=== PATIENT | male | born 1980 | race Caucasian/White ===

== ENCOUNTER 2020-07-02 10:37 | Outpatient (CLI) | payer SELFPAY ==
--- NOTE | 2020-07-02 10:48 | XRR_ITS ---
PROCEDURE INFORMATION: Exam: XR Lumbosacral Spine, 2 or 3 Views Exam date and time: 07/02/2020 11:06 AM Age: 40 years old Clinical indication: Low back pain; Prior surgery; Additional info: M54.5 - low back pain TECHNIQUE: Imaging protocol: XR of the lumbosacral spine, 2 or 3 views. COMPARISON: No relevant prior studies available. FINDINGS: Bones/joints: Mild degenerative disc disease reflected as a decrease in disc space height and anterior endplate osteophytosis. Severe disc space narrowing L5-S1. No spondylolisthesis L5 pars defect. No fracture. Soft tissues: Unremarkable. XR/XR lumbar spine 2-3V* [id number] IMPRESSION: Mild degenerative disc disease reflected as a decrease in disc space height and anterior endplate osteophytosis. Severe disc space narrowing L5-S1. pars defect L5. Consider correlation with CT versus MRI.
== END 2020-07-02 10:38 | disposition home or self-care (01) ==
PROVIDERS: PCP Nurse Practitioner; Visit Provider Nurse Practitioner
DX: M54.5 Low back pain (principal); M51.36 Other intervertebral disc degeneration, lumbar region
CPT/HCPCS: 72100

== ENCOUNTER → 2020-09-02 10:18 | Outpatient (BNVA) | payer SELFPAY | PROVIDERS: PCP Nurse Practitioner; Visit Provider Nurse Practitioner | DX: I10 Essential (primary) hypertension (principal); M51.36 Other intervertebral disc degeneration, lumbar region | CPT/HCPCS: 80053; 80061; 81003; 87086 ==

== ENCOUNTER 2021-01-06 09:31 | Outpatient (CLI) | payer OTHER, SELFPAY ==
--- NOTE | 2021-01-06 09:39 | XR_ITS ---
WS: [id number] LUMBAR SPINE: 3 VIEWS TECHNIQUE: AP, lateral and L5-S1 spot. HISTORY: BACK PAIN COMPARISON: 07/02/2020 Severe degenerative disc space narrowing at L5-S1. L5 anterolisthesis by 16 mm. Bilateral pars defect s at L5. Otherwise the alignment is normal. Remaining discs are normal height. SI joints are symmetric bilaterally. No soft tissue abnormalities. XR/XR lumbar spine 2-3V* [id number] IMPRESSION: Grade 2 spondylolisthesis of L5 with spondylolysis.
== END 2021-01-06 09:32 | disposition home or self-care (01) ==
LOC: RAD 09:34
PROVIDERS: PCP Nurse Practitioner; Visit Provider Dermatology
DX: M54.5 Low back pain (principal); M43.16 Spondylolisthesis, lumbar region; M47.816 Spondylosis without myelopathy or radiculopathy, lumbar region
CPT/HCPCS: 72100

== ENCOUNTER → 2021-07-01 08:49 | Outpatient (BNVA) | payer SELFPAY | PROVIDERS: PCP Nurse Practitioner; Referring Provider Nurse Practitioner; Visit Provider Anesthesiology Pain Medicine | DX: G89.29 Other chronic pain (principal); M43.16 Spondylolisthesis, lumbar region; M48.062 Spinal stenosis, lumbar region with neurogenic claudication; M51.36 Other intervertebral disc degeneration, lumbar region; E66.01 Morbid (severe) obesity due to excess calories; M79.604 Pain in right leg; M79.605 Pain in left leg; Z68.42 Body mass index [BMI] 45.0-49.9, adult; Z79.899 Other long term (current) drug therapy | CPT/HCPCS: 99205 ==

== ENCOUNTER 2023-03-11 23:58 | Inpatient (IN) | payer OTHER, BC, MEDICAID, SELFPAY ==
[2023-03-12] VITALS (26 sets, daily range): BP systolic 110–170; BP diastolic 61–90; PULSE 84–122; RESP 16–22; TEMP 36.7–38.8; O2SAT 90–98; BMI 42.0
--- NOTE | 2023-03-12 00:59 | ED_ITS ---
HPI - Wound/Laceration General: Chief Complaint: Wound/Laceration Stated Complaint: CYST RUPTURE ON BUTT Time Seen by Provider: 03/12/23 00:58 History of Present Illness: 42-year-old male patient comes in today with a reported rupture of the pilonidal cyst and then area of redness and induration to the right buttock. Patient reports for about 1 to 2 months he has had this cyst on his tailbone that has been red and sore. Patient was seen by Dr. Graham mid January and was started on antibiotics, Bactrim DS, after 10 days patient then saw primary care in [place] and was prescribed cephalexin with some pain medication. Patient has been without the antibiotics and pain medicine for about 6days reports he has been unable to get sleep for last three days during that time and has had increasing pain and discomfort to his tailbone and right buttock. Patient appears unwell. Patient appears in moderate pain. Review of Systems General: Reports: 10 or more systems reviewed and unremarkable except in HPI and below Skin/Breast: Reports: erythema and sores PFSH ED PFSH: Medical History Essential (primary) hypertension Metabolic syndrome Morbid obesity with BMI of 45.0-49.9, adult Surgical History History of nasal surgery History of surgical removal of pilonidal cyst Family History Mother Diabetes Hypertension Father Cancer Hypertension Other Hyperlipidemia Social History Second hand smoke exposure: No Smoking risk assessment/counseling performed?: Yes Alcohol intake: never Desire information about alcohol rehabilitation?: No Counseling given: No Substance/Drug Use: never Desire information about substance/drug rehabilitation?: No Counseling given: No Adopted: No Caregiver/support person: No Lives independently: Yes Household members: significant other Housing: House Marital status: Number of children: 2 Highest education level completed: High School Graduate service: No Current occupational status: unemployed Current occupational exposures/hazards: No Pets and animals: Yes Do you think of yourself as: Straight/Heterosexual Current gender identity: Male Physical Exam Const: COMMON NORMALS: alert HENMT: COMMON NORMALS: normocephalic HEAD & SCALP: normocephalic Neck/C-Spine: COMMON NORMALS: full ROM Chest: COMMONS NORMALS: normal inspection of the chest Cardio: COMMON NORMALS: regular rate and regular rhythm RATE: regular rate RHYTHM: regular rhythm GI: COMMON NORMALS: Soft to palpation PALPATION: Yes Soft to palpation OTHER: Redness and induration to an area approximately 12 to 15 cm to the right buttock with a centralized eschar lesion, draining pilonidal cyst to the sacral area. Back/Pelvis: COMMON NORMALS: thoracic and lumbar spine normal to inspection Extremity: COMMON NORMALS: full ROM Neuro: SENSORIUM/ORIENTATION: Yes alert Skin: NARRATIVE SKIN EXAM: Draining pilonidal cyst with minimal redness and induration. 4 cm area of eschar with surrounding induration and redness approximately 14 cm to the right buttock. Course Vital Signs: Vital signs: Vital Signs Temperature 98.4 F 03/12/23 00:03 Pulse Rate 118 H 03/12/23 00:03 Respiratory Rate 18 03/12/23 00:03 Pulse Oximetry 92 03/12/23 00:03 Oxygen Delivery Me thod Room Air 03/12/23 00:03 MDM - Wound/Laceration Medical Decision Making 42-year-old male patient comes in today for complaints of increasing pain and discomfort to the right buttock and a draining pilonidal cyst. Patient reports he has had drainage from the cyst for about 1 to 2 months now. Patient notes that he had a small wound to his right buttock last month but it has enlarged and now his right buttock has become more swollen and tender to touch. Patient denies diabetes but takes metformin routinely. Patient is diaphoretic and appears unwell. Vital signs note an elevated pulse of 118, patient is afebrile. Differential diagnosis includes necrotizing fasciitis, cellulitis, abscess. Laboratory values noted white blood cell count of 18.5, sodium was 129, glucose was 558. Patient was given 2 L of IV fluids, 10 units of insulin, 1 g of bank, and 4.[address] of the pelvis noted an abscess deep in the buttock of the right tissue. Discussed with Dr. Graham, general surgeon on-call, he agreed to consult with the patient for incision and drainage. Dr. Meade was consulted for admission to hospitalist services. Dr. Cruz, ER attending physician, agreed to treatment plan. Patient was notified and agreed to plan. Lab Data 03/12/23 01:15 03/12/23 01:[address] 03/12/23 01:09 IMPRESSION: Increased density in the right buttock soft tissues extending along the right perirectal space, right pelvic sidewall and between the right gluteus medius and vladimir muscles. Differential includes hematoma and infection. Underlying neoplasm cannot be excluded. There is surrounding soft tissue cellulitis. Laboratory Results WBC 18.5 10^3/uL (4.0-10.0) H 03/12/23 01:15 RBC 4.29 10^6/uL (4.1-5.3) 03/12/23 01:15 Hgb 11.9 g/dL (11.7-16.6) 03/12/23 01:15 Hct 36.4 % (42.0-52.0) L 03/12/23 01:15 MCV 84.8 fl (80-94) 03/12/23 01:15 MCH 27.7 pg (28.0-34.0) L 03/12/23 01:15 MCHC 32.7 g/dL (30.0-36.0) 03/12/23 01:15 RDW 13.1 % (12.1-15.1) 03/12/23 01:15 Plt Count 385 10^3/cmm (130-400) 03/12/23 01:15 MPV 9.8 fL (7.4-10.4) 03/12/23 01:15 Neut % (Auto) 78.7 % 03/12/23 01:15 Lymph % (Auto) 9.0 % 03/12/23 01:15 [place] % (Auto) 8.2 % 03/12/23 01:15 Eos % (Auto) 1.8 % 03/12/23 01:15 Baso % (Auto) 0.5 % 03/12/23 01:15 Neut # (Auto) 14.50 10^3/uL (1.8-7.7) H 03/12/23 01:15 Lymph # (Auto) 1.7 10^3/uL (0.8-4.8) 03/12/23 01:15 [place] # (Auto) 1.5 10^3/uL (0.2-0.9) H 03/12/23 01:15 Eos # (Auto) 0.3 10^3/uL (0.0-0.8) 03/12/23 01:15 Baso # (Auto) 0.1 10^3/uL (0.0-0.1) 03/12/23 01:15 Nucleated RBC % (auto) 0 % 03/12/23 01:15 Nucleated RBCs # 0.0 /100WBC 03/12/23 01:15 ESR 72 mm/hr (0-10) H 03/12/23 01:15 Sodium 129 mmol/L (136-145) L 03/12/23 01:15 Potassium 4.3 mmol/L (3.5-5.1) 03/12/23 01:15 Chloride 91 mmol/L (98-107) L 03/12/23 01:15 Carbon Dioxide 26 mmol/L (22-29) 03/12/23 01:15 Anion Gap 16.3 (5-19) 03/12/23 01:15 BUN 16 mg/dL (6-20) 03/12/23 01:15 Creatinine 0.8 mg/dL (0.7-1.2) 03/12/23 01:15 GFR Calculation 106.0 mL/min (90-130) 03/12/23 01:15 Glucose 558 mg/dL (65-115) H* 03/12/23 01:15 Estimat Average Glucose 295 03/12/23 01:15 Hemoglobin A1c 11.9 % (4.0-6.0) H 03/12/23 01:15 Calculated Osmolality 295 mOsm/kg (285-295) 03/12/23 01:15 Lactic Acid 2.2 mmol/L (0.5-2.2) 03/12/23 01:15 Calcium 8.6 mg/dL (8.5-10.5) 03/12/23 01:15 Total Bilirubin 0.2 mg/dL (0.15-1.2) 03/12/23 01:15 AST 11 U/L (0-40) 03/12/23 01:15 ALT 16 U/L (0-41) 03/12/23 01:15 Alkaline Phosphatase 135 U/L (40-130) H 03/12/23 01:15 C-Reactive Protein 298.3 mg/L (0.0-4.9) H 03/12/23 01:15 Total Protein 6.8 g/dL (6.6-8.7) 03/12/23 01:15 Albumin 2.4 g/dL (3.5-5.2) L 03/12/23 01:15 Globulin 4.4 g/dL (1.3-4.6) 03/12/23 01:15 Discharge Plan Discharge Patient Disposition: Admitted As Inpatient Clinical Impression: Abscess of buttock, right, Acute hyperglycemia Condition: Stable Coding Level of Care Code ED Wet Process Operator for Joe Sethi
--- NOTE | 2023-03-12 01:09 | CTR_ITS ---
PROCEDURE INFORMATION: Exam: CT Pelvis Without Contrast Exam date and time: 03/12/2023 1:32 AM Age: 42 years old Clinical indication: Prior surgery; Surgery date: 6+ months; Surgery type: Multiple i&d procedures due to abscess. Patient HX: Cellulitis to RT buttocks. ; Additional info: Cellulitis abscess buttock, and draining pilonidal cyst TECHNIQUE: Imaging protocol: Computed tomography of the pelvis without contrast. Radiation optimization: All CT scans at this facility use at least one of these dose optimization techniques: automated exposure control; mA and/or kV adjustment per patient size (includes targeted exams where dose is matched to clinical indication); or iterative reconstruction. REPORTING DATA: Count of CT and Cardiac NM exams in prior 12 months: This patient has received 0 known CTs and 0 known cardiac nuclear medicine studies in the 12 months prior to the current study. COMPARISON: CR XR lumbar spine 2-3V* [id number] 07/02/2020 10:59 AM RADIATION DOSE METRICS: Total DLP (mGy-cm): 1368.81 FINDINGS: Stomach and bowel: Visualized small bowel and colon are unremarkable. Appendix: No evidence of appendicitis. Intraperitoneal space: Unremarkable. No free air. No significant fluid collection. Lymph nodes: Unremarkable. No enlarged lymph nodes. Urinary bladder: Normal. No mass. Reproductive: Normal as visualized. Bones/joints: Unremarkable. No acute fracture. No dislocation. Soft tissues: There is increased density in the soft tissues inferior, medial, and posterior to the right gluteus vladimir muscle measuring 21.0 x 20.0 cm in the craniocaudad/AP dimensions extending to the skin surface of the inferior right buttock and along the right perirectal space extending along the right pelvic sidewall, right presacral space, along the right piriformis muscle, and between the gluteus medius and vladimir muscles. There is surrounding soft tissue cellulitis. CT/CT pelvis wo con [id number] IMPRESSION: Increased density in the right buttock soft tissues extending along the right perirectal space, right pelvic sidewall and between the right gluteus medius and vladimir muscles. Differential includes hematoma and infection. Underlying neoplasm cannot be excluded. There is surrounding soft tissue cellulitis.
[2023-03-12 01:30] LABS: Basophils # 0.1 10^3/uL (0.0-0.1); Basophils % 0.5 %; Eosinophils # 0.3 10^3/uL (0.0-0.8); Eosinophils % 1.8 %; Hematocrit 36.4 % (42.0-52.0); Hemoglobin 11.9 g/dL (11.7-16.6); Lymphocytes # 1.7 10^3/uL (0.8-4.8); Mean Corpuscular HGB Conc 32.7 g/dL (30.0-36.0); Mean Corpuscular Hemoglobin 27.7 pg (28.0-34.0); Mean Corpuscular Volume 84.8 fl (80-94); Mean Platelet Volume 9.8 fL (7.4-10.4); Monocytes # 1.5 10^3/uL (0.2-0.9); Monocytes % 8.2 %; Neutrophils % 78.7 %; Nucleated Red Blood Cells % 0 %; Platelet Count 385 10^3/cmm (130-400); Red Blood Count 4.29 10^6/uL (4.1-5.3); Red Cell Distribution Width 13.1 % (12.1-15.1); White Blood Count 18.5 10^3/uL (4.0-10.0)
[2023-03-12 01:45] LABS: Lactic Sepsis W/Reflex 2.2 mmol/L (0.5-2.2)
[2023-03-12] MEDS: morphine 4 mg/mL SDV 1 mL IVP (01:46)
[2023-03-12 01:47] LABS: Erythrocyte Sedimentation Rate 72 mm/hr (0-10)
[2023-03-12] MEDS: sodium chloride 0.9% 1,000 ML 999 ML IV ×2 (01:49→02:29)
[2023-03-12] MEDS: piperacillin-tazobactam 4.5 GM in sodium chloride 0.9% (plus) 50 ML IV (01:49)
[2023-03-12 01:51] LABS: Alanine Aminotransferase 16 U/L (0-41); Albumin Level 2.4 g/dL (3.5-5.2); Alkaline Phosphatase 135 U/L (40-130); Anion Gap 16.3 (5-19); Aspartate Amino Transferase 11 U/L (0-40); Blood Urea Nitrogen 16 mg/dL (6-20); C Reactive Protein 298.3 mg/L (0.0-4.9); Calcium 8.6 mg/dL (8.5-10.5); Carbon Dioxide 26 mmol/L (22-29); Chloride 91 mmol/L (98-107); Globulin 4.4 g/dL (1.3-4.6); Osmolality Calculated 295 mOsm/kg (285-295); Potassium 4.3 mmol/L (3.5-5.1); Sodium 129 mmol/L (136-145); Total Bilirubin 0.2 mg/dL (0.15-1.2); Total Protein 6.8 g/dL (6.6-8.7)
[2023-03-12 02:03] LABS: Slide Review Slide Review Perform
[2023-03-12 02:04] LABS: Glucose 558 mg/dL (65-115)
[2023-03-12] MEDS: insulin regular-human 100 units/1 mL 10 UNIT IVP (02:20)
[2023-03-12] MEDS: vancomycin 1,000 MG in sodium chloride 0.9% 250 ML 250 MG IV (02:29)
[2023-03-12 02:32] LABS: Estmated Average Glucose 295; Hemoglobin A1C 11.9 % (4.0-6.0)
[2023-03-12 03:13] LABS: Reflex Lactate Order REFLEX LACTIC ORDERD
--- NOTE | 2023-03-12 04:09 | P.HP_ITS ---
Providers/Chief Complaint Admitting Physician: Lorenzo Meade MD Primary Care Provider: MAZIN Zhu-Melly Chief Complaint: CYST RUPTURE ON BUTT History of Present Illness Brian Villatoro is a 42 year old male with history of pilonidal cyst, multiple surgeries around gluteal region in the past, presented to the hospital for worsening of back pain. Patient is stating that he has been experiencing symptoms for last 1 month he was scheduled for surgery on 22 March however because of his worsening symptoms he decided to come to the hospital. Patient stating that he noticed some redness around his right gluteal region and asked his son to take a look, his son asked him to go to the hospital right away because skin was sloughed off and there was pus coming out of his wound. Patient is denying nausea, vomiting, fever. When I questioned patient about diabetes patient had no clue he never took any medication regarding his hyperglycemia. Stating that we diagnosed him with high blood sugar in the ER. However there is metformin in his home med rec. SIRS criteria met with tachypnea tachycardia leukocytosis lactic acid is normal no endorgan damage Patient was given 2 L of IV fluids along insulin and antibiotics in the ER his hemoglobin A1c is 11.9 Review of Systems Const: Reports: chills Eyes: Denies: change in vision ENMT: Denies: throat pain Card: Denies: chest pain Resp: Denies: dyspnea GI: Denies: abdominal pain : Denies: flank pain Musc: Reports: back pain Skin/Breast: Reports: rash Medications/Allergies Home Medications Medication Instructions Recorded Confirmed Last Taken Type metformin 500 mg tablet,extended 500 mg PO BID #60 tabs 06/12/21 03/02/23 U nknown Rx release 24 hr meloxicam 15 mg tablet 15 mg PO DAILY pain #30 tabs 07/01/21 03/02/23 Unknown Rx tizanidine 4 mg tablet 4 mg PO BID PRN muscle spasticity 07/01/21 03/02/23 Unknown Rx #60 tabs gabapentin 300 mg capsule 300 mg PO TID pain #90 caps 08/04/21 03/02/23 Unknown Rx amlodipine 10 mg tablet (Norvasc) 10 mg PO DAILY #30 tabs 01/25/23 03/02/23 Unknown Rx atorvastatin 10 mg tablet (Lipitor) 10 mg PO DAILY #30 tabs 01/25/23 03/02/23 Unknown Rx duloxetine 60 mg capsule,delayed 60 mg PO BID #60 caps 01/25/23 03/02/23 Unknown Rx release (Cymbalta) furosemide 20 mg tablet (Lasix) 20 mg PO QAM #30 tabs 01/25/23 03/02/23 Unknown Rx hydralazine 50 mg tablet 50 mg PO TID #90 tabs 01/25/23 03/02/23 Unknown Rx valsartan 320 mg tablet (Diovan) 320 mg PO DAILY #30 tabs 01/25/23 03/02/23 Unknown Rx sulfamethoxazole 800 1 tab PO BID 10 days #20 tabs 02/09/23 03/02/23 Unknown Rx mg-trimethoprim 160 mg tablet (Bactrim DS) cephalexin 500 mg capsule 500 mg PO QID infection #40 caps 02/25/23 03/02/23 Unknown Rx Lactobacillus rhamnosus GG 20 See Rx Instructions PO .2 times 03/02/23 03/02/23 Unknown Rx billion cell capsule (Probiotic day #60 caps [facility]) mupirocin 2 % topical ointment 1 applic topical BID #22 grams 03/02/23 03/02/23 Unknown Rx oxycodone-acetaminophen 7.5 mg-325 1 tab PO Q4H PRN pain 15 days #60 03/09/23 Unknown Rx mg tablet tabs Allergies Allergy/AdvReac Type Severity Reaction Status Date / Time No Known Allergies Allergy Verified 03/02/23 15:04 PFSH Acute PFSH: Medical History Essential (primary) hypertension Metabolic syndrome Morbid obesity with BMI of 45.0-49.9, adult Surgical History History of nasal surgery History of surgical removal of pilonidal cyst Family History Mother Diabetes Hypertension Father Cancer Hypertension Other Hyperlipidemia Social History Second hand smoke exposure: No Smoking risk assessment/counseling performed?: Yes Alcohol intake: never Desire information about alcohol rehabilitation?: No Counseling given: No Substance/Drug Use: never Desire information about substance/drug rehabilitation?: No Counseling given: No Adopted: No Caregiver/support person: No Lives independently: Yes Household members: significant other Housing: House Marital status: Number of children: 2 Highest education level completed: High School Graduate service: No Current occupational status: unemployed Current occupational exposures/hazards: No Pets and animals: Yes Do you think of yourself as: Straight/Heterosexual Current gender identity: Male Vitals/I&O/Wt Last Vital Signs Temp 98.4 F 03/12/23 00:03 Pulse 84 03/12/23 03:35 Resp 20 H 03/12/23 03:35 BP 144/80 03/12/23 03:35 Pulse Ox 95 03/12/23 03:35 O2 Del Method Room Air 03/12/23 03:35 03/11/23 03/11/23 03/12/23 14:59 22:59 06:59 Intake Total 2300 / 2300 Balance 2300 / 2300 Weight last 48 hrs Weight 140.614 kg Physical Exam Narrative: Morbidly obese male laying left lateral position S1, S2 Nonfocal neuroexam Currently on room air Unkept appearance GCS 15 Pleasant and cooperative during my evaluation Abdomen distended nontender Right gluteal region showing abscess with skin sloughing Skin induration with hyperemia extending from right gluteal region all the way up towards gluteal cleft and sacral area Feculent material around his ulcer Data 03/12/23 01:15 03/12/23 01:15 Micro: Microbiology 03/12/23 01:20 Blood Culture - Preliminary Blood SPECIMEN COLLECTED 03/12/23 01:15 Blood Culture - Preliminary Blood SPECIMEN COLLECTED A&P Assessment and plan (1) New onset type 2 diabetes mellitus: (2) Abscess of buttock, right: (3) Acute hyperglycemia: (4) Pilonidal cyst with abscess: (5) Chronic recurrent pilonidal cyst: (6) Lumbar stenosis with neurogenic claudication: (7) Metabolic syndrome: (8) Morbid obesity with BMI of 45.0-49.9, adult: (9) Essential (primary) hypertension: Plan Gluteal abscess Pilonidal cyst multiple surgeries in the past Patient is diabetic with hemoglobin A1c extremely high Start patient on vancomycin and Zosyn Place [place] catheter to avoid contamination of his gluteal ulcer Dr. Graham consulted No signs of necrotizing fasciitis or Ángela's gangrene Monitor closely SIRS criteria met with tachypnea tachycardia leukocytosis however no fever I will go ahead start septic bolus Patient has received antibiotics Lactic acid high normal range Blood cultures taken Monitor closely for development of sepsis Type 2 diabetes with worsening of hemoglobin A1c, start Lantus with sliding scale Patient will need insulin at the time of discharge He will also need diabetic teaching At risk of recurrent infections for uncontrolled blood sugars He will need retinal exam and annual podiatry exam as well Seems to be noncompliant Metabolic syndrome Avoid lisinopril for hypertension for perioperative period Full code N.p.o. DVT prophylaxis: SCDs Attestations Medical Necessity Statement*: More than 2 midnights anticipated Diagnoses New onset type 2 diabetes mellitus E11.9 Abscess of buttock, right L02.31 Acute hyperglycemia R73.9 Pilonidal cyst with abscess L05.01 Chronic recurrent pilonidal cyst L05.91 Lumbar stenosis with neurogenic claudication M48.062 Metabolic syndrome E88.81 Morbid obesity with BMI of 45.0-49.9, adult E66.01; Z68.42 Essential (primary) hypertension I10
[2023-03-12 04:50] LABS: D Dimer 1.74 ug/mIFEU (0-0.59)
--- NOTE | 2023-03-12 04:56 | PC.PHAR ---
Pharmacokinetic dosing service Date: 03/12/23 Time: 0500 Objective: Patient: Brian Villatoro Floor: [address] Age: 42 yo Serum creatinine: 0.8 mg/dL Height: 72.0 Inches Weight (kg): 140.614 Diagnosis: Relevant medical/social history: Cultures and sensitivities: Other labs: Assessment: IBW (kg): 77.60 Dosing wt(kg): 140.614 Estimated Creatinine clearance (ml/min): 130 Clearance limited to 130 ml/min to reduce risk of overdosing. CRCL method: Cockcroft and Gault using ibw(default). Drug selected: Vancomycin Loading dose (mg): 0 Vd (liters): 126.6 (factor used: 0.9 L/kg) Edward (hr-1): 0.112 Half life (hrs): 6.19 Recommended dose: 2000 mg Interval: 8 hrs Infusion time (hrs): 1.5 Predicted peak (mcg/mL): 24.6 Predicted trough (mcg/mL): 11.88 Total body weight is being used for vancomycin dosing. Renal function is stable [ ] /unstable [ ] Recommendations: Give Vancomycin 2000 mg q 8 hrs with an expected Cpeak of 24.6 mcg/ml and an expected Ctrough of 11.88 mcg/ml Renal dosing of other antibiotics (review renal dosing of other medications and list guidelines here): Thank you for the consult, will continue to follow. Signature: Cat Yanes [facility]
[2023-03-12 05:06] LABS: Thyroid Stimulating Hormone 3.41 uIU/mL (0.27-4.20)
[2023-03-12] MEDS: morphine IR 15 mg Tablet PO ×2 (05:27→11:39)
[2023-03-12] MEDS: lactated ringers 1,000 ML 999 ML IV ×2 (05:28→06:55)
[2023-03-12] MEDS: insulin glargine 100 units/1 mL 10 UNIT SUBCUT ×2 (05:35→21:25)
[2023-03-12 06:27] LABS: Vitamin B12 1127 pg/mL (232-1245)
[2023-03-12 06:34] LABS: Glucose Point of Care 332 mg/dL (70-110)
[2023-03-12 08:29] LABS: Ketone (Acetest) Serum Negative (Negative)
[2023-03-12] MEDS: pantoprazole 40 mg SDV IVP ×2 (08:29→18:00)
[2023-03-12] MEDS: insulin lispro 100 unit/1 mL SUBCUT ×3 (08:29→18:00)
[2023-03-12 09:20] LABS: Glucose Point of Care 403 mg/dL (70-110)
[2023-03-12 09:39] LABS: Procalcitonin 0.52 ng/mL (0-0.5)
[2023-03-12] MEDS: HYDROmorphone 1 mg/mL INJ 1 mL 0.4 MG IVP (09:54)
[2023-03-12] MEDS: vancomycin 2,000 MG/400 ML PIGGYBACK 200 MG IV ×2 (09:58→18:00)
[2023-03-12] MEDS: sodium chloride 0.9% 1,000 ML 75 ML IV (09:58)
[2023-03-12 11:25] LABS: Glucose Point of Care 312 mg/dL (70-110)
[2023-03-12] MEDS: piperacillin-tazobactam 3.375 GM in sodium chloride 0.9% (plus) 50 ML IV ×2 (11:39→20:23)
[2023-03-12] MEDS: acetaminophen 500 mg Tablet PO ×2 (11:42→22:54)
--- NOTE | 2023-03-12 14:17 | ANES.PREANE2 ---
Pre-Anesthetic Assessment Height/Weight: Height 1.83 m Weight 140.614 kg Temp Pulse Resp BP Pulse Ox O2 Del Method 100.9 F H 122 H 20 H 168/82 90 Room Air 03/12/23 11:46 03/12/23 11:46 03/12/23 11:46 03/12/23 11:46 03/12/23 11:46 03/12/23 11:46 Operation Date: 03/12/23 14:40 Proposed Procedures p Incision And Drainage(Not Applicable) - Zach Graham DO Familial anesthetic complications: none Was Beta Astrid taken within 24 hours: N/A Was Clonidine taken within 24 hours: N/A Last intake: > 8hrs Social No alcohol and No tobacco Exam alert, oriented x 3, clear to auscultation bilaterally and regular rate & rhythm Airway Mallampati: Class IV Dentition: full CV/HEM Hypertension Metabolic Diabetes Mellitus (?) and Morbid Obesity Anesthetic Plan ASA status: 3 Anesthesia: General Risk of > 500 ml blood loss (7ml/kg in children): No Medications/Allergies Home Medications Medication Instructions Recorded Confirmed Last Taken Type mupirocin 2 % topical ointment 1 applic topical BID #22 grams 03/02/23 03/12/23 Unknown Rx oxycodone-acetaminophen 7.5 mg-325 1 tab PO Q4H PRN pain 15 days #60 03/09/23 03/12/23 Unknown Rx mg tablet tabs Allergies Allergy/AdvReac Type Severity Reaction Status Date / Time No Known Allergies Allergy Verified 03/02/23 15:04 Current Medications Generic Name Dose Route Start Last Admin Trade Name Freq PRN Reason Stop Dose Admin Acetaminophen 500 mg 03/12/23 04:32 03/12/23 11:42 Acetaminophen 500 Mg Tablet PO 500 mg Q4H PRN Administration fever Hydromorphone HCl 0.4 mg 03/12/23 04:32 03/12/23 09:54 Hydromorphone 1 Mg/Ml Inj 1 Ml IVP 0.4 mg Q4H PRN Administration pain Sodium Chloride 1,000 mls @ 75 mls/hr 03/12/23 04:45 03/12/23 09:58 Sodium Chloride 0.9% IV 75 mls/hr .[id number] AMILCAR Administration Piperacillin Sod/Tazobactam 50 mls @ 12.5 mls/hr 03/12/23 12:00 03/12/23 11:39 Sod 3.375 gm/ Sodium Chloride IV 12.5 mls/hr Q8H AMILCAR Administration Protocol Vancomycin/PEG/NADA/Lysine/Water 2,000 mg in 400 mls @ 200 mls/hr 03/12/23 10:00 03/12/23 12:39 Vancocin IV Infused Q8H AMILCAR Infusion Insulin Glargine 10 unit 03/12/23 04:40 03/12/23 05:35 Insulin Glargine 100 Units/1 Ml SUBCUT 10 unit BEDTIME AMILCAR Administration Insulin Human Lispro 0 unit 03/12/23 08:00 03/12/23 11:40 Insulin Lispro 100 Unit/1 Ml SUBCUT 12 unit TIDWM AMILCAR Administration Protocol Morphine Sulfate 15 mg 03/12/23 04:32 03/12/23 11:39 Morphine Ir 15 Mg Tablet PO 15 mg Q6H PRN Administration pAIN Pantoprazole Sodium 40 mg 03/12/23 09:00 03/12/23 08:29 Pantoprazole 40 Mg Sdv IVP 40 mg BID AMILCAR Administration PFSH Anesthesia Medical History Essential (primary) hypertension Metabolic syndrome Morbid obesity with BMI of 45.0-49.9, adult Surgical History History of nasal surgery History of surgical removal of pilonidal cyst Family History Mother Diabetes Hypertension Father Cancer Hypertension Other Hyperlipidemia Social History Second hand smoke exposure: No Smoking risk assessment/counseling performed?: Yes Alcohol intake: never Desire information about alcohol rehabilitation?: No Counseling given: No Substance/Drug Use: never Desire information about substance/drug rehabilitation?: No Counseling given: No Adopted: No Caregiver/support person: No Lives independently: Yes Household members: significant other Housing: House Marital status: Number of children: 2 Highest education level completed: High School Graduate service: No Current occupational status: unemployed Current occupational exposures/hazards: No Pets and animals: Yes Do you think of yourself as: Straight/Heterosexual Current gender identity: Male Data Anesthesia 03/12/23 01:15 03/12/23 01:15 Short CBC 03/12/23 Range/Units 01:15 WBC 18.5 H (4.0-10.0) 10^3/uL Hgb 11.9 (11.7-16.6) g/dL Hct 36.4 L (42.0-52.0) % MCV 84.8 (80-94) fl Plt Count 385 (130-400) 10^3/cmm Neut % (Auto) 78.7 % Neut # (Auto) 14.50 H (1.8-7.7) 10^3/uL BMP 03/12/23 01:15 Sodium 129 L Potassium 4.3 Chloride 91 L Carbon Dioxide 26 BUN 16 Creatinine 0.8 Glucose 558 H* Calcium 8.6 Liver Function 03/12/23 Range/Units 01:15 Total Bilirubin 0.2 (0.15-1.2) mg/dL AST 11 (0-40) U/L ALT 16 (0-41) U/L Alkaline Phosphatase 135 H (40-130) U/L Albumin 2.4 L (3.5-5.2) g/dL Coags 03/12/23 03/12/23 03/12/23 01:15 01:15 01:15 ESR 72 H D-Dimer 1.74 H C-Reactive Protein 298.3 H Microbiology 03/12/23 01:20 Blood Culture - Preliminary Blood SPECIMEN COLLECTED 03/12/23 01:15 Blood Culture - Preliminary Blood SPECIMEN COLLECTED Cardiac Studies: No Data to Display
[2023-03-12] MEDS: sodium chloride 0.9% 1,000 ML 30 ML IV (14:35)
--- NOTE | 2023-03-12 15:04 | P.HP_ITS ---
Providers/Chief Complaint Admitting Physician: Lorenzo Meade MD Primary Care Provider: ALFONSO Zhu Chief Complaint: CYST RUPTURE ON BUTT History of Present Illness Brian Villatoro is a 42 year old male with a history of pilonidal cystectomy x2, who presented to the emergency room with a perirectal abscess. He was already scheduled for a third excision of a pilonidal cyst by me. I did not perform the previous 2. He endorses fever and chills at home. He reports that the abscess busted open and drained all over his couch at home. He has pain at the site. P ain is constant and throbbing. Palpation makes pain worse. Nothing makes pain better. Review of Systems General: Reports: 10 or more systems reviewed and unremarkable except in HPI and below Medications/Allergies Home Medications Medication Instructions Recorded Confirmed Last Taken Type mupirocin 2 % topical ointment 1 applic topical BID #22 grams 03/02/23 03/12/23 Unknown Rx oxycodone-acetaminophen 7.5 mg-325 1 tab PO Q4H PRN pain 15 days #60 03/09/23 03/12/23 Unknown Rx mg tablet tabs Allergies Allergy/AdvReac Type Severity Reaction Status Date / Time No Known Allergies Allergy Verified 03/02/23 15:04 PFSH Acute PFSH: Medical History Essential (primary) hypertension Metabolic syndrome Morbid obesity with BMI of 45.0-49.9, adult Surgical History History of nasal surgery History of surgical removal of pilonidal cyst Family History Mother Diabetes Hypertension Father Cancer Hypertension Other Hyperlipidemia Social History Second hand smoke exposure: No Smoking risk assessment/counseling performed?: Yes Alcohol intake: never Desire information about alcohol rehabilitation?: No Counseling given: No Substance/Drug Use: never Desire information about substance/drug rehabilitation?: No Counseling given: No Adopted: No Caregiver/support person: No Lives independently: Yes Household members: significant other Housing: House Marital status: Number of children: 2 Highest education level completed: High School Graduate service: No Current occupational status: unemployed Current occupational exposures/hazards: No Pets and animals: Yes Do you think of yourself as: Straight/Heterosexual Current gender identity: Male Vitals/I&O/Wt Last Vital Signs Temp 99.5 F 03/12/23 14:18 Pulse 106 H 03/12/23 14:18 Resp 20 H 03/12/23 14:18 BP 136/74 03/12/23 14:18 Pulse Ox 92 03/12/23 14:18 O2 Del Method Room Air 03/12/23 14:18 03/12/23 03/12/23 03/12/23 06:59 14:59 22:59 Intake Total 3300 / 3300 1677.5 / 1677.5 Balance 3300 / 3300 1677.5 / 1677.5 Weight last 48 hrs Weight 310 lb Physical Exam Narrative: General : Patient is well developed , no acute distress, oriented x3 Head : Normal cephalic, a-traumatic. Ears : Pinnae and external canal are normal. Hearing is normal. Eyes : PERRLA, Sclera and injection are normal. No conjunctival discharge. Nose : Mucous membranes are without erythema. Throat : buccal mucosa is normal, gums are without significant recession or hypertrophy. Lungs : Equal chest rise bilaterally, no use of accessory muscles, trachea is midline. Cor : Rate and rhythm are normal. Abdomen : Soft, ND, NT, no g/r/m Skin: There is a perirectal abscess with drainage on the right buttock with exudate erythema and fluctuance along with induration Extremities : No edema, no cyanosis or clubbing, dorsalis pedis pulses are present bilaterally, non-tender to palpation of calves. Upper extremities are normal bilaterally. Back : non-tender to palpation, no CVA tenderness. Neuro : CN II - XII intact, Upper and lower extremities have equal and full strength Data 03/12/23 01:15 03/12/23 01:15 Micro: Microbiology 03/12/23 01:20 Blood Culture - Preliminary Blood SPECIMEN COLLECTED 03/12/23 01:15 Blood Culture - Preliminary Blood SPECIMEN COLLECTED A&P Assessment and plan (1) Perirectal abscess: (2) Sepsis: Plan Incision and drainage of perirectal abscess The risks and benefits of this procedure including but not limited to, bleeding, infection, scar, numbness, pain, recurrence, fistula formation, damage to surrounding structures, need for further surgery, were explained to the patient. He is understanding the risks and wishes to proceed. Attestations Medical Necessity Statement*: Patient requires at least 1 further night in the hospital for IV antibiotics to treat his sepsis along with wound care Coding Level of Care Code 95071 Diagnoses Perirectal abscess K61.1 Sepsis A41.9
[2023-03-12] MEDS: fentaNYL 50 mcg/mL INJ 2mL IVP (15:36)
--- NOTE | 2023-03-12 16:30 | PM.OP ---
Operative Report Date of procedure: March 12, 2023 Pre-op diagnosis: Perirectal abscess Post-op diagnosis: same Procedure done: Incision and drainage of perirectal abscess Implants: Iodine soaked Kerlix Specimens removed/disposition: Cultures Surgeon: Dr. Zach Graham DO Anesthesia: General Estimated blood loss (mL): 5 Complications: None apparent Brief History: Is a very pleasant 42-year-old gentleman who presented to the hospital with a very large perirectal abscess. He was found to be septic. Incision and drainage was indicated. The risk and benefits were explained and documented. Procedure: Patient was wheeled operative room placed on the OR table in supine position. General endotracheal intubation was achieved by department anesthesia. Time was performed. All present were in agreement. We then placed the patient in the left lateral decubitus position. The right buttock was inspected prepped and draped in usual sterile fashion. There was a large area of necrotic tissue which was superficial. A 10 blade scalpel was then used to make a 3 cm incision down through the dermis. Copious amounts of purulence spewed from the wound. Cultures were taken. A total of 1.5 L of purulence was manually expelled from the abscess cavity. Abscess cavity was then probed with hemostats and [place] suction. Copious amounts of normal saline and peroxide was used to irrigate the abscess cavity. An entire roll of iodine soaked Kerlix was placed into the abscess cavity. Sterile bandage was applied. Patient tolerated procedure well.
--- NOTE | 2023-03-12 17:35 | ANE.PACU2 ---
Inpatient post-anesthesia follow up: Airway intact: Yes Vital signs: Temperature 98.3 F Pulse Rate 99 Respiratory Rate 17 Blood Pressure 151/92 Pulse Oximetry 95 Oxygen Delivery Me thod Room Air Oxygen Flow Rate 2 Fraction of Inspir ed Oxygen Hydration adequate: Yes Pain level: 1 Mental status: Baseline
--- NOTE | 2023-03-12 17:50 | PM.PN ---
Subjective Subjective: Patient was seen this morning, he complains of increased pain, drainage, which is soaking of the sheets, on his right buttocks, reports fevers, chills, nausea, no vomiting Vitals/I&O/Wt Last Vital Signs Temp 98.6 F 03/12/23 17:00 Pulse 107 H 03/12/23 17:30 Resp 18 03/12/23 17:30 BP 134/80 03/12/23 17:30 Pulse Ox 94 03/12/23 17:30 O2 Del Method Room Air 03/12/23 17:30 O2 Flow Rate 8 03/12/23 17:19 03/12/23 03/12/23 03/12/23 06:59 14:59 22:59 Intake Total 3300 / 3300 1677.5 / 1677.5 0 / 1677.5 Output Total 5 / 5 Balance 3300 / 3300 1677.5 / 1677.5 -5 / 1672.5 Weight last 48 hrs Weight 140.614 kg Physical Exam Const: COMMON NORMALS: no acute distress and patient oriented x3 Resp: COMMON NORMALS: normal respiratory effort, No retractions, No use of accessory muscles and clear to auscultation bilaterally AUSCULTATION: clear to auscultation bilaterally Cardio: COMMON NORMALS: regular rate, regular rhythm, S1 normal heart sound present and S2 normal heart sound present RATE: regular rate RHYTHM: regular rhythm HEART SOUNDS: S1 normal heart sound present and S2 normal heart sound present GI: COMMON NORMALS: Normal to inspection, nondistended, normoactive bowel sounds present and non-tender Extremity: COMMON NORMALS: no pedal edema Neuro: COMMON NORMALS: patient oriented x3 Psych: COMMON NORMALS: mental status grossly normal Skin: NARRATIVE SKIN EXAM: Right buttocks, abscess, open area measuring 5 x 5 cm with open drainage, area of erythema extends from the right buttocks, to the right thigh, Data 03/12/23 01:15 03/12/23 01:15 Micro: Microbiology 03/12/23 01:20 Blood Culture - Preliminary Blood SPECIMEN COLLECTED 03/12/23 01:15 Blood Culture - Preliminary Blood SPECIMEN COLLECTED A&P Assessment and plan (1) New onset type 2 diabetes mellitus: (2) Abscess of buttock, right: (3) Acute hyperglycemia: (4) Pilonidal cyst with abscess: (5) Chronic recurrent pilonidal cyst: (6) Lumbar stenosis with neurogenic claudication: (7) Metabolic syndrome: (8) Morbid obesity with BMI of 45.0-49.9, adult: (9) Essential (primary) hypertension: Plan Perirectal /gluteal abscess Pilonidal cyst multiple surgeries in the past Patient is diabetic with hemoglobin A1c extremely high Continue vancomycin and Zosyn Place [place] catheter to avoid contamination of his gluteal ulcer Dr. Graham consulted Monitor closely SIRS criteria met with tachypnea tachycardia leukocytosis however no fever Patient has received antibiotics Lactic acid high normal range Blood cultures taken Monitor closely for development of sepsis Type 2 diabetes with worsening of hemoglobin A1c, continue Lantus with sliding scale Patient will need insulin at the time of discharge He will also need diabetic teaching At risk of recurrent infections for uncontrolled blood sugars He will need retinal exam and annual podiatry exam as well Seems to be noncompliant Metabolic syndrome Avoid lisinopril for hypertension for perioperative period Full code N.p.o. DVT prophylaxis: SCDs, start Lovenox tonight Attestations Medical Necessity Statement*: Patient requires hospitalization for gluteal, perirectal abscess, requiring incision and drainage, IV antibiotics Diagnoses New onset type 2 diabetes mellitus E11.9 Abscess of buttock, right L02.31 Acute hyperglycemia R73.9 Pilonidal cyst with abscess L05.01 Chronic recurrent pilonidal cyst L05.91 Lumbar stenosis with neurogenic claudication M48.062 Metabolic syndrome E88.81 Morbid obesity with BMI of 45.0-49.9, adult E66.01; Z68.42 Essential (primary) hypertension I10
[2023-03-12 17:59] LABS: Glucose Point of Care 177 mg/dL (70-110)
[2023-03-12] MEDS: HYDROmorphone 1 mg/mL INJ 1 mL IVP (20:25)
[2023-03-12 21:25] LABS: Glucose Point of Care 165 mg/dL (70-110)
[2023-03-13] VITALS (10 sets, daily range): BP systolic 100–188; BP diastolic 41–101; PULSE 89–102; RESP 16–18; TEMP 36.8–37.4; O2SAT 89–96
[2023-03-13] MEDS: vancomycin 2,000 MG/400 ML PIGGYBACK 200 MG IV ×3 (01:32→17:33)
[2023-03-13 04:15] LABS: Basophils # 0.1 10^3/uL (0.0-0.1); Basophils % 0.6 %; Eosinophils # 0.8 10^3/uL (0.0-0.8); Eosinophils % 3.5 %; Hematocrit 32.9 % (42.0-52.0); Lymphocytes % 13.6 %; Mean Corpuscular HGB Conc 33.4 g/dL (30.0-36.0); Mean Corpuscular Hemoglobin 28.4 pg (28.0-34.0); Mean Platelet Volume 10.7 fL (7.4-10.4); Monocytes # 2.6 10^3/uL (0.2-0.9); Monocytes % 11.8 %; Neutrophils # 14.31 10^3/uL (1.8-7.7); Neutrophils % 65.8 %; Nucleated Red Blood Cells % 0.1 %; Platelet Count 505 10^3/cmm (130-400); Red Blood Count 3.87 10^6/uL (4.1-5.3); White Blood Count 21.8 10^3/uL (4.0-10.0)
[2023-03-13] MEDS: piperacillin-tazobactam 3.375 GM in sodium chloride 0.9% (plus) 50 ML IV ×3 (05:03→19:50)
[2023-03-13 06:45] LABS: Glucose Point of Care 204 mg/dL (70-110)
[2023-03-13] MEDS: HYDROmorphone 1 mg/mL INJ 1 mL IVP ×2 (08:29→21:36)
[2023-03-13] MEDS: pantoprazole 40 mg SDV IVP ×2 (08:41→17:33)
[2023-03-13] MEDS: insulin lispro 100 unit/1 mL SUBCUT ×3 (08:41→17:33)
--- NOTE | 2023-03-13 08:58 | PM.PN ---
Subjective Subjective: Patient seen and examined. Pain controlled. Vitals/I&O/Wt Last Vital Signs Temp 98.3 F 03/13/23 07:18 Pulse 99 03/13/23 07:18 Resp 17 03/13/23 08:29 BP 151/92 03/13/23 07:18 Pulse Ox 95 03/13/23 07:18 O2 Del Method Room Air 03/13/23 04:45 O2 Flow Rate 2 03/12/23 20:27 03/12/23 03/13/23 03/13/23 22:59 06:59 14:59 Intake Total 450 / 2127.5 450 / 2577.5 Output Total 500 / 505 Balance 445 / 2122.5 -50 / 2072.5 Weight last 48 hrs Weight 310 lb Physical Exam Narrative: General: No acute distress, awake alert and oriented x3 Skin: Dressing change to right buttock. Still some purulent drainage. Cellulitis improved Data 03/13/23 04:03 03/12/23 01:15 Micro: Microbiology 03/12/23 01:20 Blood Culture - Preliminary Blood NEGATIVE TO DATE 03/12/23 01:15 Blood Culture - Preliminary Blood NEGATIVE TO DATE A&P Assessment and plan (1) Perirectal abscess: (2) Sepsis: Plan Status post incision and drainage of perirectal abscess Twice daily dressing changes with 1 inch plain packing and 4 x 4 gauze Continue antibiotics and pain control Medical management per hospitalist Attestations Medical Necessity Statement*: Patient requires at least 1 more night in the hospital for wound care and IV antibiotics to treat his sepsis Coding Level of Care Code 19395 Diagnoses Perirectal abscess K61.1 Sepsis A41.9
[2023-03-13 09:34] LABS: Vancomycin Trough 12.1 ug/mL (10-15)
[2023-03-13 09:35] LABS: Alanine Aminotransferase 13 U/L (0-41); Albumin Level 1.9 g/dL (3.5-5.2); Alkaline Phosphatase 110 U/L (40-130); Anion Gap 12.1 (5-19); Aspartate Amino Transferase 14 U/L (0-40); Blood Urea Nitrogen 16 mg/dL (6-20); C Reactive Protein 300.7 mg/L (0.0-4.9); Carbon Dioxide 26 mmol/L (22-29); Chloride 98 mmol/L (98-107); Globulin 4.2 g/dL (1.3-4.6); Glomerular Filtration Rate 147.8 mL/min (90-130); Glucose 215 mg/dL (65-115); Magnesium 1.6 mg/dL (1.7-2.3); Osmolality Calculated 282 mOsm/kg (285-295); Potassium 4.1 mmol/L (3.5-5.1); Sodium 132 mmol/L (136-145); Total Bilirubin 0.5 mg/dL (0.15-1.2); Total Protein 6.1 g/dL (6.6-8.7)
[2023-03-13 10:20] LABS: Procalcitonin 0.43 ng/mL (0-0.5)
[2023-03-13 11:55] LABS: Glucose Point of Care 213 mg/dL (70-110)
[2023-03-13] MEDS: sodium chloride 0.9% 1,000 ML 50 ML IV (16:19)
--- NOTE | 2023-03-13 16:20 | P.PN_ITS ---
Subjective Subjective: Patient is status postdebridement yesterday, he is alert oriented x3, he had a fever 102 overnight, continues to have drainage from surgical site, serosanguineous, denies any headache, no blurry vision, no abdominal pain, no nausea, vomiting Vitals/I&O/Wt Last Vital Signs Temp 98.3 F 03/13/23 07:18 Pulse 99 03/13/23 07:18 Resp 17 03/13/23 08:29 BP 151/92 03/13/23 07:18 Pulse Ox 95 03/13/23 07:18 O2 Del Method Room Air 03/13/23 08:00 O2 Flow Rate 2 03/12/23 20:27 03/13/23 03/13/23 03/13/23 06:59 14:59 22:59 Intake Total 450 / 2577.5 930 / 930 Output Total 500 / 505 Balance -50 / 2072.5 930 / 930 Weight last 48 hrs Weight 140.614 kg Physical Exam Const: COMMON NORMALS: no acute distress and patient oriented x3 Resp: COMMON NORMALS: normal respiratory effort, No retractions, No use of accessory muscles and clear to auscultation bilaterally AUSCULTATION: clear to auscultation bilaterally Cardio: COMMON NORMALS: regular rate, regular rhythm, S1 normal heart sound present and S2 normal heart sound present RATE: regular rate RHYTHM: regular rhythm HEART SOUNDS: S1 normal heart sound present and S2 normal heart sound present GI: COMMON NORMALS: Normal to inspection, nondistended, normoactive bowel sounds present and non-tender Extremity: COMMON NORMALS: no pedal edema Neuro: COMMON NORMALS: patient oriented x3 Psych: COMMON NORMALS: mental status grossly normal Data 03/13/23 04:03 03/13/23 08:50 Micro: Microbiology 03/12/23 16:44 Wound Culture - Preliminary Other Source Gram Negative Rods 03/12/23 01:20 Blood Culture - Preliminary Blood NEGATIVE TO DATE 03/12/23 01:15 Blood Culture - Preliminary Blood NEGATIVE TO DATE A&P Assessment and plan (1) New onset type 2 diabetes mellitus: (2) Abscess of buttock, right: (3) Acute hyperglycemia: (4) Pilonidal cyst with abscess: (5) Chronic recurrent pilonidal cyst: (6) Lumbar stenosis with neurogenic claudication: (7) Metabolic syndrome: (8) Morbid obesity with BMI of 45.0-49.9, adult: (9) Essential (primary) hypertension: (10) Cellulitis: (11) Sepsis: (12) Perirectal abscess: Plan Perirectal /gluteal abscess Cellulitis Pilonidal cyst multiple surgeries in the past Patient is diabetic with hemoglobin A1c extremely high Status post surgical debridement postop day 1, Dr. Graham Continue vancomycin and Zosyn Place [place] catheter to avoid contamination of his gluteal ulcer Dr. Graham consulted Monitor closely Sepsis criteria met with tachypnea tachycardia leukocytosis fever, with source of infection Patient has received antibiotics Lactic acid high normal range Blood cultures taken Monitor closely for development of sepsis Type 2 diabetes with worsening of hemoglobin A1c, continue Lantus with sliding scale Patient will need insulin at the time of discharge He will also need diabetic teaching At risk of recurrent infections for uncontrolled blood sugars He will need retinal exam and annual podiatry exam as well Seems to be noncompliant Metabolic syndrome Avoid lisinopril for hypertension for perioperative period Full code Diabetic diet DVT prophylaxis: SCDs,Lovenox tonight Attestations Medical Necessity Statement*: Patient requires hospitalization for perirectal gluteal abscess, with SIRS, with high-grade fevers requiring broad-spectrum antibiotic therapy, surgical debridement, Diagnoses New onset type 2 diabetes mellitus E11.9 Abscess of buttock, right L02.31 Acute hyperglycemia R73.9 Pilonidal cyst with abscess L05.01 Chronic recurrent pilonidal cyst L05.91 Lumbar stenosis with neurogenic claudication M48.062 Metabolic syndrome E88.81 Morbid obesity with BMI of 45.0-49.9, adult E66.01; Z68.42 Essential (primary) hypertension I10 Cellulitis L03.90 Sepsis A41.9 Perirectal abscess K61.1
[2023-03-13 16:42] LABS: Glucose Point of Care 195 mg/dL (70-110)
[2023-03-13 20:39] LABS: Glucose Point of Care 230 mg/dL (70-110)
[2023-03-13] MEDS: insulin glargine 100 units/1 mL 10 UNIT SUBCUT (21:41)
[2023-03-13] MEDS: enoxaparin 40 mg/0.4 mL Syringe SUBCUT (21:42)
--- NOTE | 2023-03-13 23:42 | PC.NURSE ---
Orders for dressing change: to be packed twice daily with dry packing. Pt's dressing was fully saturated with serosangiuneous, purulent drainage. Administered dilaudid to patient prior to dressing change. Foam tape and packing removed, copious amounts of drainage began pouring from the wound. Allowed wound to drain for approximately five minutes before packing thoroughly with dry packing, covering with 4x4s and foam tape. Pt tolerated dressing change very poorly.
[2023-03-14] VITALS (11 sets, daily range): BP systolic 169–190; BP diastolic 93–119; PULSE 81–94; RESP 16–19; TEMP 36.7–36.9; O2SAT 88–96
[2023-03-14] MEDS: vancomycin 2,000 MG/400 ML PIGGYBACK 200 MG IV ×3 (02:29→21:14)
--- NOTE | 2023-03-14 05:42 | PC.NURSE ---
was in patients room with transmitter supervisor and patient angerly stated If i get stuck one more fucking time im leaving this hospital.
[2023-03-14] MEDS: piperacillin-tazobactam 3.375 GM in sodium chloride 0.9% (plus) 50 ML IV ×3 (06:18→20:18)
[2023-03-14 06:34] LABS: Glucose Point of Care 195 mg/dL (70-110)
[2023-03-14] MEDS: insulin lispro 100 unit/1 mL SUBCUT ×3 (09:54→18:10)
[2023-03-14] MEDS: spironolactone 25 mg Tablet PO (09:55)
[2023-03-14] MEDS: pantoprazole 40 mg SDV IVP ×2 (09:55→18:35)
[2023-03-14 09:57] LABS: Hematocrit 34.3 % (42.0-52.0); Hemoglobin 11.3 g/dL (11.7-16.6); Mean Corpuscular HGB Conc 32.9 g/dL (30.0-36.0); Mean Corpuscular Hemoglobin 27.8 pg (28.0-34.0); Mean Corpuscular Volume 84.5 fl (80-94); Mean Platelet Volume 9.5 fL (7.4-10.4); Platelet Count 464 10^3/cmm (130-400); Red Blood Count 4.06 10^6/uL (4.1-5.3); Red Cell Distribution Width 13.4 % (12.1-15.1); White Blood Count 15.1 10^3/uL (4.0-10.0)
[2023-03-14 10:12] LABS: Lactate (Lactic Acid level) 0.8 mmol/L (0.5-2.2)
[2023-03-14 10:26] LABS: C Reactive Protein 145.1 mg/L (0.0-4.9)
[2023-03-14 10:27] LABS: Anion Gap 15.1 (5-19); Blood Urea Nitrogen 15 mg/dL (6-20); Calcium 7.4 mg/dL (8.5-10.5); Carbon Dioxide 24 mmol/L (22-29); Chloride 98 mmol/L (98-107); Glomerular Filtration Rate 147.8 mL/min (90-130); Glucose 230 mg/dL (65-115); Osmolality Calculated 284 mOsm/kg (285-295); Potassium 4.1 mmol/L (3.5-5.1); Sodium 133 mmol/L (136-145)
[2023-03-14 10:34] LABS: Procalcitonin 0.23 ng/mL (0-0.5)
[2023-03-14 10:39] LABS: Slide Review Slide Review Perform
[2023-03-14 10:42] LABS: Absolute Eosinophils 0.4 10^3/cmm (0.0-0.7); Absolute Segmented Neutrophil 8.3 10/cmm (1.6-7.1); Eosinophils 3 %; Lymphocytes 18 %; Lymphocytes Absolute 2.7 10^3/cmm (1.2-3.4); Monocytes Absolute 1.2 10^3/cmm (0.1-0.6); Segmented Neutrophils 55 %; Total Cells Counted 100 (0-100)
[2023-03-14 10:43] LABS: Absolute Neutrophil 10.3 10^3/cmm (1.4-6.5); Platelet Estimate Increased (Normal)
[2023-03-14] MEDS: HYDROmorphone 1 mg/mL INJ 1 mL IVP ×2 (11:41→20:37)
[2023-03-14 12:08] LABS: Glucose Point of Care 178 mg/dL (70-110)
[2023-03-14] MEDS: amlodipine 10 mg Tablet PO (12:47)
--- NOTE | 2023-03-14 15:18 | PM.PN ---
Subjective Subjective: Patient was seen this morning, denies any fevers overnight, his blood pressures are elevated, no headache, blurry vision, continues to complain of wound site Vitals/I&O/Wt Last Vital Signs Temp 98.4 F 03/14/23 12:31 Pulse 85 03/14/23 12:31 Resp 19 H 03/14/23 12:31 BP 187/106 03/14/23 12:31 Pulse Ox 90 03/14/23 12:31 O2 Del Method Room Air 03/14/23 12:31 O2 Flow Rate 2 03/12/23 20:27 03/14/23 03/14/23 03/14/23 06:59 14:59 22:59 Intake Total 825 / 3777.5 1290 / 1290 Output Total 525 / 925 Balance 300 / 2852.5 1290 / 1290 Physical Exam Const: COMMON NORMALS: no acute distress and patient oriented x3 Resp: COMMON NORMALS: normal respiratory effort, No retractions, No use of accessory muscles and clear to auscultation bilaterally AUSCULTATION: clear to auscultation bilaterally Cardio: COMMON NORMALS: regular rate, regular rhythm, S1 normal heart sound present and S2 normal heart sound present RATE: regular rate RHYTHM: regular rhythm HEART SOUNDS: S1 normal heart sound present and S2 normal heart sound present GI: COMMON NORMALS: Normal to inspection, nondistended, normoactive bowel sounds present and non-tender Extremity: COMMON NORMALS: no pedal edema Neuro: COMMON NORMALS: patient oriented x3 Psych: COMMON NORMALS: mental status grossly normal Data 03/14/23 09:39 03/14/23 09:39 Micro: Microbiology 03/12/23 16:44 Gram Stain - Final Other Source Anaerobic Culture - Preliminary Wound Culture - Preliminary Gram Negative Rods A&P Assessment and plan (1) New onset type 2 diabetes mellitus: (2) Abscess of buttock, right: (3) Acute hyperglycemia: (4) Pilonidal cyst with abscess: (5) Chronic recurrent pilonidal cyst: (6) Lumbar stenosis with neurogenic claudication: (7) Metabolic syndrome: (8) Morbid obesity with BMI of 45.0-49.9, adult: (9) Essential (primary) hypertension: (10) Cellulitis: (11) Sepsis: (12) Perirectal abscess: Plan Perirectal /gluteal abscess Cellulitis Pilonidal cyst multiple surgeries in the past Patient is diabetic with hemoglobin A1c extremely high Status post surgical debridement postop day 2, Dr. Graham Continue vancomycin and Zosyn Place [place] catheter to avoid contamination of his gluteal ulcer Dr. Graham consulted Monitor closely Sepsis criteria met with tachypnea tachycardia leukocytosis fever, with source of infection Patient has received antibiotics Lactic acid high normal range Blood cultures taken Monitor closely for development of sepsis Type 2 diabetes with worsening of hemoglobin A1c, continue Lantus with sliding scale Patient will need insulin at the time of discharge He will also need diabetic teaching At risk of recurrent infections for uncontrolled blood sugars He will need retinal exam and annual podiatry exam as well Seems to be noncompliant Metabolic syndrome Avoid lisinopril for hypertension for perioperative period Full code Diabetic diet DVT prophylaxis: SCDs,Lovenox tonight Plan for today, continue IV antibiotics, blood pressure control, add Norvasc to blood pressure medications, add spironolactone, monitor hemoglobin, monitor electrolytes, monitor for fevers, monitor cultures Attestations Medical Necessity Statement*: Patient requires hospitalization for perirectal, gluteal abscess, requiring IV antibiotic treatments, elevated CRP, elevated white count, blood pressure control, type 2 diabetes mellitus Diagnoses New onset type 2 diabetes mellitus E11.9 Abscess of buttock, right L02.31 Acute hyperglycemia R73.9 Pilonidal cyst with abscess L05.01 Chronic recurrent pilonidal cyst L05.91 Lumbar stenosis with neurogenic claudication M48.062 Metabolic syndrome E88.81 Morbid obesity with BMI of 45.0-49.9, adult E66.01; Z68.42 Essential (primary) hypertension I10 Cellulitis L03.90 Sepsis A41.9 Perirectal abscess K61.1
--- NOTE | 2023-03-14 15:42 | PM.PN ---
Subjective Subjective: Patient seen and examined. Pain controlled. Vitals/I&O/Wt Last Vital Signs Temp 98.4 F 03/14/23 12:31 Pulse 85 03/14/23 12:31 Resp 19 H 03/14/23 12:31 BP 187/106 03/14/23 12:31 Pulse Ox 90 03/14/23 12:31 O2 Del Method Room Air 03/14/23 12:31 O2 Flow Rate 2 03/12/23 20:27 03/14/23 03/14/23 03/14/23 06:59 14:59 22:59 Intake Total 825 / 3777.5 1290 / 1290 Output Total 525 / 925 Balance 300 / 2852.5 1290 / 1290 Physical Exam Narrative: General: No acute distress, awake alert and oriented x3 Skin: Dressing change to right buttock. Still some purulent drainage. Cellulitis improving Data 03/14/23 09:39 03/14/23 09:39 Micro: Microbiology 03/12/23 16:44 Gram Stain - Final Other Source Anaerobic Culture - Preliminary Wound Culture - Preliminary Gram Negative Rods A&P Assessment and plan (1) Perirectal abscess: (2) Sepsis: Plan Status post incision and drainage of perirectal abscess Twice daily dressing changes with 1 inch plain packing and 4 x 4 gauze Continue antibiotics and pain control Medical management per hospitalist New onset bandemia today. Medicine is ordering an MRI of the pelvis Attestations Medical Necessity Statement*: Per primary Coding Level of Care Code 76699 Diagnoses Perirectal abscess K61.1 Sepsis A41.9
[2023-03-14 16:35] LABS: Glucose Point of Care 225 mg/dL (70-110)
[2023-03-14] MEDS: cloNIDine 0.1 mg Tablet PO (18:09)
--- NOTE | 2023-03-14 19:18 | PC.NURSE ---
Phlebotomy came to this nurse reporting that they were unsuccessful with drawing the vancomycin trough level, this nurse attempted to draw and was unsuccessful twice. This nurse called , instructed this nurse to call the house admin to have the lab drawn with the ultrasound. This nurse called house admin and was told by her that it would be drawn after shift change. The vancomycin will have to be rescheduled due to this delay. This nurse informed oncoming patient care nurse about situation. No further concerns at this time.
[2023-03-14] MEDS: sodium chloride 0.9% 1,000 ML 50 ML IV (19:26)
--- NOTE | 2023-03-14 20:03 | PC.NURSE ---
Dr. Meade contacted for PO pain medication for patient as patient only has PRN IV Dilaudid and PRN PO Tylenol.
[2023-03-14] MEDS: ondansetron 2 mg/ML SDV 2 mL 4 MG IVP (20:16)
[2023-03-14] MEDS: oxyCODONE 5 mg IR Tab/Cap PO (20:16)
[2023-03-14] MEDS: enoxaparin 40 mg/0.4 mL Syringe SUBCUT (20:26)
[2023-03-14] MEDS: insulin glargine 100 units/1 mL 10 UNIT SUBCUT (20:26)
[2023-03-14 20:27] LABS: Glucose Point of Care 144 mg/dL (70-110)
[2023-03-14 21:07] LABS: Vancomycin Trough 7.8 ug/mL (10-15)
--- NOTE | 2023-03-14 21:12 | PC.NURSE ---
Pharmacy notified that vanc trough was late due to multiple attempts by lab and nursing staff before being able to obtain it. Pharmacy also notified of vanc trough results.
[2023-03-15] VITALS (15 sets, daily range): BP systolic 148–173; BP diastolic 88–99; PULSE 76–89; RESP 16–20; TEMP 36.3–37.1; O2SAT 91–96
[2023-03-15] MEDS: piperacillin-tazobactam 3.375 GM in sodium chloride 0.9% (plus) 50 ML IV ×3 (03:29→22:34)
[2023-03-15] MEDS: oxyCODONE 5 mg IR Tab/Cap PO ×4 (03:29→17:22)
[2023-03-15] MEDS: vancomycin 2,000 MG/400 ML PIGGYBACK 200 MG IV ×3 (03:30→20:40)
[2023-03-15 05:31] LABS: Basophils # 0.1 10^3/uL (0.0-0.1); Basophils % 0.5 %; Eosinophils # 0.8 10^3/uL (0.0-0.8); Eosinophils % 5.4 %; Hematocrit 35.2 % (42.0-52.0); Hemoglobin 11.3 g/dL (11.7-16.6); Lymphocytes # 2.4 10^3/uL (0.8-4.8); Lymphocytes % 17.1 %; Mean Corpuscular HGB Conc 32.1 g/dL (30.0-36.0); Mean Corpuscular Hemoglobin 27.5 pg (28.0-34.0); Mean Corpuscular Volume 85.6 fl (80-94); Mean Platelet Volume 9.2 fL (7.4-10.4); Monocytes # 1.4 10^3/uL (0.2-0.9); Monocytes % 9.7 %; Neutrophils # 8.48 10^3/uL (1.8-7.7); Neutrophils % 60.5 %; Nucleated Red Blood Cells % 0 %; Platelet Count 403 10^3/cmm (130-400); Red Blood Count 4.11 10^6/uL (4.1-5.3); Red Cell Distribution Width 13.5 % (12.1-15.1)
[2023-03-15 05:35] LABS: Erythrocyte Sedimentation Rate 51 mm/hr (0-10)
[2023-03-15 05:37] LABS: Glucose Point of Care 204 mg/dL (70-110)
[2023-03-15 05:47] LABS: Lactate (Lactic Acid level) 0.6 mmol/L (0.5-2.2)
[2023-03-15 06:00] LABS: C Reactive Protein 85.9 mg/L (0.0-4.9)
[2023-03-15 06:01] LABS: Anion Gap 12.1 (5-19); Blood Urea Nitrogen 11 mg/dL (6-20); Calcium 8.1 mg/dL (8.5-10.5); Carbon Dioxide 27 mmol/L (22-29); Chloride 99 mmol/L (98-107); Glomerular Filtration Rate 182.3 mL/min (90-130); Glucose 181 mg/dL (65-115); Osmolality Calculated 282 mOsm/kg (285-295); Potassium 4.1 mmol/L (3.5-5.1); Sodium 134 mmol/L (136-145)
[2023-03-15 06:07] LABS: Procalcitonin 0.19 ng/mL (0-0.5)
[2023-03-15 06:22] LABS: Slide Review Slide Review Perform
[2023-03-15 06:38] LABS: Glucose Point of Care 165 mg/dL (70-110)
--- NOTE | 2023-03-15 06:52 | PC.NURSE ---
IV Fluids and Zosyn paused for MRI.
[2023-03-15] MEDS: cloNIDine 0.1 mg Tablet PO ×2 (08:12→17:43)
[2023-03-15] MEDS: pantoprazole 40 mg SDV IVP ×2 (08:13→17:44)
[2023-03-15] MEDS: insulin lispro 100 unit/1 mL SUBCUT ×3 (08:13→17:44)
[2023-03-15] MEDS: amlodipine 10 mg Tablet PO (08:13)
[2023-03-15] MEDS: spironolactone 25 mg Tablet PO (08:13)
--- NOTE | 2023-03-15 10:00 | MR_ITS ---
WS: [id number] MRI OF THE PELVIS WITHOUT GADOLINIUM ENHANCEMENT. INDICATION: Osteomyelitis COMPARISON: CT 03/12/23 TECHNIQUE: Coronal T1, STIR, axial T2, axial T1, sagittal T2 fat-sat FINDINGS: Grade 1 anterolisthesis L5 on S1 with chronic spondylolysis. Again seen are the lobulated f luid collections involving the right perirectal space extending into the right buttock soft tissues. This extends along the right pelvic sidewall similar to the prior CT. Associated surrounding cellulit is with soft tissue edema. Findings likely due to abscess considering history of pilonidal cyst. Normal bone marrow signal in the pubic rami and right hip. Normal bone marrow signal in the pelvis an d sacrum. No evidence of osteomyelitis. Reactive inguinal lymph nodes. IMPRESSION: 1. No evidence of osteomyelitis. 2. Lobulated fluid collections unchanged since the recent CT likely due to multifocal loculated absc ess given clinical history.
[2023-03-15] MEDS: HYDROmorphone 1 mg/mL INJ 1 mL IVP ×2 (10:10→21:01)
[2023-03-15 11:36] LABS: Glucose Point of Care 188 mg/dL (70-110)
--- NOTE | 2023-03-15 13:58 | P.PN_ITS ---
Subjective Subjective: Patient was seen this morning denies any fevers, no chills, no nausea, no vomiting, we discussed his elevated ESR, his bandemia, I have ordered an MRI to evaluate for possible osteomyelitis of the sacrum, as the abscess extended down to the bone, if there is evidence of osteomyelitis she is going need IV antibiotics for at least 6 weeks, however if the MRI is within normal limits, we can see if oral antibiotics will work recommended another night for IV antibiotics in the hospital as he continues to have leukocytosis, elevated CRP Vitals/I&O/Wt Last Vital Signs Temp 98.4 F 03/15/23 12:00 Pulse 82 03/15/23 12:00 Resp 17 03/15/23 12:22 BP 148/90 03/15/23 12:00 Pulse Ox 93 03/15/23 12:00 O2 Del Method Room Air 03/15/23 03:43 O2 Flow Rate 2 03/12/23 20:27 03/14/23 03/15/23 03/15/23 22:59 06:59 14:59 Intake Total 1010 / 3300 850 / 4150 1265.625 / 1265.625 Output Total 1000 / 1000 Balance 10 / 2300 850 / 3150 1265.625 / 1265.625 Physical Exam Const: COMMON NORMALS: no acute distress and patient oriented x3 Resp: COMMON NORMALS: normal respiratory effort, No retractions, No use of accessory muscles and clear to auscultation bilaterally AUSCULTATION: clear to auscultation bilaterally Cardio: COMMON NORMALS: regular rate, regular rhythm, S1 normal heart sound present and S2 normal heart sound present RATE: regular rate RHYTHM: re gular rhythm HEART SOUNDS: S1 normal heart sound present and S2 normal heart sound present GI: COMMON NORMALS: Normal to inspection, nondistended, normoactive bowel sounds present and non-tender Extremity: COMMON NORMALS: no pedal edema Neuro: COMMON NORMALS: patient oriented x3 Psych: COMMON NORMALS: mental status grossly normal Data 03/15/23 05:20 03/15/23 05:20 Micro: Microbiology 03/12/23 16:44 Gram Stain - Final Other Source Anaerobic Culture - Preliminary Wound Culture - Preliminary Klebsiella oxytoca Strep agalactiae - (group b) A&P Assessment and plan (1) New onset type 2 diabetes mellitus: (2) Abscess of buttock, right: (3) Acute hyperglycemia: (4) Pilonidal cyst with abscess: (5) Chronic recurrent pilonidal cyst: (6) Lumbar stenosis with neurogenic claudication: (7) Metabolic syndrome: (8) Morbid obesity with BMI of 45.0-49.9, adult: (9) Essential (primary) hypertension: (10) Cellulitis: (11) Sepsis: (12) Perirectal abscess: Plan Perirectal /gluteal abscess Cellulitis Pilonidal cyst multiple surgeries in the past Patient is diabetic with hemoglobin A1c extremely high Status post surgical debridement, Dr. Graham Continue vancomycin and Zosyn MRI of the pelvis ordered to evaluate for possible osteomyelitis given elevated ESR of 70, bandemia Place [place] catheter to avoid contamination of his gluteal ulcer Dr. Graham consulted Monitor closely Sepsis criteria met with tachypnea tachycardia leukocytosis fever, with source of infection Patient has received antibiotics Lactic acid high normal range Blood cultures taken Monitor closely for development of sepsis Type 2 diabetes with worsening of hemoglobin A1c, continue Lantus with sliding scale Patient will need insulin at the time of discharge He will also need diabetic teaching At risk of recurrent infections for uncontrolled blood sugars He will need retinal exam and annual podiatry exam as well Seems to be noncompliant Metabolic syndrome Avoid lisinopril for hypertension for perioperative period Full code Diabetic diet DVT prophylaxis: SCDs,Lovenox tonight Plan for today, continue IV antibiotics, blood pressure control, pain control, monitor cultures, MRI of the pelvis to evaluate for sacral osteomyelitis, start chlorthalidone for blood pressure control Attestations Medical Necessity Statement*: Patient requires hospitalization for perirectal gluteal abscess requiring IV antibiotics, evaluation for possible osteomyelitis Diagnoses New onset type 2 diabetes mellitus E11.9 Abscess of buttock, right L02.31 Acute hyperglycemia R73.9 Pilonidal cyst with abscess L05.01 Chronic recurrent pilonidal cyst L05.91 Lumbar stenosis with neurogenic claudication M48.062 Metabolic syndrome E88.81 Morbid obesity with BMI of 45.0-49.9, adult E66.01; Z68.42 Essential (primary) hypertension I10 Cellulitis L03.90 Sepsis A41.9 Perirectal abscess K61.1
[2023-03-15] MEDS: chlorthalidone 25 mg Tablet PO (14:20)
[2023-03-15 16:35] LABS: Glucose Point of Care 191 mg/dL (70-110)
[2023-03-15] MEDS: polyethylene glycol 3350 Pkt 17 gm PO (17:43)
[2023-03-15] MEDS: enoxaparin 40 mg/0.4 mL Syringe SUBCUT (20:06)
[2023-03-15 21:07] LABS: Glucose Point of Care 183 mg/dL (70-110)
[2023-03-15] MEDS: insulin glargine 100 units/1 mL 10 UNIT SUBCUT (22:35)
[2023-03-16] VITALS (11 sets, daily range): BP systolic 147–173; BP diastolic 82–91; PULSE 75–81; RESP 16–24; TEMP 36.3–36.9; O2SAT 94–97
[2023-03-16] MEDS: oxyCODONE 5 mg IR Tab/Cap PO ×4 (03:53→21:37)
[2023-03-16] MEDS: vancomycin 2,000 MG/400 ML PIGGYBACK 200 MG IV ×3 (05:24→21:36)
[2023-03-16 05:44] LABS: Basophils # 0.1 10^3/uL (0.0-0.1); Basophils % 0.5 %; Eosinophils # 0.8 10^3/uL (0.0-0.8); Eosinophils % 5.1 %; Hematocrit 34.8 % (42.0-52.0); Hemoglobin 11.6 g/dL (11.7-16.6); Lymphocytes # 2.5 10^3/uL (0.8-4.8); Lymphocytes % 15.2 %; Mean Corpuscular HGB Conc 33.3 g/dL (30.0-36.0); Mean Corpuscular Hemoglobin 28.2 pg (28.0-34.0); Mean Corpuscular Volume 84.5 fl (80-94); Mean Platelet Volume 9.6 fL (7.4-10.4); Monocytes # 1.2 10^3/uL (0.2-0.9); Monocytes % 7.2 %; Neutrophils # 10.87 10^3/uL (1.8-7.7); Neutrophils % 67.6 %; Nucleated Red Blood Cells % 0.2 %; Platelet Count 427 10^3/cmm (130-400); Red Blood Count 4.12 10^6/uL (4.1-5.3); Red Cell Distribution Width 13.5 % (12.1-15.1); White Blood Count 16.1 10^3/uL (4.0-10.0)
[2023-03-16 06:06] LABS: Anion Gap 14.2 (5-19); Blood Urea Nitrogen 12 mg/dL (6-20); Calcium 7.7 mg/dL (8.5-10.5); Carbon Dioxide 25 mmol/L (22-29); Chloride 96 mmol/L (98-107); Glomerular Filtration Rate 182.3 mL/min (90-130); Glucose 167 mg/dL (65-115); Osmolality Calculated 276 mOsm/kg (285-295); Potassium 4.2 mmol/L (3.5-5.1); Sodium 131 mmol/L (136-145)
[2023-03-16 06:14] LABS: Procalcitonin 0.16 ng/mL (0-0.5)
[2023-03-16 06:21] LABS: C Reactive Protein 64.6 mg/L (0.0-4.9)
[2023-03-16 06:49] LABS: Glucose Point of Care 159 mg/dL (70-110)
[2023-03-16] MEDS: sodium chloride 0.9% 1,000 ML 50 ML IV ×2 (07:03→07:04)
[2023-03-16] MEDS: piperacillin-tazobactam 3.375 GM in sodium chloride 0.9% (plus) 50 ML IV ×2 (07:04→14:19)
[2023-03-16] MEDS: insulin lispro 100 unit/1 mL SUBCUT ×2 (08:26→17:16)
[2023-03-16] MEDS: amlodipine 10 mg Tablet PO (08:27)
[2023-03-16] MEDS: chlorthalidone 25 mg Tablet PO (08:27)
[2023-03-16] MEDS: cloNIDine 0.1 mg Tablet PO ×2 (08:27→17:17)
[2023-03-16] MEDS: spironolactone 25 mg Tablet PO (08:28)
[2023-03-16] MEDS: pantoprazole 40 mg SDV IVP ×2 (08:28→17:16)
[2023-03-16 17:10] LABS: Glucose Point of Care 221 mg/dL (70-110)
--- NOTE | 2023-03-16 17:20 | PM.PN ---
Subjective Subjective: Patient was seen this morning, no fevers, no chills, no cough, his blood pressure remains elevated, no chest pain, no headache Vitals/I&O/Wt Last Vital Signs Temp 97.3 F L 03/16/23 16:00 Pulse 79 03/16/23 16:00 Resp 20 H 03/16/23 16:00 BP 147/83 03/16/23 16:00 Pulse Ox 94 03/16/23 16:00 O2 Del Method Room Air 03/16/23 16:00 O2 Flow Rate 0 03/16/23 08:15 03/16/23 03/16/23 03/16/23 06:59 14:59 22:59 Intake Total 950 / 3145.625 1290.833 / 1290.833 880 / 2170.833 Output Total 1400 / 2250 850 / 850 Balance -450 / 895.625 440.833 / 440.833 880 / 1320.833 Physical Exam Const: COMMON NORMALS: no acute distress and patient oriented x3 Neck/C-Spine: COMMON NORMALS: no JVD Resp: COMMON NORMALS: normal respiratory effort, No retractions, No use of accessory muscles and clear to auscultation bilaterally AUSCULTATION: clear to auscultation bilaterally Cardio: COMMON NORMALS: no JVD, regular rate, regular rhythm, S1 normal heart sound present and S2 normal heart sound present RATE: regular rate RHYTHM: regular rhythm HEART SOUNDS: S1 normal heart sound present and S2 normal heart sound present GI: COMMON NORMALS: Normal to inspection, nondistended, normoactive bowel sounds present, non-tender and no bruits Extremity: COMMON NORMALS: no pedal edema Neuro: COMMON NORMALS: patient oriented x3 Psych: COMMON NORMALS: mental status grossly normal Data 03/16/23 05:18 03/16/23 05:18 Micro: Microbiology 03/12/23 16:44 Gram Stain - Final Other Source Anaerobic Culture - Preliminary Wound Culture - Final Klebsiella oxytoca Strep agalactiae - (group b) A&P Assessment and plan (1) New onset type 2 diabetes mellitus: (2) Abscess of buttock, right: (3) Acute hyperglycemia: (4) Pilonidal cyst with abscess: (5) Chronic recurrent pilonidal cyst: (6) Lumbar stenosis with neurogenic claudication: (7) Metabolic syndrome: (8) Morbid obesity with BMI of 45.0-49.9, adult: (9) Essential (primary) hypertension: (10) Cellulitis: (11) Sepsis: (12) Perirectal abscess: Plan Perirectal /gluteal abscess Cellulitis Pilonidal cyst multiple surgeries in the past Patient is diabetic with hemoglobin A1c extremely high Status post surgical debridement, Dr. Graham Continue vancomycin and Zosyn MRI of the pelvis IMPRESSION: 1.? No evidence of osteomyelitis. 2.? Lobulated fluid collections unchanged since the recent CT likely due to multifocal loculated abscess given clinical history. Place Val[place] catheter to avoid contamination of his gluteal ulcer Dr. Graham consulted, n.p.o. midnight for possible surgical intervention tomorrow morning Monitor closely Sepsis criteria met with tachypnea tachycardia leukocytosis fever, with source of infection Patient has received antibiotics Lactic acid high normal range Blood cultures taken Monitor closely for development of sepsis Type 2 diabetes with worsening of hemoglobin A1c, continue Lantus with sliding scale Patient will need insulin at the time of discharge He will also need diabetic teaching At risk of recurrent infections for uncontrolled blood sugars He will need retinal exam and annual podiatry exam as well Seems to be noncompliant Metabolic syndrome Hypertension, chlorthalidone, Norvasc, clonidine Full code Diabetic diet DVT prophylaxis: SCDs,Lovenox tonight Plan for today, continue IV antibiotics, blood pressure control, pain control, monitor cultures, n.p.o. midnight for possible surgical invention tomorrow Attestations Medical Necessity Statement*: Patient requires hospitalization for perirectal gluteal abscess, requiring IV antibiotics, possible further surgical intervention Coding Level of Care Code Acute Code for [facility] Diagnoses New onset type 2 diabetes mellitus E11.9 Abscess of buttock, right L02.31 Acute hyperglycemia R73.9 Pilonidal cyst with abscess L05.01 Chronic recurrent pilonidal cyst L05.91 Lumbar stenosis with neurogenic claudication M48.062 Metabolic syndrome E88.81 Morbid obesity with BMI of 45.0-49.9, adult E66.01; Z68.42 Essential (primary) hypertension I10 Cellulitis L03.90 Sepsis A41.9 Perirectal abscess K61.1
[2023-03-16 21:00] LABS: Glucose Point of Care 156 mg/dL (70-110)
[2023-03-16] MEDS: insulin glargine 100 units/1 mL 10 UNIT SUBCUT (21:35)
[2023-03-16] MEDS: enoxaparin 40 mg/0.4 mL Syringe SUBCUT (21:36)
--- NOTE | 2023-03-16 22:49 | PC.NURSE ---
Spoke with patient about dressing change order and two times daily change and patient opted out of this evenings change due to having another I&D tomorrow. Importance of dressing changes per doctors order was explained to patient and he still declined. Dressing c/d/i at this time, pain managed pt in no distress.
[2023-03-17] VITALS (25 sets, daily range): BP systolic 116–169; BP diastolic 63–97; PULSE 68–82; RESP 15–20; TEMP 36.2–37; O2SAT 89–97
[2023-03-17] MEDS: sodium chloride 0.9% 1,000 ML 50 ML IV ×2 (00:02→15:28)
[2023-03-17] MEDS: piperacillin-tazobactam 3.375 GM in sodium chloride 0.9% (plus) 50 ML IV ×3 (01:14→16:20)
[2023-03-17] MEDS: HYDROmorphone 1 mg/mL INJ 1 mL IVP ×3 (02:59→17:36)
--- NOTE | 2023-03-17 05:03 | PC.NURSE ---
Dressing became soiled and was changed. Patient tolerated okay.
[2023-03-17 05:25] LABS: Basophils # 0.1 10^3/uL (0.0-0.1); Basophils % 0.5 %; Eosinophils # 0.8 10^3/uL (0.0-0.8); Eosinophils % 4.6 %; Hematocrit 35.5 % (42.0-52.0); Hemoglobin 11.7 g/dL (11.7-16.6); Lymphocytes # 2.6 10^3/uL (0.8-4.8); Lymphocytes % 15.5 %; Mean Corpuscular Hemoglobin 27.9 pg (28.0-34.0); Mean Corpuscular Volume 84.7 fl (80-94); Mean Platelet Volume 9.5 fL (7.4-10.4); Monocytes # 1.1 10^3/uL (0.2-0.9); Monocytes % 6.2 %; Neutrophils # 11.83 10^3/uL (1.8-7.7); Neutrophils % 69.5 %; Nucleated Red Blood Cells % 0 %; Platelet Count 464 10^3/cmm (130-400); Red Blood Count 4.19 10^6/uL (4.1-5.3); Red Cell Distribution Width 13.4 % (12.1-15.1)
[2023-03-17] MEDS: vancomycin 2,000 MG/400 ML PIGGYBACK 200 MG IV ×2 (05:25→20:08)
[2023-03-17 05:46] LABS: Anion Gap 13.2 (5-19); Blood Urea Nitrogen 12 mg/dL (6-20); Calcium 8.3 mg/dL (8.5-10.5); Carbon Dioxide 26 mmol/L (22-29); Chloride 95 mmol/L (98-107); Glomerular Filtration Rate 147.8 mL/min (90-130); Glucose 151 mg/dL (65-115); Osmolality Calculated 273 mOsm/kg (285-295); Potassium 4.2 mmol/L (3.5-5.1); Sodium 130 mmol/L (136-145)
[2023-03-17 05:50] LABS: C Reactive Protein 75.2 mg/L (0.0-4.9)
[2023-03-17 05:51] LABS: Procalcitonin 0.13 ng/mL (0-0.5)
[2023-03-17 06:24] LABS: Glucose Point of Care 158 mg/dL (70-110)
[2023-03-17] MEDS: amlodipine 10 mg Tablet PO (08:07)
[2023-03-17] MEDS: chlorthalidone 25 mg Tablet PO (08:07)
[2023-03-17] MEDS: cloNIDine 0.1 mg Tablet PO ×2 (08:07→17:02)
[2023-03-17] MEDS: spironolactone 25 mg Tablet PO (08:07)
[2023-03-17] MEDS: pantoprazole 40 mg SDV IVP ×2 (08:07→17:01)
--- NOTE | 2023-03-17 08:44 | P.OP_ITS ---
Operative Report Date of procedure: 03/17/2023 Pre-op diagnosis: Perirectal abscess and buttock wound Post-op diagnosis: same Procedure done: Incision and drainage of perirectal abscess and sharp excisional debridement of buttock wound measuring 10 x 9 cm Implants: 1 inch iodoform gauze Specimens removed/disposition: Wound bed Surgeon: Zach Graham DO Anesthesia: General Estimated blood loss (mL): 5 Complications: None apparent Brief History: This very pleasant 42-year-old gentleman with a perirectal abscess that is not healing. He has an overlying and wound with necrotic tissue that needs debrided as well. There is benefits were explained and documented. Procedure: Patient was wheeled operative room placed on the OR table and the left lateral decubitus position. General tracheal intubation was achieved by department anesthesia. A timeout was performed. All present were in agreement. Electrocautery was then used to excise all necrotic tissue from the right buttock. Wound measured 10 x 9 cm. I then probed the abscess cavity with the [place] suction and purulence was drained. The buttock wound was then irrigated with normal saline. 1 inch iodoform gauze was then packed in to the wound. Sterile bandages applied. Patient tolerated procedure well.
[2023-03-17 11:07] LABS: Glucose Point of Care 149 mg/dL (70-110)
--- NOTE | 2023-03-17 11:48 | P.PN_ITS ---
Vitals/I&O/Wt Last Vital Signs Temp 98.0 F 03/17/23 07:32 Pulse 76 03/17/23 07:32 Resp 18 03/17/23 08:08 BP 165/76 03/17/23 08:07 Pulse Ox 95 03/17/23 07:32 O2 Del Method Room Air 03/17/23 07:32 O2 Flow Rate 0 03/16/23 20:00 03/16/23 03/17/23 03/17/23 22:59 06:59 14:59 Intake Total 1180 / 2470.833 1298.333 / 3769.166 400 / 400 Output Total 1000 / 1850 1175 / 3025 Balance 180 / 620.833 123.333 / 744.166 400 / 400 Data 03/17/23 05:02 03/17/23 05:02 Micro: Microbiology 03/12/23 01:20 Blood Culture - Final Blood NO GROWTH AFTER 5 DAYS 03/12/23 01:15 Blood Culture - Final Blood NO GROWTH AFTER 5 DAYS 03/12/23 16:44 Gram Stain - Final Other Source Anaerobic Culture - Preliminary Wound Culture - Final Klebsiella oxytoca Strep agalactiae - (group b) A&P Assessment and plan (1) Perirectal abscess: (2) Buttock wound: Plan Incision and drainage of perirectal abscess and debridement of buttock wound Risk and benefits of the procedure, including but not limited to, bleeding, infection, scar, numbness, pain, recurrence, damage to surrounding structures, was explained to the patient. He is understanding the risks and wishes to proceed. Attestations Medical Necessity Statement*: Per primary Coding Level of Care Code Acute Code for [facility] Diagnoses Perirectal abscess K61.1 Buttock wound S31.809A
[2023-03-17] MEDS: HYDROmorphone 1 mg/mL INJ 1 mL 0.5 MG IVP (13:26)
--- NOTE | 2023-03-17 14:22 | P.ANESASSM_ITS ---
Pre-Anesthetic Assessment Height/Weight: Height 1.83 m Weight 140.614 kg Temp Pulse Resp BP Pulse Ox O2 Del Method O2 Flow Rate 97.9 F 70 18 169/97 93 Room Air 0 03/17/23 12:24 03/17/23 12:24 03/17/23 13:26 03/17/23 12:24 03/17/23 13:26 03/17/23 12:24 03/16/23 20:00 Operation Date: 03/12/23 14:40 Proposed Procedures p Incision And Drainage(Not Applicable) - Zach Graham DO Operation Date: 03/17/23 12:05 Proposed Procedures p Incision And Drainage I&D(Not Applicable) - Zach Graham DO Familial anesthetic complications: none Was Beta Astrid taken within 24 hours: N/A Was Clonidine taken within 24 hours: N/A Last intake: Intake Last Liquid Date 03/16/23 Last Liquid Time 22:30 Last Solid Date 03/15/23 Last Solid Time 18:00 Social Tobacco and No alcohol Exam alert, oriented x 3, clear to auscultation bilaterally and regular rate & rhythm Airway Submandibular: within normal limits Cervical ROM: within normal limits Mallampati: Class II Dentition: chipped Comments: Comments: Missing several CV/HEM Hypertension Metabolic Diabetes Mellitus and Morbid Obesity Musc/skel Lower Back Pain and Osteoarthritis/DJD Neuropsych Anxiety Anesthetic Plan ASA status: 3 Anesthesia: General Medications/Allergies Home Medications Medication Instructions Recorded Confirmed Last Taken Type mupirocin 2 % topical ointment 1 applic topical BID #22 grams 03/02/23 03/12/23 Unknown Rx oxycodone-acetaminophen 7.5 mg-325 1 tab PO Q4H PRN pain 15 days #60 03/09/23 03/12/23 Unknown Rx mg tablet tabs Allergies Allergy/AdvReac Type Severity Reaction Status Date / Time No Known Allergies Allergy Verified 03/02/23 15:04 Current Medications Generic Name Dose Route Start Last Admin Trade Name Freq PRN Reason Stop Dose Admin Acetaminophen 500 mg 03/12/23 04:32 03/12/23 22:54 Acetaminophen 500 Mg Tablet PO 500 mg Q4H PRN Administration fever Amlodipine Besylate 10 mg 03/14/23 12:30 03/17/23 08:07 Amlodipine 10 Mg Tablet PO 10 mg DAILY AMILCAR Administration Chlorthalidone 25 mg 03/15/23 14:05 08/16/23 08:07 Chlorthalidone 25 Mg Tablet PO 25 mg DAILY AMILCAR Administration Clonidine HCl 0.1 mg 03/14/23 18:00 03/17/23 08:07 Clonidine 0.1 Mg Tablet PO 0.1 mg BID AMILCAR Administration Enoxaparin Sodium 40 mg 03/12/23 21:00 03/16/23 21:36 Enoxaparin 40 Mg/0.4 Ml Syringe SUBCUT 40 mg Q24H AMILCAR Administration Hydromorphone HCl 1 mg 03/12/23 17:50 03/17/23 08:08 Hydromorphone 1 Mg/Ml Inj 1 Ml IVP 1 mg Q3H PRN Administration PAIN Sodium Chloride 1,000 mls @ 50 mls/hr 03/12/23 04:45 03/17/23 00:02 Sodium Chloride 0.9% IV 50 mls/hr .Q20H [facility] Administration Piperacillin Sod/Tazobactam 50 mls @ 12.5 mls/hr 03/12/23 12:00 03/17/23 08:09 Sod 3.375 gm/ Sodium Chloride IV 12.5 mls/hr Q8H [facility] Administration Protocol Vancomycin/PEG/NADA/Lysine/Water 2,000 mg in 400 mls @ 200 mls/hr 03/12/23 10:00 03/17/23 07:33 Vancocin IV Infused Q8H [facility] Infusion Insulin Glargine 10 unit 03/12/23 04:40 03/16/23 21:35 Insulin Glargine 100 Units/1 Ml SUBCUT 10 unit BEDTIME [facility] Administration Insulin Human Lispro 0 unit 03/12/23 08:00 03/17/23 11:19 Insulin Lispro 100 Unit/1 Ml SUBCUT Not Given TIDWM [facility] Protocol Ondansetron HCl 4 mg 03/12/23 04:32 03/14/23 20:16 Ondansetron 2 Mg/Ml Sdv 2 Ml IVP 4 mg Q6H PRN Administration NAUSEA AND VOMITING Oxycodone HCl 5 mg 03/14/23 20:03 03/16/23 21:37 Oxycodone 5 Mg Ir Tab/Cap PO 5 mg Q4H PRN Administration MODERATE PAIN Pantoprazole Sodium 40 mg 03/12/23 09:00 03/17/23 08:07 Pantoprazole 40 Mg Sdv IVP 40 mg BID AMILCAR Administration Spironolactone 25 mg 03/14/23 09:00 03/17/23 08:07 Spironolactone 25 Mg Tablet PO 25 mg DAILY AMILCAR Administration PFS Anesthesia Medical History Essential (primary) hypertension Metabolic syndrome Morbid obesity with BMI of 45.0-49.9, adult Surgical History History of nasal surgery History of surgical removal of pilonidal cyst Family History Mother Diabetes Hypertension Father Cancer Hypertension Other Hyperlipidemia Social History Second hand smoke exposure: No Smoking risk assessment/counseling performed?: Yes Alcohol intake: never Desire information about alcohol rehabilitation?: No Counseling given: No Substance/Drug Use: never Desire information about substance/drug rehabilitation?: No Counseling given: No Adopted: No Caregiver/support person: No Lives independently: Yes Household members: significant other Housing: House Marital status: Number of children: 2 Highest education level completed: High School Graduate service: No Current occupational status: unemployed Current occupational exposures/hazards: No Pets and animals: Yes Do you think of yourself as: Straight/Heterosexual Current gender identity: Male Data Anesthesia 03/17/23 05:02 03/17/23 05:02 Short CBC 03/16/23 03/17/23 Range/Units 05:18 05:02 WBC 16.1 H 17.0 H (4.0-10.0) 10^3/uL Hgb 11.6 L 11.7 (11.7-16.6) g/dL Hct 34.8 L 35.5 L (42.0-52.0) % MCV 84.5 84.7 (80-94) fl Plt Count 427 H 464 H (130-400) 10^3/cmm Neut % (Auto) 67.6 69.5 % Neut # (Auto) 10.87 H 11.83 H (1.8-7.7) 10^3/uL BMP 03/16/23 03/17/23 05:18 05:02 Sodium 131 L 130 L Potassium 4.2 4.2 Chloride 96 L 95 L Carbon Dioxide 25 26 BUN 12 12 Creatinine 0.5 L 0.6 L Glucose 167 H 151 H Calcium 7.7 L 8.3 L Coags 03/16/23 03/17/23 05:18 05:02 C-Reactive Protein 64.6 H 75.2 H Microbiology 03/12/23 01:20 Blood Culture - Final Blood NO GROWTH AFTER 5 DAYS 03/12/23 01:15 Blood Culture - Final Blood NO GROWTH AFTER 5 DAYS 03/12/23 16:44 Gram Stain - Final Other Source Anaerobic Culture - Preliminary Wound Culture - Final Klebsiella oxytoca Strep agalactiae - (group b) Cardiac Studies: No Data to Display
--- NOTE | 2023-03-17 14:42 | PM.PN ---
Subjective Subjective: Patient was seen this morning, denies any fevers, no chills, Vitals/I&O/Wt Last Vital Signs Temp 97.9 F 03/17/23 12:24 Pulse 77 03/17/23 14:36 Resp 16 03/17/23 14:36 BP 119/66 03/17/23 14:36 Pulse Ox 96 03/17/23 14:36 O2 Del Method Simple Mask 03/17/23 14:36 O2 Flow Rate 6 03/17/23 14:36 03/16/23 03/17/23 03/17/23 22:59 06:59 14:59 Intake Total 1180 / 2470.833 1298.333 / 3769.166 400 / 400 Output Total 1000 / 1850 1175 / 3025 302 / 302 Balance 180 / 620.833 123.333 / 744.166 98 / 98 Physical Exam Const: COMMON NORMALS: no acute distress and patient oriented x3 Resp: COMMON NORMALS: normal respiratory effort, No retractions, No use of accessory muscles and clear to auscultation bilaterally AUSCULTATION: clear to auscultation bilaterally Cardio: COMMON NORMALS: regular rate, regular rhythm, S1 normal heart sound present and S2 normal heart sound present RATE: regular rate RHYTHM: regular rhythm HEART SOUNDS: S1 normal heart sound present and S2 normal heart sound present GI: COMMON NORMALS: Normal to inspection, nondistended, normoactive bowel sounds present and non-tender Extremity: COMMON NORMALS: no pedal edema Neuro: COMMON NORMALS: patient oriented x3 Psych: COMMON NORMALS: mental status grossly normal Data 03/17/23 05:02 03/17/23 05:02 Micro: Microbiology 03/12/23 01:20 Blood Culture - Final Blood NO GROWTH AFTER 5 DAYS 03/12/23 01:15 Blood Culture - Final Blood NO GROWTH AFTER 5 DAYS 03/12/23 16:44 Gram Stain - Final Other Source Anaerobic Culture - Preliminary Wound Culture - Final Klebsiella oxytoca Strep agalactiae - (group b) A&P Assessment and plan (1) New onset type 2 diabetes mellitus: (2) Abscess of buttock, right: (3) Acute hyperglycemia: (4) Pilonidal cyst with abscess: (5) Chronic recurrent pilonidal cyst: (6) Lumbar stenosis with neurogenic claudication: (7) Metabolic syndrome: (8) Morbid obesity with BMI of 45.0-49.9, adult: (9) Essential (primary) hypertension: (10) Cellulitis: (11) Sepsis: (12) Perirectal abscess: Plan Perirectal /gluteal abscess Cellulitis Pilonidal cyst multiple surgeries in the past Patient is diabetic with hemoglobin A1c extremely high Status post surgical debridement, Dr. Graham Continue vancomycin and Zosyn MRI of the pelvis IMPRESSION: 1.? No evidence of osteomyelitis. 2.? Lobulated fluid collections unchanged since the recent CT likely due to multifocal loculated abscess given clinical history. Place [place] catheter to avoid contamination of his gluteal ulcer Dr. Graham consulted, n.p.o. for surgical intervention today Monitor closely Sepsis criteria met with tachypnea tachycardia leukocytosis fever, with source of infection Patient has received antibiotics Lactic acid high normal range Blood cultures taken Monitor closely for development of sepsis Type 2 diabetes with worsening of hemoglobin A1c, continue Lantus with sliding scale Patient will need insulin at the time of discharge He will also need diabetic teaching At risk of recurrent infections for uncontrolled blood sugars He will need retinal exam and annual podiatry exam as well Seems to be noncompliant Metabolic syndrome Hypertension, chlorthalidone, Norvasc, clonidine Full code Diabetic diet DVT prophylaxis: SCDs,Lovenox tonight Plan for today, continue IV antibiotics, blood pressure control, pain control, monitor cultures, will undergo surgical invention today Attestations Medical Necessity Statement*: Patient requires hospitalization for perirectal gluteal abscess requiring further surgical intervention, currently on IV antibiotics Diagnoses New onset type 2 diabetes mellitus E11.9 Abscess of buttock, right L02.31 Acute hyperglycemia R73.9 Pilonidal cyst with abscess L05.01 Chronic recurrent pilonidal cyst L05.91 Lumbar stenosis with neurogenic claudication M48.062 Metabolic syndrome E88.81 Morbid obesity with BMI of 45.0-49.9, adult E66.01; Z68.42 Essential (primary) hypertension I10 Cellulitis L03.90 Sepsis A41.9 Perirectal abscess K61.1
--- NOTE | 2023-03-17 15:18 | ANE.PACU2 ---
Inpatient post-anesthesia follow up: Airway intact: Yes Vital signs: Temperature 97.2 F Pulse Rate 72 Respiratory Rate 17 Blood Pressure 122/72 Pulse Oximetry 93 Oxygen Delivery Me thod Room Air Oxygen Flow Rate 6 Fraction of Inspir ed Oxygen Hydration adequate: Yes Nausea and vomiting: No Pain level: 2 Mental status: Baseline
[2023-03-17] MEDS: oxyCODONE 5 mg IR Tab/Cap PO ×2 (15:42→20:07)
[2023-03-17 17:32] LABS: Glucose Point of Care 154 mg/dL (70-110)
[2023-03-17] MEDS: sennosides-docusate Tablet 1 TAB PO (20:07)
[2023-03-17] MEDS: insulin glargine 100 units/1 mL 10 UNIT SUBCUT (20:07)
[2023-03-17] MEDS: enoxaparin 40 mg/0.4 mL Syringe SUBCUT (20:07)
[2023-03-17 20:39] LABS: Glucose Point of Care 209 mg/dL (70-110)
[2023-03-18] VITALS (17 sets, daily range): BP systolic 126–167; BP diastolic 70–80; PULSE 76–86; RESP 16–20; TEMP 36.4–37; O2SAT 92–96
[2023-03-18] MEDS: HYDROmorphone 1 mg/mL INJ 1 mL IVP ×3 (00:15→23:12)
[2023-03-18] MEDS: piperacillin-tazobactam 3.375 GM in sodium chloride 0.9% (plus) 50 ML IV ×3 (00:30→16:17)
[2023-03-18] MEDS: oxyCODONE 5 mg IR Tab/Cap PO ×5 (03:47→21:53)
[2023-03-18] MEDS: vancomycin 2,000 MG/400 ML PIGGYBACK 200 MG IV ×3 (04:53→20:45)
[2023-03-18 05:49] LABS: Glucose Point of Care 142 mg/dL (70-110)
[2023-03-18 05:53] LABS: Basophils # 0.1 10^3/uL (0.0-0.1); Basophils % 0.5 %; Eosinophils # 0.8 10^3/uL (0.0-0.8); Eosinophils % 4.7 %; Hematocrit 34.4 % (42.0-52.0); Lymphocytes # 2.3 10^3/uL (0.8-4.8); Lymphocytes % 13.7 %; Mean Corpuscular Hemoglobin 27.5 pg (28.0-34.0); Mean Platelet Volume 9.8 fL (7.4-10.4); Monocytes % 6.1 %; Neutrophils % 72.1 %; Nucleated Red Blood Cells % 0 %; Platelet Count 486 10^3/cmm (130-400); Red Cell Distribution Width 13.6 % (12.1-15.1)
[2023-03-18 06:13] LABS: Blood Urea Nitrogen 14 mg/dL (6-20); Calcium 8.1 mg/dL (8.5-10.5); Carbon Dioxide 23 mmol/L (22-29); Chloride 95 mmol/L (98-107); Glomerular Filtration Rate 147.8 mL/min (90-130); Glucose 132 mg/dL (65-115); Osmolality Calculated 270 mOsm/kg (285-295); Sodium 129 mmol/L (136-145)
[2023-03-18 06:18] LABS: Procalcitonin 0.11 ng/mL (0-0.5)
[2023-03-18 06:20] LABS: Anion Gap 15.4 (5-19); Potassium 4.4 mmol/L (3.5-5.1)
[2023-03-18 06:26] LABS: C Reactive Protein 93.6 mg/L (0.0-4.9)
[2023-03-18 06:40] LABS: Glucose Point of Care 152 mg/dL (70-110)
[2023-03-18] MEDS: insulin lispro 100 unit/1 mL SUBCUT ×3 (08:14→17:16)
[2023-03-18] MEDS: pantoprazole 40 mg SDV IVP ×2 (08:19→17:22)
[2023-03-18] MEDS: sennosides-docusate Tablet 1 TAB PO ×2 (08:19→17:23)
[2023-03-18] MEDS: spironolactone 25 mg Tablet PO (08:19)
[2023-03-18] MEDS: chlorthalidone 25 mg Tablet PO (08:21)
[2023-03-18] MEDS: cloNIDine 0.1 mg Tablet PO ×2 (08:21→17:23)
[2023-03-18] MEDS: amlodipine 10 mg Tablet PO (09:43)
[2023-03-18 11:26] LABS: Glucose Point of Care 178 mg/dL (70-110)
[2023-03-18 12:41] LABS: Vancomycin Trough 17.7 ug/mL (10-15)
[2023-03-18] MEDS: polyethylene glycol 3350 Pkt 17 gm PO (12:56)
--- NOTE | 2023-03-18 16:05 | PM.PN ---
Subjective Subjective: Patient was seen this morning, no fevers, no chills, no nausea, no vomiting, Vitals/I&O/Wt Last Vital Signs Temp 98.4 F 03/18/23 16:00 Pulse 78 03/18/23 16:00 Resp 16 03/18/23 16:00 BP 126/76 03/18/23 16:00 Pulse Ox 94 03/18/23 16:00 O2 Del Method Room Air 03/18/23 07:39 O2 Flow Rate 6 03/17/23 14:36 03/18/23 03/18/23 03/18/23 06:59 14:59 22:59 Intake Total 530 / 2301.667 1730 / 1730 400 / 2130 Output Total 300 / 300 Balance 530 / 9959.715 7917 / 1430 400 / 1830 Physical Exam Const: COMMON NORMALS: no acute distress and patient oriented x3 Resp: COMMON NORMALS: normal respiratory effort, No retractions, No use of accessory muscles and clear to auscultation bilaterally AUSCULTATION: clear to auscultation bilaterally Cardio: COMMON NORMALS: regular rate, regular rhythm, S1 normal heart sound present and S2 normal heart sound present RATE: regular rate RHYTHM: regular rhythm HEART SOUNDS: S1 normal heart sound present and S2 normal heart sound present GI: COMMON NORMALS: Normal to inspection, nondistended, normoactive bowel sounds present and non-tender Extremity: COMMON NORMALS: no pedal edema Neuro: COMMON NORMALS: patient oriented x3 Psych: COMMON NORMALS: mental status grossly normal Data 03/18/23 05:12 03/18/23 05:12 Micro: Microbiology 03/12/23 16:44 Gram Stain - Final Other Source Anaerobic Culture - Preliminary Wound Culture - Final Klebsiella oxytoca Strep agalactiae - (group b) 03/17/23 14:49 Gram Stain - Final Buttock Tissue Culture - Preliminary Gram Negative Rods A&P Assessment and plan (1) New onset type 2 diabetes mellitus: (2) Abscess of buttock, right: (3) Acute hyperglycemia: (4) Pilonidal cyst with abscess: (5) Chronic recurrent pilonidal cyst: (6) Lumbar stenosis with neurogenic claudication: (7) Metabolic syndrome: (8) Morbid obesity with BMI of 45.0-49.9, adult: (9) Essential (primary) hypertension: (10) Cellulitis: (11) Sepsis: (12) Perirectal abscess: Plan Perirectal /gluteal abscess Cellulitis Pilonidal cyst multiple surgeries in the past Patient is diabetic with hemoglobin A1c extremely high Status post surgical debridement, 03/12 Status post surgical intervention 03/17/2023 Leukocytosis, 17, elevated CRP Continue vancomycin and Zosyn, likely discharge on p.o. antibiotics tomorrow MRI of the pelvis IMPRESSION: 1.? No evidence of osteomyelitis. 2.? Lobulated fluid collections unchanged since the recent CT likely due to multifocal loculated abscess given clinical history. Continue wound packing, dressing changes Monitor closely Sepsis criteria met with tachypnea tachycardia leukocytosis fever, with source of infection Patient has received antibiotics Lactic acid high normal range Blood cultures taken Monitor closely for development of sepsis Type 2 diabetes with worsening of hemoglobin A1c, continue Lantus with sliding scale Patient will need insulin at the time of discharge He will also need diabetic teaching At risk of recurrent infections for uncontrolled blood sugars He will need retinal exam and annual podiatry exam as well Seems to be noncompliant Metabolic syndrome Hypertension, chlorthalidone, Norvasc, clonidine Full code Diabetic diet DVT prophylaxis: SCDs,Lovenox tonight Plan for today, continue IV antibiotics, blood pressure control, pain control, monitor cultures, will undergo surgical invention today, does have hyponatremia, likely second hyperglycemia, possibly blood pressure medications monitor Attestations Medical Necessity Statement*: Patient requires hospitalization for perirectal gluteal abscess, requiring IV antibiotics, wound packing, Diagnoses New onset type 2 diabetes mellitus E11.9 Abscess of buttock, right L02.31 Acute hyperglycemia R73.9 Pilonidal cyst with abscess L05.01 Chronic recurrent pilonidal cyst L05.91 Lumbar stenosis with neurogenic claudication M48.062 Metabolic syndrome E88.81 Morbid obesity with BMI of 45.0-49.9, adult E66.01; Z68.42 Essential (primary) hypertension I10 Cellulitis L03.90 Sepsis A41.9 Perirectal abscess K61.1
[2023-03-18 17:02] LABS: Glucose Point of Care 141 mg/dL (70-110)
--- NOTE | 2023-03-18 17:35 | PC.NURSE ---
Teach: educated pt on accu check and insulin administration. Pt states that he understands, will continue to educate on this subject of administration.
[2023-03-18] MEDS: insulin glargine 100 units/1 mL 10 UNIT SUBCUT (20:44)
[2023-03-18] MEDS: enoxaparin 40 mg/0.4 mL Syringe SUBCUT (20:44)
[2023-03-18 21:00] LABS: Glucose Point of Care 155 mg/dL (70-110)
[2023-03-19] VITALS (7 sets, daily range): BP systolic 132–156; BP diastolic 83–85; PULSE 72–92; RESP 17–18; TEMP 36.6–36.8; O2SAT 94–96
[2023-03-19] MEDS: piperacillin-tazobactam 3.375 GM in sodium chloride 0.9% (plus) 50 ML IV ×2 (01:13→08:36)
--- NOTE | 2023-03-19 02:21 | PC.NURSE ---
Wound dressing changed and assessed with charge nurse. Small amount of sanguineous drainage noted as previous gauze removed. No odor. Entire roll of 6in gauze inserted into tunneling wound at depth noted by phys to best of ability and pt tolerance. Pt premedicated with oxy 45min prior and given dilaudid at time of procedure as he was not tolerating well initially. He was given a short break with the pain meds and we proceeded to pack gauze as stated. 4x4 and ABD also applied and secured with foam tape.
[2023-03-19] MEDS: oxyCODONE 5 mg IR Tab/Cap PO ×2 (04:41→08:43)
[2023-03-19 05:51] LABS: Basophils # 0.1 10^3/uL (0.0-0.1); Basophils % 0.5 %; Eosinophils # 0.9 10^3/uL (0.0-0.8); Eosinophils % 5.9 %; Hematocrit 34.1 % (42.0-52.0); Lymphocytes # 2.1 10^3/uL (0.8-4.8); Lymphocytes % 13.9 %; Mean Corpuscular HGB Conc 32.3 g/dL (30.0-36.0); Mean Corpuscular Hemoglobin 27.7 pg (28.0-34.0); Mean Corpuscular Volume 85.9 fl (80-94); Monocytes % 6.6 %; Neutrophils # 10.63 10^3/uL (1.8-7.7); Nucleated Red Blood Cells % 0 %; Platelet Count 510 10^3/cmm (130-400); Red Blood Count 3.97 10^6/uL (4.1-5.3); Red Cell Distribution Width 13.5 % (12.1-15.1)
[2023-03-19] MEDS: vancomycin 2,000 MG/400 ML PIGGYBACK 200 MG IV ×2 (05:51→14:20)
[2023-03-19 06:08] LABS: C Reactive Protein 87.9 mg/L (0.0-4.9)
[2023-03-19 06:09] LABS: Slide Review Slide Review Perform
[2023-03-19 06:29] LABS: Blood Urea Nitrogen 14 mg/dL (6-20); Calcium 8.5 mg/dL (8.5-10.5); Carbon Dioxide 23 mmol/L (22-29); Chloride 92 mmol/L (98-107); Glomerular Filtration Rate 147.8 mL/min (90-130); Glucose 140 mg/dL (65-115); Osmolality Calculated 269 mOsm/kg (285-295); Sodium 128 mmol/L (136-145)
[2023-03-19 06:30] LABS: Anion Gap 17.3 (5-19); Potassium 4.3 mmol/L (3.5-5.1)
[2023-03-19 06:42] LABS: Procalcitonin 0.12 ng/mL (0-0.5)
[2023-03-19 06:45] LABS: Glucose Point of Care 203 mg/dL (70-110)
[2023-03-19] MEDS: insulin lispro 100 unit/1 mL SUBCUT (08:36)
[2023-03-19] MEDS: cloNIDine 0.1 mg Tablet PO (08:37)
[2023-03-19] MEDS: spironolactone 25 mg Tablet PO (08:38)
[2023-03-19] MEDS: amlodipine 10 mg Tablet PO (08:38)
[2023-03-19] MEDS: sennosides-docusate Tablet 1 TAB PO (08:39)
[2023-03-19] MEDS: pantoprazole 40 mg SDV IVP (10:01)
[2023-03-19] MEDS: lactulose oral liq 20 gm/30 mL UDC 30 GM PO (11:22)
[2023-03-19] MEDS: hyDRALAzine 10 mg Tablet PO (11:22)
[2023-03-19 11:25] LABS: Glucose Point of Care 118 mg/dL (70-110)
--- NOTE | 2023-03-19 12:41 | PM.DCS ---
Discharge Providers Date of Admission: 03/12/23 03:39 Date of Discharge: March 19, 2023 Attending Provider at Admission: Lorenzo Meade MD Attending Provider at Discharge: Cal Anderson MD Primary Care Provider: ALFONSO Zhu Diagnoses at Discharge Discharge Diagnosis (1) New onset type 2 diabetes mellitus: Status: Acute (2) Abscess of buttock, right: Status: Acute (3) Acute hyperglycemia: Status: Acute (4) Pilonidal cyst with abscess: Status: Acute (5) Chronic recurrent pilonidal cyst: Status: Chronic (6) Lumbar stenosis with neurogenic claudication: Status: Acute (7) Metabolic syndrome: Status: Chronic (8) Morbid obesity with BMI of 45.0-49.9, adult: Status: Chronic (9) Essential (primary) hypertension: Status: Chronic (10) Cellulitis: Status: Acute (11) Sepsis: Status: Acute (12) Perirectal abscess: Status: Acute Reason for Visit Reason for Visit: CYST RUPTURE ON BUTT Hospital Course Hospital Course Brian Villatoro is a 42 year old male with history of pilonidal cyst, multiple surgeries around gluteal region in the past, presented to the hospital for worsening of back pain.? Patient is stating that he has been experiencing symptoms for last 1 month he was scheduled for surgery on 22 March however because of his worsening symptoms he decided to come to the hospital.? Patient stating that he noticed some redness around his right gluteal region and asked his son to take a look, his son asked him to go to the hospital right away because skin was sloughed off and there was pus coming out of his wound.? Patient is denying nausea, vomiting, fever. When I questioned patient about diabetes patient had no clue he never took any medication regarding his hyperglycemia.? Stating that we diagnosed him with high blood sugar in the ER.? However there is metformin in his home med rec. SIRS criteria met with tachypnea tachycardia leukocytosis lactic acid is normal no endorgan damage Patient was given 2 L of IV fluids along insulin and antibiotics in the ER his hemoglobin A1c is 11.9 Patient was admitted to [facility] for perirectal/gluteal abscess, with cellulitis, with sepsis, general surgery was consulted, patient required broad-spectrum antibiotic therapy, debridement as inpatient, MRI of the pelvis no evidence of osteomyelitis, overall clinically improved, discharged on wound care, wound packing twice daily, follow-up with Dr. Graham, antibiotic therapy for 7 days. For type 2 diabetes mellitus, new onset, discharged on Lantus 10 units subcu a.m., with a NovoLog sliding scale, follow with primary care provider next week for blood sugar checks. For hypertension, discharged on multiple blood pressure medications including clonidine 0.1 twice daily, hydralazine 10 twice daily, spironolactone 25 mg p.o. daily. Patient did develop hyponatremia during his hospitalization, likely combination related to chlorthalidone, and poor oral intake. Patient advised to see primary care provider in 1 week for recheck serum sodium. Physical Exam Const: COMMON NORMALS: no acute distress and patient oriented x3 Resp: COMMON NORMALS: normal respiratory effort, No retractions, No use of accessory muscles and clear to auscultation bilaterally AUSCULTATION: clear to auscultation bilaterally Cardio: COMMON NORMALS: regular rate, regular rhythm, S1 normal heart sound present and S2 normal heart sound present RATE: regular rate RHYTHM: regular rhythm HEART SOUNDS: S1 normal heart sound present and S2 normal heart sound present GI: COMMON NORMALS: Normal to inspection, nondistended, normoactive bowel sounds present and non-tender Extremity: COMMON NORMALS: no pedal edema Neuro: COMMON NORMALS: patient oriented x3 Psych: COMMON NORMALS: mental status grossly normal Discharge Data Studies Completed and Pending Completed Studies During Hospitalization Category Date Time Status CT pelvis wo con [id number] Stat Cat Scan 03/12/23 01:09 Completed MR pelvis wo con* [id number] Routine MRI 03/15/23 10:00 Completed Pending at discharge Category Date Time Status Anaerobic Culture Routine Lab 03/12/23 16:44 Results Tissue Culture and Gram Stain Routine Lab 03/17/23 14:49 Results Wound Culture and Gram Stain Routine Lab 03/12/23 16:44 Results Radiology Impressions Pelvis CT 03/12/23 01:09 IMPRESSION: Increased density in the right buttock soft tissues extending along the right perirectal space, right pelvic sidewall and between the right gluteus medius and vladimir muscles. Differential includes hematoma and infection. Underlying neoplasm cannot be excluded. There is surrounding soft tissue cellulitis. Laboratory Results WBC 15.0 10^3/uL (4.0-10.0) H 03/19/23 05:30 RBC 3.97 10^6/uL (4.1-5.3) L 03/19/23 05:30 Hgb 11.0 g/dL (11.7-16.6) L 03/19/23 05:30 Hct 34.1 % (42.0-52.0) L 03/19/23 05:30 MCV 85.9 fl (80-94) 03/19/23 05:30 MCH 27.7 pg (28.0-34.0) L 03/19/23 05:30 MCHC 32.3 g/dL (30.0-36.0) 03/19/23 05:30 RDW 13.5 % (12.1-15.1) 03/19/23 05:30 Plt Count 510 10^3/cmm (130-400) H 03/19/23 05:30 MPV 10.0 fL (7.4-10.4) 03/19/23 05:30 Neut % (Auto) 71.0 % 03/19/23 05:30 Lymph % (Auto) 13.9 % 03/19/23 05:30 [place] % (Auto) 6.6 % 03/19/23 05:30 Eos % (Auto) 5.9 % 03/19/23 05:30 Baso % (Auto) 0.5 % 03/19/23 05:30 Neut # (Auto) 10.63 10^3/uL (1.8-7.7) H 03/19/23 05:30 Lymph # (Auto) 2.1 10^3/uL (0.8-4.8) 03/19/23 05:30 [place] # (Auto) 1.0 10^3/uL (0.2-0.9) H 03/19/23 05:30 Eos # (Auto) 0.9 10^3/uL (0.0-0.8) H 03/19/23 05:30 Baso # (Auto) 0.1 10^3/uL (0.0-0.1) 03/19/23 05:30 Nucleated RBC % (auto) 0 % 03/19/23 05:30 Total Counted 100 (0-100) 03/14/23 09:39 Atypical Lymphs % 0.0 % (0-5) 03/14/23 09:39 Absolute Neutrophils 10.3 10^3/cmm (1.4-6.5) H 03/14/23 09:39 Segmented Neutrophils 55 % 03/14/23 09:39 Abs Segm Neuts (Man) 8.3 10/cmm (1.6-7.1) H 03/14/23 09:39 Band Neutrophils 13.0 % 03/14/23 09:39 Abs Band Neuts (Man) 2.0 10^3/cmm (0.0-1.2) H 03/14/23 09:39 Absolute Lymphocytes 2.7 10^3/cmm (1.2-3.4) 03/14/23 09:39 Lymphocytes (Manual) 18 % 03/14/23 09:39 Monocytes (Manual) 8.0 % 03/14/23 09:39 Absolute Monocytes 1.2 10^3/cmm (0.1-0.6) H 03/14/23 09:39 Eosinophils (Manual) 3 % 03/14/23 09:39 Absolute Eosinophils 0.4 10^3/cmm (0.0-0.7) 03/14/23 09:39 Basophils (Manual) 0.0 % 03/14/23 09:39 Absolute Basophils 0.0 10^3/cmm (0.0-0.2) 03/14/23 09:39 Metamyelocytes 3.0 % 03/14/23 09:39 Nucleated RBCs # 0.0 /100WBC 03/19/23 05:30 Platelet Estimate Increased (Normal) 03/14/23 09:39 ESR 51 mm/hr (0-10) H 03/15/23 05:20 D-Dimer 1.74 ug/mIFEU (0-0.59) H 03/12/23 01:15 Sodium 128 mmol/L (136-145) L 03/19/23 05:30 Potassium 4.3 mmol/L (3.5-5.1) 03/19/23 05:30 Chloride 92 mmol/L (98-107) L 03/19/23 05:30 Carbon Dioxide 23 mmol/L (22-29) 03/19/23 05:30 Anion Gap 17.3 (5-19) 03/19/23 05:30 BUN 14 mg/dL (6-20) 03/19/23 05:30 Creatinine 0.6 mg/dL (0.7-1.2) L 03/19/23 05:30 GFR Calculation 147.8 mL/min (90-130) H 03/19/23 05:30 Glucose 140 mg/dL (65-115) H 03/19/23 05:30 POC Glucose 118 mg/dL (70-110) H 03/19/23 11:02 Estimat Average Glucose 295 03/12/23 01:15 Hemoglobin A1c 11.9 % (4.0-6.0) H 03/12/23 01:15 Calculated Osmolality 269 mOsm/kg (285-295) L 03/19/23 05:30 Lactic Acid 2.2 mmol/L (0.5-2.2) 03/12/23 01:15 Lactate 0.6 mmol/L (0.5-2.2) 03/15/23 05:20 Calcium 8.5 mg/dL (8.5-10.5) 03/19/23 05:30 Magnesium 1.6 mg/dL (1.7-2.3) L 03/13/23 08:50 Total Bilirubin 0.5 mg/dL (0.15-1.2) 03/13/23 08:50 AST 14 U/L (0-40) 03/13/23 08:50 ALT 13 U/L (0-41) 03/13/23 08:50 Alkaline Phosphatase 110 U/L (40-130) 03/13/23 08:50 C-Reactive Protein 87.9 mg/L (0.0-4.9) H 03/19/23 05:30 Total Protein 6.1 g/dL (6.6-8.7) L 03/13/23 08:50 Albumin 1.9 g/dL (3.5-5.2) L 03/13/23 08:50 Globulin 4.2 g/dL (1.3-4.6) 03/13/23 08:50 Vitamin B12 1127 pg/mL (232-1245) 03/12/23 01:15 Procalcitonin 0.12 ng/mL (0-0.5) 03/19/23 05:30 TSH 3.41 uIU/mL (0.27-4.20) 03/12/23 01:15 Vancomycin Trough 17.7 ug/mL (10-15) H 03/18/23 11:58 Serum Ketones Negative (Negative) 03/12/23 01:15 Vitals Last Vital Signs Temp 98 F 03/19/23 08:11 Pulse 72 03/19/23 08:11 Resp 18 03/19/23 08:43 BP 134/83 03/19/23 08:37 Pulse Ox 94 03/19/23 08:11 O2 Del Method Room Air 03/19/23 08:11 O2 Flow Rate 6 03/17/23 14:36 Discharge Plan Discharge Patient Disposition: Home Health Service Condition: Stable Prescriptions: New hydralazine 10 mg Tablet 10 mg PO Q12H 30 Days Qty: 60 0RF clonidine HCl 0.1 mg Tablet 0.1 mg PO BID 30 Days Qty: 60 0RF Stool Softener-Laxative 8.6-50 mg Tablet 1 tab PO BID 30 Days Qty: 60 0RF spironolactone 25 mg Tablet 25 mg PO DAILY 30 Days Qty: 30 0RF amlodipine 10 mg Tablet 10 mg PO DAILY 30 Days Qty: 30 0RF oxycodone 5 mg Tablet 5 mg PO Q4H PRN (Reason: Moderate Pain) 7 Days Qty: 42 0RF doxycycline hyclate 100 mg tablet 100 mg PO BID 7 Days Qty: 14 0RF amoxicillin-pot clavulanate 875-125 mg tablet 1 tab PO Q12H 7 Days Qty: 14 0RF Basaglar KwikPen U-100 Insulin 100 unit/mL (3 mL) insulin pen 10 unit SUBCUT QPM 30 Days Qty: 15 0RF Novolog FlexPen U-100 Insulin 100 unit/mL (3 mL) insulin pen See Rx Instructions .ROUTE .COMPLEX MDD 20 Qty: 15 0RF Rx Instructions: inject, subcut, three times daily after meals, based on sliding scale (DME) glucometer testing kit See Rx Instructions .Route .MEDSUPPLY Qty: 1 0RF Rx Instructions: lancets#100 strips#100 Miralax 17 gram powder in packet 17 g PO DAILY PRN (Reason: constipation) 30 Days Qty: 30 0RF Continued mupirocin 2 % ointment 1 applic topical BID Qty: 22 0RF Discontinued oxycodone-acetaminophen 7.5-325 mg tablet 1 tab PO Q4H MDD 3 tabs per day PRN (Reason: pain) 15 Days Qty: 60 0RF Rx Instructions: Covering for Dr. Terrell. Discharge Orders: Discharge Order (Routine); Ordered 03/19/23 Ordered By: Cal Anderson Referrals: [facility] ([facility]) [Outside] Demario Velarde, LEGAL OFFICE ADMINISTRATOR-C [Primary Care Provider] - 03/30/23 9:40 am Discharge Diet: Cardiac Discharge Activity: Resume usual activity Patient Instructions: Spironolactone (By mouth), Clonidine (By mouth) (Catapres, Kapvay, Kapvay Dose Pack), Doxycycline (By mouth), Amoxicillin/Clavulanate Potassium (By mouth), Hydralazine (By mouth), Oxycodone, Rapid Release (By mouth), Amlodipine (By mouth), Insulin Glargine (By injection), Insulin Aspart/Insulin Degludec (By injection), Senna (By mouth) (Sen, Senna-lax), Cellulitis (ED), Type 2 Diabetes in Adults: New Diagnosis (DC), Abscess Incision and Drainage (DC), Opioid Safety Activity Restrictions/Additional Instructions: -Please inject Lantus 10 units subcut at 8 PM -Please monitor your blood sugars closely -Monitor your blood sugars 3 times daily as after meals -Please record your blood sugars, and a blood sugar log -For your NovoLog -Please inject blood sugar after meals based on sliding scale provided -Do not inject insulin if you do not eat as hypoglycemia kills -This is a NovoLog sliding scale -Insulin sliding ?fingerstick? Insulin ?141-180?0 units/sq 181-220?2 units/sq ?221-260?4 units/sq ?261-300 6 units/sq ?301-350?8 units/sq ?351-400 10 units/sq ?401-450?12 units/sq >450? 14units/sq -If your blood sugar is greater than 500 go to the emergency room -If your blood sugar is less than 60 or at anytime you feel lightheaded or dizzy or diaphoretic or have chest palpitations check your blood sugar, and eat a hard candy or drink orange juice and go immediately to the emergency room -Remember hypoglycemia kills, so if his blood sugar is less than 60 we have to increase it by taking in a sugary meal such as a hard candy or orange juice and go to the emergency room -If you have any questions please call us where here to help -Please take antibiotics as prescribed -Wound care as prescribed -If any fevers or chills go to the emergency room -Please stop smoking -Please hydrate well -Take senna and MiraLAX as prescribed -Please monitor your blood sugars closely, see your primary care provider for blood sugar check -Please use oxycodone sparingly for pain, do not drive, or operate machinery or drink or take medication -See your provider next week for repeat blood work, recheck serum sodium Discharge Attestations Time Spent in Discharge Care*: greater than 30 min Time Spent in Smoking Cessation: 3 to 10 minutes Quality Metrics Clinical Quality Measures [ No reported AMI, CVA or VTE this stay] Coding Level of Care Code 99823 Total time (in minutes) for Discharge: 50 Diagnoses New onset type 2 diabetes mellitus E11.9 Abscess of buttock, right L02.31 Acute hyperglycemia R73.9 Pilonidal cyst with abscess L05.01 Chronic recurrent pilonidal cyst L05.91 Lumbar stenosis with neurogenic claudication M48.062 Metabolic syndrome E88.81 Morbid obesity with BMI of 45.0-49.9, adult E66.01; Z68.42 Essential (primary) hypertension I10 Cellulitis L03.90 Sepsis A41.9 Perirectal abscess K61.1
[2023-03-19] MEDS: HYDROmorphone 1 mg/mL INJ 1 mL IVP (15:45)
== END 2023-03-19 16:47 | disposition home health service (06) | DRG 571 ==
LOC: ER 03-12 03:05 → MEDSURG 03-12 03:34
PROVIDERS: Emergency Medicine; Surgery; Admitting Provider Internal Medicine; Emergency Provider Nurse Practitioner Family; PCP Nurse Practitioner; Visit Provider Family Medicine
PROC: 0J990ZZ Drainage of Buttock Subcutaneous Tissue and Fascia, Open Approach (ICD-10-PCS; principal; 2023-03-12 14:30)
PROC: 0JB90ZZ Excision of Buttock Subcutaneous Tissue and Fascia, Open Approach (ICD-10-PCS; principal; 2023-03-17 12:05)
DX: L05.01 Pilonidal cyst with abscess (principal); E87.1 Hypo-osmolality and hyponatremia; L03.317 Cellulitis of buttock; Z68.41 Body mass index [BMI] 40.0-44.9, adult; E11.65 Type 2 diabetes mellitus with hyperglycemia; I10 Essential (primary) hypertension; E66.01 Morbid (severe) obesity due to excess calories; M48.062 Spinal stenosis, lumbar region with neurogenic claudication; E88.81 Metabolic syndrome and other insulin resistance
CPT/HCPCS: 36415; 36416; 72192; 72195; 80048; 80053; 80202; 82009; 82607; 82962; 83036; 83605; 83735; 84145; 84443; 85007; 85025; 85378; 85651; 86140; 87040; 87070; 87075; 87077; 87176; 87186; 87205; 96365; 96367; 96372; 96375; 99285; C9113; J1170; J1650; J1815; J2250; J2270; J2405; J2543; J2704; J3010; J3370; J3372; J7030; J7050; J7120

== ENCOUNTER → 2023-03-23 09:50 | Outpatient (BNVA) | payer OTHER, BC, MEDICAID, SELFPAY | PROVIDERS: PCP Nurse Practitioner; Visit Provider Nurse Practitioner | DX: E11.65 Type 2 diabetes mellitus with hyperglycemia (principal); Z79.4 Long term (current) use of insulin | CPT/HCPCS: 80048; 85025 ==

== ENCOUNTER → 2023-04-07 09:52 | Outpatient (BNVA) | payer OTHER, MEDICAID, SELFPAY | PROVIDERS: PCP Nurse Practitioner; Visit Provider Nurse Practitioner | DX: M21.921 Unspecified acquired deformity of right upper arm (principal); M25.521 Pain in right elbow | CPT/HCPCS: 73060; 73080; 73090 ==

== ENCOUNTER 2023-08-13 11:29 | Outpatient (CLI) | payer OTHER, SELFPAY ==
[2023-08-13] MEDS: iohexol 350 mg/mL 500 mL Btl (per mL) IV (12:10)
--- NOTE | 2023-08-13 12:15 | CT_ITS ---
WS: [id number] CT RIGHT HUMERUS WITH CONTRAST. HISTORY: mass of right upper extremity Technique: All [facility] scans at [facility] use at least one of these dose optimization techniques: automated exposure control; mA and/or kV adjustment per patient size (includes targeted exams where dose is matched to clinical indication); or iterative reconstruction. DLP: 1458.51 mGy.cm COMPARISON: RIGHT elbow radiograph 04/07/2023. Omnipaque 350; 95 mL IV. There is a large enhancing soft tissue mass with variable enhancement and dystrophic calcifications c entered in the antecubital fossa. Peripheral dystrophic irregular calcifications are scattered throug hout this mass which does extend to abut the joint space and also the distal humeral shaft. Mass is i nvolving several of the anterior muscles surrounding the elbow. There is displacement of the arteries and veins. Mass is very heterogeneous and extends over a length of 9.9 cm. Transverse diameter of 10 .5 cm and posterior diameter 9.6 cm. There is peripheral globular enhancement. This is discontinuous and incomplete enhancement. The calcified mass extends to about the humerus. There is no humeral fracture or destruction of the b one identified. No lymph nodes are identified. IMPRESSION: 1. Large soft tissue mass with discontinuous enhancement and dystrophic calcifications centered in t he RIGHT antecubital fossa. Mass measures 10.5 x 9.6 x 9.9 cm. Mass is very concerning for neoplastic process. Differentials to include are synovial sarcoma, malignant peripheral nerve sheath tumor and extraskeletal osteosarcoma. Biopsy and surgical excision are recommended to confirm diagnosis. 2. No adjacent osseous destruction.
== END 2023-08-13 11:30 | disposition home or self-care (01) ==
LOC: RAD 11:30
PROVIDERS: PCP Nurse Practitioner; Visit Provider Surgery
DX: R22.31 Localized swelling, mass and lump, right upper limb (principal)
CPT/HCPCS: 73201; Q9967

== ENCOUNTER → 2023-09-15 15:50 | Outpatient (BNVA) | payer OTHER, SELFPAY | PROVIDERS: PCP Nurse Practitioner; Visit Provider Nurse Practitioner | DX: E11.9 Type 2 diabetes mellitus without complications (principal) | CPT/HCPCS: 80053; 80061; 82607; 83036 ==

== ENCOUNTER 2023-11-03 13:01 | Outpatient (CLI) | payer OTHER, SELFPAY ==
--- NOTE | 2023-11-03 13:45 | MRR_ITS ---
PROCEDURE INFORMATION: Exam: MR Right Upper Extremity Joint Without and With Contrast; Elbow Exam date and time: 11/03/2023 1:32 PM Age: 43 years old Clinical indication: Mass or lump; Elbow; Right; Additional info: Mass of right upper ext TECHNIQUE: Imaging protocol: Magnetic resonance imaging of the right upper extremity without and with contrast. Exam focused on the elbow. Contrast material: MULTIHANCE; Contrast volume: 20 ml; Contrast route: INTRAVENOUS (IV); COMPARISON: CR XR elbow RT min 3V* [id number] 04/07/2023 10:04 AM FINDINGS: Bones/joints: There is subtle cortical irregularity in the medial aspect of the distal humerus visible on axial images series 702 image 24 through 28. Elbow alignment is normal. Subtle distal humeral bone marrow edema. Articular cartilage is unremarkable. No joint effusion. Ulnar (medial) collateral ligament: The a ulnar collateral ligament is intact. Radial collateral ligament of the elbow: The radial collateral ligament is partially obscured. Annular ligament of the radius: The annular ligament is unremarkable. Tendon of the biceps brachii: Obscured Tendon of the brachialis: Intact Triceps tendon: The triceps tendon is intact where visualized but partially obscured. Common flexor tendon: Unremarkable. No tear. Common extensor tendon: Unremarkable. No tear. Soft tissues: There is a mixed signal intensity mass in the anterior upper arm extending into the antecubital fossa, displacing musculature and vasculature anteriorly and containing mixed solid and cystic areas with dense dystrophic calcifications. The distal margin of the mass is incompletely imaged. The mass demonstrates heterogeneous enhancement. The mass measures 13.3 x 9.8 cm axial and 12.8 cm craniocaudal dimension. There are areas of high T1 signal intensity within the mass suggesting internal blood products. The mass surrounds greater than 50% of the circumference of the distal humerus. MR/MR elbow RT wo/w con [id number] IMPRESSION: 1. Mass in the deep upper arm and antecubital fossa partially surrounding the humerus displacing musculature and vasculature anteriorly. 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 2. Subtle cortical irregularity in the medial aspect of the distal humerus suggests neoplastic involvement of the cortex.
[2023-11-03] MEDS: gadobenate dimeglumine 20 mL vial IV (14:19)
== END 2023-11-03 13:02 | disposition home or self-care (01) ==
LOC: RAD 13:01
PROVIDERS: PCP Nurse Practitioner; Visit Provider Surgery
DX: R22.31 Localized swelling, mass and lump, right upper limb (principal)
CPT/HCPCS: 73223; A9577

== ENCOUNTER 2023-11-25 10:57 | Oncology outpatient (recurring) (ONCR) | payer OTHER, SELFPAY ==
--- NOTE | 2023-11-25 12:38 | N.ONRAD NP_ITS ---
Radiation Oncology New Patient Visit Patient: Brian Villatoro MR#: [id number] : 1980 Age: 43 Sex: Male Dictated by: Dr. 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 Chief Complaint / History of Present Illness: Patient is a 43-year-old gentleman who says 7 to 8 months ago he got up 1 morning and when he pushed himself up off the bed he had significant burning in the right bicep area. He said since that time he began developed a small knot in that area which then slowly progressed over the intervening months. He said when it first came up his father told him to seek evaluation. His father has been treated for head neck malignancy. He declined and continue to keep working and did not seek attention till recently when he saw Dr. Graham initially in June. At that time Dr. Graham ordered scans but unfortunately the patient due to insurance issues did not follow-up. He subsequently saw Dr. Graham recently and has been to [facility] for additional evaluation and found to have a 15 cm mass in the right humeral area in the soft tissue. He reportedly also had bone metastasis and lung metastasis. Those x-rays are currently pending. He was seen yesterday by medical oncology at the cancer center there and apparently told to just come to our department sometime today at his convenience. I agreed to see him today in order to facilitate his care and continue the workup so that we can determine the best treatment plan for this gentleman who apparently has widespread metastatic disease along with a presumed sarcoma in the upper extremity. Current Medications: Allergies: Medical History: Chronic back pain, hypertension, diabetes insulin-dependent no history of collagen vascular disease. No previous radiation therapy. Surgical History: He had surgery on his face after an accident with a power tool Family History: 's father had cancer of the head neck Social History: Current every day smoker, lives alone, currently unemployed seeking disability Current Complaints / Review of Systems: . Current symptoms have to do with pain and swelling in the right humeral area Vital Signs: Performed on 11/25/2023 11:37 AM BMI - 40.335 kg/m2 (high), Height - 72 in, Weight - 297.4 lbs, Temperature - 98.5 f, Pulse - 87 /min, Respiration - 18 /min, O2 Sat - 96 %, Pain - 9, Fatigue - 0 and BP - 190/ 125 mm(hg)(high). Physical Exam: General: Patient is in no apparent distress. He is alone today HEENT: Normocephalic atraumatic. Pupils are equal, sclera clear, extraocular muscles intact Lungs: Respiratory rate is regular nonlabored Cardiovascular: Regular rate and rhythm Abdomen: Protuberant and android pattern Upper extremity: In the right upper extremity has a significant 15 to 20 cm mass in the triceps compartment. His hand is also somewhat swollen as is the rest of his arm. He is able to move it freely. There are minimal skin changes associated with it. Skin: Warm and dry without lesions Neurological: Alert and orient x 3. Gait and speech within normal limits Psych: Affect appropriate for current situation Performance Status: 80 Pathology: Lab: Imaging: See HPI Impression: Mass in the right humeral area workup ongoing Plan: This time we talked about how the mass is very characteristic for sarcoma. He also knew that he had lesions in the lung. The plan at this point is to obtain tissue so appropriate treatments can be delivered subsequently. Will get him scheduled for a lung biopsy and a port placement as well as a PET scan to complete his workup. In the meantime I have asked him to continue to use his pain medicine. I reviewed with him that we can use the radiation to get his pain under control but it would take several weeks for this to actually have any effect with the sarcoma. I have cautioned him that we need to have his pain under control with his pain medicine prior to what the radiation can do. In the meantime we will get him scheduled for his PET scan and have him return after that is been completed at which time he can undergo simulation. He did have appointments to go back up to [place] which would have been in the middle of his radiation treatments. I have asked him to call them and reschedule those for a later date. We can go ahead and proceed with his workup here and then send them the records in [place] if he chooses to continue follow-up there. His PET scan will be on Wednesday. He understood the above plan and he is in agreement. Signed by: 11/25/2023 12:35:43 PM <<Signature on File>> Time spent with patient:60 CPT Code: CPT Code:
== END 2023-11-30 23:59 | disposition home or self-care (01) ==
PROVIDERS: PCP Nurse Practitioner; Visit Provider Radiology Radiation Oncology
DX: R22.31 Localized swelling, mass and lump, right upper limb (principal); R91.8 Other nonspecific abnormal finding of lung field
CPT/HCPCS: 99205

== ENCOUNTER 2023-12-07 14:04 | Observation (INO) | payer OTHER, SELFPAY ==
[2023-12-07] VITALS (17 sets, daily range): BP systolic 97–152; BP diastolic 64–110; PULSE 80–102; RESP 14–21; TEMP 36.4–37.1; O2SAT 92–96; BMI 40.1
--- NOTE | 2023-12-07 12:01 | XRR_ITS ---
PROCEDURE INFORMATION: Exam: XR Chest Exam date and time: 12/07/2023 2:02 PM Age: 43 years old Clinical indication: Device placement; Prior surgery; Surgery date: Post-operative (0-2 days); Surgery type: Postop mediport placement TECHNIQUE: Imaging protocol: Radiologic exam of the chest. Views: 1 view. COMPARISON: CT chest con [id number] 11/24/2023 9:43 AM FINDINGS: Tubes, catheters and devices: Left-sided port catheter tip is in the right atrium. Lungs: Multiple pulmonary nodules are again seen in both lungs similar to the prior CT chest. Some of these nodules on the left are obscured by infiltrate. Pleural spaces: Unremarkable. No pleural effusion. No pneumothorax. Heart/Mediastinum: Unremarkable. No cardiomegaly. Bones/joints: Unremarkable. XR/XR chest 1V portable [id number] IMPRESSION: 1. Multiple pulmonary nodules and left perihilar infiltrate. 2. Left-sided port catheter tip is in the right atrium.
--- NOTE | 2023-12-07 12:01 | SC_ITS ---
WS: [id number] C ARM fluoroscopy for Mediport placement, 12/07/2023 Clinical Data: Mediport placement Comparison: None. Findings: Dr. Graham placed an infusion catheter into the left subclavian vein and it ends in the superior ve na cava. SC/C-arm FL for CVA [id number] Impression: Left Mediport placement.
[2023-12-07 12:30] LABS: Glucose Point of Care 117 mg/dL (70-110)
--- NOTE | 2023-12-07 12:39 | W.PM.OPSUD ---
Surgery/Procedure H&P Update DATE OF PROCEDURE: December 07, 2023 DATE H&P PERFORMED: 12/06/23 H&P UPDATE INFORMATION: I have reviewed H&P completed within last 30 days, I have examined patient prior to procedure and No changes to prior documentation PLANNED PROCEDURE: Operation Date: 12/07/23 15:55 Proposed Procedures p Portacath Placement 48971, C49.9(Not Applicable) - Zach Graham DO
--- NOTE | 2023-12-07 12:40 | ANES.PREANE2 ---
Pre-Anesthetic Assessment Height/Weight: Height 1.83 m Weight 134.263 kg Temp Pulse Resp BP Pulse Ox O2 Del Method 97.6 F 96 18 147/110 96 Room Air 12/07/23 12:21 12/07/23 12:21 12/07/23 12:21 12/07/23 12:21 12/07/23 12:21 12/07/23 12:21 Operation Date: 12/07/23 15:55 Proposed Procedures p Portacath Placement 16263, C49.9(Not Applicable) - Zach Graham DO Familial anesthetic complications: None Was Beta Astrid taken within 24 hours: N/A Was Clonidine taken within 24 hours: N/A Last intake: Intake Last Liquid Date 12/06/23 Last Liquid Time 20:00 Last Solid Date 12/06/23 Last Solid Time 20:00 Social No alcohol and No tobacco Exam alert, oriented x 3, clear to auscultation bilaterally and regular rate & rhythm Airway Mallampati: Class IV Dentition: chipped Comments: Comments: fullbeard Metabolic Diabetes Mellitus and Morbid Obesity Anesthetic Plan ASA status: 4 Anesthesia: MAC Risk of > 500 ml blood loss (7ml/kg in children): No Medications/Allergies Home Medications Medication Instructions Recorded Confirmed Last Taken Type glucometer testing kit #1 ea 03/19/23 12/06/23 Unknown Rx amlodipine 10 mg tablet 10 mg PO DAILY 30 days #30 tabs 06/23/23 12/07/23 12/07/23 Rx clonidine HCl 0.1 mg tablet 0.1 mg PO BID 30 days #60 tabs 06/23/23 12/07/23 12/07/23 Rx hydralazine 10 mg tablet 10 mg PO Q12H 30 days #60 tabs 06/23/23 12/07/23 12/07/23 Rx insulin aspart U-100 100 unit/mL See Rx Instructions SUBCUT TID #15 06/23/23 12/06/23 12/06/23 Rx (3 mL) subcutaneous pen (Novolog mL FlexPen U-100 Insulin aspart) insulin degludec 200 unit/mL (3 20 unit (0.1 mL) SUBCUT DAILY #9 mL 06/23/23 12/06/23 12/06/23 Rx mL) subcutaneous pen (Tresiba FlexTouch U-200 insulin) metformin 500 mg tablet,extended 1,000 mg (2 x 500 mg) PO DAILY #60 06/23/23 12/06/23 12/06/23 Rx release 24 hr tabs spironolactone 25 mg tablet 25 mg PO DAILY 30 days #30 tabs 06/23/23 12/07/23 12/07/23 Rx Allergies Allergy/AdvReac Type Severity Reaction Status Date / Time No Known Allergies Allergy Verified 12/06/23 14:21 [facility] Anesthesia Medical History Obesity, Class III, BMI 40-49.9 (morbid obesity) Diabetes mellitus with hyperglycemia, with long-term current use of insulin Metabolic syndrome Essential (primary) hypertension Surgical History History of surgical removal of pilonidal cyst History of nasal surgery Family History Mother Diabetes Hypertension Father Cancer Hypertension Other Hyperlipidemia Social History Smoking and tobacco/nicotine status: current every day tobacco/nicotine user cigarettes Second hand smoke exposure: No Alcohol intake: never Substance/Drug Use: never Adopted: No Caregiver/support person: No Lives independently: Yes Household members: significant other Housing: House Marital status: Number of children: 2 Highest education level completed: High School Graduate service: No Current occupational status: unemployed Current occupational exposures/hazards: No Pets and animals: Yes Do you think of yourself as: Straight/Heterosexual Current gender identity: Male Data Anesthesia Cardiac Studies: No Data to Display
[2023-12-07] MEDS: ceFAZolin 3,000 MG in sodium chloride 0.9% (plus) 100 ML 200 MG IV (12:58)
[2023-12-07] MEDS: heparin, porcine 1,000 unit/mL INJ 10 mL 10000 UNIT INJECTION (13:26)
--- NOTE | 2023-12-07 13:42 | PM.OP ---
Operative Report Date of procedure: December 07, 2023 Pre-op diagnosis: Right upper extremity mass, presumed sarcoma Post-op diagnosis: same Procedure done: Mediport placement Intraoperative interpretation of fluoroscopy Implants: Mediport Specimens removed/disposition: None Surgeon: Zach Graham DO Anesthesia: MAC and Local Estimated blood loss (mL): 5 Complications: None apparent Brief History: This is a very pleasant 43-year-old gentleman with a large upper extremity mass on the right which is a presumed sarcoma. Oncology requested Mediport placement for chemotherapy access. The risks and benefits were explained and documented. Procedure: They put another order I will do right now things the patient was taken to the operating room and placed supine on the operating room table. All bony prominences were padded. She was given IV sedation and monitored throughout the case by the anesthesia personnel. SCDs were placed and turned on. The arms were tucked to the side. Patient received Ancef 2 g preoperatively IV. The bilateral chest wall was prepped and draped in usual sterile fashion using chlorhexidine base prep. Sterile drapes were applied. We did procedure pause prior to beginning. An 18 gauge needle was placed in the left subclavian vein. Dark, nonpulsatile blood was aspirated. A guidewire was placed through the needle centrally toward the atrial/vena caval junction. Fluoroscopy visualized good placement. The needle was removed and the guidewire was clipped to the drape with a hemostat. Further local anesthetic was infiltrated in the soft tissues of the left chest wall and a #15 blade was used to make a horizontal skin incision. A subcutaneous Mediport pocket was created using Bovie cautery, dissecting down through the skin and subcutaneous tissues. Meticulous hemostasis was achieved. The Mediport was sutured in position using 3-0 vicryl suture x2 stitches. A #15 blade was used to make a small skin rex around the guidewire insertion area. The Mediport tubing was tunneled through the subcutaneous tissues up to the needle insertion location. A dilator with a peel-away sheath was placed over the guidewire and placed centrally. After measuring the Mediport tubing was cut to length so that the tip would end at the atrial/vena caval junction. The inner cannula and the guidewire were removed, leaving the dilator sheath in place. The Mediport was flushed. The tip of the catheter was inserted through the peel-away sheath and the peel-away sheath removed in the standard fashion. The Mediport was accessed with a straight Gallegos needle and dark, nonpulsatile blood was aspirated and flushed using heparinized saline to hep-lock the Mediport. F inal fluoroscopy visualization showed no kink in the catheter and the tip of the Mediport tubing near the atrial/vena caval junction. There was no obvious pneumothorax. Both skin incisions were thoroughly irrigated and suctioned dry. Meticulous hemostasis noted. The dermis was approximated with 3-0 Vicryl in an interrupted fashion. Skin was closed with Dermabond. Patient was awakened from anesthesia and transferred via her cart to the recovery room in stable condition. All needle, sponge, and instrument counts were correct per the operating personnel x2 counts.
--- NOTE | 2023-12-07 14:06 | PC.NURSE ---
Chest xray completed @ bedside. Reviewed by Dr. Graham @ bedside. NSR on monitor with no ectopy.
[2023-12-07 14:49] LABS: Glucose Point of Care 104 mg/dL (70-110)
--- NOTE | 2023-12-07 17:50 | ANE.PACU2 ---
Inpatient post-anesthesia follow up: Airway intact: Yes Vital signs: Temperature 97.9 F Pulse Rate 78 Respiratory Rate 20 Blood Pressure 166/96 Pulse Oximetry 94 Oxygen Delivery Me thod [ Room Air Current Rate & Del do] Oxygen Delivery Me thod Room Air Oxygen Flow Rate 2 Fraction of Inspir ed Oxygen Hydration adequate: Yes Nausea and vomiting: No Pain level: 1 Mental status: Baseline
[2023-12-07] MEDS: acetaminophen 500 mg Tablet PO (18:26)
--- NOTE | 2023-12-07 20:02 | P.DS_ITS ---
Discharge Providers Date of Admission: 12/07/23 14:04 Date of Discharge: December 07, 2023 Attending Provider at Admission: Zach Graham DO Attending Provider at Discharge: Zach Graham DO Primary Care Provider: ALFONSO Zhu Reason for Visit Reason for Visit: C49.9 Brief History: Mediport placement for sarcoma Hospital Course Hospital Course This very pleasant 43-year-old gentleman who came to the hospital as an outpatient for Mediport placement. He has presumed sarcoma in his right upper extremity. He cannot get a ride until late in the day and therefore stayed as an outpatient in a bed. He was discharged home in good condition Physical Exam Narrative: General : Patient is well developed , no acute distress, oriented x3 Head : Normal cephalic, a-traumatic. Ears : Pinnae and external canal are normal. Hearing is normal. Eyes : PERRLA, Sclera and injection are normal. No conjunctival discharge. Nose : Mucous membranes are without erythema. Throat : buccal mucosa is normal, gums are without significant recession or hypertrophy. Lungs : Equal chest rise bilaterally, no use of accessory muscles, trachea is midline. Cor : Rate and rhythm are normal. Abdomen : Soft, ND, NT, no g/r/m Extremities : No edema, no cyanosis or clubbing, dorsalis pedis pulses are present bilaterally, non-tender to palpation of calves. There is a soft tissue mass in his right upper extremity Back : non-tender to palpation, no CVA tenderness. Neuro : CN II - XII intact, Upper and lower extremities have equal and full strength Discharge Data Studies Completed and Pending Completed Studies During Hospitalization Category Date Time Status XR chest 1V portable [id number] Routine Exams 12/07/23 12:01 Completed Pending at discharge Category Date Time Status C-arm FL for CVA [id number] Routine Exams 12/07/23 12:01 Taken Radiology Impressions Chest X-Ray 12/07/23 12:01 IMPRESSION: 1. Multiple pulmonary nodules and left perihilar infiltrate. 2. Left-sided port catheter tip is in the right atrium. Laboratory Results POC Glucose 104 mg/dL (70-110) 12/07/23 14:26 Procedures Performed Mediport placement Vitals Last Vital Signs Temp 98.7 F 12/07/23 19:45 Pulse 84 12/07/23 19:45 Resp 18 12/07/23 19:45 BP 152/81 12/07/23 19:45 Pulse Ox 93 12/07/23 19:45 O2 Del Method Room Air 12/07/23 19:45 O2 Flow Rate 2 12/07/23 14:45 Discharge Plan Discharge Patient Disposition: Home Condition: Stable Prescriptions: New hydrocodone-acetaminophen 7.5-325 mg tablet 1 tab PO Q6H PRN (Reason: pain) Qty: 10 0RF docusate sodium [Colace] 100 mg capsule 100 mg PO BID Qty: 10 0RF Continued metformin 500 mg tablet extended release 24 hr 1,000 mg PO DAILY Qty: 60 5RF amlodipine 10 mg tablet 10 mg PO DAILY 30 Days Qty: 30 5RF clonidine HCl 0.1 mg tablet 0.1 mg PO BID 30 Days Qty: 60 5RF hydralazine 10 mg tablet 10 mg PO Q12H 30 Days Qty: 60 5RF spironolactone 25 mg tablet 25 mg PO DAILY 30 Days Qty: 30 5RF insulin degludec [Tresiba FlexTouch U-200] 200 unit/mL (3 mL) insulin pen 20 unit SUBCUT DAILY Qty: 9 5RF insulin aspart U-100 [Novolog FlexPen U-100 Insulin] 100 unit/mL (3 mL) insulin pen See Rx Instructions SUBCUT TID Qty: 15 2RF Rx Instructions: 110-129=3U 130-150=6U 151-200=9U 201-250=12U 251-300=15U 301-350=18U 351- 400=21U >400=24U SQ (DME) glucometer testing kit See Rx Instructions .Route .MEDSUPPLY Qty: 1 0RF Rx Instructions: lancets#100 strips#100 Discharge Orders: Discharge Order (Routine); Ordered 12/07/23 Ordered By: Zach Graham Referrals: Zach Graham DO [Physician] - 2 weeks Discharge Diet: Advance as tolerated Discharge Activity: Resume usual activity Patient Instructions: Opioid Safety Activity Restrictions/Additional Instructions: Do not soak incision underwater for 2 weeks. Shower daily. Discharge Attestations Time Spent in Discharge Care*: less than 30 min Quality Metrics Clinical Quality Measures [ No reported AMI, CVA or VTE this stay] Coding Level of Care Code Acute Code for Chg Fwd
[2023-12-08 04:00] VITALS: BP 135/91; PULSE 85; RESP 16; TEMP 36.4; O2SAT 93
[2023-12-08 07:49] VITALS: BP 166/96; PULSE 78; RESP 20; TEMP 36.6; O2SAT 93
[2023-12-08 07:56] VITALS: O2SAT 94
--- NOTE | 2023-12-08 09:02 | PC.CHAP ---
Pastoral Care Encounter/Spiritual Assessment Type of Contact [] Declined dairy cattle farm manager visit [] Patient/Family/Request visit [] Outpatient visit [] Follow-up visit [] Physician referral [] Code/Alert [x] Routine visit [] Staff referral [] Actively dying [] Patient sleeping [] Family support [] [] Out of room [] Palliative care [] [] Receiving care in room [] Pre-surgical visit [] Trauma [] Long length of stay [] ICU visit [] Other: Relational/Emotional Strength [x] Patient feels connected with others/family/visitors/staff [] Distress [] Loneliness/isolation [] Abandonment Spirituality of Patient [x] Person of Fiona [] Attends Congregation of their Fiona [x] Believes in Prayer [] Reads Bible or Mormonism materials [] There are Spiritual issues to be addressed Joint Supervisor Interventions [x] Prayer [] Active listening [x] Non-anxious presence [x] Spiritual/emotional support [] Crisis/trauma care [] Spiritual counseling [] Bereavement support [] Provided bereavement packet [] Provided Bible/devotional materials [] Provided toy/stuffed animal, coloring book to patient or family member [] Provided Communion [] Anointing/Bixby [] Salvation [x] Completed spiritual assessment [] Other: Impact on Illness or Injury [] Angry [] Fearful [] Anxious [] Often cries [] Exhaustion [] Unable to work [] Unable to attend methodist [] Unable to walk/stand [] Unable to read [] Unable to drive [] Unable to eat/drink [] Unable to sleep [] Unable to be with family [] Patient intubated [] Other: Summary Time spent with patient 5 min
[2023-12-08 10:37] VITALS: O2SAT 94
== END 2023-12-08 10:38 | disposition home or self-care (01) ==
LOC: MEDSURG 14:04
PROVIDERS: Admitting Provider Surgery; PCP Nurse Practitioner; Visit Provider Surgery
PROC: (CPT 36561; principal; 2023-12-07 15:45)
DX: R22.31 Localized swelling, mass and lump, right upper limb (principal)
CPT/HCPCS: 36561; 36416; 71045; 76000; 77001; 82962; C1788; G0378; J0690; J1644; J2704; J3010

== ENCOUNTER 2023-12-14 20:03 | Emergency (ER) | payer OTHER, SELFPAY ==
--- NOTE | 2023-12-14 20:05 | XRR_ITS ---
PROCEDURE INFORMATION: Exam: XR Chest Exam date and time: 12/14/2023 8:19 PM Age: 43 years old Clinical indication: Chest wall pain; Prior surgery; Surgery date: 6+ months; Surgery type: Port; Additional info: Cp TECHNIQUE: Imaging protocol: Radiologic exam of the chest. Views: 1 view. COMPARISON: CR XR chest 1V portable [id number] 12/07/2023 2:02 PM FINDINGS: Tubes, catheters and devices: A left-sided VAD is in good position with the catheter tip in the lower SVC. Lungs: There is extensive dense consolidation and/or volume loss involving the left lung base. Multiple pulmonary nodules are noted bilaterally. Pleural spaces: Unremarkable. No pleural effusion. No pneumothorax. Heart/Mediastinum: Unremarkable. No cardiomegaly. Bones/joints: Unremarkable. XR/XR chest 1V portable [id number] IMPRESSION: 1. Worsening left basilar consolidation and/or volume loss 2. Stable lung nodules
[2023-12-14 20:09] VITALS: BP 148/95; PULSE 104; RESP 18; TEMP 36.8; O2SAT 93
--- NOTE | 2023-12-14 20:09 | ECG_ITS ---
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 Measurements Intervals [place] Rate: 100 P: 31 [place]: 154 QRS: 50 QRSD: 97 T: 119 QT: 304 QTc: 393 Interpretive Statements SINUS TACHYCARDIA POSSIBLE LEFT ATRIAL ENLARGEMENT [-0.1mV P-WAVE IN V1/V2] ST DEVIATION AND MODERATE T-WAVE ABNORMALITY, CONSIDER LATERAL ISCHEMIA [-0.1+ mV T-WAVE IN I/aVL/V5/V6] No previous ECG available for comparison Electronically Signed On 12-15-2023 16:25:39 CDT by Nahid Montes M.D. [email or web address] | [id number]
--- NOTE | 2023-12-14 20:40 | ED_ITS ---
HPI - SOB/Dyspnea 2 General: Chief Complaint: Shortness of Breath/Dyspnea Stated Complaint: Sob pt has port in chest,Chest pain Time Seen by Provider: 12/14/23 20:22 Source: patient Mode of arrival: ambulatory History of Present Illness: HPI Narrative: 43-year-old male presents to the emergen cy room with complaint of shortness of breath. 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 He is still in the process of getting worked up has not started any treatment he is recently had a port placed in the left subclavian space. He had sudden onset of increasing shortness of breath and some moderate chest pain. Activities that he normally was tolerating without any difficulty are now causing severe shortness of breath. He denies any fever sweats or chills he has had slight cough he has not had any hemoptysis. MD elicited complaint: shortness of breath and cough Onset (ago): day(s) Context: recent illness (Recently diagnosed with sarcoma with lung mets) and other (Recent PowerPort placement left subclavian space) Timing: constant Severity: moderate Exacerbating factors: lying flat, exertion and coughing Relieving factors: rest Associated symptoms: Reports chest congestion and cough; Deny abdominal pain, chest pain, diaphoresis, dizziness, extremity pain, fever(s), hemoptysis, lightheadedness, myalgias, nausea, orthopnea, palpitations, paresthesias, polydipsia, polyuria, rash, sense of impending doom, syncope or vomiting Treatment prior to arrival: none Review of Systems 2 Const: Denies: fever(s) or diaphoresis Card: Denies: chest pain, palpitations, lightheadedness, syncope or orthopnea Resp: Reports: chest congestion; Denies: hemoptysis GI: Denies: abdominal pain, nausea or vomiting : Denies: dysuria, urinary frequency or urinary urgency Musc: Denies: extremity pain Skin/Breast: Denies: rash Neuro: Denies: dizziness Endo: Denies: polyuria or polydipsia PFSH ED 2 PFSH: Medical History Obesity, Class III, BMI 40-49.9 (morbid obesity) Diabetes mellitus with hyperglycemia, with long-term current use of insulin Metabolic syndrome Essential (primary) hypertension Surgical History History of surgical removal of pilonidal cyst History of nasal surgery Family History Mother Diabetes Hypertension Father Cancer Hypertension Other Hyperlipidemia Social History Smoking and tobacco/nicotine status: current every day tobacco/nicotine user cigarettes Second hand smoke exposure: No Alcohol intake: never Substance/Drug Use: never Adopted: No Caregiver/support person: No Lives independently: Yes Household members: significant other Housing: House Marital status: Number of children: 2 Highest education level completed: High School Graduate service: No Current occupational status: unemployed Current occupational exposures/hazards: No Pets and animals: Yes Do you think of yourself as: Straight/Heterosexual Current gender identity: Male Physical Exam 2 Const: GENERAL APPEARANCE: cooperative and comfortable O RIENTATION/CONSCIOUSNESS: Yes awake, Yes oriented to person, Yes oriented to place and Yes oriented to time HENMT: COMMON NORMALS: normocephalic, atraumatic and hearing grossly normal bilaterally HEAD & SCALP: normocephalic and atraumatic Resp: COMMON NORMALS: normal respiratory effort, No retractions and No use of accessory muscles AUSCULTATION: breath sounds absent on th left Cardio: COMMON NORMALS: regular rate, regular rhythm and No murmurs present (Cardio) RATE: regular rate RHYTHM: regular rhythm GI: COMMON NORMALS: Soft to palpation and No hepatosplenomegaly present A USCULTATION: Yes normoactive bowel sounds PALPATION: Yes Soft to palpation, No Tenderness to palpation present (GI), No Guarding due to palpation present (GI) and Yes No hepatosplenomegaly present Extremity: COMMON NORMALS: normal to inspection, capillary refill normal and no calf tenderness OTHER: Significant deformity of the soft tissue the right proximal humerus consistent with a known sarcoma Trace edema lower extremities negative Homans test Neuro: SENSORIUM/ORIENTATION: Yes oriented to person, Yes oriented to place and Yes oriented to time Skin: COMMON NORMALS: no rashes or lesions noted GENERAL SKIN EXAM: no rashes or lesions noted Course 2 Vital Signs: Vital signs: Vital Signs Temperature 98.2 F 12/14/23 20:09 Pulse Rate 100 05/14/24 23:49 Respiratory Rate 19 H 12/14/23 23:49 Blood Pressure 152/74 12/14/23 23:49 Pulse Oximetry 91 12/14/23 23:49 Oxygen Delivery Me thod Room Air 12/14/23 23:00 MDM - SOB/Dyspnea Medical Decision Making Soft tissue mass in the right arm was thought to likely be a sarcoma were still waiting biopsies he is evidently been going to [facility] in [place] which has been a little frustrating for you he feels this is delaying onset of his treatment. He has known multiple metastasis in the lungs he has now developed a very large left pleural effusion which is trapping the left lung. His oxygen saturations at this time are adequate even with activity he remains oxygen saturations in the 90% range. Reviewed findings with the patient we will discharge patient home and will contact pulmonology Ortho cardiothoracic surgery tomorrow to try to make arrangements for therapeutic and diagnostic relief of the pleural effusion suspect he may benefit from a [place] drain. Medical Records I reviewed the patient's medical records. Lab Data I reviewed the patient's lab results. 12/14/23 20:50 12/14/23 20:50 Labs/Radiology: Radiology Impressions Chest X-Ray 12/14/23 20:05 IMPRESSION: 1. Worsening left basilar consolidation and/or volume loss 2. Stable lung nodules Chest CTA 12/14/23 21:04 IMPRESSION: 1. Interval development of a very large left-sided pleural effusion 2. Worsening pulmonary and pleural-based nodules Laboratory Results WBC 13.67 10^3/uL (3.29-11.43) H 12/14/23 20:50 RBC 4.89 10^6/uL (3.85-5.65) 12/14/23 20:50 Hgb 13.40 g/dL (11.27-16.99) 12/14/23 20:50 Hct 40.0 % (37-53) 12/14/23 20:50 MCV 81.8 fl (82-101) L 12/14/23 20:50 MCH 27.4 pg (27-33) 12/14/23 20:50 MCHC 33.5 g/dL (30-55) 12/14/23 20:50 RDW 13.3 % (12.1-15.1) 12/14/23 20:50 Plt Count 333 10^3/cmm (157-399) 12/14/23 20:50 MPV 9.9 fL (7.4-10.4) 12/14/23 20:50 Neut % (Auto) 72.6 % 12/14/23 20:50 Lymph % (Auto) 15.6 % 12/14/23 20:50 [place] % (Auto) 6.8 % 12/14/23 20:50 Eos % (Auto) 4.1 % 12/14/23 20:50 Baso % (Auto) 0.5 % 12/14/23 20:50 Neut # (Auto) 9.92 10^3/uL (1.8-7.7) H 12/14/23 20:50 Lymph # (Auto) 2.1 10^3/uL (0.8-4.8) 12/14/23 20:50 [place] # (Auto) 0.9 10^3/uL (0.2-0.9) 12/14/23 20:50 Eos # (Auto) 0.6 10^3/uL (0.0-0.8) 12/14/23 20:50 Baso # (Auto) 0.1 10^3/uL (0.0-0.1) 12/14/23 20:50 Nucleated RBC % (auto) 0 % 12/14/23 20:50 Nucleated RBCs # 0.0 /100WBC 12/14/23 20:50 PT 13.90 SECONDS (12.1-14.9) 12/14/23 20:50 INR 1.04 (0.8-1.2) 12/14/23 20:50 Sodium 135 mmol/L (136-145) L 12/14/23 20:50 Potassium 4.4 mmol/L (3.5-5.1) 12/14/23 20:50 Chloride 100 mmol/L (98-107) 12/14/23 20:50 Carbon Dioxide 23 mmol/L (22-29) 12/14/23 20:50 Anion Gap 16.4 (5-19) 12/14/23 20:50 BUN 15 mg/dL (6-20) 12/14/23 20:50 Creatinine 0.8 mg/dL (0.7-1.2) 12/14/23 20:50 GFR Calculation 105.5 mL/min (90-130) 12/14/23 20:50 Glucose 208 mg/dL (65-115) H 12/14/23 20:50 Calculated Osmolality 287 mOsm/kg (285-295) 12/14/23 20:50 Calcium 8.7 mg/dL (8.5-10.5) 12/14/23 20:50 Total Bilirubin 0.3 mg/dL (0.15-1.2) 12/14/23 20:50 AST 11 U/L (0-40) 12/14/23 20:50 ALT 7 U/L (0-41) 12/14/23 20:50 Alkaline Phosphatase 80 U/L (40-130) 12/14/23 20:50 Troponin T Baseline 17 ng/L (0-15) H 12/14/23 20:50 Troponin T 120 Minute 16.00 ng/L (0-15) H 12/14/23 22:49 Delta Troponin T -1.00 ABS# (0-10) L 12/14/23 22:49 Total Protein 7.6 g/dL (6.6-8.7) 12/14/23 20:50 Albumin 3.6 g/dL (3.5-5.2) 12/14/23 20:50 Globulin 4.0 g/dL (1.3-4.6) 12/14/23 20:50 Lipase 21 U/L (13-60) 12/14/23 20:50 All radiology interpretation(s) finalized by discharge Discharge Plan Discharge Patient Disposition: Home Clinical Impression: Pleural effusion, left, Mass of right upper extremity, Metastasis to lung Condition: Stable Prescriptions: No Action metformin 500 mg tablet extended release 24 hr 1,000 mg PO DAILY Qty: 60 5RF amlodipine 10 mg tablet 10 mg PO DAILY 30 Days Qty: 30 5RF clonidine HCl 0.1 mg tablet 0.1 mg PO BID 30 Days Qty: 60 5RF hydralazine 10 mg tablet 10 mg PO Q12H 30 Days Qty: 60 5RF spironolactone 25 mg tablet 25 mg PO DAILY 30 Days Qty: 30 5RF insulin degludec [Tresiba FlexTouch U-200] 200 unit/mL (3 mL) insulin pen 20 unit SUBCUT DAILY Qty: 9 5RF insulin aspart U-100 [Novolog FlexPen U-100 Insulin] 100 unit/mL (3 mL) insulin pen See Rx Instructions SUBCUT TID Qty: 15 2RF Rx Instructions: 110-129=3U 130-150=6U 151-200=9U 201-250=12U 251-300=15U 301-350=18U 351- 400=21U >400=24U SQ (DME) glucometer testing kit See Rx Instructions .Route .MEDSUPPLY Qty: 1 0RF Rx Instructions: lancets#100 strips#100 hydrocodone-acetaminophen 7.5-325 mg tablet 1 tab PO Q6H PRN (Reason: pain) Qty: 10 0RF Colace 100 mg capsule 100 mg PO BID Qty: 10 0RF Discharge Orders: Discharge ED (Routine); Ordered 12/14/23 Ordered By: Varinder Stevens Referrals: Demario Velarde, RDC [Primary Care Provider] - Discharge Diet: Usual diet Discharge Activity: Limit activity as instructed Patient Instructions: Opioid Safety, Pain Management Activity Restrictions/Additional Instructions: Thank you for choosing [facility] for your healthcare needs today. Please realize this is an emergency room and that we are providing you with a medical screening exam and this may not be complete and all inclusive of all the testing and or work up that you may need to determine your ailment or severity of your illness. It is very important that you follow up as instructed or that you return to the Emergency Department should you have concerns or if your condition changes or worsens in any way. You are seen today for shortness of breath. You have a large fluid collection in the left lung. This should be drained and would likely give you significant relief of symptoms. We will make a referral for a local physician who can drain this for you. Will contact you in the morning with further details. Recommend that you sleep in a reclined position rather than laying flat as that will help alleviate some of the symptoms. If symptoms worsen or you have change in condition return to the emergency room Coding Level of Care Code ED Banana Loader for Joe Sethi
[2023-12-14 20:57] LABS: Basophils # 0.1 10^3/uL (0.0-0.1); Basophils % 0.5 %; Eosinophils # 0.6 10^3/uL (0.0-0.8); Eosinophils % 4.1 %; Lymphocytes # 2.1 10^3/uL (0.8-4.8); Lymphocytes % 15.6 %; Mean Corpuscular HGB Conc 33.5 g/dL (30-55); Mean Corpuscular Hemoglobin 27.4 pg (27-33); Mean Corpuscular Volume 81.8 fl (82-101); Mean Platelet Volume 9.9 fL (7.4-10.4); Monocytes # 0.9 10^3/uL (0.2-0.9); Monocytes % 6.8 %; Neutrophils # 9.92 10^3/uL (1.8-7.7); Neutrophils % 72.6 %; Nucleated Red Blood Cells % 0 %; Platelet Count 333 10^3/cmm (157-399); Red Blood Count 4.89 10^6/uL (3.85-5.65); Red Cell Distribution Width 13.3 % (12.1-15.1); White Blood Count 13.67 10^3/uL (3.29-11.43)
--- NOTE | 2023-12-14 21:04 | CTR_ITS ---
PROCEDURE INFORMATION: Exam: CTA Chest With Contrast Exam date and time: 12/14/2023 9:17 PM Age: 43 years old Clinical indication: Angina; Additional info: Chest pain/dyspnea on exertion, srcoma w lung mets TECHNIQUE: Imaging protocol: Computed tomographic angiography of the chest with contrast. Exam focused on the arteries. 3D rendering (Not supervised by radiologist): MIP and/or 3D reconstructed images were created by the technologist. Radiation optimization: All CT scans at this facility use at least one of these dose optimization techniques: automated exposure control; mA and/or kV adjustment per patient size (includes targeted exams where dose is matched to clinical indication); or iterative reconstruction. Contrast material: OMNI 350; Contrast volume: 100 ml; Contrast route: INTRAVENOUS (IV); COMPARISON: CT chest [facility] [id number] 11/24/2023 9:43 AM RADIATION DOSE METRICS: Total DLP (mGy-cm): 515.9 FINDINGS: Pulmonary arteries: Normal. No pulmonary emboli. Aorta: Unremarkable. No aortic aneurysm. No aortic dissection. Lungs: Numerous pulmonary nodules are noted throughout both lungs. In addition, there are multiple pleural-based nodules in the left base. A very large left-sided pleural effusion is noted along with left basilar atelectasis. No lung infiltrate noted. Pleural spaces: See Lungs finding. Heart: Unremarkable. No cardiomegaly. No pericardial effusion. Lymph nodes: Unremarkable. No enlarged lymph nodes. Bones/joints: Unremarkable. No acute fracture. Soft tissues: Unremarkable. CT/CT angio chest PE protcl [id number] IMPRESSION: 1. Interval development of a very large left-sided pleural effusion 2. Worsening pulmonary and pleural-based nodules
[2023-12-14 21:15] LABS: INR 1.04 (0.8-1.2)
[2023-12-14 21:16] VITALS: BP 155/92; PULSE 102; O2SAT 93
[2023-12-14 21:21] LABS: Alanine Aminotransferase 7 U/L (0-41); Albumin Level 3.6 g/dL (3.5-5.2); Alkaline Phosphatase 80 U/L (40-130); Anion Gap 16.4 (5-19); Aspartate Amino Transferase 11 U/L (0-40); Blood Urea Nitrogen 15 mg/dL (6-20); Calcium 8.7 mg/dL (8.5-10.5); Carbon Dioxide 23 mmol/L (22-29); Chloride 100 mmol/L (98-107); Creatinine Clr Calc Pharmacy 168.8494; Glomerular Filtration Rate 105.5 mL/min (90-130); Glucose 208 mg/dL (65-115); Lipase 21 U/L (13-60); Osmolality Calculated 287 mOsm/kg (285-295); Potassium 4.4 mmol/L (3.5-5.1); Sodium 135 mmol/L (136-145); Total Bilirubin 0.3 mg/dL (0.15-1.2); Total Protein 7.6 g/dL (6.6-8.7); Troponin(5th) Baseline 17 ng/L (0-15)
[2023-12-14] MEDS: iohexol 350 mg/mL 500 mL Btl (per mL) IV (21:25)
--- NOTE | 2023-12-14 21:57 | ECG_ITS ---
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 Measurements Intervals [place] Rate: 95 P: 27 OK: 164 QRS: 49 QRSD: 105 T: 107 QT: 327 QTc: 412 Interpretive Statements SINUS RHYTHM POSSIBLE LEFT ATRIAL ENLARGEMENT [-0.1mV P-WAVE IN V1/V2] ST DEVIATION AND MODERATE T-WAVE ABNORMALITY, CONSIDER LATERAL ISCHEMIA [-0.1+ mV T-WAVE IN I/aVL/V5/V6] Compared to ECG 12/14/2023 20:09:08 Sinus tachycardia no longer present T-wave abnormality still present Possible ischemia still present Electronically Signed On 12-15-2023 16:28:41 CDT by Nahid Montes M.D. [id number]
[2023-12-14 22:00] VITALS: BP 140/77; PULSE 93; RESP 17; O2SAT 90
[2023-12-14 23:00] VITALS: BP 151/96; PULSE 99; RESP 18; O2SAT 92
[2023-12-14 23:22] VITALS: O2SAT 90; O2SAT 92
[2023-12-14 23:49] VITALS: BP 152/74; PULSE 100; RESP 19; O2SAT 91
== END 2023-12-14 23:51 | disposition home or self-care (01) ==
PROVIDERS: Emergency Medicine; Emergency Provider Family Medicine; PCP Nurse Practitioner
DX: J90 Pleural effusion, not elsewhere classified (principal); R22.31 Localized swelling, mass and lump, right upper limb; C78.00 Secondary malignant neoplasm of unspecified lung; F17.210 Nicotine dependence, cigarettes, uncomplicated; E66.01 Morbid (severe) obesity due to excess calories; Z68.41 Body mass index [BMI] 40.0-44.9, adult
CPT/HCPCS: 71045; 71275; 80053; 83690; 84484; 85025; 85610; 93005; 99285; Q9967

== ENCOUNTER 2023-12-19 21:08 | Inpatient (IN) | payer OTHER, SELFPAY ==
[2023-12-19 21:16] VITALS: BP 155/88; PULSE 102; RESP 17; TEMP 36.8; O2SAT 93; BMI 40.0
--- NOTE | 2023-12-19 21:59 | XRR_ITS ---
PROCEDURE INFORMATION: Exam: XR Chest Exam date and time: 12/19/2023 10:12 PM Age: 43 years old Clinical indication: Shortness of breath; Patient HX: SOB; Lung CA TECHNIQUE: Imaging protocol: Radiologic exam of the chest. Views: 1 view. COMPARISON: CT angio chest PE protcl [id number] 12/14/2023 9:17 PM FINDINGS: Tubes, catheters and devices: A left-sided VAD is in good position with the catheter tip in the lower SVC. Lungs: Multiple rounded nodules are noted throughout the right lung. Pleural spaces: There is a very large left-sided pleural effusion that occupies almost the entire left hemithorax. Heart/Mediastinum: Unremarkable. No cardiomegaly. Bones/joints: Unremarkable. XR/XR chest 1V portable [id number] IMPRESSION: 1. Very large left-sided pleural effusion causing almost total opacification of the left hemithorax 2. Multiple bilateral pulmonary nodules
[2023-12-19 22:09] LABS: Basophils # 0.1 10^3/uL (0.0-0.1); Basophils % 0.4 %; Eosinophils # 0.2 10^3/uL (0.0-0.8); Eosinophils % 1.4 %; Hematocrit 36.3 % (37-53); Lymphocytes # 1.4 10^3/uL (0.8-4.8); Lymphocytes % 9.9 %; Mean Corpuscular HGB Conc 33.6 g/dL (30-55); Mean Corpuscular Hemoglobin 27.3 pg (27-33); Mean Corpuscular Volume 81.2 fl (82-101); Mean Platelet Volume 10.1 fL (7.4-10.4); Monocytes # 1.1 10^3/uL (0.2-0.9); Monocytes % 7.6 %; Neutrophils # 11.12 10^3/uL (1.8-7.7); Neutrophils % 80.1 %; Nucleated Red Blood Cells % 0 %; Platelet Count 363 10^3/cmm (157-399); Red Blood Count 4.47 10^6/uL (3.85-5.65); Red Cell Distribution Width 13.2 % (12.1-15.1); White Blood Count 13.89 10^3/uL (3.29-11.43)
[2023-12-19] MEDS: FUROsemide 10 mg/mL SDV 10mL 60 MG IVP (22:09)
[2023-12-19] MEDS: LORazepam 2 mg/mL INJ 10 mL MDV 1 MG IVP (22:10)
--- NOTE | 2023-12-19 22:10 | ECG_ITS ---
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 Measurements Intervals [place] Rate: 103 P: 34 DC: 157 QRS: 50 QRSD: 106 T: 72 QT: 322 QTc: 422 Interpretive Statements SINUS TACHYCARDIA POSSIBLE LEFT ATRIAL ENLARGEMENT [-0.1mV P-WAVE IN V1/V2] MODERATE T-WAVE ABNORMALITY, CONSIDER INFERIOR ISCHEMIA [-0.1+ mV T-WAVE IN II/aVF] Compared to ECG 12/14/2023 21:57:17 Sinus rhythm no longer present T-wave abnormality still present Possible ischemia still present Electronically Signed On 12-20-2023 12:52:51 CDT by Nahid Montes M.D. [id number]
[2023-12-19 22:18] VITALS: PULSE 105; RESP 24; O2SAT 94
[2023-12-19] MEDS: ipratropium-albuterol 3 mL Neb INHALATION (22:18)
[2023-12-19 22:25] VITALS: PULSE 102
[2023-12-19 22:37] LABS: Alanine Aminotransferase 8 U/L (0-41); Albumin Level 3.1 g/dL (3.5-5.2); Alkaline Phosphatase 77 U/L (40-130); Anion Gap 16.2 (5-19); Aspartate Amino Transferase 13 U/L (0-40); Blood Urea Nitrogen 15 mg/dL (6-20); Calcium 8.4 mg/dL (8.5-10.5); Carbon Dioxide 23 mmol/L (22-29); Chloride 94 mmol/L (98-107); Creatinine Clr Calc Pharmacy 224.7256; Globulin 4.1 g/dL (1.3-4.6); Glucose 158 mg/dL (65-115); NT Pro B Type Natriuretic Pept 70 pg/mL (0-125); Osmolality Calculated 272 mOsm/kg (285-295); Potassium 4.2 mmol/L (3.5-5.1); Sodium 129 mmol/L (136-145); Total Bilirubin 0.5 mg/dL (0.15-1.2); Total Protein 7.2 g/dL (6.6-8.7)
--- NOTE | 2023-12-19 22:56 | PC.NURSE ---
RN into room to further discuss pt concerns. pt states he was supposed to see dr nguyen wednesday to get fluid off of his lungs but they decided not to, pt not sure why. pt is supposed to see scott to get his port checked in the morning. pt thinks he is supposed to get chemo either tomorrow or next wednesday for the first time. per RT pt failed to qualify for home oxygen when seen here last week
[2023-12-19 23:17] VITALS: BP 159/90; PULSE 110; RESP 16; O2SAT 94
--- NOTE | 2023-12-19 23:19 | P.HP_ITS ---
Providers/Chief Complaint 2 Admitting Physician: Minerva Watson MD Primary Care Provider: Demario Velarde, BATTERY FILLER-C Chief Complaint: sob Cancer pt History of Present Illness Brian Villatoro is a 43 year old male History of diabetes mellitus, obesity, metabolic syndrome, hypertension, recently diagnosed malignant sarcoma with metastasis possibly to lungs. Pulmonology in [place] presented to the hospital today for complaint of shortness of breath. He says he could not breathe laying down or even walk to the bathroom secondary to shortness of breath. He was not on any oxygen at home. He recently saw Dr. Dasilva in clinic 2 days prior for pulmonary nodules. He was also seen in the ER for large left- sided pleural effusion and was referred to outpatient thoracentesis from ER discharge. He has not been scheduled for that yet. 7 to 8 months ago he had complained of right bicep area burning. He developed a small knot in that area but slowly progressed over the next few months. Father had a history of head and neck malignancy poorly differentiated squamous cell carcinoma. Saw Dr. Graham in June and Dr. Graham had ordered further workup unfortunately due to patient's insurance issues he could not follow-up. Finally he went to [place] for evaluation and was found to have a 15 cm mass in right humeral area in the soft tissue. Port-A-Cath was placed for chemotherapy and he was following up with [facility]. We do not have tissue diagnosis pathology results. Records have been requested from [place]. Patient states that he has not had any biopsies so far. Has not been established with an oncologist either. He would like to follow-up for further treatment here in [place]. Patient will need IR guided biopsy, establish care with oncology. He prefers to see Dr. Peralta. At this time denies nausea vomiting diarrhea constipation abdominal pain. Denies having a fever recently. Patient requiring 5 L nasal cannula at this time. In ER today patient has been given Lasix 60 IV x 1, blood cultures have been drawn. Chest x-ray obtained which shows a large left pleural effusion. Case discussed with pulmonology by ER. Dr. Dasilva to consult on case and perform a thoracentesis in AM. Patient afebrile. Patient quit smoking 3 weeks ago Medications/Allergies Home Medications Medication Instructions Recorded Confirmed Last Taken Type glucometer testing kit #1 ea 03/19/23 12/17/23 Unknown Rx amlodipine 10 mg tablet 10 mg PO DAILY 30 days #30 tabs 06/23/23 12/17/23 12/07/23 Rx clonidine HCl 0.1 mg tablet 0.1 mg PO BID 30 days #60 tabs 06/23/23 12/17/23 12/07/23 Rx hydralazine 10 mg tablet 10 mg PO Q12H 30 days #60 tabs 06/23/23 12/17/23 12/07/23 Rx insulin aspart U-100 100 unit/mL See Rx Instructions SUBCUT TID #15 06/23/23 12/17/23 12/06/23 Rx (3 mL) subcutaneous pen (Novolog mL FlexPen U-100 Insulin aspart) insulin degludec 200 unit/mL (3 20 unit (0.1 mL) SUBCUT DAILY #9 mL 06/23/23 12/17/23 12/06/23 Rx mL) subcutaneous pen (Tresiba FlexTouch U-200 insulin) metformin 500 mg tablet,extended 1,000 mg (2 x 500 mg) PO DAILY #60 06/23/23 12/17/23 12/06/23 Rx release 24 hr tabs spironolactone 25 mg tablet 25 mg PO DAILY 30 days #30 tabs 06/23/23 12/17/23 12/07/23 Rx docusate sodium 100 mg capsule 100 mg PO BID #10 caps 12/07/23 12/17/23 Unknown Rx (Colace) hydrocodone 7.5 mg-acetaminophen 1 tab PO Q6H PRN pain #10 tabs 12/07/23 12/17/23 Unknown Rx 325 mg tablet Allergies Allergy/AdvReac Type Severity Reaction Status Date / Time No Known Allergies Allergy Verified 12/19/23 21:20 PFSH Acute 2 PFSH: Medical History Obesity, Class III, BMI 40-49.9 (morbid obesity) Diabetes mellitus with hyperglycemia, with long-term current use of insulin Metabolic syndrome Essential (primary) hypertension Surgical History History of surgical removal of pilonidal cyst History of nasal surgery Family History Mother Diabetes Hypertension Father Cancer Hypertension Other Hyperlipidemia Social History Smoking and tobacco/nicotine status: current every day tobacco/nicotine user cigarettes Packs smoked per day: 2 Years cigarettes smoked: 29 [ Other cigarette details: Started at age 14] Second hand smoke exposure: No Alcohol intake: never Substance/Drug Use: never Adopted: No Caregiver/support person: No Lives independently: Yes Household members: significant other Housing: House Marital status: Number of children: 2 Highest education level completed: High School Graduate service: No Current occupational status: unemployed Current occupational exposures/hazards: No Pets and animals: Yes Do you think of yourself as: Straight/Heterosexual Current gender identity: Male Vitals/I&O/Wt Last Vital Signs Temp 98.2 F 12/19/23 21:16 Pulse 110 H 12/19/23 23:17 Resp 16 12/19/23 23:17 BP 159/90 12/19/23 23:17 Pulse Ox 94 12/19/23 23:17 O2 Del Method Nasal Cannula 12/19/23 23:17 O2 Flow Rate 5 12/19/23 23:17 Weight last 48 hrs Weight 133.81 kg Physical Exam 2 Narrative: General: Alert oriented x3, patient seen sitting up in bed in ICU 4. No acute distress however appears mildly short of breath during conversation. HEENT: Normocephalic, atraumatic, EOMI, breathing 5 L nasal cannula saturating 94%. Cardio: Regular rate rhythm, normal S1-S2 Respiratory: Fair bilateral air entry, no wheezing throughout lung palmer bilaterally. GI: Abdomen soft, nontender, nondistended, bowel sounds + Behavior: Appropriate and cooperative Extremities: No edema bilateral lower extremities Data 12/19/23 21:44 12/19/23 21:44 Micro: Microbiology 12/19/23 22:11 Blood Culture - Preliminary Blood SPECIMEN COLLECTED 12/19/23 21:44 Blood Culture - Preliminary Blood SPECIMEN COLLECTED A&P Assessment and plan (1) Essential (primary) hypertension: (2) Mixed hyperlipidemia: (3) Diabetes mellitus with hyperglycemia, with long-term current use of insulin: Qualifiers: Diabetes mellitus type: type 2 Qualified Code(s): E11.65 - Type 2 diabetes mellitus with hyperglycemia; 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 Pulmonology consulted. Patient to have thoracentesis in AM. ? Check cytology, pleural fluid analysis ? Placed on vancomycin and Zosyn for empiric coverage. CT chest 4 days prior showed numerous pulmonary nodules in both lungs with multiple pleural-based nodules in the left base. Very large left-sided pleural effusion noted along with left basilar atelectasis. No infiltrate noted. ? Leukocytosis may be reactive versus underlying pneumonia? De-escalate antibiotics if no infection. ? Monitor for fever, recheck CBC in a.m. ? Wean off oxygen as able -DuoNeb every 6 hours as needed ? Check lactic acid, blood culture, sputum culture Gram stain ? Insulin sliding scale moderate dose intensity ? Confirm all medications and complete med rec. ? Continue amlodipine, clonidine, spironolactone -Please discuss with IR in a.m. regarding obtaining initial biopsy. Patient will need referral to oncology at discharge. Full code DVT prophylaxis: Heparin SQ twice daily Attestations 2 Medical Necessity Statement*: Greater than 2 midnight stay for management of left large pleural effusion with evidence of leukocytosis. Diagnoses Essential (primary) hypertension I10 Mixed hyperlipidemia E78.2 Type 2 diabetes mellitus with hyperglycemia, with long-term current use of insulin E11.65; Z79.4 Diabetes mellitus type: type 2 Obesity, Class III, BMI 40-49.9 (morbid obesity) E66.01 Metastasis to lung C78.00 Chronic back pain M54.9; G89.29 Pleural effusion, left J90 Sarcoma C49.9
--- NOTE | 2023-12-19 23:24 | CTR_ITS ---
PROCEDURE INFORMATION: Exam: CT Chest Without Contrast; Diagnostic Exam date and time: 12/19/2023 11:37 PM Age: 43 years old Clinical indication: Shortness of breath; Patient HX: C/O SOB. Large left pleural effusion on cxr. 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 ; Additional info: Lpleural effusion, per miguel TECHNIQUE: Imaging protocol: Diagnostic computed tomography of the chest without contrast. Radiation optimization: All CT scans at this facility use at least one of these dose optimization techniques: automated exposure control; mA and/or kV adjustment per patient size (includes targeted exams where dose is matched to clinical indication); or iterative reconstruction. COMPARISON: CT angio chest PE protcl [id number] 12/14/2023 9:17 PM RADIATION DOSE METRICS: Total DLP (mGy-cm): 1616.51 FINDINGS: Tubes, catheters and devices: A left-sided VAD is in good position with the catheter tip in the lower SVC. Lungs: Numerous rounded nodules are scattered throughout both lungs. Pleural spaces: There is a very large left-sided pleural effusion which occupies almost all of the left hemithorax. There is compression of the left lung. Heart: Unremarkable. No cardiomegaly. No pericardial effusion. Lymph nodes: Unremarkable. No enlarged lymph nodes. Vasculature: Unremarkable. No aortic aneurysm. Bones/joints: Unremarkable. No acute fracture. Soft tissues: Unremarkable. CT/CT chest wo con [id number] IMPRESSION: Extensive bilateral pulmonary metastatic disease with very large left-sided pleural effusion
[2023-12-19 23:38] VITALS: BMI 41.7
[2023-12-19 23:54] VITALS: BP 159/90; PULSE 110; RESP 16; TEMP 36.8; O2SAT 94
[2023-12-20] VITALS (59 sets, daily range): BP systolic 113–194; BP diastolic 82–125; PULSE 80–110; RESP 16–30; TEMP 36.4–36.9; O2SAT 91–96
--- NOTE | 2023-12-20 00:10 | PC.NURSE ---
Heparin Clarified order for heparin with Dr. Watson. States to not given this dose due to upcoming thoracentesis this AM.
[2023-12-20] MEDS: HYDROcodone-acetaminophen 7.5-325 mg Tablet 1 TAB PO ×2 (00:32→05:54)
[2023-12-20] MEDS: hyDRALAzine 10 mg Tablet PO ×2 (00:32→11:45)
[2023-12-20] MEDS: piperacillin-tazobactam 4.5 GM in sodium chloride 0.9% (plus) 50 ML IV ×4 (00:56→23:47)
[2023-12-20] MEDS: vancomycin 2,000 MG/400 ML PIGGYBACK 200 MG IV ×3 (01:23→16:09)
--- NOTE | 2023-12-20 02:05 | ED_ITS ---
HPI - SOB/Dyspnea 2 General: Chief Complaint: Shortness of Breath/Dyspnea Stated Complaint: sob Time Seen by Provider: 12/19/23 21:44 History of Present Illness: HPI Narrative: 43-year-old male with a history of sarco ma to the right upper extremity. He also has a history of a pleural effusion on the left. He had a CT 4 days ago showing his effusion/mass. Consideration was given to thoracentesis at that time. He has since developed increasing shortness of breath. He is on oxygen now, with some labored breathing. Oxygen is helping he says. He is not normally on oxygen. He does not have a fever. Minimal cough. No swelling. Associated symptoms: Deny abdominal pain, dizziness, fever(s), nausea, palpitations or vomiting Review of Systems 2 Const: Denies: fever(s), chills or body aches Eyes: Denies: change in vision Card: Denies: palpitations Resp: Denies: productive cough, non-productive cough or wheezing GI: Denies: abdominal pain, nausea, vomiting, diarrhea or hematochezia Skin/Breast: Denies: rash Neuro: Denies: headache(s), weakness in extremities, dizziness or confusion PFSH ED 2 PFSH: Medical History Obesity, Class III, BMI 40-49.9 (morbid obesity) Diabetes mellitus with hyperglycemia, with long-term current use of insulin Metabolic syndrome Essential (primary) hypertension Surgical History History of surgical removal of pilonidal cyst History of nasal surgery Family History Mother Diabetes Hypertension Father Cancer Hypertension Other Hyperlipidemia Social History Smoking and tobacco/nicotine status: current every day tobacco/nicotine user cigarettes Packs smoked per day: 2 Years cigarettes smoked: 29 [ Other cigarette details: Started at age 14] Second hand smoke exposure: No Alcohol intake: never Substance/Drug Use: never Adopted: No Caregiver/support person: No Lives independently: Yes Household members: significant other Housing: House Marital status: Number of children: 2 Highest education level completed: High School Graduate service: No Current occupational status: unemployed Current occupational exposures/hazards: No Pets and animals: Yes Do you think of yourself as: Straight/Heterosexual Current gender identity: Male Physical Exam 2 Const: GENERAL APPEARANCE: cooperative and ill appearing; not frail appearing HENMT: COMMON NORMALS: normocephalic, atraumatic and Normal external nose present HEAD & SCALP: normocephalic and atraumatic FACE & SINUS: normal facial exam and face symmetric NOSE: Normal external nose present Eye: COMMON NORMALS: Equal, round and reactive pupils present and EOMs intact bilaterally PUPIL: Yes Equal, round and reactive pupils present Neck/C-Spine: GENERAL: Yes trachea midline Chest: CHEST: Yes Symmetrical chest wall rise Resp: EFFORT & INSPECTION: Yes symmetric chest movement, Yes tachypneic and Yes labored AUSCULTATION: diminished lung sounds Cardio: COMMON NORMALS: regular rhythm RATE: tachycardic RHYTHM: regular rhythm GI: COMMON NORMALS: Normal to inspection, nondistended, normoactive bowel sounds present Extremity: NARRATIVE EXTREMITY EXAM: Right upper extremity mass in the arm. Neuro: AUREA COMA SCALE: document GCS findings Aurea coma scale eye opening: Spontaneous [place] coma scale verbal response: Orientated Aurea coma scale motor response: Obey commands [place] coma scale total score: 15 S ENSORY EXAM: Yes extremities (intact) Psych: COMMON NORMALS: speech normal SPEECH: Yes normal speech Skin: COMMON NORMALS: no rashes or lesions noted GENERAL SKIN EXAM: no rashes or lesions noted Course 2 Vital Signs: Vital signs: Vital Signs Temperature 97.9 F 12/20/23 00:00 Pulse Rate 99 12/20/23 01:45 Respiratory Rate 22 H 12/20/23 01:45 Blood Pressure 153/97 12/20/23 01:45 Pulse Oximetry 95 12/20/23 01:45 Oxygen Delivery Me thod Nasal Cannula 12/20/23 00:00 Oxygen Flow Rate 5 12/20/23 00:00 MDM - SOB/Dyspnea Medical Decision Making Labored respirations and oxygen requirement with mild tachycardia in a patient with a left pleural effusion. Pleural effusion has increased in size in the last 4 days. His white blood cell count is 14, but without significant left shift. Sodium is 130. Other laboratory not terribly remarkable. Spoke with pulmonary. They are willing to do ultrasound diagnostically in the morning for potential thoracentesis if possible. Spoke with the hospitalist he is willing to admit. He will go to the ICU. CT scan on the way for further delineation of the effusion. Lab Data 12/19/23 21:44 12/19/23 21:44 Labs/Radiology: Radiology Impressions Chest X-Ray 12/19/23 21:59 IMPRESSION: 1. Very large left-sided pleural effusion causing almost total opacification of the left hemithorax 2. Multiple bilateral pulmonary nodules Chest CT 12/19/23 23:24 IMPRESSION: Extensive bilateral pulmonary metastatic disease with very large left-sided pleural effusion Laboratory Results WBC 13.89 10^3/uL (3.29-11.43) H 12/19/23 21:44 RBC 4.47 10^6/uL (3.85-5.65) 12/19/23 21:44 Hgb 12.20 g/dL (11.27-16.99) 12/19/23 21:44 Hct 36.3 % (37-53) L 12/19/23 21:44 MCV 81.2 fl (82-101) L 12/19/23 21:44 MCH 27.3 pg (27-33) 12/19/23 21:44 MCHC 33.6 g/dL (30-55) 12/19/23 21:44 RDW 13.2 % (12.1-15.1) 12/19/23 21:44 Plt Count 363 10^3/cmm (157-399) 12/19/23 21:44 MPV 10.1 fL (7.4-10.4) 12/19/23 21:44 Neut % (Auto) 80.1 % 12/19/23 21:44 Lymph % (Auto) 9.9 % 12/19/23 21:44 [place] % (Auto) 7.6 % 12/19/23 21:44 Eos % (Auto) 1.4 % 12/19/23 21:44 Baso % (Auto) 0.4 % 12/19/23 21:44 Neut # (Auto) 11.12 10^3/uL (1.8-7.7) H 12/19/23 21:44 Lymph # (Auto) 1.4 10^3/uL (0.8-4.8) 12/19/23 21:44 [place] # (Auto) 1.1 10^3/uL (0.2-0.9) H 12/19/23 21:44 Eos # (Auto) 0.2 10^3/uL (0.0-0.8) 12/19/23 21:44 Baso # (Auto) 0.1 10^3/uL (0.0-0.1) 12/19/23 21:44 Nucleated RBC % (auto) 0 % 12/19/23 21:44 Nucleated RBCs # 0.0 /100WBC 12/19/23 21:44 Sodium 129 mmol/L (136-145) L 12/19/23 21:44 Potassium 4.2 mmol/L (3.5-5.1) 12/19/23 21:44 Chloride 94 mmol/L (98-107) L 12/19/23 21:44 Carbon Dioxide 23 mmol/L (22-29) 12/19/23 21:44 Anion Gap 16.2 (5-19) 12/19/23 21:44 BUN 15 mg/dL (6-20) 12/19/23 21:44 Creatinine 0.6 mg/dL (0.7-1.2) L 12/19/23 21:44 GFR Calculation 147.0 mL/min (90-130) H 12/19/23 21:44 Glucose 158 mg/dL (65-115) H 12/19/23 21:44 Calculated Osmolality 272 mOsm/kg (285-295) L 12/19/23 21:44 Lactic Acid 1.0 mmol/L (0.5-2.2) 12/19/23 21:44 Calcium 8.4 mg/dL (8.5-10.5) L 12/19/23 21:44 Total Bilirubin 0.5 mg/dL (0.15-1.2) 12/19/23 21:44 AST 13 U/L (0-40) 12/19/23 21:44 ALT 8 U/L (0-41) 12/19/23 21:44 Alkaline Phosphatase 77 U/L (40-130) 12/19/23 21:44 NT-Pro-B Natriuret Pep 70 pg/mL (0-125) 12/19/23 21:44 Total Protein 7.2 g/dL (6.6-8.7) 12/19/23 21:44 Albumin 3.1 g/dL (3.5-5.2) L 12/19/23 21:44 Globulin 4.1 g/dL (1.3-4.6) 12/19/23 21:44 All radiology interpretation(s) finalized by discharge Discharge Plan Discharge Patient Disposition: Admitted As Inpatient Admit Provider: Minerva Watson Clinical Impression: Pleural effusion, left, Metastasis to lung, Sarcoma, Respiratory failure Condition: Fair Coding Level of Care Code ED Habilitation Specialist for Joe Sethi
[2023-12-20 07:46] LABS: Glucose Point of Care 123 mg/dL (70-110)
[2023-12-20] MEDS: spironolactone 25 mg Tablet PO (08:23)
[2023-12-20] MEDS: amlodipine 10 mg Tablet PO (08:23)
[2023-12-20] MEDS: docusate sodium 100 mg Capsule PO (08:23)
--- NOTE | 2023-12-20 08:50 | PC.PHAR ---
Addendum entered by Haily Cain 12/20/23 09:10: PT STATES TAKES BASAGLAR KWIKPEN U-100 NEEDED. UNABLE TO LOCATE PHARMACY THAT HAS FILLED THIS MEDICATION. PT ALSO, HAS TERESSIBA FLEXTOUCH U-200- TAKE 20 UNITS DAILY. FILLED SEVERAL TIMES BY [facility] BUT NEVER PICKED UP DUE TO COST. IT HAS BEEN REMOVED FROM MED LIST. LOOKS LIKE PT IS ONLY USING 1 INSULIN. Original Note: [facility] IN DOSAGE ON INSULINS- CALLING [facility] WHEN THEY OPEN AT 9 AM
--- NOTE | 2023-12-20 09:30 | USCV_ITS ---
Brian Villatoro Age: 43 Gender: M : 1980 Exam Date: 12/20/2023 08:59 Ordering Phys: Minerva Watson MD Technologist: Exam Location: [facility] [place] Indication: pericadial effussion BP: 156 / 96 HR: 85 Rhythm: Sinus Technical Quality: Adequate MEASUREMENTS (Male / Female) Normal Values 2D ECHO LV Diastolic Diameter PLAX 5.0 cm 4.2 - 5.9 / 3.9 - 5.3 cm IVS Diastolic Thickness 1.3 cm 0.6 - 1.0 / 0.6 - 0.9 cm IVS Systolic Thickness 1.8 cm LVPW Diastolic Thickness 1.6 cm 0.6 - 1.0 / 0.6 - 0.9 cm LVPW Systolic Thickness 1.8 cm LVOT Diameter 2.4 cm LV Ejection Fraction 2D Teich 79.5 % LV Ejection Fraction MOD 2C 65.9 % LV Ejection Fraction 2C AL 67.2 % LA Diameter 4.1 cm RA Systolic Volume 4C AL 54.4 ml RA Systolic Volume 4C MOD 51.0 ml Aorta at Sinotubular Diameter 2.6 cm IVC Diameter 2.2 cm M-MODE LA Ao Ratio MM 1.4 AV Cusp Separation MM 3.0 cm DOPPLER AV Peak Velocity 149.0 cm/s LVOT Peak Velocity 120.0 cm/s AV Area Cont Eq vti 3.6 cm squared AV Area Cont Eq pk 3.6 cm squared MV Peak Velocity 88.0 cm/s MV Area PHT 6.1 cm squared Mitral E to A Ratio 1.5 TV Peak Velocity 141.5 cm/s TR Peak Velocity 166.0 cm/s TR Peak Gradient 11.0 mmHg TV Peak E Velocity 85.0 cm/s Right Atrial Pressure 3.0 mmHg Pulmonary Artery Systolic Pressu 14.0 mmHg PV Peak Velocity 103.0 cm/s FINDINGS Left Ventricle Possibly normal LV size ejection fraction. Of 65%. No gross wall motion normalities. Right Ventricle The right ventricle is normal in size and function. Right Atrium The right atrium is normal in size. Left Atrium The left atrium is normal in size. Mitral Valve No gross abnormalities noted Aortic Valve No gross abnormalities noted Tricuspid Valve No gross abnormalities noted Pulmonic Valve Pulmonic valve not well visualized. Pericardium Small echo-free space anteriorly and posteriorly.. Large echo- free space suggesting on the left side Aorta Normal ascending aorta dimension. IVC The inferior vena cava appears normal. CONCLUSIONS Possibly normal LV size ejection fraction. Of 65%. No gross wall motion normalities. Possible small pericardial effusion Features of large left-sided pleural effusion Normal cardiac chamber sizes. No similar previous studies are available for comparison Dr Thomas Power MD FAC (Electronically Signed) Final Date: 20 Dec 2023 21:10 S
[2023-12-20 09:45] LABS: Basophils # 0.1 10^3/uL (0.0-0.1); Basophils % 0.7 %; Eosinophils # 0.3 10^3/uL (0.0-0.8); Eosinophils % 2.3 %; Hematocrit 36.1 % (37-53); Lymphocytes # 1.4 10^3/uL (0.8-4.8); Lymphocytes % 10.3 %; Mean Corpuscular Hemoglobin 27.3 pg (27-33); Mean Corpuscular Volume 82.8 fl (82-101); Mean Platelet Volume 9.9 fL (7.4-10.4); Monocytes # 1.1 10^3/uL (0.2-0.9); Monocytes % 8.2 %; Neutrophils # 10.74 10^3/uL (1.8-7.7); Neutrophils % 78.1 %; Nucleated Red Blood Cells % 0 %; Platelet Count 325 10^3/cmm (157-399); Red Blood Count 4.36 10^6/uL (3.85-5.65); Red Cell Distribution Width 13.3 % (12.1-15.1); White Blood Count 13.73 10^3/uL (3.29-11.43)
[2023-12-20 10:06] LABS: INR 1.15 (0.8-1.2)
[2023-12-20 10:08] LABS: Alanine Aminotransferase 6 U/L (0-41); Alkaline Phosphatase 79 U/L (40-130); Anion Gap 16.4 (5-19); Aspartate Amino Transferase 13 U/L (0-40); Blood Urea Nitrogen 16 mg/dL (6-20); Calcium 8.3 mg/dL (8.5-10.5); Carbon Dioxide 24 mmol/L (22-29); Chloride 95 mmol/L (98-107); Globulin 4.3 g/dL (1.3-4.6); Glomerular Filtration Rate 123.1 mL/min (90-130); Glucose 131 mg/dL (65-115); Magnesium 2.1 mg/dL (1.7-2.3); Osmolality Calculated 275 mOsm/kg (285-295); Potassium 4.4 mmol/L (3.5-5.1); Sodium 131 mmol/L (136-145); Total Bilirubin 0.5 mg/dL (0.15-1.2); Total Protein 7.3 g/dL (6.6-8.7)
--- NOTE | 2023-12-20 11:50 | P.PN_ITS ---
Subjective 2 Subjective: Patient is stating that no one has done any biopsy, I have requested IR for supraclavicular lymph node biopsy, as per Dr. Landeros osteosarcoma seems very vascular she wanted to biopsy of right humeral mass, she is targeting for supraclavicular lymph node today Patient is full code, in case of any emergencies?should be notified Patient has a girlfriend and 3 sons Vitals/I&O/Wt Last Vital Signs Temp 97.6 F 12/20/23 08:00 Pulse 96 12/20/23 11:25 Resp 18 12/20/23 11:25 BP 194/125 12/20/23 11:00 Pulse Ox 93 12/20/23 11:25 O2 Del Method Nasal Cannula 12/20/23 11:25 O2 Flow Rate 4 12/20/23 11:25 12/19/23 12/20/23 12/20/23 22:59 06:59 14:59 Intake Total 450 / 450 400 / 400 Output Total 1100 / 1100 375 / 375 Balance -650 / -650 Weight last 48 hrs Weight 141.974 kg Weight 139.48 kg Weight 133.81 kg Physical Exam 2 Narrative: Awake and alert Currently on 4 L nasal cannula Hypertensive GCS 15 Morbid obese Right bicep/humeral mass S1, S2 Awake and alert Nonfocal neuroexam Pleasant cooperative Morbidly obese Data 12/20/23 09:35 12/20/23 09:35 Micro: Microbiology 12/19/23 22:11 Blood Culture - Preliminary Blood SPECIMEN COLLECTED 12/19/23 21:44 Blood Culture - Preliminary Blood SPECIMEN COLLECTED A&P Assessment and plan (1) Essential (primary) hypertension: (2) Metastasis to lung: (3) Sarcoma: (4) Chronic back pain: (5) DDD (degenerative disc disease), lumbar: (6) Pleural effusion, left: (7) Respiratory failure: (8) Mass of right upper extremity: Plan 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 Tigre De Jesus's plan to do the biopsy today Awaiting records from [facility] Left-sided significant pleural effusion Plan for Pleurx catheter by Dr. Nieves around 3 PM Hypertension: Optimize antihypertensive regimen Add opioids as well Type II diabetic I will allow him to have clear liquid diet which could be advanced after Pleurx catheter Patient will also need follow-up with Dr. Peralta once he is available Spoke with support staff regarding Pleurx catheter Spoke with IR regarding lymph node biopsy Attestations 2 Medical Necessity Statement*: Continue management in the ICU Diagnoses Essential (primary) hypertension I10 Metastasis to lung C78.00 Sarcoma C49.9 Chronic back pain M54.9; G89.29 DDD (degenerative disc disease), lumbar M51.36 Pleural effusion, left J90 Respiratory failure J96.90 Mass of right upper extremity R22.31
[2023-12-20 11:53] LABS: Glucose Point of Care 159 mg/dL (70-110)
[2023-12-20] MEDS: insulin lispro 100 unit/1 mL SUBCUT ×2 (11:53→20:24)
[2023-12-20 12:31] LABS: Estmated Average Glucose 140; Hemoglobin A1C 6.5 % (4.0-6.0)
[2023-12-20] MEDS: metoprolol tartrate 25 mg Tablet PO ×2 (12:38→20:24)
[2023-12-20] MEDS: losartan 50 mg Tablet PO (12:38)
[2023-12-20] MEDS: fentaNYL 50 mcg/mL INJ 2mL 25 MCG IVP (14:36)
[2023-12-20] MEDS: lidocaine 1% INJ 10 mL (per mL) 20 ML IM (14:38)
--- NOTE | 2023-12-20 15:13 | XR_ITS ---
WS: [id number] PORTABLE CHEST HISTORY: post thoracentesis COMPARISON: 12/19/2023 Status post LEFT thoracentesis. Slightly improved aeration. There is still a large LEFT pleural effus ion and or pleural thickening with atelectasis. Patient has known pulmonary masses and nodules and pl eural nodules as seen on a prior CT. Central LEFT lung opacification may be collapsed lung or neoplasm. Multiple nodules throughout the RI GHT lung. No pneumothorax identified. Cardiac size: Obscured by the lung disease. Mediastinum/Aorta: Normal mediastinum. No osseous abnormality seen. LEFT subclavian Port-A-Cath. XR/XR chest 1V portable [id number] IMPRESSION: 1. Slightly improved large LEFT pleural effusion status post thoracentesis. 2. No left-sided pneumothorax. 3. Patient has known bilateral pulmonary nodules and masses and pleural based nodules.
--- NOTE | 2023-12-20 15:53 | P.PCN_ITS ---
Procedure/Consent Time out: Time Out Performed: Yes Consent: Consent for Procedure: Consent obtained from patient, Risks & Benefits reviewed and Agrees to proceed with procedure Procedure Narrative: Pulmonary & Critical Care Medicine Procedure - Ultrasound guided Thoracentesis Procedure: CPT code 44525 thoracentesis, needle or catheter, aspiration of the pleural space; with imaging guidance Indication: Worsening right pleural effusion. 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 Currently scheduled for diagnostic and therapeutic thoracentesis. Technique: The study was performed in an ACR accredited facility. Medication reconciliation form reviewed and any changes related this procedure resolved. Report: The procedure for thoracentesis was explained to the patient including the risks, benefits and possible complications. The patient was given the opportunity to ask questions, wished to proceed, and signed the written informed consent form. Using ultrasound guidance, a safe route of access was identified into the left pleural space. The site was then prepped and draped using maximal sterile barrier technique. The 1% lidocaine was used for local anesthetic. With sonographic guidance, a 6 [place] thoracentesis catheter was placed with return of 5 cc hemorrhagic pleural fluid. The catheter was slipped into the pleural cavity and approximately 2 L of sanguinous pleural fluid was removed. The patient tolerated the procedure well without any immediate complications. Impression: 1. Successful ultrasound-guided left th oracentesis with removal of approximately 2 L of sanguinous pleural fluid. ICD-10 code-J90 pleural effusion, not elsewhere classified Acute Procedures Epistaxis Control: Time out performed: Yes
--- NOTE | 2023-12-20 15:53 | P.CONIM_ITS ---
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 Initially presented to emergency room on 12/14/2023 with complaint of shortness of breath and had a CTA which showed interval development of very large left pleural effusion. CT also showed worsening pulmonary and pleural-based nodules at that time and saturating 94% on room air and was referred to pulmonary clinic for thoracentesis. I have seen patient in pulmonary clinic on 12/17/2023-he was saturating 92% on room air and we discussed about outpatient thoracentesis as soon as the schedule permits for outpatient procedure this week. However he came to emergency room yesterday night 12/19/2023-with worsening shortness of breath and now he is requiring 2 L supplemental oxygen. ED effusion Dr. Jose L Jara consulted pulmonary critical care and informed that patient is being admitted and we can schedule thoracentesis as inpatient. Background history: 7 to 8 months ago he got up 1 morning and when he pushed himself up off the bed and noted having significant burning in the right bicep area. He said since that time he developed a small knot in that area which then slowly progressed over the intervening months. He said when it first came up his father told him to seek evaluation. His father has been treated for head neck malignancy. He declined and continue to keep working and did not seek attention till recently when he saw Dr. Graham in June2023 . At that time Dr. Graham ordered scans but unfortunately the patient due to insurance issues did not follow-up. He he was referred by Dr. Graham to [facility] for additional evaluation and found to have a 15 cm mass in the right humeral area in the soft tissue. Patient tells me that oncology in [facility] recommended placing portacath placed for chemotherapy and is scheduled for PET CT scan 12/21/2023. He never had any tissue diagnosis. Further patient reported that he did not want to go all the way to [place] for biopsies. Pt is currently smoking 1 pack per week, hx of 2 ppd X 29 years. Today he is seen in ICU; lying in bed, on 4 L supplemental oxygen Complaining of difficulty breathing and left-sided chest pain. IR consulted for supraclavicular lymph node biopsy Review of Systems 2 General: Reports: 10 or more systems reviewed and unremarkable except in HPI and below Medications/Allergies Home Medications Medication Instructions Recorded Confirmed Last Taken Type glucometer testing kit #1 ea 03/19/23 12/20/23 Unknown Rx amlodipine 10 mg tablet 10 mg PO DAILY 30 days #30 tabs 06/23/23 12/20/23 12/19/23 09:00 Rx clonidine HCl 0.1 mg tablet 0.1 mg PO BID 30 days #60 tabs 06/23/23 12/20/23 12/19/23 Rx hydralazine 10 mg tablet 10 mg PO Q12H 30 days #60 tabs 06/23/23 12/20/23 12/19/23 Rx insulin aspart U-100 100 unit/mL See Rx Instructions SUBCUT TID #15 06/23/23 12/20/23 12/06/23 Rx (3 mL) subcutaneous pen (Novolog mL FlexPen U-100 Insulin aspart) metformin 500 mg tablet,extended 1,000 mg (2 x 500 mg) PO DAILY #60 06/23/23 12/20/23 12/19/23 Rx release 24 hr tabs spironolactone 25 mg tablet 25 mg PO DAILY 30 days #30 tabs 06/23/23 12/20/23 12/19/23 Rx docusate sodium 100 mg capsule 100 mg PO BID #10 caps 12/07/23 12/20/23 12/19/23 Rx (Colace) hydrocodone 7.5 mg-acetaminophen 1 tab PO Q6H PRN pain #10 tabs 12/07/23 12/20/23 12/20/23 Rx 325 mg tablet oxycodone 5 mg tablet 5 mg PO Q6H PRN pain 12/20/23 12/20/23 12/19/23 History Allergies Allergy/AdvReac Type Severity Reaction Status Date / Time No Known Allergies Allergy Verified 12/19/23 21:20 Current Medications Generic Name Dose Route Start Last Admin Trade Name Freq PRN Reason Stop Dose Admin Hydrocodone Bitart/Acetaminophen 1 tab 12/19/23 23:35 12/20/23 05:54 Hydrocodone-Acetaminophen 7.5-325 Mg Tablet PO 1 tab Q6H PRN Administration pain Amlodipine Besylate 10 mg 12/20/23 09:00 12/20/23 08:23 Amlodipine 10 Mg Tablet PO 10 mg DAILY AMILCAR Administration Docusate Sodium 100 mg 12/20/23 09:00 12/20/23 08:23 Docusate Sodium 100 Mg Capsule PO 100 mg BID AMILCAR Administration Heparin Sodium (Porcine) 5,000 unit 12/19/23 23:30 12/20/23 00:12 Heparin 5,000 Unit/Ml Inj 1 Ml SUBCUT Not Given Q12H AMILCAR Hydralazine HCl 10 mg 12/19/23 23:45 12/20/23 11:45 Hydralazine 10 Mg Tablet PO 10 mg Q12H AMILCAR Administration Piperacillin Sod/Tazobactam 50 mls @ 12.5 mls/hr 12/20/23 00:30 12/20/23 14:38 Sod 4.5 gm/ Sodium Chloride IV Infused Q8H AMILCAR Infusion Vancomycin/PEG/NADA/Lysine/Water 2,000 mg in 400 mls @ 200 mls/hr 12/20/23 09:00 12/20/23 10:34 Vancocin IV Infused Q8H AMILCAR Infusion Insulin Human Lispro 0 unit 12/20/23 08:00 12/20/23 11:53 Insulin Lispro 100 Unit/1 Ml SUBCUT 4 unit WM&BEDTIME AMILCAR Administration Protocol Losartan Potassium 50 mg 12/20/23 11:55 12/20/23 12:38 Losartan 50 Mg Tablet PO 50 mg DAILY AMILCAR Administration Metoprolol Tartrate 25 mg 12/20/23 11:55 12/20/23 12:38 Metoprolol Tartrate 25 Mg Tablet PO 25 mg BID@0900,2100 AMILCAR Administration Spironolactone 25 mg 12/20/23 09:00 12/20/23 08:23 Spironolactone 25 Mg Tablet PO 25 mg DAILY AMILCAR Administration PFSH Acute 2 PFSH: Medical History Obesity, Class III, BMI 40-49.9 (morbid obesity) Diabetes mellitus with hyperglycemia, with long-term current use of insulin Metabolic syndrome Essential (primary) hypertension Surgical History History of surgical removal of pilonidal cyst History of nasal surgery Family History Mother Diabetes Hypertension Father Cancer Hypertension Other Hyperlipidemia Social History Smoking and tobacco/nicotine status: current every day tobacco/nicotine user cigarettes Packs smoked per day: 2 Years cigarettes smoked: 29 [ Other cigarette details: Started at age 14] Second hand smoke exposure: No Alcohol intake: never Substance/Drug Use: never Adopted: No Caregiver/support person: No Lives independently: Yes Household members: significant other Housing: House Marital status: Number of children: 2 Highest education level completed: High School Graduate service: No Current occupational status: unemployed Current occupational exposures/hazards: No Pets and animals: Yes Do you think of yourself as: Straight/Heterosexual Current gender identity: Male Vitals/I&O/Wt Last Vital Signs Temp 98.1 F 12/20/23 12:00 Pulse 80 12/20/23 14:00 Resp 27 H 12/20/23 14:00 BP 159/100 12/20/23 14:00 Pulse Ox 94 12/20/23 14:00 O2 Del Method Nasal Cannula 12/20/23 11:25 O2 Flow Rate 4 12/20/23 11:25 12/20/23 12/20/23 12/20/23 06:59 14:59 22:59 Intake Total 450 / 450 690 / 690 Output Total 1100 / 1100 375 / 375 Balance -650 / -650 315 / 315 Weight last 48 hrs Weight 313 lb Weight 307 lb 8 oz Weight 295 lb Physical Exam 2 Narrative: General: alert, NAD HEENT: conj clear, EOMI, PERRL, mmm, Neck: supple, no meningismus Heme: no cervical LAP Respiratory: Inspection: No visible deformity of the chest wall Palpation: Trachea is mildly deviated to the right, bilateral symmetric expansion Percussion: Dullness on left lower lung zone Auscultation: Reduced left lower lung zone breath sounds Cardiovascular: rrr, nl s1s2, no mrg Abdomen: soft, nt, nd, no r/g, bs+ Extremities: pulses +, no edema, no c/c : no CVA tenderness Skin: intact, no rash MSK: no back or neck pain Neurologic: grossly intact Data 12/20/23 09:35 12/20/23 09:35 Other Labs: Radiology Impressions Chest CT 12/19/23 23:24 IMPRESSION: Extensive bilateral pulmonary metastatic disease with very large left-sided pleural effusion Chest X-Ray 12/20/23 15:13 IMPRESSION: 1. Slightly improved large LEFT pleural effusion status post thoracentesis. 2. No left-sided pneumothorax. 3. Patient has known bilateral pulmonary nodules and masses and pleural based nodules. Laboratory Results WBC 13.73 10^3/uL (3.29-11.43) H 12/20/23 09:35 RBC 4.36 10^6/uL (3.85-5.65) 12/20/23 09:35 Hgb 11.90 g/dL (11.27-16.99) 12/20/23 09:35 Hct 36.1 % (37-53) L 12/20/23 09:35 MCV 82.8 fl (82-101) 12/20/23 09:35 MCH 27.3 pg (27-33) 12/20/23 09:35 MCHC 33.0 g/dL (30-55) 12/20/23 09:35 RDW 13.3 % (12.1-15.1) 12/20/23 09:35 Plt Count 325 10^3/cmm (157-399) 12/20/23 09:35 MPV 9.9 fL (7.4-10.4) 12/20/23 09:35 Neut % (Auto) 78.1 % 12/20/23 09:35 Lymph % (Auto) 10.3 % 12/20/23 09:35 [place] % (Auto) 8.2 % 12/20/23 09:35 Eos % (Auto) 2.3 % 12/20/23 09:35 Baso % (Auto) 0.7 % 12/20/23 09:35 Neut # (Auto) 10.74 10^3/uL (1.8-7.7) H 12/20/23 09:35 Lymph # (Auto) 1.4 10^3/uL (0.8-4.8) 12/20/23 09:35 [place] # (Auto) 1.1 10^3/uL (0.2-0.9) H 12/20/23 09:35 Eos # (Auto) 0.3 10^3/uL (0.0-0.8) 12/20/23 09:35 Baso # (Auto) 0.1 10^3/uL (0.0-0.1) 12/20/23 09:35 Nucleated RBC % (auto) 0 % 12/20/23 09:35 Nucleated RBCs # 0.0 /100WBC 12/20/23 09:35 Differential Comment Yes 12/20/23 15:00 PT 15.10 SECONDS (12.1-14.9) H 12/20/23 09:35 INR 1.15 (0.8-1.2) 12/20/23 09:35 Sodium 131 mmol/L (136-145) L 12/20/23 09:35 Potassium 4.4 mmol/L (3.5-5.1) 12/20/23 09:35 Chloride 95 mmol/L (98-107) L 12/20/23 09:35 Carbon Dioxide 24 mmol/L (22-29) 12/20/23 09:35 Anion Gap 16.4 (5-19) 12/20/23 09:35 BUN 16 mg/dL (6-20) 12/20/23 09:35 Creatinine 0.7 mg/dL (0.7-1.2) 12/20/23 09:35 GFR Calculation 123.1 mL/min (90-130) 12/20/23 09:35 Glucose 131 mg/dL (65-115) H 12/20/23 09:35 POC Glucose 155 mg/dL (70-110) H 12/20/23 19:53 Estimat Average Glucose 140 12/19/23 21:44 Hemoglobin A1c 6.5 % (4.0-6.0) H 12/19/23 21:44 Calculated Osmolality 275 mOsm/kg (285-295) L 12/20/23 09:35 Lactic Acid 1.0 mmol/L (0.5-2.2) 12/19/23 21:44 Calcium 8.3 mg/dL (8.5-10.5) L 12/20/23 09:35 Magnesium 2.1 mg/dL (1.7-2.3) 12/20/23 09:35 Total Bilirubin 0.5 mg/dL (0.15-1.2) 12/20/23 09:35 AST 13 U/L (0-40) 12/20/23 09:35 ALT 6 U/L (0-41) 12/20/23 09:35 Alkaline Phosphatase 79 U/L (40-130) 12/20/23 09:35 NT-Pro-B Natriuret Pep 70 pg/mL (0-125) 12/19/23 21:44 Total Protein 7.3 g/dL (6.6-8.7) 12/20/23 09:35 Albumin 3.0 g/dL (3.5-5.2) L 12/20/23 09:35 Globulin 4.3 g/dL (1.3-4.6) 12/20/23 09:35 Fluid Color Red 12/20/23 15:00 Fluid Appearance Bloody 12/20/23 15:00 Fluid WBC 1636 /uL 12/20/23 15:00 Fluid RBC 121.000 10^3/uL 12/20/23 15:00 Fluid Hematocrit 1.2 % 12/20/23 15:00 Fld Polynuclear WBCs # 0.465 12/20/23 15:00 Fld Polynuclear WBCs % 28.500 % 12/20/23 15:00 Fl Mononucl WBCs #(Auto) 1.171 12/20/23 15:00 Fl Mononuclear % Auto 71.500 % 12/20/23 15:00 Fld Crystal Laterality Not Reportable 12/20/23 15:00 Fluid Albumin 2.6 g/dL 12/20/23 15:00 Fluid Creatinine 0.66 (0.7-1.2) L 12/20/23 15:00 Pleural pH 9.00 (6.5-7.5) H 12/20/23 15:00 Pleural Total Protein 5.0 g/dL 12/20/23 15:00 Pleural LDH 799 U/L 12/20/23 15:00 Pleural Glucose 117.0 mg/dL 12/20/23 15:00 Pleural Triglycerides 54 mg/dL 12/20/23 15:00 Micro: Microbiology 12/19/23 22:11 Blood Culture - Preliminary Blood SPECIMEN COLLECTED 12/19/23 21:44 Blood Culture - Preliminary Blood SPECIMEN COLLECTED A&P Assessment and plan (1) Pleural effusion, left: likely malignant in the setting of underlying metastatic malignancy S/p thoracentesis of left pleural effusion today-aspirated 2 L hemorrhagic effusion Fluid analysis showed lymphocytic predominant exudative effusion; LDH 799, total protein 5, glucose 117 Cytology and cultures pending (2) Respiratory failure: Patient is currently requiring 4 to 5 L of nasal cannula Chest imaging suggestive of significant metastatic lung lesions-likely secondary to his right arm mass-suspicious for metastatic sarcoma Patient is scheduled for supraclavicular lymph node biopsy by IR (3) Metastasis to lung: Chest imaging suggestive of significant metastatic lung lesions-likely secondary to his right arm mass-suspicious for metastatic sarcoma Patient is scheduled for supraclavicular lymph node biopsy by IR (4) Mass of right upper extremity: right arm mass-suspicious for metastatic sarcoma Patient is scheduled for supraclavicular lymph node biopsy by IR Patient following up with oncology department in [place]. A Port-A-Cath was recently placed for chemotherapy; never had any biopsies Today scheduled for supraclavicular lymph node biopsy by IR Also pleural fluid cytology was sent today-results pending Overall-patient appears to have aggressive metastatic malignancy and has poor prognosis Recommended to consult oncology for inpatient chemo Coding Level of Care Code Acute Code for Chg Fwd Diagnoses Pleural effusion, left J90 Respiratory failure J96.90 Metastasis to lung C78.00 Mass of right upper extremity R22.31 Time Spent (min) 56
[2023-12-20 15:58] LABS: Apprearance, Body Fluid BLOODY; Color, Body Fluid RED
[2023-12-20 15:59] LABS: PATH Referral YES
[2023-12-20 16:08] LABS: Body Fluid Polynuclear #Cells 0.465; Body Fluid WBC 1636 /uL; Monocytes # Body Fluid 1.171
[2023-12-20 16:46] LABS: Cyto Order Verification Order Verified
[2023-12-20 16:53] LABS: Albumin Body Fluid 2.6 g/dL; Creatinine Body Fluid 0.66 (0.7-1.2); LDH Pleural Fluid 799 U/L; Triglycerides, Pleural Fluid 54 mg/dL
[2023-12-20 17:17] LABS: Glucose Point of Care 101 mg/dL (70-110)
[2023-12-20 17:19] LABS: Hematocrit Body Fluid 1.2 %
[2023-12-20] MEDS: ondansetron 2 mg/ML SDV 2 mL 4 MG IVP (19:48)
[2023-12-20 19:56] LABS: Glucose Point of Care 155 mg/dL (70-110)
--- NOTE | 2023-12-20 20:50 | PC.NURSE ---
Severe Nausea/Vomiting: Pt is profusely vomiting, approximately 500ml at this time. Dr. Watson called @2047. New order for 10mg Reglan IVP Q6HR.
[2023-12-20] MEDS: metoclopramide 5 mg/mL SDV 2 mL 10 MG IVP (21:00)
--- NOTE | 2023-12-20 21:47 | CTR_ITS ---
PROCEDURE INFORMATION: Exam: CT Head Without Contrast Exam date and time: 12/20/2023 10:38 PM Age: 43 years old Clinical indication: Other: Cancer; Additional info: Brain mets? TECHNIQUE: Imaging protocol: Computed tomography of the head without contrast. Radiation optimization: All CT scans at this facility use at least one of these dose optimization techniques: automated exposure control; mA and/or kV adjustment per patient size (includes targeted exams where dose is matched to clinical indication); or iterative reconstruction. COMPARISON: No relevant prior studies available. RADIATION DOSE METRICS: Total DLP (mGy-cm): 1152.9 FINDINGS: Brain: Normal. No hemorrhage. Unremarkable white matter. No mass effect. Cerebral ventricles: No ventriculomegaly. Paranasal sinuses: Visualized sinuses are unremarkable. No fluid levels. Mastoid air cells: Visualized mastoid air cells are well aerated. Bones: Unremarkable. No acute fracture. Soft tissues: Unremarkable. CT/CT head wo con* [id number] IMPRESSION: No acute intracranial abnormality.
--- NOTE | 2023-12-20 21:47 | CTR_ITS ---
PROCEDURE INFORMATION: Exam: CT Abdomen And Pelvis With Contrast Exam date and time: 12/20/2023 10:46 PM Age: 43 years old Clinical indication: Vomiting; Additional info: Vomitting, HX of met cancer TECHNIQUE: Imaging protocol: Computed tomography of the abdomen and pelvis with contrast. Radiation optimization: All CT scans at this facility use at least one of these dose optimization techniques: automated exposure control; mA and/or kV adjustment per patient size (includes targeted exams where dose is matched to clinical indication); or iterative reconstruction. Contrast material: OMNI 350; Contrast volume: 100 ml; Contrast route: INTRAVENOUS (IV); COMPARISON: MR pelvis wo con* [id number] 03/15/2023 10:41 AM RADIATION DOSE METRICS: Total DLP (mGy-cm): 1378.3 FINDINGS: Lungs: Multifocal right lower lobe metastatic masses measuring up to 4.6 cm. Left lower lobe airspace infiltrate. Pleural spaces: Small right and large left pleural effusions. Nodular left lower lobe pleural masses measuring up to 4.3 cm, likely reflecting metastatic disease. Liver: Normal. No mass. Gallbladder and bile ducts: Normal. No calcified stones. No ductal dilation. Pancreas: Normal. No ductal dilation. Spleen: Normal. No splenomegaly. Adrenal glands: Normal. No mass. Kidneys and ureters: Normal. No hydronephrosis. Stomach and bowel: Prominent fluid in the stomach and small bowel, please correlate for gastroenteritis. Diverticulosis without diverticulitis. Appendix: No evidence of appendicitis. Intraperitoneal space: Unremarkable. No free air. No significant fluid collection. Vasculature: Unremarkable. No abdominal aortic aneurysm. Lymph nodes: Unremarkable. No enlarged lymph nodes. Urinary bladder: Unremarkable as visualized. Reproductive: Unremarkable as visualized. 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 Soft tissues: Unremarkable. CT/CT abdomen pelvis w con* [id number] IMPRESSION: 1. Prominent fluid in the stomach and small bowel, please correlate for gastroenteritis. 2. Diverticulosis without diverticulitis. 3. 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 4. Small right and large left pleural effusions. 5. Multifocal right lower lobe metastatic masses measuring up to 4.6 cm. 6. Left lower lobe airspace infiltrate. 7. Nodular left lower lobe pleural masses measuring up to 4.3 cm, likely reflecting metastatic disease.
[2023-12-20] MEDS: iohexol 350 mg/mL 500 mL Btl (per mL) IV (22:58)
[2023-12-20] MEDS: LORazepam 2 mg/mL INJ 10 mL MDV 1 MG IVP (23:34)
[2023-12-20] MEDS: sodium chloride 0.9% 1,000 ML 125 ML IV (23:47)
--- NOTE | 2023-12-20 23:56 | PC.NURSE ---
Addendum entered by Michelle Booth RN 12/21/23 00:05: New order for 500ml NS bolus ONCE NOW. Original Note: Vomiting: Called Dr. Watson @2533 to notify of severe nausea/vomiting. 400ml emesis. New order for IV Fluids, NPO, and Ativan. See MAR . Also notified Dr. Watson of order for PO Hydralazine- pt is unable to take d/t frequent vomiting.
[2023-12-21] VITALS (31 sets, daily range): BP systolic 123–191; BP diastolic 70–108; PULSE 76–103; RESP 18–33; TEMP 36.9–37.1; O2SAT 90–95
[2023-12-21] MEDS: sodium chloride 0.9% 500 ML 999 ML IV (00:16)
[2023-12-21] MEDS: vancomycin 2,000 MG/400 ML PIGGYBACK 200 MG IV ×3 (00:17→17:43)
--- NOTE | 2023-12-21 03:33 | PC.NURSE ---
Addendum entered by Michelle Booth RN 12/21/23 03:42: SOB improved w/ repositioning. Original Note: RT notified @2450.
[2023-12-21 05:42] LABS: Basophils # 0.1 10^3/uL (0.0-0.1); Basophils % 0.5 %; Eosinophils # 0.2 10^3/uL (0.0-0.8); Eosinophils % 1.2 %; Hematocrit 37.6 % (37-53); Lymphocytes # 1.6 10^3/uL (0.8-4.8); Mean Corpuscular HGB Conc 32.2 g/dL (30-55); Mean Corpuscular Hemoglobin 27.1 pg (27-33); Mean Corpuscular Volume 84.3 fl (82-101); Mean Platelet Volume 9.9 fL (7.4-10.4); Monocytes # 1.2 10^3/uL (0.2-0.9); Monocytes % 9.4 %; Neutrophils # 9.23 10^3/uL (1.8-7.7); Neutrophils % 75.4 %; Nucleated Red Blood Cells % 0 %; Platelet Count 351 10^3/cmm (157-399); Red Blood Count 4.46 10^6/uL (3.85-5.65); Red Cell Distribution Width 13.5 % (12.1-15.1); White Blood Count 12.24 10^3/uL (3.29-11.43)
[2023-12-21] MEDS: hyDRALAzine 20 mg/mL INJ 1 mL 10 MG IVP (05:47)
[2023-12-21 06:03] LABS: Anion Gap 14.3 (5-19); Blood Urea Nitrogen 14 mg/dL (6-20); Calcium 8.1 mg/dL (8.5-10.5); Carbon Dioxide 25 mmol/L (22-29); Chloride 101 mmol/L (98-107); Creatinine Clr Calc Pharmacy 192.3772; Glomerular Filtration Rate 123.1 mL/min (90-130); Glucose 123 mg/dL (65-115); Osmolality Calculated 284 mOsm/kg (285-295); Potassium 4.3 mmol/L (3.5-5.1); Sodium 136 mmol/L (136-145)
--- NOTE | 2023-12-21 08:00 | US_ITS ---
WS: [id number] ULTRASOUND-GUIDED BIOPSY LYMPH NODE INDICATION: Tissue diagnosis. Neoplasm. Retropectoral lymph node. Metastatic disease. TECHNIQUE: The procedure including risk benefits and complications were discussed with the patient wh o agreed to proceed. Timeout was performed. Using sterile technique, the patient was prepped and draped in usual sterile fashion. After 1% lidoca ine, using ultrasound guidance, the RIGHT retropectoral lymph node was sampled with a 18-gauge Temno biopsy device. Approximately 8 samples were obtained. No immediate complications. US/US biopsy lymph node [id number] IMPRESSION: 1. Uncomplicated ultrasound-guided retropectoral lymph node biopsy. 2. Pathology is pending.
[2023-12-21] MEDS: sodium chloride 0.9% 1,000 ML 125 ML IV (08:15)
[2023-12-21] MEDS: piperacillin-tazobactam 4.5 GM in sodium chloride 0.9% (plus) 50 ML IV ×2 (08:16→17:42)
[2023-12-21 08:20] LABS: Glucose Point of Care 101 mg/dL (70-110)
[2023-12-21] MEDS: losartan 50 mg Tablet PO (08:23)
[2023-12-21] MEDS: amlodipine 10 mg Tablet PO (08:23)
[2023-12-21] MEDS: docusate sodium 100 mg Capsule PO ×2 (08:23→17:43)
[2023-12-21] MEDS: metoprolol tartrate 25 mg Tablet PO ×2 (08:25→20:07)
--- NOTE | 2023-12-21 08:37 | P.PN_ITS ---
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-is still pending Medications: Reviewed: Yes Vitals/I&O/Wt Last Vital Signs Temp 98.5 F 12/21/23 08:00 Pulse 90 12/21/23 08:00 Resp 24 H 12/21/23 08:00 BP 151/81 12/21/23 08:23 Pulse Ox 91 12/21/23 08:00 O2 Del Method Nasal Cannula 12/21/23 06:00 O2 Flow Rate 4 12/21/23 06:00 12/20/23 12/21/23 12/21/23 22:59 06:59 14:59 Intake Total 690 / 1380 1683.334 / 3063.334 237.083 / 237.083 Output Total 1075 / 1450 1425 / 2875 Balance -385 / -70 258.334 / 188.334 237.083 / 237.083 Weight last 48 hrs Weight 294 lb 4.8 oz Weight 313 lb Weight 307 lb 8 oz Weight 295 lb Physical Exam 2 Narrative: General: alert, NAD HEENT: conj clear, EOMI, PERRL, mmm, Neck: supple, no meningismus Heme: no cervical LAP Respiratory: Inspection: No visible deformity of the chest wall Palpation: Trachea is mildly deviated to the right, bilateral symmetric expansion Percussion: Dullness on left lower lung zone Auscultation: Reduced left lower lung zone breath sounds Cardiovascular: rrr, nl s1s2, no mrg Abdomen: soft, nt, nd, no r/g, bs+ Extremities: pulses +, no edema, no c/c : no CVA tenderness Skin: intact, no rash MSK: no back or neck pain Neurologic: grossly intact Data 12/21/23 04:55 12/21/23 04:55 Other Labs: Radiology Impressions Chest CT 12/19/23 23:24 IMPRESSION: Extensive bilateral pulmonary metastatic disease with very large left-sided pleural effusion Chest X-Ray 12/20/23 15:13 IMPRESSION: 1. Slightly improved large LEFT pleural effusion status post thoracentesis. 2. No left-sided pneumothorax. 3. Patient has known bilateral pulmonary nodules and masses and pleural based nodules. Abdomen/Pelvis CT 12/20/23 21:47 IMPRESSION: 1. Prominent fluid in the stomach and small bowel, please correlate for gastroenteritis. 2. Diverticulosis without diverticulitis. 3. 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 4. Small right and large left pleural effusions. 5. Multifocal right lower lobe metastatic masses measuring up to 4.6 cm. 6. Left lower lobe airspace infiltrate. 7. Nodular left lower lobe pleural masses measuring up to 4.3 cm, likely reflecting metastatic disease. Head CT 12/20/23 21:47 IMPRESSION: No acute intracranial abnormality. Lymph Node Biopsy Ultrasound 12/21/23 08:00 IMPRESSION: 1. Uncomplicated ultrasound-guided retropectoral lymph node biopsy. 2. Pathology is pending. Laboratory Results WBC 12.24 10^3/uL (3.29-11.43) H 12/21/23 04:55 RBC 4.46 10^6/uL (3.85-5.65) 12/21/23 04:55 Hgb 12.10 g/dL (11.27-16.99) 12/21/23 04:55 Hct 37.6 % (37-53) 12/21/23 04:55 MCV 84.3 fl (82-101) 12/21/23 04:55 MCH 27.1 pg (27-33) 12/21/23 04:55 MCHC 32.2 g/dL (30-55) 12/21/23 04:55 RDW 13.5 % (12.1-15.1) 12/21/23 04:55 Plt Count 351 10^3/cmm (157-399) 12/21/23 04:55 MPV 9.9 fL (7.4-10.4) 12/21/23 04:55 Neut % (Auto) 75.4 % 12/21/23 04:55 Lymph % (Auto) 13.0 % 12/21/23 04:55 [place] % (Auto) 9.4 % 12/21/23 04:55 Eos % (Auto) 1.2 % 12/21/23 04:55 Baso % (Auto) 0.5 % 12/21/23 04:55 Neut # (Auto) 9.23 10^3/uL (1.8-7.7) H 12/21/23 04:55 Lymph # (Auto) 1.6 10^3/uL (0.8-4.8) 12/21/23 04:55 [place] # (Auto) 1.2 10^3/uL (0.2-0.9) H 12/21/23 04:55 Eos # (Auto) 0.2 10^3/uL (0.0-0.8) 12/21/23 04:55 Baso # (Auto) 0.1 10^3/uL (0.0-0.1) 12/21/23 04:55 Nucleated RBC % (auto) 0 % 12/21/23 04:55 Nucleated RBCs # 0.0 /100WBC 12/21/23 04:55 Differential Comment Yes 12/20/23 15:00 PT 15.10 SECONDS (12.1-14.9) H 12/20/23 09:35 INR 1.15 (0.8-1.2) 12/20/23 09:35 Sodium 136 mmol/L (136-145) 12/21/23 04:55 Potassium 4.3 mmol/L (3.5-5.1) 12/21/23 04:55 Chloride 101 mmol/L (98-107) 12/21/23 04:55 Carbon Dioxide 25 mmol/L (22-29) 12/21/23 04:55 Anion Gap 14.3 (5-19) 12/21/23 04:55 BUN 14 mg/dL (6-20) 12/21/23 04:55 Creatinine 0.7 mg/dL (0.7-1.2) 12/21/23 04:55 GFR Calculation 123.1 mL/min (90-130) 12/21/23 04:55 Glucose 123 mg/dL (65-115) H 12/21/23 04:55 POC Glucose 122 mg/dL (70-110) H 12/21/23 11:57 Estimat Average Glucose 140 12/19/23 21:44 Hemoglobin A1c 6.5 % (4.0-6.0) H 12/19/23 21:44 Calculated Osmolality 284 mOsm/kg (285-295) L 12/21/23 04:55 Lactic Acid 1.0 mmol/L (0.5-2.2) 12/19/23 21:44 Calcium 8.1 mg/dL (8.5-10.5) L 12/21/23 04:55 Magnesium 2.1 mg/dL (1.7-2.3) 12/20/23 09:35 Total Bilirubin 0.5 mg/dL (0.15-1.2) 12/20/23 09:35 AST 13 U/L (0-40) 12/20/23 09:35 ALT 6 U/L (0-41) 12/20/23 09:35 Alkaline Phosphatase 79 U/L (40-130) 12/20/23 09:35 NT-Pro-B Natriuret Pep 70 pg/mL (0-125) 12/19/23 21:44 Total Protein 7.3 g/dL (6.6-8.7) 12/20/23 09:35 Albumin 3.0 g/dL (3.5-5.2) L 12/20/23 09:35 Globulin 4.3 g/dL (1.3-4.6) 12/20/23 09:35 Fluid Color Red 12/20/23 15:00 Fluid Appearance Bloody 12/20/23 15:00 Fluid WBC 1636 /uL 12/20/23 15:00 Fluid RBC 121.000 10^3/uL 12/20/23 15:00 Fluid Hematocrit 1.2 % 12/20/23 15:00 Fld Polynuclear WBCs # 0.465 12/20/23 15:00 Fld Polynuclear WBCs % 28.500 % 12/20/23 15:00 Fl Mononucl WBCs #(Auto) 1.171 12/20/23 15:00 Fl Mononuclear % Auto 71.500 % 12/20/23 15:00 Fld Crystal Laterality Not Reportable 12/20/23 15:00 Fluid Albumin 2.6 g/dL 12/20/23 15:00 Fluid Creatinine 0.66 (0.7-1.2) L 12/20/23 15:00 Pleural pH 9.00 (6.5-7.5) H 12/20/23 15:00 Pleural Total Protein 5.0 g/dL 12/20/23 15:00 Pleural LDH 799 U/L 12/20/23 15:00 Pleural Glucose 117.0 mg/dL 12/20/23 15:00 Pleural Triglycerides 54 mg/dL 12/20/23 15:00 Vancomycin Trough 14.0 ug/mL (10-15) 12/21/23 00:33 Micro: Microbiology 12/19/23 22:11 Blood Culture - Preliminary Blood NEGATIVE TO DATE 12/19/23 21:44 Blood Culture - Preliminary Blood NEGATIVE TO DATE A&P Assessment and plan (1) Pleural effusion, left: likely malignant in the setting of underlying metastatic malignancy S/p thoracentesis of left pleural effusion today-aspirated 2 L hemorrhagic effusion Fluid analysis showed lymphocytic predominant exudative effusion; LDH 799, total protein 5, glucose 117 Cytology and cultures pending Will plan for Pleurx catheter if there is reaccumulation (2) Respiratory failure: Patient is currently requiring 4 to 5 L of nasal cannula Chest imaging suggestive of significant metastatic lung lesions-likely secondary to his right arm mass-suspicious for metastatic sarcoma Pleural fluid cytology is pending (3) Metastasis to lung: Chest imaging suggestive of significant metastatic lung lesions-likely secondary to his right arm mass-suspicious for metastatic sarcoma Pleural fluid cytology is pending Today he underwent retropectoral lymph node biopsy by IR (4) Mass of right upper extremity: right arm mass-suspicious for metastatic sarcoma Patient is scheduled for supraclavicular lymph node biopsy by IR Patient following up with oncology department in [place]. A Port-A-Cath was recently placed for chemotherapy; never had any biopsies Pleural fluid cytology is pending Today he underwent retropectoral lymph node biopsy by IR Overall-patient appears to have aggressive metastatic malignancy and has poor prognosis Recommended to consult oncology for inpatient chemo Plan Explained patient about his metastatic malignancy and explained about poor prognosis Informed patient to call his family so we can have goals of care discussion. Attestations 2 Medical Necessity Statement*: Awaiting cytology, lymph node biopsy reports-currently on 4 L supplemental oxygen Time Spent in Patient Care: Greater than 35 minutes (>than 50% of time spent in counselling and/or direct pt care on unit) . Coding Level of Care Code Acute Code for Chg Fwd Diagnoses Pleural effusion, left J90 Respiratory failure J96.90 Metastasis to lung C78.00 Mass of right upper extremity R22.31 Time Spent (min) 54
--- NOTE | 2023-12-21 12:00 | P.PN_ITS ---
Subjective 2 Subjective: This morning had a mikael discussion with the patient regarding his aggressive tumor burden Patient is stating that he would like to follow-up with his [facility] oncologist on his own He is afraid that he would miss graduation ceremony of his son which is after the He does not want me to pursue [facility] transfer at this point His oxygen requirement is around 5 L Concern for reaccumulation of pleural effusion, Dr. Dasilva might plan for Pleurx catheter in next 24 to 48 hours Overnight patient started vomiting, CT abdomen pelvis showed possible gastroenteritis, hemoglobin is stable, no active emesis this morning Patient feeling slightly better Advance diet to clear liquids this morning Head CT unremarkable Vitals/I&O/Wt Last Vital Signs Temp 98.5 F 12/21/23 08:00 Pulse 78 12/21/23 10:00 Resp 19 H 12/21/23 10:00 BP 155/87 12/21/23 10:00 Pulse Ox 95 12/21/23 10:00 O2 Del Method Nasal Cannula 12/21/23 09:31 O2 Flow Rate 4 12/21/23 09:31 12/20/23 12/21/23 12/21/23 22:59 06:59 14:59 Intake Total 690 / 1380 1683.334 / 3063.334 680.000 / 680.000 Output Total 1075 / 1450 1425 / 2875 Balance -385 / -70 258.334 / 188.334 680.000 / 680.000 Weight last 48 hrs Weight 133.492 kg Weight 141.974 kg Weight 139.48 kg Weight 133.81 kg Physical Exam 2 Narrative: No active emesis Morbidly obese Currently on 4 to 5 L nasal cannula Hypertensive No active chest pain or shortness of breath Patient wants his family to be around him S1, S2 Abdomen soft Data 12/21/23 04:55 12/21/23 04:55 Micro: Microbiology 12/19/23 22:11 Blood Culture - Preliminary Blood NEGATIVE TO DATE 12/19/23 21:44 Blood Culture - Preliminary Blood NEGATIVE TO DATE A&P Assessment and plan (1) Essential (primary) hypertension: (2) Diabetes mellitus with hyperglycemia, with long-term current use of insulin: Qualifiers: Diabetes mellitus type: type 2 Qualified Code(s): E11.65 - Type 2 diabetes mellitus with hyperglycemia; Z79.4 - alf (current) use of insulin (3) Metastasis to lung: (4) Sarcoma: (5) Chronic back pain: (6) Pleural effusion, left: (7) Respiratory failure: (8) Mass of right upper extremity: Plan 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 Peralta is on vacation until next Wednesday Patient does not want me to transfer him to [place] at this point He has not shown any sign of instability he is still requiring 4 to 5 L nasal cannula Hypoxia has not worsened Patient is wanting to go home and then follow-up with [facility] his oncologist on his own Gastroenteritis Clear liquid diet Pneumonia: Added antibiotics overnight Afebrile Repeat x-ray tomorrow Start clear liquid diet today Continue antibiotics Keep him in the ICU likely until Wednesday to make a decision whether he would benefit from a Pleurx catheter for recurrent pleural effusion Cytology report is pending Full code Discontinue IV fluids patient tolerating clear liquids this morning Hypertension currently on amlodipine, hydralazine and losartan along metoprolol Will add DVT prophylaxis Lovenox Attestations 2 Medical Necessity Statement*: Continue ICU management Diagnoses Essential (primary) hypertension I10 Type 2 diabetes mellitus with hyperglycemia, with long-term current use of insulin E11.65; Z79.4 Diabetes mellitus type: type 2 Metastasis to lung C78.00 Sarcoma C49.9 Chronic back pain M54.9; G89.29 Pleural effusion, left J90 Respiratory failure J96.90 Mass of right upper extremity R22.31
[2023-12-21] MEDS: metoclopramide 5 mg/mL SDV 2 mL 10 MG IVP (12:03)
[2023-12-21 12:04] LABS: Glucose Point of Care 122 mg/dL (70-110)
[2023-12-21] MEDS: hyDRALAzine 10 mg Tablet PO ×2 (12:04→23:14)
[2023-12-21] MEDS: ondansetron 2 mg/ML SDV 2 mL 4 MG IVP (12:10)
[2023-12-21] MEDS: LORazepam 2 mg/mL INJ 10 mL MDV 1 MG IVP (12:36)
[2023-12-21 18:06] LABS: Glucose Point of Care 99 mg/dL (70-110)
[2023-12-21 20:08] LABS: Glucose Point of Care 90 mg/dL (70-110)
[2023-12-21] MEDS: zolpidem 5 mg Tablet PO (20:08)
[2023-12-22] VITALS (31 sets, daily range): BP systolic 108–150; BP diastolic 60–87; PULSE 82–100; RESP 18–27; TEMP 37; O2SAT 90–95
[2023-12-22] MEDS: vancomycin 2,000 MG/400 ML PIGGYBACK 200 MG IV ×3 (00:09→16:47)
[2023-12-22] MEDS: piperacillin-tazobactam 4.5 GM in sodium chloride 0.9% (plus) 50 ML IV ×3 (00:11→16:43)
[2023-12-22] MEDS: oxyCODONE 5 mg IR Tab/Cap PO ×2 (00:15→19:06)
[2023-12-22] MEDS: HYDROcodone-acetaminophen 7.5-325 mg Tablet 1 TAB PO (03:56)
[2023-12-22 04:48] LABS: Basophils # 0.1 10^3/uL (0.0-0.1); Basophils % 0.7 %; Eosinophils # 0.3 10^3/uL (0.0-0.8); Eosinophils % 2.7 %; Hematocrit 37.2 % (37-53); Lymphocytes # 1.8 10^3/uL (0.8-4.8); Mean Corpuscular HGB Conc 31.5 g/dL (30-55); Mean Corpuscular Volume 85.7 fl (82-101); Mean Platelet Volume 9.7 fL (7.4-10.4); Monocytes # 1.2 10^3/uL (0.2-0.9); Monocytes % 10.4 %; Neutrophils # 8.29 10^3/uL (1.8-7.7); Neutrophils % 70.8 %; Nucleated Red Blood Cells % 0 %; Platelet Count 386 10^3/cmm (157-399); Red Blood Count 4.34 10^6/uL (3.85-5.65); Red Cell Distribution Width 13.7 % (12.1-15.1); White Blood Count 11.69 10^3/uL (3.29-11.43)
[2023-12-22 05:12] LABS: Chloride 102 mmol/L (98-107); Potassium 4.3 mmol/L (3.5-5.1); Sodium 136 mmol/L (136-145)
[2023-12-22 05:43] LABS: Anion Gap 16.3 (5-19); Blood Urea Nitrogen 16 mg/dL (6-20); Calcium 8.1 mg/dL (8.5-10.5); Carbon Dioxide 22 mmol/L (22-29); Creatinine Clr Calc Pharmacy 192.3772; Glomerular Filtration Rate 123.1 mL/min (90-130); Glucose 91 mg/dL (65-115); Osmolality Calculated 283 mOsm/kg (285-295)
--- NOTE | 2023-12-22 07:00 | XRR_ITS ---
PROCEDURE INFORMATION: Exam: XR Chest Exam date and time: 12/22/2023 5:54 AM Age: 43 years old Clinical indication: Other: Pleural effusion TECHNIQUE: Imaging protocol: Radiologic exam of the chest. Views: 1 view. COMPARISON: CR (CHEST, ) 12/20/2023 3:22 PM FINDINGS: Tubes, catheters and devices: Distal tip of med port catheter is obscured by superficial EKG leads. Lungs: Multiple pulmonary nodules, consistent with metastases. Right perihilar airspace disease. Pleural spaces: Progressive and complete opacification of the left hemithorax in association with airspace disease and pleural effusion. Heart/Mediastinum: Obscuration of the left heart border. Bones/joints: Unremarkable. . XR/XR chest 1V portable [id number] IMPRESSION: 1. Progressive and complete opacification of the left hemithorax in association with airspace disease and pleural effusion. 2. Multiple pulmonary nodules, consistent with metastases. 3. Additional findings as described above.
[2023-12-22 08:07] LABS: Glucose Point of Care 107 mg/dL (70-110)
[2023-12-22] MEDS: ipratropium-albuterol 3 mL Neb INHALATION ×2 (08:08→14:43)
[2023-12-22] MEDS: LORazepam 2 mg/mL INJ 10 mL MDV 1 MG IVP (08:59)
[2023-12-22] MEDS: amlodipine 10 mg Tablet PO (09:01)
[2023-12-22] MEDS: docusate sodium 100 mg Capsule PO (09:01)
[2023-12-22] MEDS: losartan 50 mg Tablet PO (09:01)
[2023-12-22] MEDS: metoprolol tartrate 25 mg Tablet PO ×2 (09:01→21:50)
--- NOTE | 2023-12-22 10:10 | P.PN_ITS ---
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 Del Valle in [place]; recommended discharging home and they will follow-up and coordinate care because at this point creative services manager and patient have not started discussion about chemotherapy. Coordinator at the hematology clinic at [facility] has reassured that they will follow-up with make a phone call to arrange close follow-up visit to start the treatment -Patient keeps changing his decision [facility] transfer, he is wanting to attend graduation ceremony of his son which is very important for him stating that the last her mother when she was 39 years old and now he would not miss the graduation ceremony. Medications: Reviewed: Yes Vitals/I&O/Wt Last Vital Signs Temp 98.6 F 12/22/23 00:00 Pulse 94 12/22/23 08:08 Resp 27 H 12/22/23 08:00 BP 119/68 12/22/23 09:01 Pulse Ox 93 12/22/23 08:00 O2 Del Method Nasal Cannula 12/22/23 08:00 O2 Flow Rate 4 12/22/23 08:00 12/21/23 12/22/23 12/22/23 22:59 06:59 14:59 Intake Total 1450 / 2130.000 575 / 2705.000 120 / 120 Output Total 1325 / 1650 300 / 1950 Balance 125 / 480.000 275 / 755.000 120 / 120 Weight last 48 hrs Weight 288 lb 9.6 oz Weight 294 lb 4.8 oz Physical Exam 2 Narrative: General: alert, NAD HEENT: conj clear, EOMI, PERRL, mmm, Neck: supple, no meningismus Heme: no cervical LAP Respiratory: Inspection: No visible deformity of the chest wall Palpation: Trachea is mildly deviated to the right, bilateral symmetric expansion Percussion: Dullness on left lower lung zone Auscultation: Reduced left lower lung zone breath sounds Cardiovascular: rrr, nl s1s2, no mrg Abdomen: soft, nt, nd, no r/g, bs+ Extremities: pulses +, no edema, no c/c : no CVA tenderness Skin: intact, no rash MSK: no back or neck pain Neurologic: grossly intact Data 12/22/23 03:55 12/22/23 03:55 Other Labs: Radiology Impressions Chest CT 12/19/23 23:24 IMPRESSION: Extensive bilateral pulmonary metastatic disease with very large left-sided pleural effusion Abdomen/Pelvis CT 12/20/23 21:47 IMPRESSION: 1. Prominent fluid in the stomach and small bowel, please correlate for gastroenteritis. 2. Diverticulosis without diverticulitis. 3. 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 4. Small right and large left pleural effusions. 5. Multifocal right lower lobe metastatic masses measuring up to 4.6 cm. 6. Left lower lobe airspace infiltrate. 7. Nodular left lower lobe pleural masses measuring up to 4.3 cm, likely reflecting metastatic disease. Head CT 12/20/23 21:47 IMPRESSION: No acute intracranial abnormality. Lymph Node Biopsy Ultrasound 12/21/23 08:00 IMPRESSION: 1. Uncomplicated ultrasound-guided retropectoral lymph node biopsy. 2. Pathology is pending. Chest X-Ray 12/22/23 13:20 Impression: 1. Minimal decrease in opacification of the left thorax. 2. Multiple right pulmonary nodules unchanged. Laboratory Results WBC 11.69 10^3/uL (3.29-11.43) H 12/22/23 03:55 RBC 4.34 10^6/uL (3.85-5.65) 12/22/23 03:55 Hgb 11.70 g/dL (11.27-16.99) 12/22/23 03:55 Hct 37.2 % (37-53) 12/22/23 03:55 MCV 85.7 fl (82-101) 12/22/23 03:55 MCH 27.0 pg (27-33) 12/22/23 03:55 MCHC 31.5 g/dL (30-55) 12/22/23 03:55 RDW 13.7 % (12.1-15.1) 12/22/23 03:55 Plt Count 386 10^3/cmm (157-399) 12/22/23 03:55 MPV 9.7 fL (7.4-10.4) 12/22/23 03:55 Neut % (Auto) 70.8 % 12/22/23 03:55 Lymph % (Auto) 15.0 % 12/22/23 03:55 [place] % (Auto) 10.4 % 12/22/23 03:55 Eos % (Auto) 2.7 % 12/22/23 03:55 Baso % (Auto) 0.7 % 12/22/23 03:55 Neut # (Auto) 8.29 10^3/uL (1.8-7.7) H 12/22/23 03:55 Lymph # (Auto) 1.8 10^3/uL (0.8-4.8) 12/22/23 03:55 [place] # (Auto) 1.2 10^3/uL (0.2-0.9) H 12/22/23 03:55 Eos # (Auto) 0.3 10^3/uL (0.0-0.8) 12/22/23 03:55 Baso # (Auto) 0.1 10^3/uL (0.0-0.1) 12/22/23 03:55 Nucleated RBC % (auto) 0 % 12/22/23 03:55 Nucleated RBCs # 0.0 /100WBC 12/22/23 03:55 Differential Comment Yes 12/20/23 15:00 PT 15.10 SECONDS (12.1-14.9) H 12/20/23 09:35 INR 1.15 (0.8-1.2) 12/20/23 09:35 Sodium 136 mmol/L (136-145) 12/22/23 03:55 Potassium 4.3 mmol/L (3.5-5.1) 12/22/23 03:55 Chloride 102 mmol/L (98-107) 12/22/23 03:55 Carbon Dioxide 22 mmol/L (22-29) 12/22/23 03:55 Anion Gap 16.3 (5-19) 12/22/23 03:55 BUN 16 mg/dL (6-20) 12/22/23 03:55 Creatinine 0.7 mg/dL (0.7-1.2) 12/22/23 03:55 GFR Calculation 123.1 mL/min (90-130) 12/22/23 03:55 Glucose 91 mg/dL (65-115) 12/22/23 03:55 POC Glucose 107 mg/dL (70-110) 12/22/23 07:59 Estimat Average Glucose 140 12/19/23 21:44 Hemoglobin A1c 6.5 % (4.0-6.0) H 12/19/23 21:44 Calculated Osmolality 283 mOsm/kg (285-295) L 12/22/23 03:55 Lactic Acid 1.0 mmol/L (0.5-2.2) 12/19/23 21:44 Calcium 8.1 mg/dL (8.5-10.5) L 12/22/23 03:55 Magnesium 2.1 mg/dL (1.7-2.3) 12/20/23 09:35 Total Bilirubin 0.5 mg/dL (0.15-1.2) 12/20/23 09:35 AST 13 U/L (0-40) 12/20/23 09:35 ALT 6 U/L (0-41) 12/20/23 09:35 Alkaline Phosphatase 79 U/L (40-130) 12/20/23 09:35 NT-Pro-B Natriuret Pep 70 pg/mL (0-125) 12/19/23 21:44 Total Protein 7.3 g/dL (6.6-8.7) 12/20/23 09:35 Albumin 3.0 g/dL (3.5-5.2) L 12/20/23 09:35 Globulin 4.3 g/dL (1.3-4.6) 12/20/23 09:35 Fluid Color Red 12/20/23 15:00 Fluid Appearance Bloody 12/20/23 15:00 Fluid WBC 1636 /uL 12/20/23 15:00 Fluid RBC 121.000 10^3/uL 12/20/23 15:00 Fluid Hematocrit 1.2 % 12/20/23 15:00 Fld Polynuclear WBCs # 0.465 12/20/23 15:00 Fld Polynuclear WBCs % 28.500 % 12/20/23 15:00 Fl Mononucl WBCs #(Auto) 1.171 12/20/23 15:00 Fl Mononuclear % Auto 71.500 % 12/20/23 15:00 Fld Crystal Laterality Not Reportable 12/20/23 15:00 Fluid Albumin 2.6 g/dL 12/20/23 15:00 Fluid Creatinine 0.66 (0.7-1.2) L 12/20/23 15:00 Pleural pH 9.00 (6.5-7.5) H 12/20/23 15:00 Pleural Total Protein 5.0 g/dL 12/20/23 15:00 Pleural LDH 799 U/L 12/20/23 15:00 Pleural Glucose 117.0 mg/dL 12/20/23 15:00 Pleural Triglycerides 54 mg/dL 12/20/23 15:00 Vancomycin Trough 14.0 ug/mL (10-15) 12/21/23 00:33 Micro: Microbiology 12/20/23 15:00 Gram Stain - Final Pleural Fluid Body Fluid Culture - Preliminary A&P Assessment and plan (1) Recurrent pleural effusion on left: likely malignant in the setting of underlying metastatic malignancy S/p thoracentesis of left pleural effusion 12/20/2023-aspirated 2 L hemorrhagic effusion Fluid analysis showed lymphocytic predominant exudative effusion; LDH 799, total protein 5, glucose 117 Cytology and cultures pending Today chest x-ray showed worsening left pleural effusion with complete opacification of left hemithorax-placed a [place] drain today and drained 1 L Patient may need Pleurx drainage every other day as outpatient (2) Respiratory failure: Patient is currently requiring 4 to 5 L of nasal cannula Chest imaging suggestive of significant metastatic lung lesions-likely secondary to his right arm mass-suspicious for metastatic sarcoma Pleural fluid cytology is pending (3) Metastasis to lung: Chest imaging suggestive of significant metastatic lung lesions-likely secondary to his right arm mass-suspicious for metastatic sarcoma Pleural fluid cytology is pending Today he underwent retropectoral lymph node biopsy by IR-pathology pending (4) Mass of right upper extremity: right arm mass-suspicious for metastatic sarcoma Patient is scheduled for supraclavicular lymph node biopsy by IR Patient following up with oncology department in [facility]. A Port-A-Cath was recently placed for chemotherapy; Pleural fluid cytology is pending 12/21/2023-underwent retropectoral lymph node biopsy by IR-report pending Overall-patient appears to have aggressive metastatic malignancy and has poor prognosis. However patient appears to be in denial Recommended to consult oncology for inpatient chemo -Hospitalist discussed with patient's oncologist at [facility] Hospital Dr. Del Valle in [place]; recommended discharging home and they will follow-up and coordinate care because at this point creative services manager and patient have not started discussion about chemotherapy. Coordinator at the hematology clinic at [facility] has reassured that they will follow-up with make a phone call to arrange close follow-up visit to start the treatment -Patient keeps changing his decision regarding hospital to hospital transfer, he is wanting to attend graduation ceremony of his son which is very important for him stating that the last her mother when she was 39 years old and now he would not miss the graduation ceremony Plan Explained patient about his metastatic malignancy and explained about poor prognosis Informed patient to call his family so we can have goals of care discussion but they never came. Attestations 2 Medical Necessity Statement*: Awaiting cytology, lymph node biopsy reports-currently on 4 L supplemental oxygen; [place] drain placed-patient can be discharged after additional draining today and tomorrow Time Spent in Patient Care: Greater than 35 minutes (>than 50% of time spent in counselling and/or direct pt care on unit) . Coding Level of Care Code Acute Code for Chg Fwd Diagnoses Recurrent pleural effusion on left J90 Respiratory failure J96.90 Metastasis to lung C78.00 Mass of right upper extremity R22.31 Time Spent (min) 59
--- NOTE | 2023-12-22 11:29 | PM.PN ---
Subjective Subjective: This morning patient was very angry and in denial about his cancer We talked about prognosis stage IV cancer with osteosarcoma, it has prognosis of less than 30% with 5-year survival Patient is still stating that he would not allow his sons to see him like this in the ICU called [facility] and they do not have any records on this patient Then we were able to get a hold of rosario [facility] certified retinal angiographer Dr. Del Valle: Who did not accept the patient as he is stable on 4 to 5 L, recommending discharging home and they will follow-up and coordinate care because at this point certified retinal angiographer and patient have not started discussion about chemotherapy and patient keeps changing his decision regarding hospital to hospital transfer, he is wanting to attend graduation ceremony of his son which is very important for him stating that the last her mother when she was 39 years old and now he would not miss the graduation ceremony. Coordinator at the hematology clinic at [facility] rosario has reassured that they will follow-up with make a phone call to arrange close follow-up visit to start the treatment Left-sided hemithorax Plan for Pleurx catheter Patient is stating that he wants to go home today after Pleurx catheter gets placed, I did tell him that we normally monitor for next 24 hours after catheter placement Vitals/I&O/Wt Last Vital Signs Temp 98.6 F 12/22/23 00:00 Pulse 82 12/22/23 10:00 Resp 27 H 12/22/23 08:00 BP 130/78 12/22/23 10:00 Pulse Ox 94 12/22/23 10:00 O2 Del Method Nasal Cannula 12/22/23 08:00 O2 Flow Rate 4 12/22/23 08:00 12/21/23 12/22/23 12/22/23 22:59 06:59 14:59 Intake Total 1450 / 2130.000 575 / 2705.000 520 / 520 Output Total 1325 / 1650 300 / 1950 Balance 125 / 480.000 275 / 755.000 520 / 520 Weight last 48 hrs Weight 130.907 kg Weight 133.492 kg Physical Exam Narrative: Awake and alert Anxious appearing Hemodynamically stable on 4 L Right arm significant swelling No active sign of vascular compromise GCS 15 S1, S2 Currently laying supine No active nausea vomiting Data 12/22/23 03:55 12/22/23 03:55 Micro: Microbiology 12/20/23 15:00 Gram Stain - Final Pleural Fluid Body Fluid Culture - Preliminary A&P Assessment and plan (1) Essential (primary) hypertension: (2) Mixed hyperlipidemia: (3) Obesity, Class III, BMI 40-49.9 (morbid obesity): (4) Metastasis to lung: (5) Sarcoma: (6) Chronic back pain: (7) Pleural effusion, left: (8) Respiratory failure: (9) Mass of right upper extremity: (10) Gastroenteritis: Plan Gastroenteritis Conservative management Continue IV fluids Ativan has helped to control his nausea vomiting with seem to be related to his metastatic lesions CT head unremarkable No active fever No significant leukocytosis He has been started on Zosyn Recurrent left-sided pleural effusion Plan for Pleurx catheter today Dr. 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% with guarded prognosis Patient is still in denial and very angry at the staff and myself We are not able to get a hold of his family as well He does not want his son to see him in the hospital at this Advance diet to clear liquids today Pneumonia: Continue antibiotic Full code Essential hypertension: Normotensive on current regimen DVT prophylaxis: Lovenox Called [facility] please review documentation about my conversation in the first paragraph of the note Attestations Medical Necessity Statement*: Continue management, Diagnoses Essential (primary) hypertension I10 Mixed hyperlipidemia E78.2 Obesity, Class III, BMI 40-49.9 (morbid obesity) E66.01 Metastasis to lung C78.00 Sarcoma C49.9 Chronic back pain M54.9; G89.29 Pleural effusion, left J90 Respiratory failure J96.90 Mass of right upper extremity R22.31 Gastroenteritis K52.9
[2023-12-22] MEDS: fentaNYL 50 mcg/mL INJ 2mL 25 MCG IVP (12:36)
[2023-12-22] MEDS: lidocaine 1% INJ 10 mL (per mL) 20 ML INJECTION (12:37)
--- NOTE | 2023-12-22 13:20 | XR_ITS ---
WS: [id number] Portable AP upright chest, 12/22/2023, 1328 hours Clinical Data: POST THORACENTESIS Comparison: Portable chest, 12/22/2023, 0555 hours Findings: There is a probable left chest tube overlying the midportion of the left lung. The large le ft pleural effusion has diminished slightly compared to the earlier x-ray. The left infusion catheter remains the same. The right lung nodules are unchanged. No pneumothorax is present. XR/XR chest 1V portable [id number] Impression: 1. Minimal decrease in opacification of the left thorax. 2. Multiple right pulmonary nodules unchanged.
--- NOTE | 2023-12-22 15:45 | P.PCN_ITS ---
Procedure/Consent 2 Time out: Time Out Performed: Yes Consent: Consent for Procedure: Consent obtained from patient Procedure Narrative: Procedure: DATE OF PROCEDURE: 12/22/2023 PREOPERATIVE DIAGNOSIS: Recurrent left pleural effusion causing symptomatic dyspnea. POSTOPERATIVE DIAGNOSIS: Recurrent left pleural effusion causing symptomatic dyspnea. PROCEDURE PERFORMED: 33447: Insertion of tunneled Pleurx cath eter in the right pleural cavity 60192: Moderate sedation SURGEON: Rodrigo Ferguson MD [facility] ANESTHESIA: Moderate sedation with fentanyl 25 MCG ASA: 3 INDICATION FOR PROCEDURE: Recurrent left pleural effusion causing symptomatic dyspnea. In an effort to palliate respiratory symptoms, PleurX catheter placement was considered for home drainage. The patient understood the risks and possible complications of the procedure and wished to proceed. DESCRIPTION OF PROCEDURE: The patient was placed supine on the bed. He was connected to telemetry, oxygen, hemodynamic monitoring. After doing appropriate timeout, patient was given fentanyl 25 MCG IV push for moderate sedation (00001). The patient was then positioned with the head up and a roll under the right shoulder. The left chest and upper abdomen were prepped and draped in the usual sterile fashion. 20 cc 1% local lidocaine is used for local anesthesia. A small counterincision was made in the left upper quadrant area. Through the anterior axillary line area, the pleural space was accessed by Seldinger technique using ultrasound guidance. The counterincision was made around the guidewire and then the indwelling PleurX catheter was tunneled from the left upper quadrant small incision to the one overlying the ribs. After appropriate dilation a sheath introducer was then passed over the wire and then the PleurX catheter was placed through the sheath introducer. There was good return of fluid. 1 liters of hemorrhagic fluid was withdrawn slowly as the small counterincision was closed with Monocryl stitch. The catheter was capped off, and sterile dressings were applied. The patient tolerated the procedure well without any complications. The patient vitals remained stable. Sponge and needle count was correct at the end of the case. OPERATIVE FINDINGS: 1 liters of hemorrhagic was withdrawn before clamping the drainage tube. There were overt no bleeding complications. Estimated blood loss: 5 to 10 cc Immediate complications: None Acute Procedures 2 Epistaxis Control: Time out performed: Yes
[2023-12-22 17:06] LABS: Glucose Point of Care 96 mg/dL (70-110)
[2023-12-22 20:15] LABS: Glucose Point of Care 103 mg/dL (70-110)
[2023-12-22] MEDS: zolpidem 5 mg Tablet PO (21:50)
[2023-12-23] VITALS (20 sets, daily range): BP systolic 118–142; BP diastolic 65–96; PULSE 81–99; RESP 18–28; TEMP 35.9–36.8; O2SAT 86–96
[2023-12-23] MEDS: hyDRALAzine 10 mg Tablet PO ×2 (00:04→12:59)
[2023-12-23] MEDS: vancomycin 2,000 MG/400 ML PIGGYBACK 200 MG IV ×2 (00:05→10:49)
[2023-12-23] MEDS: piperacillin-tazobactam 4.5 GM in sodium chloride 0.9% (plus) 50 ML IV ×2 (00:05→10:46)
[2023-12-23] MEDS: oxyCODONE 5 mg IR Tab/Cap PO (03:50)
--- NOTE | 2023-12-23 06:00 | XRR_ITS ---
PROCEDURE INFORMATION: Exam: XR Chest Exam date and time: 12/23/2023 4:47 AM Age: 43 years old Clinical indication: Other: Effusion; Additional info: Effussion TECHNIQUE: Imaging protocol: Radiologic exam of the chest. Views: 1 view. COMPARISON: CR XR chest 1V portable [id number] 12/22/2023 1:26 PM FINDINGS: Tubes, catheters and devices: Infusion port enters from the left and terminates in the SVC. Lungs: Predominant opacification of the left hemithorax. Bilateral pulmonary metastases. Stable left thoracostomy tube. Pleural spaces: Unremarkable. No pleural effusion. No pneumothorax. Heart/Mediastinum: Unremarkable. No cardiomegaly. Bones/joints: Unremarkable. XR/XR chest 1V portable [id number] IMPRESSION: No significant change.
[2023-12-23 06:05] LABS: Basophils # 0.1 10^3/uL (0.0-0.1); Basophils % 0.7 %; Eosinophils # 0.4 10^3/uL (0.0-0.8); Eosinophils % 3.2 %; Hematocrit 39.9 % (37-53); Lymphocytes # 1.6 10^3/uL (0.8-4.8); Mean Corpuscular HGB Conc 31.8 g/dL (30-55); Mean Corpuscular Hemoglobin 26.8 pg (27-33); Mean Corpuscular Volume 84.2 fl (82-101); Mean Platelet Volume 9.7 fL (7.4-10.4); Monocytes # 1.1 10^3/uL (0.2-0.9); Monocytes % 8.7 %; Neutrophils % 73.9 %; Nucleated Red Blood Cells % 0 %; Platelet Count 412 10^3/cmm (157-399); Red Blood Count 4.74 10^6/uL (3.85-5.65); Red Cell Distribution Width 13.5 % (12.1-15.1); White Blood Count 12.32 10^3/uL (3.29-11.43)
[2023-12-23 06:24] LABS: Anion Gap 15.1 (5-19); Blood Urea Nitrogen 14 mg/dL (6-20); Calcium 8.2 mg/dL (8.5-10.5); Carbon Dioxide 23 mmol/L (22-29); Chloride 100 mmol/L (98-107); Glucose 89 mg/dL (65-115); Osmolality Calculated 278 mOsm/kg (285-295); Potassium 4.1 mmol/L (3.5-5.1); Sodium 134 mmol/L (136-145)
[2023-12-23 06:28] LABS: Creatinine Clr Calc Pharmacy 222.6473
[2023-12-23 08:25] LABS: Glucose Point of Care 100 mg/dL (70-110)
--- NOTE | 2023-12-23 08:26 | P.PN_ITS ---
Subjective 2 Subjective: -Patient continues to be in ICU-on 4 L s upplemental oxygen -Appeared extremely tired -Chest x-ray showed significant change i n left pleural effusion -Yesterday Pleurx drain was placed and 1 L fluid is drained-will drain another liter today before discharge-set up outpatient Pleurx drainage every other day -Unfortunately patient has poor prognosi s given his stage IV cancer with osteosarcoma with multiple mets to his lungs, it appears patient is still in denial -Hospitalist discussed with patient's on cologist at [facility] Hospital Dr. Del Valle in [place]; recommended discharging home and they will follow-up and coordinate care because at this point manager community development and patient have not started discussion about chemotherapy. Coordinator at the hematology clinic at [facility] has reassured that they will follow-up with make a phone call to arrange close follow-up visit to start the treatment Medications: Reviewed: Yes Vitals/I&O/Wt Last Vital Signs Temp 97.5 F L 12/23/23 04:00 Pulse 96 12/23/23 06:00 Resp 25 H 12/23/23 06:00 BP 142/80 12/23/23 06:00 Pulse Ox 93 12/23/23 06:00 O2 Del Method Nasal Cannula 12/23/23 04:00 O2 Flow Rate 4 12/23/23 04:00 FiO2 4 12/23/23 02:00 12/22/23 12/23/23 12/23/23 22:59 06:59 14:59 Intake Total 480 / 1050 900 / 1950 Output Total 1725 / 1725 600 / 2325 Balance -1245 / -675 300 / -375 Weight last 48 hrs Weight 289 lb 14.4 oz Weight 288 lb 9.6 oz Physical Exam 2 Narrative: General: alert, NAD HEENT: conj clear, EOMI, PERRL, mmm, Neck: supple, no meningismus Heme: no cervical LAP Respiratory: Inspection: No visible deformity of the chest wall Palpation: Trachea is mildly deviated to the right, bilateral symmetric expansion Percussion: Dullness on left lower lung zone Auscultation: Reduced left lower lung zone breath sounds Cardiovascular: rrr, nl s1s2, no mrg Abdomen: soft, nt, nd, no r/g, bs+ Extremities: pulses +, no edema, no c/c : no CVA tenderness Skin: intact, no rash MSK: no back or neck pain Neurologic: grossly intact Data 12/23/23 05:20 12/23/23 05:20 Other Labs: Radiology Impressions Chest CT 12/19/23 23:24 IMPRESSION: Extensive bilateral pulmonary metastatic disease with very large left-sided pleural effusion Abdomen/Pelvis CT 12/20/23 21:47 IMPRESSION: 1. Prominent fluid in the stomach and small bowel, please correlate for gastroenteritis. 2. Diverticulosis without diverticulitis. 3. 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 4. Small right and large left pleural effusions. 5. Multifocal right lower lobe metastatic masses measuring up to 4.6 cm. 6. Left lower lobe airspace infiltrate. 7. Nodular left lower lobe pleural masses measuring up to 4.3 cm, likely reflecting metastatic disease. Head CT 12/20/23 21:47 IMPRESSION: No acute intracranial abnormality. Lymph Node Biopsy Ultrasound 12/21/23 08:00 IMPRESSION: 1. Uncomplicated ultrasound-guided retropectoral lymph node biopsy. 2. Pathology is pending. Chest X-Ray 12/23/23 06:00 IMPRESSION: No significant change. Laboratory Results WBC 12.32 10^3/uL (3.29-11.43) H 12/23/23 05:20 RBC 4.74 10^6/uL (3.85-5.65) 12/23/23 05:20 Hgb 12.70 g/dL (11.27-16.99) 12/23/23 05:20 Hct 39.9 % (37-53) 12/23/23 05:20 MCV 84.2 fl (82-101) 12/23/23 05:20 MCH 26.8 pg (27-33) L 12/23/23 05:20 MCHC 31.8 g/dL (30-55) 12/23/23 05:20 RDW 13.5 % (12.1-15.1) 12/23/23 05:20 Plt Count 412 10^3/cmm (157-399) H 12/23/23 05:20 MPV 9.7 fL (7.4-10.4) 12/23/23 05:20 Neut % (Auto) 73.9 % 12/23/23 05:20 Lymph % (Auto) 13.0 % 12/23/23 05:20 Bell % (Auto) 8.7 % 12/23/23 05:20 Eos % (Auto) 3.2 % 12/23/23 05:20 Baso % (Auto) 0.7 % 12/23/23 05:20 Neut # (Auto) 9.10 10^3/uL (1.8-7.7) H 12/23/23 05:20 Lymph # (Auto) 1.6 10^3/uL (0.8-4.8) 12/23/23 05:20 Bell # (Auto) 1.1 10^3/uL (0.2-0.9) H 12/23/23 05:20 Eos # (Auto) 0.4 10^3/uL (0.0-0.8) 12/23/23 05:20 Baso # (Auto) 0.1 10^3/uL (0.0-0.1) 12/23/23 05:20 Nucleated RBC % (auto) 0 % 12/23/23 05:20 Nucleated RBCs # 0.0 /100WBC 12/23/23 05:20 Differential Comment Yes 12/20/23 15:00 PT 15.10 SECONDS (12.1-14.9) H 12/20/23 09:35 INR 1.15 (0.8-1.2) 12/20/23 09:35 Sodium 134 mmol/L (136-145) L 12/23/23 05:20 Potassium 4.1 mmol/L (3.5-5.1) 12/23/23 05:20 Chloride 100 mmol/L (98-107) 12/23/23 05:20 Carbon Dioxide 23 mmol/L (22-29) 12/23/23 05:20 Anion Gap 15.1 (5-19) 12/23/23 05:20 BUN 14 mg/dL (6-20) 12/23/23 05:20 Creatinine 0.6 mg/dL (0.7-1.2) L 12/23/23 05:20 GFR Calculation 147.0 mL/min (90-130) H 12/23/23 05:20 Glucose 89 mg/dL (65-115) 12/23/23 05:20 POC Glucose 100 mg/dL (70-110) 12/23/23 07:27 Estimat Average Glucose 140 12/19/23 21:44 Hemoglobin A1c 6.5 % (4.0-6.0) H 12/19/23 21:44 Calculated Osmolality 278 mOsm/kg (285-295) L 12/23/23 05:20 Lactic Acid 1.0 mmol/L (0.5-2.2) 12/19/23 21:44 Calcium 8.2 mg/dL (8.5-10.5) L 12/23/23 05:20 Magnesium 2.1 mg/dL (1.7-2.3) 12/20/23 09:35 Total Bilirubin 0.5 mg/dL (0.15-1.2) 12/20/23 09:35 AST 13 U/L (0-40) 12/20/23 09:35 ALT 6 U/L (0-41) 12/20/23 09:35 Alkaline Phosphatase 79 U/L (40-130) 12/20/23 09:35 NT-Pro-B Natriuret Pep 70 pg/mL (0-125) 12/19/23 21:44 Total Protein 7.3 g/dL (6.6-8.7) 12/20/23 09:35 Albumin 3.0 g/dL (3.5-5.2) L 12/20/23 09:35 Globulin 4.3 g/dL (1.3-4.6) 12/20/23 09:35 Fluid Color Red 12/20/23 15:00 Fluid Appearance Bloody 12/20/23 15:00 Fluid WBC 1636 /uL 12/20/23 15:00 Fluid RBC 121.000 10^3/uL 12/20/23 15:00 Fluid Hematocrit 1.2 % 12/20/23 15:00 Fld Polynuclear WBCs # 0.465 12/20/23 15:00 Fld Polynuclear WBCs % 28.500 % 12/20/23 15:00 Fl Mononucl WBCs #(Auto) 1.171 12/20/23 15:00 Fl Mononuclear % Auto 71.500 % 12/20/23 15:00 Fld Crystal Laterality Not Reportable 12/20/23 15:00 Fluid Albumin 2.6 g/dL 12/20/23 15:00 Fluid Creatinine 0.66 (0.7-1.2) L 12/20/23 15:00 Pleural pH 9.00 (6.5-7.5) H 12/20/23 15:00 Pleural Total Protein 5.0 g/dL 12/20/23 15:00 Pleural LDH 799 U/L 12/20/23 15:00 Pleural Glucose 117.0 mg/dL 12/20/23 15:00 Pleural Triglycerides 54 mg/dL 12/20/23 15:00 Vancomycin Trough 14.0 ug/mL (10-15) 12/21/23 00:33 Micro: Microbiology 12/20/23 15:00 Gram Stain - Final Pleural Fluid Body Fluid Culture - Preliminary A&P Assessment and plan (1) Recurrent pleural effusion on left: likely malignant in the setting of underlying metastatic malignancy S/p thoracentesis of left pleural effusion 12/20/2023-aspirated 2 L hemorrhagic effusion Fluid analysis showed lymphocytic predominant exudative effusion; LDH 799, total protein 5, glucose 117 Cytology pending and cultures so far negative Yesterday chest x-ray showed worsening left pleural effusion with complete opacification of left hemithorax-placed a Lance drain today and drained 1 L Will drain another liter today prior to discharge Will set up outpatient Pleurx drainage every other day (2) Respiratory failure: Patient is currently requiring 4 to 5 L of nasal cannula Chest imaging suggestive of significant metastatic lung lesions-likely secondary to his right arm mass-suspicious for metastatic sarcoma Pleural fluid cytology is pending (3) Metastasis to lung: Chest imaging suggestive of significant metastatic lung lesions-likely secondary to his right arm mass-suspicious for metastatic sarcoma Pleural fluid cytology is pending Today he underwent retropectoral lymph node biopsy by IR-pathology pending (4) Mass of right upper extremity: right arm mass-suspicious for metastatic sarcoma Patient is scheduled for supraclavicular lymph node biopsy by IR Patient following up with oncology department in [facility]. A Port-A-Cath was recently placed for chemotherapy; Pleural fluid cytology is pending 12/21/2023-underwent retropectoral lymph node biopsy by IR-report pending Overall-patient appears to have aggressive metastatic malignancy and has poor prognosis. However patient appears to be in denial Recommended to consult oncology for inpatient chemo -Hospitalist discussed with patient's oncologist at [facility] Dr. Del Valle in [place]; recommended discharging home and they will follow-up and coordinate care because at this point manager community development and patient have not started discussion about chemotherapy. Coordinator at the hematology clinic at [facility] has reassured that they will follow-up with make a phone call to arrange close follow-up visit to start the treatment -Patient keeps changing his decision regarding hospital to hospital transfer, he is wanting to attend graduation ceremony of his son which is very important for him stating that the last her mother when she was 39 years old and now he would not miss the graduation ceremony Plan Explained patient about his metastatic malignancy and explained about poor prognosis Attestations 2 Medical Necessity Statement*: Awaiting cytology, lymph node biopsy reports-currently on 4 L supplemental oxygen; Arroyo drain placed-patient can be discharged after additional draining today Time Spent in Patient Care: Greater than 35 minutes (>than 50% of time spent in counselling and/or direct pt care on unit) . Coding Level of Care Code Acute Code for Chg Fwd Diagnoses Recurrent pleural effusion on left J90 Respiratory failure J96.90 Metastasis to lung C78.00 Mass of right upper extremity R22.31 Time Spent (min) 34
[2023-12-23] MEDS: metoprolol tartrate 25 mg Tablet PO (08:46)
[2023-12-23] MEDS: docusate sodium 100 mg Capsule PO (08:46)
[2023-12-23] MEDS: amlodipine 10 mg Tablet PO (08:47)
--- NOTE | 2023-12-23 09:15 | PC.NURSE ---
Accessed Left Chest drain, sterile process used. Connected to pleurx vacuum container. REmoved 1000mL of fluid. FLuid is red tinted and mostly clear, Some cloudiness initially, but this may be due to frothiness present with first few mL drained.
[2023-12-23] MEDS: HYDROcodone-acetaminophen 7.5-325 mg Tablet 1 TAB PO (10:43)
[2023-12-23] MEDS: losartan 50 mg Tablet PO (10:46)
--- NOTE | 2023-12-23 11:18 | P.DS_ITS ---
Discharge Providers Date of Admission: 12/19/23 23:13 Date of Discharge: December 23, 2023 Attending Provider at Admission: Minerva Watson MD Attending Provider at Discharge: Lorenzo Meade MD Primary Care Provider: ALFONSO Zhu Diagnoses at Discharge Discharge Diagnosis (1) Recurrent pleural effusion on left: Status: Acute (2) Respiratory failure: Status: Acute (3) Metastasis to lung: Status: Acute (4) Mass of right upper extremity: Status: Acute Reason for Visit Reason for Visit: sob Cancer pt Hospital Course Hospital Course 43-year-old male who was admitted to the hospital for recurrent left-sided pleural effusion, Dr. 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 I have conveyed my concerns to the patient and spoke with his significant other that he has stage IV cancer and prognosis is guarded he should not miss any opportunity to go to [facility] once they give him appointment. They are in agreement. In total 4 to 5 L of fluid was removed from left pleural space. We have requested GI Lab to drain left pleural effusion twice a week, his next appointment is on 12/23 at 10:30 AM In case patient is needing another evaluation in the ER for worsening of symptoms he should be transferred ER to ER to [facility] Physical Exam Narrative: Diminished breath sounds left greater than right On 4 to 5 L Hemodynamic stable Medical LOC GCS 15 Multiple bouts of cough Pleurx catheter in place on the left side Discharge Data Studies Completed and Pending Completed Studies During Hospitalization Category Date Time Status CT abdomen pelvis w con* [id number] Urgent Cat Scan 12/20/23 21:[address] chest wo con [id number] Routine Cat Scan 12/19/23 23:[address] head wo con* [id number] Urgent Cat Scan 12/20/23 21:47 Completed CXRP [XR chest 1V portable [id number]] Stat Exams 12/20/23 15:13 Completed XR chest 1V portable [id number] Routine Exams 12/22/23 07:00 Completed XR chest 1V portable [id number] Routine Exams 12/23/23 06:00 Completed XR chest 1V portable [id number] Stat Exams 12/19/23 21:59 Completed XR chest 1V portable [id number] Stat Exams 12/22/23 13:20 Completed CV. echo complete* [id number] Routine Ultrasound 12/20/23 09:30 Completed US biopsy lymph node [id number] Routine Ultrasound 12/21/23 08:00 Completed Pending at discharge Category Date Time Status Amylase, Pleural Fluid Routine Lab 12/19/23 23:33 Received Blood Culture Stat Lab 12/19/23 22:11 Results Body Fluid Culture & GS Routine Lab 12/19/23 23:33 Results Mycobacteria, Culture w/Fluor Routine Lab 12/19/23 23:33 Received Sputum Culture and Gram Stain Stat Lab 12/19/23 23:30 Uncollected Vancomycin Trough Timed Lab 12/23/23 16:00 Ordered Cytology [PTH] Routine Pth 12/19/23 23:33 Received Radiology Impressions Chest CT 12/19/23 23:24 IMPRESSION: Extensive bilateral pulmonary metastatic disease with very large left-sided pleural effusion Abdomen/Pelvis CT 12/20/23 21:47 IMPRESSION: 1. Prominent fluid in the stomach and small bowel, please correlate for gastroenteritis. 2. Diverticulosis without diverticulitis. 3. 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 4. Small right and large left pleural effusions. 5. Multifocal right lower lobe metastatic masses measuring up to 4.6 cm. 6. Left lower lobe airspace infiltrate. 7. Nodular left lower lobe pleural masses measuring up to 4.3 cm, likely reflecting metastatic disease. Head CT 12/20/23 21:47 IMPRESSION: No acute intracranial abnormality. Lymph Node Biopsy Ultrasound 12/21/23 08:00 IMPRESSION: 1. Uncomplicated ultrasound-guided retropectoral lymph node biopsy. 2. Pathology is pending. Chest X-Ray 12/23/23 06:00 IMPRESSION: No significant change. Laboratory Results WBC 12.32 10^3/uL (3.29-11.43) H 12/23/23 05:20 RBC 4.74 10^6/uL (3.85-5.65) 12/23/23 05:20 Hgb 12.70 g/dL (11.27-16.99) 12/23/23 05:20 Hct 39.9 % (37-53) 12/23/23 05:20 MCV 84.2 fl (82-101) 12/23/23 05:20 MCH 26.8 pg (27-33) L 12/23/23 05:20 MCHC 31.8 g/dL (30-55) 12/23/23 05:20 RDW 13.5 % (12.1-15.1) 12/23/23 05:20 Plt Count 412 10^3/cmm (157-399) H 12/23/23 05:20 MPV 9.7 fL (7.4-10.4) 12/23/23 05:20 Neut % (Auto) 73.9 % 12/23/23 05:20 Lymph % (Auto) 13.0 % 12/23/23 05:20 Day % (Auto) 8.7 % 12/23/23 05:20 Eos % (Auto) 3.2 % 12/23/23 05:20 Baso % (Auto) 0.7 % 12/23/23 05:20 Neut # (Auto) 9.10 10^3/uL (1.8-7.7) H 12/23/23 05:20 Lymph # (Auto) 1.6 10^3/uL (0.8-4.8) 12/23/23 05:20 Day # (Auto) 1.1 10^3/uL (0.2-0.9) H 12/23/23 05:20 Eos # (Auto) 0.4 10^3/uL (0.0-0.8) 12/23/23 05:20 Baso # (Auto) 0.1 10^3/uL (0.0-0.1) 12/23/23 05:20 Nucleated RBC % (auto) 0 % 12/23/23 05:20 Nucleated RBCs # 0.0 /100WBC 12/23/23 05:20 Differential Comment Yes 12/20/23 15:00 PT 15.10 SECONDS (12.1-14.9) H 12/20/23 09:35 INR 1.15 (0.8-1.2) 12/20/23 09:35 Sodium 134 mmol/L (136-145) L 12/23/23 05:20 Potassium 4.1 mmol/L (3.5-5.1) 12/23/23 05:20 Chloride 100 mmol/L (98-107) 12/23/23 05:20 Carbon Dioxide 23 mmol/L (22-29) 12/23/23 05:20 Anion Gap 15.1 (5-19) 12/23/23 05:20 BUN 14 mg/dL (6-20) 12/23/23 05:20 Creatinine 0.6 mg/dL (0.7-1.2) L 12/23/23 05:20 GFR Calculation 147.0 mL/min (90-130) H 12/23/23 05:20 Glucose 89 mg/dL (65-115) 12/23/23 05:20 POC Glucose 100 mg/dL (70-110) 12/23/23 07:27 Estimat Average Glucose 140 12/19/23 21:44 Hemoglobin A1c 6.5 % (4.0-6.0) H 12/19/23 21:44 Calculated Osmolality 278 mOsm/kg (285-295) L 12/23/23 05:20 Lactic Acid 1.0 mmol/L (0.5-2.2) 12/19/23 21:44 Calcium 8.2 mg/dL (8.5-10.5) L 12/23/23 05:20 Magnesium 2.1 mg/dL (1.7-2.3) 12/20/23 09:35 Total Bilirubin 0.5 mg/dL (0.15-1.2) 12/20/23 09:35 AST 13 U/L (0-40) 12/20/23 09:35 ALT 6 U/L (0-41) 12/20/23 09:35 Alkaline Phosphatase 79 U/L (40-130) 12/20/23 09:35 NT-Pro-B Natriuret Pep 70 pg/mL (0-125) 12/19/23 21:44 Total Protein 7.3 g/dL (6.6-8.7) 12/20/23 09:35 Albumin 3.0 g/dL (3.5-5.2) L 12/20/23 09:35 Globulin 4.3 g/dL (1.3-4.6) 12/20/23 09:35 Fluid Color Red 12/20/23 15:00 Fluid Appearance Bloody 12/20/23 15:00 Fluid WBC 1636 /uL 12/20/23 15:00 Fluid RBC 121.000 10^3/uL 12/20/23 15:00 Fluid Hematocrit 1.2 % 12/20/23 15:00 Fld Polynuclear WBCs # 0.465 12/20/23 15:00 Fld Polynuclear WBCs % 28.500 % 12/20/23 15:00 Fl Mononucl WBCs #(Auto) 1.171 12/20/23 15:00 Fl Mononuclear % Auto 71.500 % 12/20/23 15:00 Fld Crystal Laterality Not Reportable 12/20/23 15:00 Fluid Albumin 2.6 g/dL 12/20/23 15:00 Fluid Creatinine 0.66 (0.7-1.2) L 12/20/23 15:00 Pleural pH 9.00 (6.5-7.5) H 12/20/23 15:00 Pleural Total Protein 5.0 g/dL 12/20/23 15:00 Pleural LDH 799 U/L 12/20/23 15:00 Pleural Glucose 117.0 mg/dL 12/20/23 15:00 Pleural Triglycerides 54 mg/dL 12/20/23 15:00 Vancomycin Trough 14.0 ug/mL (10-15) 12/21/23 00:33 Vitals Last Vital Signs Temp 98.2 F 12/23/23 08:00 Pulse 99 12/23/23 11:05 Resp 18 12/23/23 11:05 BP 127/87 12/23/23 10:46 Pulse Ox 86 L 12/23/23 11:09 O2 Del Method Nasal Cannula 12/23/23 11:05 O2 Flow Rate 4 12/23/23 11:09 FiO2 4 12/23/23 02:00 Discharge Plan Discharge Patient Disposition: Home Condition: Fair Prescriptions: New Xanax 0.5 mg tablet 0.25 mg PO BID PRN (Reason: anxiety) Qty: 20 0RF amoxicillin-pot clavulanate 875-125 mg tablet 1 tab PO BID Qty: 10 0RF albuterol sulfate 90 mcg/actuation HFA aerosol inhaler 2 inh inhalation Q8H PRN (Reason: shortness of breath or wheezing) Qty: 8.5 4RF Continued metformin 500 mg tablet extended release 24 hr 1,000 mg PO DAILY Qty: 60 5RF amlodipine 10 mg tablet 10 mg PO DAILY 30 Days Qty: 30 5RF hydralazine 10 mg tablet 10 mg PO Q12H 30 Days Qty: 60 5RF spironolactone 25 mg tablet 25 mg PO DAILY 30 Days Qty: 30 5RF insulin aspart U-100 [Novolog FlexPen U-100 Insulin] 100 unit/mL (3 mL) insulin pen See Rx Instructions SUBCUT TID Qty: 15 2RF Rx Instructions: PER SLIDING SCALE: BG 110-129=3U 130-150=6U 151-200=9U 201-250=12U 251- 300=15U 301-350=18U 351-400=21U >400=24U. (DME) glucometer testing kit See Rx Instructions .Route .MEDSUPPLY Qty: 1 0RF Rx Instructions: lancets#100 strips#100 hydrocodone-acetaminophen 7.5-325 mg tablet 1 tab PO Q6H PRN (Reason: pain) Qty: 10 0RF docusate sodium [Colace] 100 mg capsule 100 mg PO BID Qty: 10 0RF oxycodone 5 mg Tablet 5 mg PO Q6H PRN (Reason: pain) Qty: 20 0RF Discontinued clonidine HCl 0.1 mg tablet 0.1 mg PO BID 30 Days Qty: 60 5RF Discharge Orders: Discharge Order (Routine); Ordered 12/23/23 Ordered By: Lorenzo Meade Other Ambulatory Orders: DME: Oxygen (Order) Location: None Selected Ordered By: Lorenzo Meade Miscellaneous Procedure (Order) Location: None Selected Ordered By: Rodrigo Burgess Datar Referrals: [facility] [Other] - 12/24/23 10:30 am (You have an appointment to come to the GI Lab on Wednesday, 12/23 at 1030 to have your Pleur-x drained. Your appointment is at 1030. Please check in a few minutes before at the outpatient surgery entrance. They will give you your next appointment dates/times at this appointment. You will need to come in twice weekly to have this drained. ) [facility] of [facility] [place] [Outside] Demario Velarde FNP-C [Primary Care Provider] - Patient Instructions: Opioid Safety Discharge Attestations Time Spent in Discharge Care*: greater than 30 min Quality Metrics Clinical Quality Measures [ No reported AMI, CVA or VTE this stay] Coding Level of Care Code Acute Code for Chg Fwd Diagnoses Recurrent pleural effusion on left J90 Respiratory failure J96.90 Metastasis to lung C78.00 Mass of right upper extremity R22.31
[2023-12-23 13:26] LABS: Glucose Point of Care 103 mg/dL (70-110)
--- NOTE | 2023-12-23 13:41 | PC.NURSE ---
Patient is getting discharged. HOME supplied oxygen in room and will meet family at home. Medications sent to dev hair. Education provided on new medications, upcoming appointments (primary provider, Hemotology at [facility], and his Appointment at our GI lab tommorow). BOth IVs removed. REdressed biopsy wound to right upper chest. There were opened and unused tegaderm supplies in room, nurse provided them to the patient with instructions on reinforcing plerual drain dressing if it comes loose. Nurse took patient out via wheelchair, met by family at main entrance.
[2023-12-28 12:58] LABS: Lymphoma Profile (BBPL) See Report
== END 2023-12-23 13:20 | disposition home or self-care (01) | DRG 186 ==
LOC: ER 21:44 → ICU 23:14
PROVIDERS: Admitting Provider Internal Medicine; Emergency Provider Emergency Medicine; PCP Nurse Practitioner; Visit Provider Internal Medicine
DX: J90 Pleural effusion, not elsewhere classified (principal); J18.9 Pneumonia, unspecified organism; J96.90 Respiratory failure, unspecified, unspecified whether with hypoxia or hypercapnia; C40.01 Malignant neoplasm of scapula and long bones of right upper limb; C78.02 Secondary malignant neoplasm of left lung; C78.01 Secondary malignant neoplasm of right lung; F17.210 Nicotine dependence, cigarettes, uncomplicated; Z80.8 Family history of malignant neoplasm of other organs or systems; E11.9 Type 2 diabetes mellitus without complications; Z79.84 Long term (current) use of oral hypoglycemic drugs; Z79.4 Long term (current) use of insulin; K52.9 Noninfective gastroenteritis and colitis, unspecified; I10 Essential (primary) hypertension; E66.01 Morbid (severe) obesity due to excess calories; E88.810 Metabolic syndrome; D72.829 Elevated white blood cell count, unspecified
CPT/HCPCS: 36415; 36416; 38505; 70450; 71045; 71250; 74177; 76942; 80048; 80053; 80202; 80503; 82042; 82150; 82570; 82945; 82962; 83036; 83605; 83615; 83735; 83880; 83986; 84157; 84478; 85014; 85025; 85610; 87015; 87040; 87070; 87075; 87116; 87205; 87206; 87801; 88112; 88184; 88185; 88305; 88307; 89050; 93005; 93306; 94640; 94664; 94760; 96372; 96374; 96375; 96376; 99285; J0360; J1815; J1940; J2060; J2405; J2543; J2765; J3010; J3372; J7030; J7040; Q9967

== ENCOUNTER 2023-12-24 09:45 | Day surgery (SDC) | payer OTHER, SELFPAY ==
[2023-12-24 10:30] VITALS: BP 134/88; PULSE 108; RESP 20; TEMP 36.5; O2SAT 95; BMI 39.0
== END 2023-12-24 10:30 | disposition home or self-care (01) ==
PROVIDERS: PCP Nurse Practitioner; Visit Provider Internal Medicine Pulmonary Disease
DX: C78.00 Secondary malignant neoplasm of unspecified lung (principal)
CPT/HCPCS: C1729; G0463

== ENCOUNTER 2023-12-26 12:21 | Emergency (ER) | payer OTHER, SELFPAY ==
[2023-12-26 12:25] VITALS: BP 138/77; PULSE 104; RESP 26; TEMP 36.6; O2SAT 95
--- NOTE | 2023-12-26 12:32 | XRR_ITS ---
PROCEDURE INFORMATION: Exam: XR Chest Exam date and time: 12/26/2023 1:02 PM Age: 43 years old Clinical indication: Shortness of breath; Prior surgery; Surgery date: <1 month; Surgery type: Lt pleural drain placement; Patient HX: Increased SOB; Metastatic lung CA TECHNIQUE: Imaging protocol: Radiologic exam of the chest. Views: 1 view. COMPARISON: CR (CHEST, ) 12/23/2023 4:47 AM FINDINGS: Tubes, catheters and devices: Left subclavian infusion port tip is at the cavoatrial junction. Left thoracostomy tube. Lungs: Slight improved aeration in the left lung. Redemonstrated the bilateral pulmonary metastatic lesions. Pleural spaces: Slight decrease in the left pleural effusion. Heart/Mediastinum: Obscured by surrounding airspace opacities. Bones/joints: Unremarkable. XR/XR chest 1V portable [id number] IMPRESSION: Mild improved in the left pleural effusion with improved left lung aeration.
--- NOTE | 2023-12-26 12:41 | ECG_ITS ---
[facility] Test Date: 2023-12-26 Pat Name: Brian Villatoro Department: Room: Gender: Male Rn Supplemental: : 1980 Requested By: Hernan Cruz Order Number: [id number] Nick MD: Thomas Power M.D. Measurements Intervals [place] Rate: 104 P: 28 DC: 147 QRS: 54 QRSD: 107 T: 239 QT: 320 QTc: 421 Interpretive Statements SINUS TACHYCARDIA LEFT VENTRICULAR HYPERTROPHY AND ST-T CHANGE [VOLTAGE CRITERIA PLUS ST/T ABNORMALITY] Compared to ECG 12/19/2023 22:10:45 Left ventricular hypertrophy now present ST (T wave) deviation now present T-wave abnormality no longer present Possible ischemia no longer present Electronically Signed On 12-27-2023 8:33:45 CDT by Thomas Power M.D. [email or web address]
[2023-12-26 12:51] VITALS: BP 146/95; PULSE 109; RESP 24; O2SAT 94
[2023-12-26 13:40] VITALS: PULSE 103; RESP 23; O2SAT 95
--- NOTE | 2023-12-26 13:42 | PC.NURSE ---
1 PleurX drain kit was utilized by dr Fernandez, and 1100cc was drained from patient; post-procedure patient told provider that he felt better.
--- NOTE | 2023-12-26 13:49 | XRR_ITS ---
PROCEDURE INFORMATION: Exam: XR Chest Exam date and time: 12/26/2023 1:51 PM Age: 43 years old Clinical indication: Other: Post drainage of L pleural cavity by pleurx catheter TECHNIQUE: Imaging protocol: Radiologic exam of the chest. Views: 1 view. COMPARISON: CR (CHEST, ) 12/26/2023 1:02 PM FINDINGS: Tubes, catheters and devices: Left subclavian infusion port is in unchanged position. Left thoracostomy tube. Lungs: Redemonstrated the bilateral multiple pulmonary nodules, consistent with metastasis. Pleural spaces: Stable left pleural effusion with left mid and lower lung zone consolidation. Heart/Mediastinum: Limited assessment due to airspace opacities. Bones/joints: Unremarkable. XR/XR chest 1V portable [id number] IMPRESSION: Stable examination.
--- NOTE | 2023-12-26 13:49 | W.ED.SOB ---
HPI - SOB/Dyspnea General: Chief Complaint: Shortness of Breath/Dyspnea Stated Complaint: needs fluid taken off Time Seen by Provider: 12/26/23 12:40 Source: patient and family Mode of arrival: wheelchair Limitations: no limitations History of Present Illness: HPI Narrative: Patient was in with severe shortness of breath. Reports he has fluid on his left lung secondary to metastatic cancer. 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 But he collects fluid on the left side of the chest. He had a Pleurx catheter placed not too long ago. He has been having trouble with getting home health as his insurance will not approve it. The patient comes here for shortness of breath and known pleural effusion. Review of Systems General: Reports: 10 or more systems reviewed and unremarkable except in HPI and below PFSH ED PFSH: Medical History Obesity, Class III, BMI 40-49.9 (morbid obesity) Diabetes mellitus with hyperglycemia, with long-term current use of insulin Metabolic syndrome Essential (primary) hypertension Surgical History History of surgical removal of pilonidal cyst History of nasal surgery Family History Mother Diabetes Hypertension Father Cancer Hypertension Other Hyperlipidemia Social History Smoking and tobacco/nicotine status: current every day tobacco/nicotine user cigarettes Packs smoked per day: 2 Years cigarettes smoked: 29 [ Other cigarette details: Started at age 14] Second hand smoke exposure: No Alcohol intake: never Substance/Drug Use: never Adopted: No Caregiver/support person: No Lives independently: Yes Household members: significant other Housing: House Marital status: Number of children: 2 Highest education level completed: High School Graduate service: No Current occupational status: unemployed Current occupational exposures/hazards: No Pets and animals: Yes Do you think of yourself as: Straight/Heterosexual Current gender identity: Male Physical Exam Const: COMMON NORMALS: no acute distress, average body habitus, patient oriented x3, healthy appearing, alert and well nourished GENERAL APPEARANCE: well kempt and well developed HENMT: COMMON NORMALS: normocephalic, atraumatic, external ears normal and moist oral mucous membranes HEAD & SCALP: normocephalic and atraumatic EXTERNAL EAR: Yes external ears normal Eye: COMMON NORMALS: Equal, round and reactive pupils present, EOMs intact bilaterally and conjunctivae normal CONJUNCTIVA: Yes conjunctivae normal PUPIL: Yes Equal, round and reactive pupils present Neck/C-Spine: COMMON NORMALS: full ROM, no lymphadenopathy and supple Chest: CHEST: Yes Symmetrical chest wall rise OTHER: Left chest with Pleurx catheter in place. Resp: EFFORT & INSPECTION: Yes tachypneic, Yes labored and Yes uses accessory muscles AUSCULTATION: other (Diminished except for at the very top of the left chest right with occasion) Cardio: COMMON NORMALS: regular rhythm, S1 normal heart sound present, S2 normal heart sound present, No gallops present (Cardio), No clicks present (Cardio), No murmurs present (Cardio) and No rub (Cardio) RHYTHM: regular rhythm HEART SOUNDS: S1 normal heart sound present, S2 normal heart sound present and no murmurs PERIPHERAL PULSES: other (Radial pulses 2+ and symmetric) Extremity: COMMON NORMALS: full ROM, capillary refill normal and no clubbing, cyanosis or edema Neuro: COMMON NORMALS: patient oriented x3 SENSORIUM/ORIENTATION: Yes alert Psych: APPEARANCE: Yes well kempt Skin: COMMON NORMALS: no rashes or lesions noted, no wounds, turgor normal and no jaundice GENERAL SKIN EXAM: no rashes or lesions noted and turgor normal Course ED course: Patient seen, wants a Pleurx drink it was found. I personally drained it 1100 cc removed via his existing Pleurx line. Using sterile procedures new bandaging was placed including a new 1 the line. Patient feeling much better after drainage. Reevaluation(s): Reevaluation #1: Respiratory rate now down to 18-20 after coming in at rate of 26-30. Time: 13:56 Vital Signs: Vital signs: Vital Signs Temperature 97.8 F 12/26/23 12:25 Pulse Rate 103 H 12/26/23 13:40 Respiratory Rate 23 H 12/26/23 13:40 Blood Pressure 146/95 12/26/23 12:51 Pulse Oximetry 95 12/26/23 13:40 Oxygen Delivery Me thod Nasal Cannula 12/26/23 13:40 Oxygen Flow Rate 4 12/26/23 13:40 MDM - SOB/Dyspnea Medical Decision Making 1100 cc removed from left pleural cavity via Pleurx drain. Much improvement in patient's comfort and respirations. No longer labored. Patient will be discharged. Personally reviewed pre and post x-rays. Medical Records I reviewed the patient's medical records. XR interpretation done by ED provider, pending radiology final review ED provider radiology interpretation(s): Initial x-ray multiple mets with large left pleural effusion As is typical for the situation no increased expansion of the lung however decreased level of left pleural effusion though still large. Multiple mets seen throughout and are known. Discharge Plan Discharge Patient Disposition: Home Clinical Impression: Pleural effusion due to another disorder, Acute dyspnea Condition: Stable Prescriptions: No Action metformin 500 mg tablet extended release 24 hr 1,000 mg PO DAILY Qty: 60 5RF amlodipine 10 mg tablet 10 mg PO DAILY 30 Days Qty: 30 5RF hydralazine 10 mg tablet 10 mg PO Q12H 30 Days Qty: 60 5RF spironolactone 25 mg tablet 25 mg PO DAILY 30 Days Qty: 30 5RF insulin aspart U-100 [Novolog FlexPen U-100 Insulin] 100 unit/mL (3 mL) insulin pen See Rx Instructions SUBCUT TID Qty: 15 2RF Rx Instructions: PER SLIDING SCALE: BG 110-129=3U 130-150=6U 151-200=9U 201-250=12U 251-300=15U 301-350=18U 351-400=21U >400=24U. (DME) glucometer testing kit See Rx Instructions .Route .MEDSUPPLY Qty: 1 0RF Rx Instructions: lancets#100 strips#100 hydrocodone-acetaminophen 7.5-325 mg tablet 1 tab PO Q6H PRN (Reason: pain) Qty: 10 0RF docusate sodium [Colace] 100 mg capsule 100 mg PO BID Qty: 10 0RF alprazolam [Xanax] 0.5 mg tablet 0.25 mg PO BID PRN (Reason: anxiety) Qty: 20 0RF oxycodone 5 mg Tablet 5 mg PO Q6H PRN (Reason: pain) Qty: 20 0RF albuterol sulfate 90 mcg/actuation HFA aerosol inhaler 2 inh inhalation Q8H PRN (Reason: shortness of breath or wheezing) Qty: 8.5 4RF amoxicillin-pot clavulanate 875-125 mg tablet 1 tab PO BID Qty: 10 0RF Discharge Orders: Discharge ED (Routine); Ordered 12/26/23 Ordered By: Chris Fernandez Referrals: Demario Velarde, HOSPICE COORDINATOR-C [Primary Care Provider] - Discharge Diet: Usual diet Discharge Activity: Resume usual activity Patient Instructions: Pleural Effusion Activity Restrictions/Additional Instructions: Continue to follow-up with your current care team. Return if needed. Coding Level of Care Code ED Superintendent Building for Joe Sethi
--- NOTE | 2023-12-26 13:57 | PC.NURSE ---
Large tegaderm placed on bandage per instruction of Dr Fernandez to secure site down.
[2023-12-26 14:13] VITALS: BP 121/93; PULSE 105; RESP 25; O2SAT 97
[2023-12-26 14:15] VITALS: BP 121/93; PULSE 105; RESP 25; O2SAT 97
== END 2023-12-26 14:04 | disposition home or self-care (01) ==
PROVIDERS: Emergency Provider Emergency Medicine; PCP Nurse Practitioner
DX: R06.00 Dyspnea, unspecified (principal); J91.8 Pleural effusion in other conditions classified elsewhere; Z79.84 Long term (current) use of oral hypoglycemic drugs; Z79.4 Long term (current) use of insulin; F17.210 Nicotine dependence, cigarettes, uncomplicated; E11.9 Type 2 diabetes mellitus without complications; I10 Essential (primary) hypertension
CPT/HCPCS: 71045; 93005; 99285

== ENCOUNTER 2023-12-27 17:43 | Emergency (ER) | payer OTHER, SELFPAY ==
--- NOTE | 2023-12-27 18:04 | XRR_ITS ---
PROCEDURE INFORMATION: Exam: XR Chest Exam date and time: 12/27/2023 6:35 PM Age: 43 years old Clinical indication: Shortness of breath; Additional info: SOB TECHNIQUE: Imaging protocol: Radiologic exam of the chest. Views: 1 view. COMPARISON: CR (CHEST, ) 12/26/2023 1:51 PM FINDINGS: Tubes, catheters and devices: Left subclavian Port-A-Cath is stable in position with the tip in the lower superior vena cava. Left chest tube is stable in position with the tip at the posterior 6th rib. Lungs: Stable large left pleural effusion with compressive atelectasis in the left upper lobe, lingula, and lower lobe. Possible malignant effusion cannot be ruled out. Multiple nodules in both lungs suspicious for metastatic foci are stable. Pleural spaces: No pneumothorax. Also see under lungs . Heart/Mediastinum: The cardiac silhouette is obscured by the left pleural effusion and airspace disease in the left lung. Bones/joints: Unremarkable for age. XR/XR chest 1V portable [id number] IMPRESSION: 1. Stable large left pleural effusion with compressive atelectasis in the left upper lobe, lingula, and lower lobe. Possible malignant effusion cannot be ruled out. 2. Left chest tube is stable in position with the tip at the posterior 6th rib. 3. Multiple nodules in both lungs suspicious for metastatic foci are stable. 4. The cardiac silhouette is obscured by the left pleural effusion and airspace disease in the left lung.
[2023-12-27 18:06] VITALS: BP 148/88; PULSE 111; RESP 26; TEMP 36.8; O2SAT 95
--- NOTE | 2023-12-27 18:15 | ED_ITS ---
HPI - SOB/Dyspnea General: Chief Complaint: Shortness of Breath/Dyspnea Stated Complaint: Lung Time Seen by Provider: 12/27/23 18:07 Source: patient Mode of arrival: ambulatory Limitations: no limitations History of Present Illness: HPI Narrative: 43-year-old male who had been admitted a nd discharged on Wednesday and had a pleural effusion he had a pleural drain placed states he is scheduled to have it drained tomorrow he was he seen here in the ER yesterday and had effusion drained in the ER states that he felt short of breath again today feels like he needs to be drained he is on 4 L at home is 95% here on the 4 L. 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 Pleural effusion, left Mass of right upper extremity Chronic back pain Mixed hyperlipidemia DDD (degenerative disc disease), lumbar Obesity, Class III, BMI 40-49.9 (morbid obesity) Diabetes mellitus with hyperglycemia, with long-term current use of insulin Metabolic syndrome Essential (primary) hypertension Surgical History History of surgical removal of pilonidal cyst History of nasal surgery Family History Mother Diabetes Hypertension Father Cancer Hypertension Other Hyperlipidemia Social History Smoking and tobacco/nicotine status: current every day tobacco/nicotine user cigarettes Packs smoked per day: 2 Years cigarettes smoked: 29 [ Other cigarette details: Started at age 14] Second hand smoke exposure: No Alcohol intake: never Substance/Drug Use: never Adopted: No Caregiver/support person: No Lives independently: Yes Household members: significant other Housing: House Marital status: Number of children: 2 Highest education level completed: High School Graduate service: No Current occupational status: unemployed Current occupational exposures/hazards: No Pets and animals: Yes Do you think of yourself as: Straight/Heterosexual Current gender identity: Male Physical Exam Const: COMMON NORMALS: no acute distress, patient oriented x3 and healthy appearing HENMT: COMMON NORMALS: normocephalic and atraumatic HEAD & SCALP: normocephalic and atraumatic Eye: COMMON NORMALS: conjunctivae normal CONJUNCTIVA: Yes conjunctivae normal Neck/C-Spine: COMMON NORMALS: full ROM and supple Chest: COMMONS NORMALS: normal inspection of the chest Resp: COMMON NORMALS: normal respiratory effort, No retractions, No use of accessory muscles and clear to auscultation bilaterally AUSCULTATION: clear to auscultation bilaterally Extremity: COMMON NORMALS: normal to inspection and full ROM Neuro: COMMON NORMALS: patient oriented x3, moves all extremities and no focal motor deficits Psych: COMMON NORMALS: mental status grossly normal, Normal thought process present and cooperative THOUGHT PROCESS: Normal thought process present Skin: COMMON NORMALS: no rashes or lesions noted and no wounds GENERAL SKIN EXAM: no rashes or lesions noted Course Vital Signs: Vital signs: Vital Signs Temperature 98.2 F 12/27/23 18:06 Pulse Rate 122 H 12/27/23 18:46 Respiratory Rate 26 H 12/27/23 18:06 Blood Pressure 148/88 12/27/23 18:06 Pulse Oximetry 95 12/27/23 18:46 Oxygen Delivery Me thod Nasal Cannula 12/27/23 18:46 Oxygen Flow Rate 4 12/27/23 18:46 MDM - SOB/Dyspnea Medical Decision Making Patient presents here shortness of breath he does have a large pleural effusion he had a drain placed I did drain 3 L from the pleural drain he feels improved he did have improvement on his x-ray as well he is set up tomorrow at the surgery center to have drain accessed as well he is follow-up tomorrow as scheduled. Medical Records I reviewed the patient's medical records. All radiology interpretation(s) finalized by discharge Discharge Plan Discharge Patient Disposition: Home Clinical Impression: Pleural effusion due to another disorder Condition: Stable Prescriptions: No Action metformin 500 mg tablet extended release 24 hr 1,000 mg PO DAILY Qty: 60 5RF amlodipine 10 mg tablet 10 mg PO DAILY 30 Days Qty: 30 5RF hydralazine 10 mg tablet 10 mg PO Q12H 30 Days Qty: 60 5RF spironolactone 25 mg tablet 25 mg PO DAILY 30 Days Qty: 30 5RF insulin aspart U-100 [Novolog FlexPen U-100 Insulin] 100 unit/mL (3 mL) insulin pen See Rx Instructions SUBCUT TID Qty: 15 2RF Rx Instructions: PER SLIDING SCALE: BG 110-129=3U 130-150=6U 151-200=9U 201-250=12U 251- 300=15U 301-350=18U 351-400=21U >400=24U. (DME) glucometer testing kit See Rx Instructions .Route .MEDSUPPLY Qty: 1 0RF Rx Instructions: lancets#100 strips#100 hydrocodone-acetaminophen 7.5-325 mg tablet 1 tab PO Q6H PRN (Reason: pain) Qty: 10 0RF docusate sodium [Colace] 100 mg capsule 100 mg PO BID Qty: 10 0RF alprazolam [Xanax] 0.5 mg tablet 0.25 mg PO BID PRN (Reason: anxiety) Qty: 20 0RF oxycodone 5 mg Tablet 5 mg PO Q6H PRN (Reason: pain) Qty: 20 0RF albuterol sulfate 90 mcg/actuation HFA aerosol inhaler 2 inh inhalation Q8H PRN (Reason: shortness of breath or wheezing) Qty: 8.5 4RF amoxicillin-pot clavulanate 875-125 mg tablet 1 tab PO BID Qty: 10 0RF Discharge Orders: Discharge ED (Routine); Ordered 12/27/23 Ordered By: Hernan Cruz Referrals: Demario Velarde, NUCLEAR MEDICAL TECH-C [Primary Care Provider] - Discharge Diet: Advance as tolerated Discharge Activity: Resume usual activity Patient Instructions: Pleural Effusion (DC) Coding Level of Care Code ED Highway Engineer for Joe Sethi
[2023-12-27 18:46] VITALS: PULSE 122; O2SAT 95
--- NOTE | 2023-12-27 19:16 | XRR_ITS ---
PROCEDURE INFORMATION: Exam: XR Chest Exam date and time: 12/27/2023 7:22 PM Age: 43 years old Clinical indication: Condition or disease; Lung condition and disease; Other: Lt lung drain; Additional info: Post drain TECHNIQUE: Imaging protocol: Radiologic exam of the chest. Views: 1 view. COMPARISON: CR (CHEST, ) 12/27/2023 6:35 PM FINDINGS: Tubes, catheters and devices: Left subclavian Port-A-Cath is stable in position in the lower left superior vena cava. Left chest tube is stable in position with the tip at the posterior left 6th rib. Lungs: Improving aeration in the left lung suggesting partial resolution of atelectasis. Persistent atelectasis in the left mid and lower lung. Multiple pulmonary nodules in both lungs suspicious for metastatic foci are stable. Pleural spaces: Moderate/large left pleural effusion, decreased in size after drainage. No pneumothorax. Heart/Mediastinum: The cardiac silhouette is mildly enlarged. Bones/joints: Unremarkable for age. XR/XR chest 1V portable [id number] IMPRESSION: 1. Moderate/large left pleural effusion, decreased in size after drainage. 2. Improving aeration in the left lung suggesting partial resolution of atelectasis. Persistent atelectasis in the left mid and lower lung. 3. Multiple pulmonary nodules in both lungs suspicious for metastatic foci are stable. 4. Incidental/nonacute findings are listed in the report.
[2023-12-27 19:53] VITALS: BP 141/89; PULSE 110; O2SAT 94
== END 2023-12-27 20:01 | disposition home or self-care (01) ==
PROVIDERS: Emergency Provider Emergency Medicine; PCP Nurse Practitioner
DX: J90 Pleural effusion, not elsewhere classified (principal); Z79.4 Long term (current) use of insulin; F17.210 Nicotine dependence, cigarettes, uncomplicated; E78.2 Mixed hyperlipidemia; E11.9 Type 2 diabetes mellitus without complications; I10 Essential (primary) hypertension
CPT/HCPCS: 71045; 99283

== ENCOUNTER 2023-12-29 12:38 | Day surgery (SDC) | payer OTHER, SELFPAY ==
[2023-12-29 13:08] VITALS: BP 146/89; PULSE 109; RESP 18; TEMP 36.1; O2SAT 97
== END 2023-12-29 13:10 | disposition home or self-care (01) ==
LOC: GILAB 12:39
PROVIDERS: PCP Nurse Practitioner; Visit Provider Internal Medicine Pulmonary Disease
DX: Z45.2 Encounter for adjustment and management of vascular access device (principal)
CPT/HCPCS: C1729; G0463

== ENCOUNTER 2023-12-31 10:05 | Day surgery (SDC) | payer OTHER, SELFPAY ==
[2023-12-31 10:10] VITALS: BP 155/87; PULSE 109; RESP 18; TEMP 36.2; O2SAT 95
== END 2023-12-31 10:25 | disposition home or self-care (01) ==
LOC: GILAB 10:06
PROVIDERS: PCP Nurse Practitioner; Visit Provider Internal Medicine Pulmonary Disease
DX: Z96.89 Presence of other specified functional implants (principal)
CPT/HCPCS: C1729; G0463

== ENCOUNTER 2024-01-02 21:40 | Emergency (ER) | payer OTHER, SELFPAY ==
[2024-01-02 21:44] VITALS: BP 140/91; PULSE 115; RESP 32; TEMP 36.8; O2SAT 91; BMI 40.1
--- NOTE | 2024-01-02 22:07 | XRR_ITS ---
PROCEDURE INFORMATION: Exam: XR Chest Exam date and time: 01/02/2024 10:19 PM Age: 43 years old Clinical indication: Shortness of breath; Prior surgery; Surgery date: <1 month; Surgery type: Chest port. Pleural drain; Patient HX: C/O SOB. Patient has known left pleural effusion with drain in place. History of metastatic lung cancer. ; Additional info: SOB pleural effusion TECHNIQUE: Imaging protocol: Radiologic exam of the chest. Views: 1 view. COMPARISON: CR (CHEST, ) 12/27/2023 7:22 PM FINDINGS: Lungs: Moderate left-sided pleural effusion. There is a left-sided drainage catheter in place, unchanged. There appears to be slight decrease in size of the pleural effusion. Again seen are multiple pulmonary masses and nodules throughout both lungs. No evidence of pneumothorax. Heart/Mediastinum: Mediastinal silhouette is within normal limits. Cardiac silhouette is partially obscured. Left subclavian approach MediPort in place with tip terminating in the right atrium. Bones/joints: No evidence of acute osseous abnormality. XR/XR chest 1V portable [id number] IMPRESSION: 1. Moderate left-sided pleural effusion, slightly improved. 2. Multiple pulmonary masses and nodules in both lungs compatible with metastases. 3. Left-sided drainage catheter and MediPort in place.
[2024-01-02] MEDS: ondansetron 4 MG Tablet PO (23:05)
[2024-01-02 23:53] VITALS: RESP 22; O2SAT 93
[2024-01-02] MEDS: oxyCODONE-APAP 5-325 mg Tablet 2 TAB PO (23:53)
--- NOTE | 2024-01-02 23:59 | PC.NURSE ---
Pt sent home with 1xtab Oxycodone per Dr Jara's orders.
[2024-01-03] VITALS: BP 136/73; PULSE 110; RESP 22; O2SAT 93
--- NOTE | 2024-01-03 01:30 | W.ED.SOB ---
HPI - SOB/Dyspnea General: Chief Complaint: Shortness of Breath/Dyspnea Stated Complaint: Left Lung Drained Time Seen by Provider: 01/02/24 21:53 History of Present Illness: HPI Narrative: 43-year-old male seen multiple times recently in the emergency department. 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 He presents short of breath. He denies fever. No change in cough. 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 Recurrent pleural effusion on left Gastroenteritis Respiratory failure Pleural effusion, left Mass of right upper extremity Chronic back pain Mixed hyperlipidemia DDD (degenerative disc disease), lumbar Obesity, Class III, BMI 40-49.9 (morbid obesity) Diabetes mellitus with hyperglycemia, with long-term current use of insulin Metabolic syndrome Essential (primary) hypertension Surgical History History of surgical removal of pilonidal cyst History of nasal surgery Family History Mother Diabetes Hypertension Father Cancer Hypertension Other Hyperlipidemia Social History Smoking and tobacco/nicotine status: current every day tobacco/nicotine user cigarettes Packs smoked per day: 2 Years cigarettes smoked: 29 [ Other cigarette details: Started at age 14] Second hand smoke exposure: No Alcohol intake: never Substance/Drug Use: never Adopted: No Caregiver/support person: No Lives independently: Yes Household members: significant other Housing: House Marital status: Number of children: 2 Highest education level completed: High School Graduate service: No Current occupational status: unemployed Current occupational exposures/hazards: No Pets and animals: Yes Do you think of yourself as: Straight/Heterosexual Current gender identity: Male Physical Exam Const: GENERAL APPEARANCE: cooperative and ill appearing; not frail appearing HENMT: COMMON NORMALS: normocephalic, atraumatic and Normal external nose present HEAD & SCALP: normocephalic and atraumatic FACE & SINUS: normal facial exam and face symmetric NOSE: Normal external nose present Eye: COMMON NORMALS: Equal, round and reactive pupils present and EOMs intact bilaterally PUPIL: Yes Equal, round and reactive pupils present Neck/C-Spine: GENERAL: Yes trachea midline Chest: CHEST: Yes Symmetrical chest wall rise Resp: COMMON NORMALS: clear to auscultation bilaterally EFFORT & INSPECTION: Yes tachypneic and Yes uses accessory muscles AUSCULTATION: clear to auscultation bilaterally and diminished lung sounds on the left Cardio: COMMON NORMALS: regular rhythm RATE: tachycardic RHYTHM: regular rhythm GI: COMMON NORMALS: Normal to inspection, nondistended, normoactive bowel sounds present Extremity: GENERAL: Yes edema (mild) Neuro: AUREA COMA SCALE: document GCS findings Aurea coma scale eye opening: Spontaneous Magness coma scale verbal response: Orientated Aurea coma scale motor response: Obey commands Aurea coma scale total score: 15 SENSORY EXAM: Yes extremities (intact) Psych: COMMON NORMALS: speech normal SPEECH: Yes normal speech Skin: COMMON NORMALS: no rashes or lesions noted GENERAL SKIN EXAM: no rashes or lesions noted Course Vital Signs: Vital signs: Vital Signs Temperature 98.2 F 01/02/24 21:44 Pulse Rate 110 H 01/03/24 00:00 Respiratory Rate 22 H 01/03/24 00:00 Blood Pressure 136/73 01/03/24 00:00 Pulse Oximetry 93 01/03/24 00:00 Oxygen Delivery Me thod Nasal Cannula 01/02/24 21:44 Oxygen Flow Rate 4 01/02/24 21:44 MDM - SOB/Dyspnea Medical Decision Making Patient presents with r-accumulation of a chronic metastatic left pleural effusion. He has a plural drain in place. It was used to access the pleural space. 1.5 liters of slightly brown tinged fluid were aspirated. Patient had symptomatic improvement, with improvement in respiratory rate and pleuritic pain. He'll be discharged. To return for worsening symptoms purity as a follow up appointment with his proposal manager tomorrow. Lab Data Labs/Radiology: Radiology Impressions Chest X-Ray 01/02/24 22:07 IMPRESSION: 1. Moderate left-sided pleural effusion, slightly improved. 2. Multiple pulmonary masses and nodules in both lungs compatible with metastases. 3. Left-sided drainage catheter and MediPort in place. All radiology interpretation(s) finalized by discharge Discharge Plan Discharge Patient Disposition: Home Clinical Impression: Pleural effusion due to another disorder Condition: Stable Prescriptions: No Action insulin aspart U-100 [Novolog FlexPen U-100 Insulin] 100 unit/mL (3 mL) insulin pen See Rx Instructions SUBCUT TID Qty: 15 2RF Rx Instructions: PER SLIDING SCALE: BG 110-129=3U 130-150=6U 151-200=9U 201-250=12U 251-300=15U 301-350=18U 351-400=21U >400=24U. propranolol 10 mg tablet 10 mg PO BID Qty: 60 2RF Rx Instructions: heart rate and anxiety escitalopram oxalate [Lexapro] 10 mg tablet 10 mg PO DAILY Qty: 30 2RF amlodipine 10 mg tablet 10 mg PO DAILY 30 Days Qty: 30 2RF docusate sodium [Colace] 100 mg capsule 100 mg PO BID Qty: 60 2RF hydralazine 10 mg tablet 10 mg PO Q12H 30 Days Qty: 60 2RF metformin 500 mg tablet extended release 24 hr 1,000 mg PO DAILY Qty: 60 2RF spironolactone 25 mg tablet 25 mg PO DAILY 30 Days Qty: 30 2RF (DME) glucometer testing kit See Rx Instructions .Route .MEDSUPPLY Qty: 1 0RF Rx Instructions: lancets#100 strips#100 alprazolam [Xanax] 0.5 mg tablet 0.25 mg PO BID PRN (Reason: anxiety) Qty: 20 0RF oxycodone 5 mg Tablet 5 mg PO Q6H PRN (Reason: pain) Qty: 20 0RF albuterol sulfate 90 mcg/actuation HFA aerosol inhaler 2 inh inhalation Q8H PRN (Reason: shortness of breath or wheezing) Qty: 8.5 4RF amoxicillin-pot clavulanate 875-125 mg tablet 1 tab PO BID Qty: 10 0RF Discharge Orders: Discharge ED (Routine); Ordered 01/02/24 Ordered By: Jose L Jara Referrals: Demario Velarde, NETWORK DESIGN ARCHITECT-C [Primary Care Provider] - Patient Instructions: Opioid Safety, Pain Management, Pleural Effusion Activity Restrictions/Additional Instructions: See your doctor tomorrow as scheduled. Return for any problems. Coding Level of Care Code ED As400 Programmer for Joe Sethi
== END 2024-01-02 23:54 | disposition home or self-care (01) ==
PROVIDERS: Emergency Provider Emergency Medicine; PCP Nurse Practitioner
DX: D49.9 Neoplasm of unspecified behavior of unspecified site (principal); J91.0 Malignant pleural effusion; Z85.118 Personal history of other malignant neoplasm of bronchus and lung; E78.2 Mixed hyperlipidemia; E11.9 Type 2 diabetes mellitus without complications; I10 Essential (primary) hypertension; F17.210 Nicotine dependence, cigarettes, uncomplicated
CPT/HCPCS: 71045; 99283; Q0162

== ENCOUNTER 2024-01-03 09:55 | Day surgery (SDC) | payer OTHER, SELFPAY ==
[2024-01-03 10:10] VITALS: BP 160/94; PULSE 114; RESP 24; TEMP 36.6; O2SAT 88; BMI 39.2
== END 2024-01-03 10:39 | disposition home or self-care (01) ==
PROVIDERS: PCP Nurse Practitioner; Visit Provider Internal Medicine Pulmonary Disease
DX: Z48.03 Encounter for change or removal of drains (principal)
CPT/HCPCS: G0463

== ENCOUNTER 2024-01-04 11:50 | Day surgery (SDC) | payer OTHER, SELFPAY ==
[2024-01-04 12:05] VITALS: BP 139/81; PULSE 116; RESP 32; TEMP 36.6; O2SAT 88
[2024-01-04 12:07] VITALS: BMI 40.1
--- NOTE | 2024-01-04 12:20 | PC.NURSE ---
Patient appears unstable upon presentation, heart rate 115+ and labored breaths 32/min, saturation 85 on 4L then 88 on 6L nasal cannula. Was determined by this RN and billing collections specialist Ashlyn Saucedo that higher level of care was required to safely assess and treat patient's current condition. Dr. Ferguson informed and agreed to move patient to ER for evaluation and workup. Report called to Katy SILVERIO and patient transferred via wheelchair to ER bay 11. Bedside handoff given to Clarissa SILVERIO.
== END 2024-01-04 12:17 ==
PROVIDERS: PCP Nurse Practitioner; Visit Provider Internal Medicine Pulmonary Disease
DX: Z53.9 Procedure and treatment not carried out, unspecified reason (principal)

== ENCOUNTER 2024-01-04 12:14 | Emergency (ER) | payer OTHER, SELFPAY ==
[2024-01-04] VITALS (34 sets, daily range): BP systolic 138–164; BP diastolic 78–108; PULSE 111–126; RESP 24–63; TEMP 36.8; O2SAT 78–96; BMI 40.1
--- NOTE | 2024-01-04 12:25 | XRR_ITS ---
PROCEDURE INFORMATION: Exam: XR Chest Exam date and time: 01/04/2024 12:33 PM Age: 43 years old Clinical indication: Shortness of breath; Prior surgery; Surgery date: 1-6 months; Surgery type: Port, drain; Patient HX: Patient coming from gi. Patient seen multiple times over the last 24 hours for pleural train. Patient appeared to gi to be drained and was satting 85% on 4 L nc. Patient has HX of cancer that has mets. Patent airway, unlabored rspirations, and appropriate color. ; Additional info: SOB TECHNIQUE: Imaging protocol: Radiologic exam of the chest. Views: 1 view. COMPARISON: CR XR chest 1V portable [id number] 09/07/2023 22:19 FINDINGS: Tubes, catheters and devices: There is a left subclavian vein MediPort in good position. Stable indwelling left pleural drain Lungs: Again noted are multiple bilateral pulmonary masses and nodules suggesting diffuse metastatic disease. New bilateral perihilar opacities suggesting new pulmonary edema. Pleural spaces: Stable left pleural effusion. New moderate size right pleural effusion. Heart/Mediastinum: Unremarkable. No cardiomegaly. Bones/joints: Unremarkable. XR/XR chest 1V portable [id number] IMPRESSION: 1. Stable left pleural effusion and new moderate size right pleural effusion. 2. Stable bilateral pulmonary masses and nodules. 3. New bilateral perihilar opacities suggesting central pulmonary edema.
--- NOTE | 2024-01-04 12:35 | W.ED.SOB ---
Documented by User: Abelardo Lewis DO 01/04/24 17:23 HPI - SOB/Dyspnea General: Chief Complaint: Shortness of Breath/Dyspnea Stated Complaint: Weakness, low 02 Time Seen by Provider: 01/04/24 12:16 Source: family Limitations: altered mental status History of Present Illness: HPI Narrative: This gentleman with known metastatic cancer who is in the procedure lab for a pleurocentesis was noted to be hypoxic and referred to the emergency department. 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 Recurrent pleural effusion on left Gastroenteritis Respiratory failure Pleural effusion, left Mass of right upper extremity Chronic back pain Mixed hyperlipidemia DDD (degenerative disc disease), lumbar Obesity, Class III, BMI 40-49.9 (morbid obesity) Diabetes mellitus with hyperglycemia, with long-term current use of insulin Metabolic syndrome Essential (primary) hypertension Surgical History History of surgical removal of pilonidal cyst History of nasal surgery Family History Mother Diabetes Hypertension Father Cancer Hypertension Other Hyperlipidemia Social History Smoking and tobacco/nicotine status: current every day tobacco/nicotine user cigarettes Packs smoked per day: 2 Years cigarettes smoked: 29 [ Other cigarette details: Started at age 14] Second hand smoke exposure: No Alcohol intake: never Substance/Drug Use: never Adopted: No Caregiver/support person: No Lives independently: Yes Household members: significant other Housing: House Marital status: Number of children: 2 Highest education level completed: High School Graduate service: No Current occupational status: unemployed Current occupational exposures/hazards: No Pets and animals: Yes Do you think of yourself as: Straight/Heterosexual Current gender identity: Male Course Reevaluation(s): Reevaluation #1: Discussed current findings and their plan of care with the patient and spouse. Apparently they are scheduled to see their oncologist tomorrow morning at [facility]. Time: 14:46 Reevaluation #2: I attached the suction to his pleural VAC and approximately 700 to 800 cc of dark fluid was obtained. The patient subjectively felt improved. He was still tachypneic however I do not know what his baseline is regarding his respiratory rate. I will call the oncology team at [facility] discussed their recommendations at this point. (Hospitalist team had called me earlier and stated that they did not feel comfortable admitting him to this facility at this time given his current clinical picture.) Time: 15:17 Consultations: Consultation #1: Dr. Dasilva pulmonology stop by to discuss this patient with me. He related the patient does a soft tissue mass likely sarcoma of the right upper extremity with likely metastasis to his chest. He was he expressed some concern about possible PE which certainly likely although his pleural effusion is likely causing his hypoxia as well. Will plan on proceeding with a workup in the emergency department and likely admission and then Dr. Nieves will discuss with the hospitalist team as well. Time: 12:51 Consultation #2: I was able to get a hold of the heme oncology clinic at [facility] who has seen the patient and is scheduled to see the patient tomorrow. Time: 16:01 Consultation #3: Because of the patient's clinical picture [facility] Have contacted their transfer engineer and also provided a intake to the oncology fellow who agreed that the patient would be better served as an inpatient. I am awaiting a hospitalist call to determine if they will accept him. Hospitalist team heard the report and decided he would be better served in the ICU at their facility. The ICU fellow received report and excepted the patient for which in transfer. Bed assignment pending. Time: 17:18 Vital Signs: Vital signs: Vital Signs Temperature 98.2 F 01/05/24 04:56 Pulse Rate 124 H 01/05/24 04:56 Respiratory Rate 37 H 01/05/24 04:56 Blood Pressure 161/88 01/05/24 04:56 Pulse Oximetry 88 L 01/05/24 04:56 Oxygen Delivery Me thod Oxymask 01/05/24 04:56 Oxygen Flow Rate 6 01/05/24 02:48 MDM - SOB/Dyspnea Medical Decision Making This patient was transported to the emergency department from the outpatient clinic because of a hypoxia on his usual nasal cannula oxygen flow. 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 Has had a recurrent pleural effusion is reduced received drainage multiple times. Upon arrival here the patient was noted to be tachycardic and required 8 L of oxygen to maintain O2 sat in the 92-94 range. He was also tachypneic. The initial evaluation was unclear as to the course and the extent of the ED workup indicated. Pulmonology stopped by the emergency department and thought that a CTPA would be reasonable due to his PE risk because of his cancer. That was obtained which was negative for any large vessel disease in terms of pulmonary embolus but did have evidence of extensive likely metastatic lesions as well as pleural effusions. Hospitalist team here was adamant that the patient should not stay at this facility given his history as well as his need for oncological support and further subspecialty care. Numerous discussions were had with the oncology team at [facility] and ultimately the decision was made in the emergency department at this facility to arrange transfer to [facility] to facilitate efficient care of this patient who clinically did not appear stable to be discharged home. There was also question of the depth of understanding of the patient and his spouse of his current disease. Ultimately the patient was excepted by the ICU team at [facility] pending bed and will be held in the emergency department until that transfers effected. Medical Records I reviewed the patient's medical records. Prior pleural drainage. Biopsy report suggestive of soft tissue sarcoma Lab Data I reviewed the patient's lab results. 01/04/24 13:27 01/04/24 13:27 Labs/Radiology: Radiology Impressions Chest CTA 01/04/24 12:51 IMPRESSION: 1. No central pulmonary emboli. Beyond the lobar branches the opacification of the arteries is suboptimal due to combination of contrast bolus injection and the airspace disease in the lungs. 2. Large RIGHT pleural effusion and moderate LEFT pleural effusion. RIGHT pleural effusion is new since 12/19/2023. 3. LEFT Pleurx catheter has been inserted since the prior study. The LEFT effusion is smaller. 4. Extensive neoplastic lesions throughout the lungs and pleural metastasis also. Significant progression since 12/18/2013. Chest X-Ray 01/04/24 15:20 IMPRESSION: 1. Extensive bilateral pulmonary nodules and masses 2. Grossly stable appearing partially loculated right pleural effusion 3. Persistent but improving left pleural effusion Laboratory Results WBC 15.03 10^3/uL (3.29-11.43) H 01/04/24 13:27 RBC 4.22 10^6/uL (3.85-5.65) 01/04/24 13:27 Hgb 11.40 g/dL (11.27-16.99) 01/04/24 13:27 Hct 36.0 % (37-53) L 01/04/24 13:27 MCV 85.3 fl (82-101) 01/04/24 13:27 MCH 27.0 pg (27-33) 01/04/24 13:27 MCHC 31.7 g/dL (30-55) 01/04/24 13:27 RDW 13.6 % (12.1-15.1) 01/04/24 13:27 Plt Count 364 10^3/cmm (157-399) 01/04/24 13:27 MPV 9.4 fL (7.4-10.4) 01/04/24 13:27 Neut % (Auto) 72.3 % 01/04/24 13:27 Lymph % (Auto) 13.9 % 01/04/24 13:27 [place] % (Auto) 11.3 % 01/04/24 13:27 Eos % (Auto) 1.3 % 01/04/24 13:27 Baso % (Auto) 0.7 % 01/04/24 13:27 Neut # (Auto) 10.86 10^3/uL (1.8-7.7) H 01/04/24 13:27 Lymph # (Auto) 2.1 10^3/uL (0.8-4.8) 01/04/24 13:27 [place] # (Auto) 1.7 10^3/uL (0.2-0.9) H 01/04/24 13:27 Eos # (Auto) 0.2 10^3/uL (0.0-0.8) 01/04/24 13:27 Baso # (Auto) 0.1 10^3/uL (0.0-0.1) 01/04/24 13:27 Nucleated RBC % (auto) 0 % 01/04/24 13:27 Nucleated RBCs # 0.0 /100WBC 01/04/24 13:27 Specimen Type Arterial 01/05/24 04:55 Sample Site Radial, left 01/05/24 04:55 ABG pH 7.20 (7.35-7.45) L 01/05/24 04:55 ABG pCO2 82.2 mmHg (35-45) H* 01/05/24 04:55 ABG pO2 56.4 mmHg (80.0-100.0) L 01/05/24 04:55 ABG HCO3 31.7 mmol/L (22-26) H 01/05/24 04:55 ABG O2 Saturation 82.7 01/05/24 04:55 ABG Base Excess 1.3 mmol/L (-2.0-2.0) 01/05/24 04:55 Darren Test Pos 01/05/24 04:55 A-a O2 Gradient Not Reportable 01/05/24 04:55 Hematocrit 38.7 % (42-52) L 01/05/24 04:55 Hgb O2 Saturation 81.3 % (95-100) L 01/05/24 04:55 Carboxyhemoglobin 1.5 %THgb (0.4-20.1) 01/05/24 04:55 Methemoglobin 0.1 % (0.4-1.5) L 01/05/24 04:55 Total Hemoglobin 12.6 g/dL (14-18) L 01/05/24 04:55 Sodium 133.0 mmol/L (131-143) 01/05/24 04:55 Potassium 4.7 mmol/L (3.5-5.0) 01/05/24 04:55 Glucose 218.0 mg/dL (70-115) H 01/05/24 04:55 Ionized Calcium 1.2 mmol/L (1.1-1.4) 01/05/24 04:55 O2 Delivery Device Oxy mask 01/05/24 04:55 O2 Liters/Min 8.0 % 01/05/24 04:55 Nick Setter ID [place] 01/05/24 04:55 Sodium 132 mmol/L (136-145) L 01/04/24 13:27 Potassium 4.4 mmol/L (3.5-5.1) 01/04/24 13:27 Chloride 96 mmol/L (98-107) L 01/04/24 13:27 Carbon Dioxide 30 mmol/L (22-29) H 01/04/24 13:27 Anion Gap 10.4 (5-19) 01/04/24 13:27 BUN 15 mg/dL (6-20) 01/04/24 13:27 Creatinine 0.6 mg/dL (0.7-1.2) L 01/04/24 13:27 GFR Calculation 147.0 mL/min (90-130) H 01/04/24 13:27 Glucose 150 mg/dL (65-115) H 01/04/24 13:27 Calculated Osmolality 278 mOsm/kg (285-295) L 01/04/24 13:27 Calcium 7.6 mg/dL (8.5-10.5) L 01/04/24 13:27 Total Bilirubin 0.2 mg/dL (0.15-1.2) 01/04/24 13:27 AST 14 U/L (0-40) 01/04/24 13:27 ALT 8 U/L (0-41) 01/04/24 13:27 Alkaline Phosphatase 84 U/L (40-130) 01/04/24 13:27 Total Protein 6.9 g/dL (6.6-8.7) 01/04/24 13:27 Albumin 2.9 g/dL (3.5-5.2) L 01/04/24 13:27 Globulin 4.0 g/dL (1.3-4.6) 01/04/24 13:27 Discharge Plan Discharge Patient Disposition: Xfer Short-Term Hosp Clinical Impression: Pleural effusion Acute on chronic respiratory failure Qualifiers: Respiratory failure complication: hypoxia Qualified Code(s): J96.21 - Acute and chronic respiratory failure with hypoxia Metastatic sarcoma to lung Qualifiers: Laterality: unspecified laterality Qualified Code(s): C78.00 - Secondary malignant neoplasm of unspecified lung Condition: Stable Referrals: Demario Velarde, BRIDGE CONSTRUCTION INSPECTOR-C [Primary Care Provider] - Coding Level of Care Code ED Coating Machine Operator Helper for Chg Fwd Documented by User: Summer Muñiz MD 01/05/24 05:17 HPI - SOB/Dyspnea General: Chief Complaint: Shortness of Breath/Dyspnea Stated Complaint: Weakness, low 02 Time Seen by Provider: 01/04/24 12:16 [facility] ED PFS: Medical History 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 Recurrent pleural effusion on left Gastroenteritis Respiratory failure Pleural effusion, left Mass of right upper extremity Chronic back pain Mixed hyperlipidemia DDD (degenerative disc disease), lumbar Obesity, Class III, BMI 40-49.9 (morbid obesity) Diabetes mellitus with hyperglycemia, with long-term current use of insulin Metabolic syndrome Essential (primary) hypertension Surgical History History of surgical removal of pilonidal cyst History of nasal surgery Family History Mother Diabetes Hypertension Father Cancer Hypertension Other Hyperlipidemia Social History Smoking and tobacco/nicotine status: current every day tobacco/nicotine user cigarettes Packs smoked per day: 2 Years cigarettes smoked: 29 [ Other cigarette details: Started at age 14] Second hand smoke exposure: No Alcohol intake: never Substance/Drug Use: never Adopted: No Caregiver/support person: No Lives independently: Yes Household members: significant other Housing: House Marital status: Number of children: 2 Highest education level completed: High School Graduate service: No Current occupational status: unemployed Current occupational exposures/hazards: No Pets and animals: Yes Do you think of yourself as: Straight/Heterosexual Current gender identity: Male Course Vital Signs: Vital signs: Vital Signs Temperature 98.2 F 01/05/24 04:56 Pulse Rate 124 H 01/05/24 04:56 Respiratory Rate 37 H 01/05/24 04:56 Blood Pressure 161/88 01/05/24 04:56 Pulse Oximetry 88 L 01/05/24 04:56 Oxygen Delivery Me thod Oxymask 01/05/24 04:56 Oxygen Flow Rate 6 01/05/24 02:48 MDM - SOB/Dyspnea Medical Decision Making This patient was transported to the emergency department from the outpatient clinic because of a hypoxia on his usual nasal cannula oxygen flow. 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 Has had a recurrent pleural effusion is reduced received drainage multiple times. Upon arrival here the patient was noted to be tachycardic and required 8 L of oxygen to maintain O2 sat in the 92-94 range. He was also tachypneic. The initial evaluation was unclear as to the course and the extent of the ED workup indicated. Pulmonology stopped by the emergency department and thought that a CTPA would be reasonable due to his PE risk because of his cancer. That was obtained which was negative for any large vessel disease in terms of pulmonary embolus but did have evidence of extensive likely metastatic lesions as well as pleural effusions. Hospitalist team here was adamant that the patient should not stay at this facility given his history as well as his need for oncological support and further subspecialty care. Numerous discussions were had with the oncology team at [facility] and ultimately the decision was made in the emergency department at this facility to arrange transfer to [facility] to facilitate efficient care of this patient who clinically did not appear stable to be discharged home. There was also question of the depth of understanding of the patient and his spouse of his current disease. Ultimately the patient was excepted by the ICU team at [facility] pending bed and will be held in the emergency department until that transfers effected. Addendum: Patient has been in the emergency room overnight waiting transfer to [place]. I was called to the room by nursing as patient had change. He had become very tachypneic and diaphoretic. Appears to be requiring more oxygen. I have ordered a chest x-ray, and ABG and repeat lab work. AB.2 082/56. This is quite a bit worse than I have concern to his CO2 where he was in the 50s on his ABG yesterday. He is placed on a BiPAP at this time. Solu-Medrol and breathing treatments were given as well. Lab Data 01/04/24 13:27 01/04/24 13:27 Labs/Radiology: Radiology Impressions Chest CTA 01/04/24 12:51 IMPRESSION: 1. No central pulmonary emboli. Beyond the lobar branches the opacification of the arteries is suboptimal due to combination of contrast bolus injection and the airspace disease in the lungs. 2. Large RIGHT pleural effusion and moderate LEFT pleural effusion. RIGHT pleural effusion is new since 12/19/2023. 3. LEFT Pleurx catheter has been inserted since the prior study. The LEFT effusion is smaller. 4. Extensive neoplastic lesions throughout the lungs and pleural metastasis also. Significant progression since 12/18/2013. Chest X-Ray 01/04/24 15:20 IMPRESSION: 1. Extensive bilateral pulmonary nodules and masses 2. Grossly stable appearing partially loculated right pleural effusion 3. Persistent but improving left pleural effusion Laboratory Results WBC 15.03 10^3/uL (3.29-11.43) H 01/04/24 13:27 RBC 4.22 10^6/uL (3.85-5.65) 01/04/24 13:27 Hgb 11.40 g/dL (11.27-16.99) 01/04/24 13:27 Hct 36.0 % (37-53) L 01/04/24 13:27 MCV 85.3 fl (82-101) 01/04/24 13:27 MCH 27.0 pg (27-33) 01/04/24 13:27 MCHC 31.7 g/dL (30-55) 01/04/24 13:27 RDW 13.6 % (12.1-15.1) 01/04/24 13:27 Plt Count 364 10^3/cmm (157-399) 01/04/24 13:27 MPV 9.4 fL (7.4-10.4) 01/04/24 13:27 Neut % (Auto) 72.3 % 01/04/24 13:27 Lymph % (Auto) 13.9 % 01/04/24 13:27 [place] % (Auto) 11.3 % 01/04/24 13:27 Eos % (Auto) 1.3 % 01/04/24 13:27 Baso % (Auto) 0.7 % 01/04/24 13:27 Neut # (Auto) 10.86 10^3/uL (1.8-7.7) H 01/04/24 13:27 Lymph # (Auto) 2.1 10^3/uL (0.8-4.8) 01/04/24 13:27 [place] # (Auto) 1.7 10^3/uL (0.2-0.9) H 01/04/24 13:27 Eos # (Auto) 0.2 10^3/uL (0.0-0.8) 01/04/24 13:27 Baso # (Auto) 0.1 10^3/uL (0.0-0.1) 01/04/24 13:27 Nucleated RBC % (auto) 0 % 01/04/24 13:27 Nucleated RBCs # 0.0 /100WBC 01/04/24 13:27 Specimen Type Arterial 01/05/24 04:55 Sample Site Radial, left 01/05/24 04:55 ABG pH 7.20 (7.35-7.45) L 01/05/24 04:55 ABG pCO2 82.2 mmHg (35-45) H* 01/05/24 04:55 ABG pO2 56.4 mmHg (80.0-100.0) L 01/05/24 04:55 ABG HCO3 31.7 mmol/L (22-26) H 01/05/24 04:55 ABG O2 Saturation 82.7 01/05/24 04:55 ABG Base Excess 1.3 mmol/L (-2.0-2.0) 01/05/24 04:55 Darren Test Pos 01/05/24 04:55 A-a O2 Gradient Not Reportable 01/05/24 04:55 Hematocrit 38.7 % (42-52) L 01/05/24 04:55 Hgb O2 Saturation 81.3 % (95-100) L 01/05/24 04:55 Carboxyhemoglobin 1.5 %THgb (0.4-20.1) 01/05/24 04:55 Methemoglobin 0.1 % (0.4-1.5) L 01/05/24 04:55 Total Hemoglobin 12.6 g/dL (14-18) L 01/05/24 04:55 Sodium 133.0 mmol/L (131-143) 01/05/24 04:55 Potassium 4.7 mmol/L (3.5-5.0) 01/05/24 04:55 Glucose 218.0 mg/dL (70-115) H 01/05/24 04:55 Ionized Calcium 1.2 mmol/L (1.1-1.4) 01/05/24 04:55 O2 Delivery Device Oxy mask 01/05/24 04:55 O2 Liters/Min 8.0 % 01/05/24 04:55 Nick Setter ID [place] 01/05/24 04:55 Sodium 132 mmol/L (136-145) L 01/04/24 13:27 Potassium 4.4 mmol/L (3.5-5.1) 01/04/24 13:27 Chloride 96 mmol/L (98-107) L 01/04/24 13:27 Carbon Dioxide 30 mmol/L (22-29) H 01/04/24 13:27 Anion Gap 10.4 (5-19) 01/04/24 13:27 BUN 15 mg/dL (6-20) 01/04/24 13:27 Creatinine 0.6 mg/dL (0.7-1.2) L 01/04/24 13:27 GFR Calculation 147.0 mL/min (90-130) H 01/04/24 13:27 Glucose 150 mg/dL (65-115) H 01/04/24 13:27 Calculated Osmolality 278 mOsm/kg (285-295) L 01/04/24 13:27 Calcium 7.6 mg/dL (8.5-10.5) L 01/04/24 13:27 Total Bilirubin 0.2 mg/dL (0.15-1.2) 01/04/24 13:27 AST 14 U/L (0-40) 01/04/24 13:27 ALT 8 U/L (0-41) 01/04/24 13:27 Alkaline Phosphatase 84 U/L (40-130) 01/04/24 13:27 Total Protein 6.9 g/dL (6.6-8.7) 01/04/24 13:27 Albumin 2.9 g/dL (3.5-5.2) L 01/04/24 13:27 Globulin 4.0 g/dL (1.3-4.6) 01/04/24 13:27 All radiology interpretation(s) finalized by discharge Discharge Plan Discharge Patient Disposition: Xfer Short-Term Hosp Clinical Impression: Pleural effusion Acute on chronic respiratory failure Qualifiers: Respiratory failure complication: hypoxia Qualified Code(s): J96.21 - Acute and chronic respiratory failure with hypoxia Metastatic sarcoma to lung Qualifiers: Laterality: unspecified laterality Qualified Code(s): C78.00 - Secondary malignant neoplasm of unspecified lung Condition: Stable Referrals: Prachi,Glennette R, BRIDGE CONSTRUCTION INSPECTOR-C [Primary Care Provider] - Coding Level of Care Code ED Coating Machine Operator Helper for Joe Sethi
--- NOTE | 2024-01-04 12:51 | CT_ITS ---
WS: [id number] CT CHEST ANGIOGRAPHY WITH REFORMATS HISTORY: cancer and hypoxia TECHNIQUE: Contiguous axial images are obtained through the chest during arterial injection of intrav enous contrast. Images are reconstructed to evaluate the pulmonary arteries. MIP imaging also reviewe d. All CT scans at [facility] use at least one of these dose optimization techniques: automat ed exposure control; mA and/or kV adjustment per patient size (includes targeted exams where dose is matched to clinical indication); or iterative reconstruction. CONTRAST: Omnipaque 350; 100 mL IV. DLP: 1285.32 mGy.cm COMPARISON: 12/19/2023 Adequate opacification of the central pulmonary arteries. Central pulmonary arteries 4-year-old throm bus. Distal to the lobar branches the opacification is becoming limited. There is encasing soft tissu e tumor and fluid. The distal vessels are not well opacified. Emboli cannot be excluded. There is no RIGHT heart strain. The RIGHT heart is normal size. No pericar dial effusion. Large RIGHT and moderate LEFT pleural effusions. There is extensive pleural masses and pulmonary mass es filling majority of the lungs. LEFT Pleurx catheter is identified within the LEFT pleural effusion . Numerous pleural-based metastatic masses are identified. Mediastinal and hilar lymph nodes. No pneu mothorax. Liver is negative. No adrenal mass. No destructive bone lesions. CT/CT angio chest PE protcl [id number] IMPRESSION: 1. No central pulmonary emboli. Beyond the lobar branches the opacification of the arteries is suboptimal due to combination of contrast bolus injection and the airspace disease in the lungs. 2. Large RIGHT pleural effusion and moderate LEFT pleural effusion. RIGHT pleu ral effusion is new since 12/19/2023. 3. LEFT Pleurx catheter has been inserted since the prior study. The LEFT effu gretchen is smaller. 4. Extensive neoplastic lesions throughout the lungs and pleural metastasis al so. Significant progression since 12/18/2013.
[2024-01-04] MEDS: iohexol 350 mg/mL 500 mL Btl (per mL) IV (13:15)
[2024-01-04 13:39] LABS: Basophils # 0.1 10^3/uL (0.0-0.1); Basophils % 0.7 %; Eosinophils # 0.2 10^3/uL (0.0-0.8); Eosinophils % 1.3 %; Lymphocytes # 2.1 10^3/uL (0.8-4.8); Lymphocytes % 13.9 %; Mean Corpuscular HGB Conc 31.7 g/dL (30-55); Mean Corpuscular Volume 85.3 fl (82-101); Mean Platelet Volume 9.4 fL (7.4-10.4); Monocytes # 1.7 10^3/uL (0.2-0.9); Monocytes % 11.3 %; Neutrophils # 10.86 10^3/uL (1.8-7.7); Neutrophils % 72.3 %; Nucleated Red Blood Cells % 0 %; Platelet Count 364 10^3/cmm (157-399); Red Blood Count 4.22 10^6/uL (3.85-5.65); Red Cell Distribution Width 13.6 % (12.1-15.1); White Blood Count 15.03 10^3/uL (3.29-11.43)
[2024-01-04] MEDS: sodium chloride 0.9% 1,000 ML 125 ML IV ×2 (13:45→21:57)
[2024-01-04 14:02] LABS: Alanine Aminotransferase 8 U/L (0-41); Albumin Level 2.9 g/dL (3.5-5.2); Alkaline Phosphatase 84 U/L (40-130); Anion Gap 10.4 (5-19); Aspartate Amino Transferase 14 U/L (0-40); Blood Urea Nitrogen 15 mg/dL (6-20); Calcium 7.6 mg/dL (8.5-10.5); Carbon Dioxide 30 mmol/L (22-29); Chloride 96 mmol/L (98-107); Creatinine Clr Calc Pharmacy 225.1325; Glucose 150 mg/dL (65-115); Osmolality Calculated 278 mOsm/kg (285-295); Potassium 4.4 mmol/L (3.5-5.1); Sodium 132 mmol/L (136-145); Total Bilirubin 0.2 mg/dL (0.15-1.2); Total Protein 6.9 g/dL (6.6-8.7)
--- NOTE | 2024-01-04 15:20 | XRR_ITS ---
PROCEDURE INFORMATION: Exam: XR Chest Exam date and time: 01/04/2024 3:24 PM Age: 43 years old Clinical indication: Other: Hypoxia; Prior surgery; Surgery date: 1-6 months; Surgery type: Port, drain; Patient HX: Post thora TECHNIQUE: Imaging protocol: Radiologic exam of the chest. Views: 1 view. COMPARISON: CT angio chest PE protcl [id number] 11/06/2023 13:04 FINDINGS: Tubes, catheters and devices: The right subclavian vein MediPort and indwelling/tunneled left pleural drain are stable. Lungs: Stable extensive bilateral pulmonary nodules and masses. Pleural spaces: Persistent but slightly improved left pleural effusion. Stable right pleural effusion which appears partially loculated. No evidence of a pneumothorax Heart/Mediastinum: Stable Bones/joints: Unremarkable. XR/XR chest 1V portable [id number] IMPRESSION: 1. Extensive bilateral pulmonary nodules and masses 2. Grossly stable appearing partially loculated right pleural effusion 3. Persistent but improving left pleural effusion
[2024-01-04 16:09] LABS: ABG PCO2 59.3 mmHg (35-45); ABG PH Result 7.34 (7.35-7.45); Alveolar-Arterial Oxygen Gradi 2.9 mmHg (5-10); Arterial Blood Gas Hematocrit 36.5 % (42-52); Base Excess ABG 4.6 mmol/L (-2.0-2.0); Blood Gas Operator Identificat AMH; Blood Gas Sample Site Brachial, left; Blood Gas Sample Type Arterial; HCO3 ABG 31.9 mmol/L (22-26); HGB O2 Sat 85.8 % (95-100); Ionized Calcium Level - ABG 1.2 mmol/L (1.1-1.4); Methemoglobin 0.5 % (0.4-1.5); Oxygen Device NC; PO2 ABG 54.3 mmHg (80.0-100.0); Potassium Level - ABG 4.4 mmol/L (3.5-5.0); Total Hemoglobin 11.9 g/dL (14-18)
--- NOTE | 2024-01-04 18:51 | PC.NURSE ---
Assumed care from Katarzyna SILVERIO.
--- NOTE | 2024-01-04 22:02 | PC.NURSE ---
Patient repositioned in bed to patient's request and comfort.
[2024-01-05] VITALS (66 sets, daily range): BP systolic 118–179; BP diastolic 74–110; PULSE 83–125; RESP 22–42; TEMP 36.8; O2SAT 80–98
[2024-01-05] MEDS: temazepam 15 mg Capsule 30 MG PO (00:23)
--- NOTE | 2024-01-05 01:12 | PC.NURSE ---
Patient was readjusted in bed at patient's request and to his comfort. Patient was offered to placed into a patient gown, which patient declined. Patient had no further needs at this time.
--- NOTE | 2024-01-05 02:25 | PC.NURSE ---
Patient's tegaderm dressing on port to left chest re-dressed.
--- NOTE | 2024-01-05 02:30 | PC.NURSE ---
Patient switched to oxymask from nasal cannula for comfort. Patient stated that the oxymask is more comfortable than his cannula; oxygen levels remain in 90s at this time.
--- NOTE | 2024-01-05 04:57 | ECG_ITS ---
[facility] Test Date: 2024-01-05 Pat Name: Brian Villatoro Department: Room: Gender: Male Funeral Director'S Assistant: : 1980 Requested By: Summer Sibley Order Number: [id number] Romero MD: Nahid Montes M.D. Measurements Intervals [place] Rate: 124 P: 34 [place]: 159 QRS: 62 QRSD: 109 T: 8 QT: 289 QTc: 416 Interpretive Statements SINUS TACHYCARDIA NONSPECIFIC T-WAVE ABNORMALITY Compared to ECG 12/26/2023 12:41:18 T-wave abnormality now present Left ventricular hypertrophy no longer present ST (T wave) deviation no longer present Electronically Signed On 01-05-2024 18:15:18 CDT by Nahid Montes M.D. [id number]
--- NOTE | 2024-01-05 04:57 | XRR_ITS ---
PROCEDURE INFORMATION: Exam: XR Chest Exam date and time: 01/05/2024 5:16 AM Age: 43 years old Clinical indication: Shortness of breath TECHNIQUE: Imaging protocol: Radiologic exam of the chest. Views: 1 view. COMPARISON: CR XR chest 1V portable [id number] 01/04/2024 3:24 PM FINDINGS: Tubes, catheters and devices: Unchanged infusion port. Lungs: Extensive pulmonary metastases. Stable of extensive pulmonary infiltrates. Pleural spaces: Stable small/moderate bilateral pleural effusions. Heart/Mediastinum: Unremarkable. No cardiomegaly. Bones/joints: Unremarkable. XR/XR chest 1V portable [id number] IMPRESSION: No significant change.
--- NOTE | 2024-01-05 04:57 | PC.NURSE ---
Pt was found with his O2 mask off and his O2 was 78%. Pt has become more SOB and is unable to answer questions at this time. ED physician notified and in the room to assess.
[2024-01-05 05:08] LABS: ABG PCO2 82.2 mmHg (35-45); Arterial Blood Gas Hematocrit 38.7 % (42-52); Base Excess ABG 1.3 mmol/L (-2.0-2.0); Blood Gas Allen Test Pos; Blood Gas Operator Identificat MONRO; Blood Gas Sample Site Radial, left; Blood Gas Sample Type Arterial; Carboxyhemoglobin 1.5 %THgb (0.4-20.1); HCO3 ABG 31.7 mmol/L (22-26); HGB O2 Sat 81.3 % (95-100); Ionized Calcium Level - ABG 1.2 mmol/L (1.1-1.4); Methemoglobin 0.1 % (0.4-1.5); Oxygen Device OXY MASK; Oxygen Saturation ABG 82.7; PO2 ABG 56.4 mmHg (80.0-100.0); Potassium Level - ABG 4.7 mmol/L (3.5-5.0); Total Hemoglobin 12.6 g/dL (14-18)
[2024-01-05 05:20] LABS: Basophils # 0.1 10^3/uL (0.0-0.1); Basophils % 0.7 %; Eosinophils # 0.1 10^3/uL (0.0-0.8); Eosinophils % 0.4 %; Hematocrit 39.1 % (37-53); Lymphocytes # 1.3 10^3/uL (0.8-4.8); Lymphocytes % 7.4 %; Mean Corpuscular HGB Conc 30.9 g/dL (30-55); Mean Corpuscular Hemoglobin 26.8 pg (27-33); Mean Corpuscular Volume 86.7 fl (82-101); Mean Platelet Volume 9.5 fL (7.4-10.4); Monocytes # 1.5 10^3/uL (0.2-0.9); Monocytes % 8.3 %; Neutrophils # 14.76 10^3/uL (1.8-7.7); Neutrophils % 82.6 %; Nucleated Red Blood Cells % 0 %; Platelet Count 408 10^3/cmm (157-399); Red Blood Count 4.51 10^6/uL (3.85-5.65); Red Cell Distribution Width 13.6 % (12.1-15.1); White Blood Count 17.87 10^3/uL (3.29-11.43)
[2024-01-05] MEDS: methylPREDNISolone sod succ 125 mg/2 mL INJ IVP (05:31)
[2024-01-05] MEDS: albuterol 2.5 mg/3 mL Neb INHALATION (05:32)
[2024-01-05 05:42] LABS: Alanine Aminotransferase 7 U/L (0-41); Albumin Level 2.9 g/dL (3.5-5.2); Alkaline Phosphatase 99 U/L (40-130); Anion Gap 12.8 (5-19); Aspartate Amino Transferase 18 U/L (0-40); Blood Urea Nitrogen 15 mg/dL (6-20); Calcium 8.3 mg/dL (8.5-10.5); Carbon Dioxide 31 mmol/L (22-29); Chloride 94 mmol/L (98-107); Globulin 4.5 g/dL (1.3-4.6); Glucose 224 mg/dL (65-115); Osmolality Calculated 284 mOsm/kg (285-295); Potassium 4.8 mmol/L (3.5-5.1); Sodium 133 mmol/L (136-145); Total Bilirubin 0.5 mg/dL (0.15-1.2); Total Protein 7.4 g/dL (6.6-8.7)
[2024-01-05 05:43] LABS: Creatinine Clr Calc Pharmacy 225.1325
[2024-01-05 05:49] LABS: NT Pro B Type Natriuretic Pept 491 pg/mL (0-125)
[2024-01-05 08:01] LABS: Basophils # 0.1 10^3/uL (0.0-0.1); Basophils % 0.3 %; Hematocrit 37.1 % (37-53); Lymphocytes # 0.5 10^3/uL (0.8-4.8); Lymphocytes % 3.4 %; Mean Corpuscular Hemoglobin 26.6 pg (27-33); Mean Corpuscular Volume 85.9 fl (82-101); Mean Platelet Volume 9.7 fL (7.4-10.4); Monocytes # 0.4 10^3/uL (0.2-0.9); Monocytes % 2.8 %; Neutrophils # 13.49 10^3/uL (1.8-7.7); Nucleated Red Blood Cells % 0 %; Platelet Count 348 10^3/cmm (157-399); Red Blood Count 4.32 10^6/uL (3.85-5.65); Red Cell Distribution Width 13.5 % (12.1-15.1); White Blood Count 14.52 10^3/uL (3.29-11.43)
[2024-01-05 08:24] LABS: Alanine Aminotransferase 8 U/L (0-41); Albumin Level 2.6 g/dL (3.5-5.2); Alkaline Phosphatase 90 U/L (40-130); Aspartate Amino Transferase 16 U/L (0-40); Blood Urea Nitrogen 16 mg/dL (6-20); Calcium 8.3 mg/dL (8.5-10.5); Carbon Dioxide 29 mmol/L (22-29); Chloride 95 mmol/L (98-107); Globulin 4.4 g/dL (1.3-4.6); Glomerular Filtration Rate 181.5 mL/min (90-130); Glucose 183 mg/dL (65-115); Osmolality Calculated 282 mOsm/kg (285-295); Sodium 133 mmol/L (136-145); Total Bilirubin 0.5 mg/dL (0.15-1.2)
--- NOTE | 2024-01-05 17:31 | DCPLANNER ---
Called [facility] @ [phone] to check on Bed- Waiting for ICU bed - Called [facility] @ 1154 Still waiting on ICU bed- Called [facility] @ [phone] Spoke to Mis still waiting on ICU Bed-
--- NOTE | 2024-01-05 18:34 | PC.NURSE ---
PATIENT MOVED TO HOSPITAL BED. PATIENT PLACED BACK ON BIPAP.
--- NOTE | 2024-01-05 19:52 | PC.NURSE ---
750ml urine dumped from patient's urinal.
[2024-01-05 22:18] LABS: ABG PCO2 47.7 mmHg (35-45); ABG PH Result 7.44 (7.35-7.45); Alveolar-Arterial Oxygen Gradi 33.5 mmHg (5-10); Arterial Blood Gas Hematocrit 35.1 % (42-52); Base Excess ABG 7.3 mmol/L (-2.0-2.0); Blood Gas Allen Test Pos; Blood Gas Sample Site Brachial, left; Blood Gas Sample Type Arterial; Carboxyhemoglobin 1.4 %THgb (0.4-20.1); HCO3 ABG 32.5 mmol/L (22-26); HGB O2 Sat 94.7 % (95-100); Ionized Calcium Level - ABG 1.2 mmol/L (1.1-1.4); Methemoglobin 0.3 % (0.4-1.5); Oxygen Device BIPAP; Oxygen Saturation ABG 96.4; PO2 ABG 72.3 mmHg (80.0-100.0); PO2 FiO2 Ratio Arterial Blood 0; Potassium Level - ABG 4.3 mmol/L (3.5-5.0); Total Hemoglobin 11.5 g/dL (14-18)
[2024-01-06] VITALS (54 sets, daily range): BP systolic 122–160; BP diastolic 68–110; PULSE 74–109; RESP 19–42; O2SAT 83–97
--- NOTE | 2024-01-06 06:03 | XR_ITS ---
WS: [id number] XR chest 1V portable [id number] REASON FOR EXAM: dyspnea/cough FINDINGS: Left-sided chemotherapy infusion port with trans left subclavian vein catheter into the distal SVC. Left-sided chest tube. Multiple large metastatic foci throughout both lungs, both hilar regions and the mediastinum. Large bilateral pleural effusions. As best as can be ascertained the chest appears stable compared to 12/05/2023. XR/XR chest 1V portable [id number] IMPRESSION: Stable grossly abnormal chest with extensive metastatic disease.
[2024-01-06 06:26] LABS: ABG PCO2 45.6 mmHg (35-45); ABG PH Result 7.47 (7.35-7.45); Arterial Blood Gas Hematocrit 34.7 % (42-52); Base Excess ABG 8.3 mmol/L (-2.0-2.0); Blood Gas Allen Test Pos; Blood Gas Sample Site Brachial, left; Blood Gas Sample Type Arterial; Carboxyhemoglobin 1.4 %THgb (0.4-20.1); HGB O2 Sat 94.6 % (95-100); Ionized Calcium Level - ABG 1.2 mmol/L (1.1-1.4); Methemoglobin 0.3 % (0.4-1.5); Oxygen Device BIPAP; Oxygen Saturation ABG 96.3; PO2 ABG 71.5 mmHg (80.0-100.0); PO2 FiO2 Ratio Arterial Blood 0; Potassium Level - ABG 4.3 mmol/L (3.5-5.0); Total Hemoglobin 11.3 g/dL (14-18)
--- NOTE | 2024-01-06 06:32 | PC.NURSE ---
Radiology and NUSRAT Li attempted to get chest x-ray on patient. When attempting to readjust him in bed, patient's arms were touched, and patient told nurse Get out of here now. X-ray not completed at this time.
--- NOTE | 2024-01-06 06:47 | PC.NURSE ---
Care transferred to Katarzyna SILVERIO at this time.
--- NOTE | 2024-01-06 06:50 | PC.NURSE ---
PT REFUSED BLOOD DRAW. DR. MCLAUGHLIN NOTIFIED.
[2024-01-06] MEDS: LORazepam 2 mg/mL INJ 10 mL MDV 1 MG IVP (08:09)
[2024-01-06] MEDS: ondansetron 2 mg/ML SDV 2 mL 4 MG IVP (11:11)
[2024-01-06] MEDS: morphine 4 mg/mL SDV 1 mL IVP ×2 (11:11→17:54)
[2024-01-06] MEDS: metoclopramide 5 mg/mL SDV 2 mL 10 MG IVP (11:34)
--- NOTE | 2024-01-06 11:41 | PC.NURSE ---
ATTEMPTED TO DRAIN BRENDA DRAIN. MINIMAL FLUID TAKEN OFF OF LEFT SIDE. VERBAL ORDERS FROM DR. MAYER TO UNHOOK SUCTION CANISTER. DRESSING APPLIED.
--- NOTE | 2024-01-06 12:30 | PC.NURSE ---
PT CLEANED UP BY THIS NURSE. PT REFUSED TO BE PUT IN HOSPITAL GOWN. PT ALSO REFUSED TO HAVE BED SHEETS CHANGED.
--- NOTE | 2024-01-06 12:37 | P.CONIM_ITS ---
Providers/Reason For Consult 2 Consulting Physician/Specialty*: Shaun Arguello MD Reason for Consult*: Medical concerns/management Requesting Physician: Dr. Stevens Primary Care Provider: ALFONSO Zhu History of Present Illness History of Present Illness Brian Villatoro is a 43 year old male with history of mass right arm since about June. This was concerning for sarcoma on CT scan. He had been seen in [place], and recommended for port and biopsy. 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 He had presented to the emergency department on January 03, with increasing shortness of breath. He had previously had a Pleurx catheter placed in his left chest. There was concern about increased oxygen need, large right pleural effusion. [facility] called, and transfer was arranged but no bed was available. While waiting in the hospital, I have been consulted for management as well as pulmonary. From my understanding the patient has elected to go on hospice and pulmonary is considering placing a Pleurx drain for comfort. Patient reports pain is under control currently. Review of Systems 2 General: Reports: 10 or more systems reviewed and unremarkable except in HPI and below Medications/Allergies Home Medications Medication Instructions Recorded Confirmed Last Taken Type glucometer testing kit #1 ea 03/19/23 01/04/24 12/30/23 Rx insulin aspart U-100 100 unit/mL See Rx Instructions SUBCUT TID #15 06/23/23 01/04/24 01/04/24 08:30 Rx (3 mL) subcutaneous pen (Novolog mL 0 FlexPen U-100 Insulin aspart) albuterol sulfate 90 mcg/actuation 2 inh inhalation Q8H PRN shortness 12/23/23 01/04/24 01/04/24 08:30 Rx aerosol inhaler of breath or wheezing #8.5 grams 2 inh alprazolam 0.5 mg tablet (Xanax) 0.25 mg (1/2 x 0.5 mg) PO BID PRN 12/23/23 01/04/24 01/04/24 08:30 Rx anxiety #20 tabs 0.25 mg oxycodone 5 mg tablet 5 mg PO Q6H PRN pain #20 tabs 12/23/23 01/04/24 01/04/24 08:30 Rx 5 mg amlodipine 10 mg tablet 10 mg PO DAILY 30 days #30 tabs 0528/24 06/04/24 06/04/24 08:30 Rx 10 mg escitalopram oxalate 10 mg tablet 10 mg PO DAILY #30 tabs 12/28/23 01/04/24 01/04/24 08:30 Rx (Lexapro) 10 mg hydralazine 10 mg tablet 10 mg PO Q12H 30 days #60 tabs 12/28/23 01/04/24 01/04/24 08:30 Rx 10 mg metformin 500 mg tablet,extended 1,000 mg (2 x 500 mg) PO DAILY #60 12/28/23 01/04/24 01/04/24 08:30 Rx release 24 hr tabs 1000 mg propranolol 10 mg tablet 10 mg PO BID #60 tabs 12/28/23 01/04/24 01/04/24 08:30 Rx 10 mg spironolactone 25 mg tablet 25 mg PO DAILY 30 days #30 tabs 12/28/23 01/04/24 01/04/24 08:30 Rx 25 mg clonidine HCl 0.1 mg tablet 0.1 mg PO BID 01/04/24 01/04/24 01/04/24 History docusate sodium 100 mg capsule 100 mg PO BID PRN Constipation 01/04/24 01/04/24 Unknown History (Colace) Allergies Allergy/AdvReac Type Severity Reaction Status Date / Time No Known Allergies Allergy Verified 01/02/24 21:47 Current Medications Generic Name Dose Route Start Last Admin Trade Name Freq PRN Reason Stop Dose Admin Sodium Chloride 1,000 mls @ 125 mls/hr 01/04/24 13:00 01/05/24 13:27 Sodium Chloride 0.9% IV 0 mls/hr .Q8H AMILCAR Infusion PFSH Acute 2 PFSH: Medical History 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 Recurrent pleural effusion on left Gastroenteritis Respiratory failure Pleural effusion, left Mass of right upper extremity Chronic back pain Mixed hyperlipidemia DDD (degenerative disc disease), lumbar Obesity, Class III, BMI 40-49.9 (morbid obesity) Diabetes mellitus with hyperglycemia, with long-term current use of insulin Metabolic syndrome Essential (primary) hypertension Surgical History History of surgical removal of pilonidal cyst History of nasal surgery Family History Mother Diabetes Hypertension Father Cancer Hypertension Other Hyperlipidemia Social History Smoking and tobacco/nicotine status: current every day tobacco/nicotine user cigarettes Packs smoked per day: 2 Years cigarettes smoked: 29 [ Other cigarette details: Started at age 14] Second hand smoke exposure: No Alcohol intake: never Substance/Drug Use: never Adopted: No Caregiver/support person: No Lives independently: Yes Household members: significant other Housing: House Marital status: Number of children: 2 Highest education level completed: High School Graduate service: No Current occupational status: unemployed Current occupational exposures/hazards: No Pets and animals: Yes Do you think of yourself as: Straight/Heterosexual Current gender identity: Male Vitals/I&O/Wt Last Vital Signs Temp 98.2 F 01/05/24 04:56 Pulse 102 H 01/06/24 12:00 Resp 39 H 01/06/24 12:00 BP 136/86 01/06/24 12:00 Pulse Ox 91 01/06/24 12:00 O2 Del Method Nasal Cannula 01/06/24 12:00 O2 Flow Rate 15 01/06/24 12:00 FiO2 55 01/06/24 08:00 Physical Exam 2 Narrative: General exam is a white male, on 15 L. HEENT: Atraumatic. Normocephalic. Neck supple Cardiovascular borderline tachycardia, no murmur Lungs diminished breath sounds bilaterally. No wheezes. Port noted right chest Abdomen is soft Extremities no cyanosis clubbing. Masses noted right upper extremity Neuro no focal deficits Skin no obvious rash Data 01/05/24 07:55 01/05/24 07:55 Other Labs: Chest x-ray demonstrates extensive metastatic disease and bilateral pleural effusions. I reviewed this as well CTA chest no pulmonary embolism. Bilateral pleural effusions. Left Pleurx catheter noted. Multiple areas of metastasis. EKG by my review demonstrates sinus tachycardia, normal axis. Nonspecific ST-T wave changes. Note that laboratory reviews from January 04. An ABG done today demonstrates pH 7.47, pCO2 46, pO2 of 71 on BiPAP with an FiO2 of 55% A&P Assessment and plan (1) Metastatic sarcoma to lung: Pulmonary is currently seeing the patient From what I understand from the emergency department physician as well as pulmonary that patient is proceeding to hospice Thoracentesis and possibly Pleurx will be placed on the right for comfort I briefly discussed comfort care at home with the patient and he confirmed this is his wishes. I think this is reasonable considering his poor prognosis. Qualifiers: Laterality: unspecified laterality Qualified Code(s): C78.00 - Secondary malignant neoplasm of unspecified lung; C49.9 - Malignant neoplasm of connective and soft tissue, unspecified (2) Bilateral pleural effusion: See above (3) Acute hypoxic respiratory failure: See above (4) Diabetes mellitus: Plan Plan currently for the patient to proceed to hospice care after pulmonary intervention. Please call me if I can aid in this transition. Thank you for this consultation. Consult Attestations 2 Medical Necessity Statement: Not applicable Diagnoses Metastatic sarcoma to lung C78.00; C49.9 Laterality: unspecified laterality Bilateral pleural effusion J90 Acute hypoxic respiratory failure J96.01 Diabetes mellitus E11.9 Time Spent (min) 46
--- NOTE | 2024-01-06 13:25 | PC.NURSE ---
THORACENTESIS PERFORMED AT [facility] BY DR. MAYER. 1600 ML OF FLUID PULLED OFF RIGHT SIDE. THIS NURSE AT BEDSIDE FOR PROCEDURE. PT TOLERATED PROCEDURE WELL.
--- NOTE | 2024-01-06 13:32 | P.CONIM_ITS ---
Providers/Reason For Consult 2 Consulting Physician/Specialty*: Rodrigo Ferguson MD FCCP/pulmonary critical care Reason for Consult*: Metastatic sarcoma with recurrent pleural effusions Requesting Physician: Dr. Stevens Primary Care Provider: ALFONSO Zhu History of Present Illness History of Present Illness Brian Villatoro is a 43 year old male with history of mass right arm since about June 2023 and. This was concerning for sarcoma on CT scan. He had been seen in [place], and recommended for port and biopsy. He failed to follow-up at [place] due to deterioration in his overall health. He came to emergency room for shortness of breath on 12/14/2023-significantly enlarged soft tissue mass in right arm-being followed up in [place]-still waiting for biopsies; had a Chemo-Port placed and was supposed to follow-up with [place] for chemotherapy. His CT chest showed multiple pulmonary mets with very large left pleural effusion tracking left lung for which she was referred to pulmonary clinic. While awaiting for outpatient thoracentesis-patient got admitted on 12/20/2023 for worsening shortness of breath-he underwent paracentesis of left pleural effusion as well as biopsy of soft tissue lesion and right valvular area. Right ventricular soft tissue consistent with bone/soft tissue tumor with biphasic epithelioid/spindle cell morphology-while this could represent osteosarcoma the staining pattern is not entirely diagnostic and biphasic synovial sarcoma could also be considered. Recommended referral to the tertiary center.. Attempts were made to transfer patient via inpatient to [place]-however he was requiring only 4 L oxygen and was recommended to come as outpatient. Meanwhile a left pleural drain was placed and patient was discharged on 12/23/2023 to follow-up as outpatient it [facility]. He had an appointment scheduled 01/04/2024. He was requiring left pleural drain drainage as outpatient almost on a daily basis and even came to emergency room on 12/27/2023 as well as 01/03/2024 for shortness of breath and got additional pleural drainage. On 01/03/2024-he came for outpatient left pleural drainage-however he appeared significantly weak and was transferred to emergency room for admission.ED physician discussion with [facility]-he was accepted for transfer by ICU team however pending bed availability 01/06/2024-patient is still in the emergency room awaiting for bed transfer. His oxygen requirements have been getting worse and he appear severely deconditioned Pulmonary consult requested for new right pleural effusion and goals of care discussion I had mikael discussion with patient, his girlfriend, his 2 sons at bedside about the grave prognosis and advanced age of his underlying cancer. Patient understands that he does not have good prognosis and agreed to proceed with hospice care. I have performed bedside thoracentesis of right pleural effusion and drained 1600 cc hemorrhagic fluid prior to discharge to home with hospice for symptomatic relief. Review of Systems 2 General: Reports: 10 or more systems reviewed and unremarkable except in HPI and below Medications/Allergies Home Medications Medication Instructions Recorded Confirmed Last Taken Type glucometer testing kit #1 ea 03/19/23 01/04/24 12/30/23 Rx insulin aspart U-100 100 unit/mL See Rx Instructions SUBCUT TID #15 06/23/23 01/04/24 01/04/24 08:30 Rx (3 mL) subcutaneous pen (Novolog mL 0 FlexPen U-100 Insulin aspart) albuterol sulfate 90 mcg/actuation 2 inh inhalation Q8H PRN shortness 12/23/23 01/04/24 01/04/24 08:30 Rx aerosol inhaler of breath or wheezing #8.5 grams 2 inh alprazolam 0.5 mg tablet (Xanax) 0.25 mg (1/2 x 0.5 mg) PO BID PRN 12/23/23 01/04/24 01/04/24 08:30 Rx anxiety #20 tabs 0.25 mg oxycodone 5 mg tablet 5 mg PO Q6H PRN pain #20 tabs 12/23/23 01/04/24 01/04/24 08:30 Rx 5 mg amlodipine 10 mg tablet 10 mg PO DAILY 30 days #30 tabs 12/28/23 01/04/24 01/04/24 08:30 Rx 10 mg escitalopram oxalate 10 mg tablet 10 mg PO DAILY #30 tabs 12/28/23 01/04/24 01/04/24 08:30 Rx (Lexapro) 10 mg hydralazine 10 mg tablet 10 mg PO Q12H 30 days #60 tabs 12/28/23 01/04/24 01/04/24 08:30 Rx 10 mg metformin 500 mg tablet,extended 1,000 mg (2 x 500 mg) PO DAILY #60 12/28/23 01/04/24 01/04/24 08:30 Rx release 24 hr tabs 1000 mg propranolol 10 mg tablet 10 mg PO BID #60 tabs 12/28/23 01/04/24 01/04/24 08:30 Rx 10 mg spironolactone 25 mg tablet 25 mg PO DAILY 30 days #30 tabs 12/28/23 01/04/24 01/04/24 08:30 Rx 25 mg clonidine HCl 0.1 mg tablet 0.1 mg PO BID 01/04/24 01/04/24 01/04/24 History docusate sodium 100 mg capsule 100 mg PO BID PRN Constipation 01/04/24 01/04/24 Unknown History (Colace) atropine 1 % eye drops 4 drp sublingual Q4H PRN 01/06/24 Unknown Rx Secretions #5 mL atropine 1 % eye drops 4 drp sublingual Q4H PRN 01/06/24 Unknown Rx secretions #5 mL bisacodyl 10 mg rectal suppository 10 mg [place] DAILY PRN constipation #5 01/06/24 Unknown Rx ea bisacodyl 10 mg rectal suppository 10 mg [place] DAILY PRN Constipation #5 01/06/24 Unknown Rx (Dulcolax (bisacodyl)) ea lorazepam 2 mg/mL oral concentrate 2 mg sublingual Q4H PRN 01/06/24 Unknown Rx Anxiety/Seizure #30 mL lorazepam 2 mg/mL oral concentrate 2 mg sublingual Q4H PRN 01/06/24 Unknown Rx Anxiety/Seizure #30 mL morphine concentrate 100 mg/5 mL 20 mg sublingual DIRECTED PRN 01/06/24 Unknown Rx (20 mg/mL) oral solution Pain/SOB 14 days #30 mL morphine concentrate 100 mg/5 mL 20 mg sublingual DIRECTED PRN 01/06/24 Unknown Rx (20 mg/mL) oral solution Pain/SOB 14 days #30 mL ondansetron 4 mg disintegrating 4 mg translingual Q4H PRN Nausea 01/06/24 Unknown Rx tablet #5 tabs ondansetron 4 mg disintegrating 4 mg translingual Q4H PRN nausea 01/06/24 Unknown Rx tablet #5 tabs oxycodone 5 mg tablet 5 mg PO Q6H PRN pain 30 days #120 01/07/24 Unknown Rx tabs Allergies Allergy/AdvReac Type Severity Reaction Status Date / Time No Known Allergies Allergy Verified 01/02/24 21:47 Current Medications Generic Name Dose Route Start Last Admin Trade Name Pooja PRN Reason Stop Dose Admin Sodium Chloride 1,000 mls @ 125 mls/hr 01/04/24 13:00 01/05/24 13:27 Sodium Chloride 0.9% IV 0 mls/hr .Q8H AMILCAR Infusion PFSH Acute 2 PFSH: Medical History 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 Recurrent pleural effusion on left Gastroenteritis Respiratory failure Pleural effusion, left Mass of right upper extremity Chronic back pain Mixed hyperlipidemia DDD (degenerative disc disease), lumbar Obesity, Class III, BMI 40-49.9 (morbid obesity) Diabetes mellitus with hyperglycemia, with long-term current use of insulin Metabolic syndrome Essential (primary) hypertension Surgical History History of surgical removal of pilonidal cyst History of nasal surgery Family History Mother Diabetes Hypertension Father Cancer Hypertension Other Hyperlipidemia Social History Smoking and tobacco/nicotine status: current every day tobacco/nicotine user cigarettes Packs smoked per day: 2 Years cigarettes smoked: 29 [ Other cigarette details: Started at age 14] Second hand smoke exposure: No Alcohol intake: never Substance/Drug Use: never Adopted: No Caregiver/support person: No Lives independently: Yes Household members: significant other Housing: House Marital status: Number of children: 2 Highest education level completed: High School Graduate service: No Current occupational status: unemployed Current occupational exposures/hazards: No Pets and animals: Yes Do you think of yourself as: Straight/Heterosexual Current gender identity: Male Vitals/I&O/Wt Last Vital Signs Temp 98.2 F 01/05/24 04:56 Pulse 102 H 01/06/24 12:00 Resp 39 H 01/06/24 12:00 BP 136/86 01/06/24 12:00 Pulse Ox 91 01/06/24 12:00 O2 Del Method Nasal Cannula 01/06/24 12:00 O2 Flow Rate 15 01/06/24 12:00 FiO2 55 01/06/24 08:00 Physical Exam 2 Narrative: General: alert, in respiratory distress, extremely weak HEENT: conj clear, EOMI, PERRL, mmm, Neck: supple, no meningismus Heme: no cervical LAP Respiratory: Inspection: No visible deformity of the chest wall Palpation: Trachea is mildly deviated to the right, bilateral symmetric expansion Percussion: Dullness on right lower lung zone Auscultation: Reduced breath sounds on right lower lung zone Cardiovascular: rrr, nl s1s2, no mrg Abdomen: soft, nt, nd, no r/g, bs+ Extremities: Soft tissue mass right arm, pulses +, no edema, no c/c : no CVA tenderness Skin: intact, no rash MSK: no back or neck pain Neurologic: grossly intact Data 01/05/24 07:55 01/05/24 07:55 Other Labs: Radiology Impressions Chest CTA 01/04/24 12:51 IMPRESSION: 1. No central pulmonary emboli. Beyond the lobar branches the opacification of the arteries is suboptimal due to combination of contrast bolus injection and the airspace disease in the lungs. 2. Large RIGHT pleural effusion and moderate LEFT pleural effusion. RIGHT pleural effusion is new since 12/19/2023. 3. LEFT Pleurx catheter has been inserted since the prior study. The LEFT effusion is smaller. 4. Extensive neoplastic lesions throughout the lungs and pleural metastasis also. Significant progression since 12/18/2013. Chest X-Ray 01/06/24 06:03 IMPRESSION: Stable grossly abnormal chest with extensive metastatic disease. Laboratory Results WBC 14.52 10^3/uL (3.29-11.43) H 01/05/24 07:55 RBC 4.32 10^6/uL (3.85-5.65) 01/05/24 07:55 Hgb 11.50 g/dL (11.27-16.99) 01/05/24 07:55 Hct 37.1 % (37-53) 01/05/24 07:55 MCV 85.9 fl (82-101) 01/05/24 07:55 MCH 26.6 pg (27-33) L 01/05/24 07:55 MCHC 31.0 g/dL (30-55) 01/05/24 07:55 RDW 13.5 % (12.1-15.1) 01/05/24 07:55 Plt Count 348 10^3/cmm (157-399) 01/05/24 07:55 MPV 9.7 fL (7.4-10.4) 01/05/24 07:55 Neut % (Auto) 93.0 % 01/05/24 07:55 Lymph % (Auto) 3.4 % 01/05/24 07:55 [place] % (Auto) 2.8 % 01/05/24 07:55 Eos % (Auto) 0.0 % 01/05/24 07:55 Baso % (Auto) 0.3 % 01/05/24 07:55 Neut # (Auto) 13.49 10^3/uL (1.8-7.7) H 01/05/24 07:55 Lymph # (Auto) 0.5 10^3/uL (0.8-4.8) L 01/05/24 07:55 [place] # (Auto) 0.4 10^3/uL (0.2-0.9) 01/05/24 07:55 Eos # (Auto) 0.0 10^3/uL (0.0-0.8) 01/05/24 07:55 Baso # (Auto) 0.1 10^3/uL (0.0-0.1) 01/05/24 07:55 Nucleated RBC % (auto) 0 % 01/05/24 07:55 Nucleated RBCs # 0.0 /100WBC 01/05/24 07:55 Specimen Type Arterial 01/06/24 06:18 Sample Site Brachial, left 01/06/24 06:18 ABG pH 7.47 (7.35-7.45) H 01/06/24 06:18 ABG pCO2 45.6 mmHg (35-45) H 01/06/24 06:18 ABG pO2 71.5 mmHg (80.0-100.0) L 01/06/24 06:18 ABG PO2/FiO2 Ratio 0 01/06/24 06:18 ABG HCO3 33.0 mmol/L (22-26) H 01/06/24 06:18 ABG O2 Saturation 96.3 01/06/24 06:18 ABG Base Excess 8.3 mmol/L (-2.0-2.0) H 01/06/24 06:18 Darren Test Pos 01/06/24 06:18 A-a O2 Gradient 34.0 mmHg (5-10) H 01/06/24 06:18 Hematocrit 34.7 % (42-52) L 01/06/24 06:18 Hgb O2 Saturation 94.6 % (95-100) L 01/06/24 06:18 Carboxyhemoglobin 1.4 %THgb (0.4-20.1) 01/06/24 06:18 Methemoglobin 0.3 % (0.4-1.5) L 01/06/24 06:18 Total Hemoglobin 11.3 g/dL (14-18) L 01/06/24 06:18 Sodium 138.0 mmol/L (131-143) 01/06/24 06:18 Potassium 4.3 mmol/L (3.5-5.0) 01/06/24 06:18 Glucose 165.0 mg/dL (70-115) H 01/06/24 06:18 Ionized Calcium 1.2 mmol/L (1.1-1.4) 01/06/24 06:18 O2 Delivery Device Bipap 01/06/24 06:18 O2 Liters/Min 8.0 % 01/05/24 04:55 FiO2 55.0 % 01/06/24 06:18 PEEP 8.0 cmH20 01/06/24 06:18 [employer] Service Supervisor ID [email or web address] 01/06/24 06:18 Sodium 133 mmol/L (136-145) L 01/05/24 07:55 Potassium 5.0 mmol/L (3.5-5.1) 01/05/24 07:55 Chloride 95 mmol/L (98-107) L 01/05/24 07:55 Carbon Dioxide 29 mmol/L (22-29) 01/05/24 07:55 Anion Gap 14.0 (5-19) 01/05/24 07:55 BUN 16 mg/dL (6-20) 01/05/24 07:55 Creatinine 0.5 mg/dL (0.7-1.2) L 01/05/24 07:55 GFR Calculation 181.5 mL/min (90-130) H 01/05/24 07:55 Glucose 183 mg/dL (65-115) H 01/05/24 07:55 Calculated Osmolality 282 mOsm/kg (285-295) L 01/05/24 07:55 Calcium 8.3 mg/dL (8.5-10.5) L 01/05/24 07:55 Total Bilirubin 0.5 mg/dL (0.15-1.2) 01/05/24 07:55 AST 16 U/L (0-40) 01/05/24 07:55 ALT 8 U/L (0-41) 01/05/24 07:55 Alkaline Phosphatase 90 U/L (40-130) 01/05/24 07:55 NT-Pro-B Natriuret Pep 491 pg/mL (0-125) H 01/05/24 05:13 Total Protein 7.0 g/dL (6.6-8.7) 01/05/24 07:55 Albumin 2.6 g/dL (3.5-5.2) L 01/05/24 07:55 Globulin 4.4 g/dL (1.3-4.6) 01/05/24 07:55 A&P Assessment and plan (1) Goals of care, counseling/discussion: With underlying metastatic sarcoma-patient has aggressive malignancy-still pending chemotherapy Given his overall deterioration over last 4 weeks--discussion with patient and family about poor prognosis Patient understands his condition and agrees to go to hospitalize. (2) Pleural effusion: Drained right pleural effusion for palliative purposes -obtained 1600 cc hemorrhagic fluid (3) Metastatic sarcoma to lung: Qualifiers: Laterality: unspecified laterality Qualified Code(s): C78.00 - Secondary malignant neoplasm of unspecified lung; C49.9 - Malignant neoplasm of connective and soft tissue, unspecified (4) Bilateral pleural effusion: Right thoracentesis drained 600 cc moderately fluid Patient has left a [place] drain in place (5) Acute hypoxic respiratory failure: Patient going to home hospitalized Consult Attestations 2 Medical Necessity Statement: Patient is going to be discharged to home on home hospice Coding Level of Care Code Acute Code for Chg Fwd Diagnoses Goals of care, counseling/discussion Z71.89 Pleural effusion J90 Metastatic sarcoma to lung C78.00; C49.9 Laterality: unspecified laterality Bilateral pleural effusion J90 Acute hypoxic respiratory failure J96.01 Time Spent (min) 47
--- NOTE | 2024-01-06 13:33 | PM.ACPR ---
Procedure/Consent Time out: Time Out Performed: Yes Consent: Consent for Procedure: Consent obtained from patient, Risks & Benefits reviewed and Agrees to proceed with procedure Procedure Narrative: Pulmonary & Critical Care Medicine Procedure - Ultrasound guided Thoracentesis Procedure: CPT code 28580 thoracentesis, needle or catheter, aspiration of the pleural space; with imaging guidance Indication: Worsening right pleural effusion. 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 He has a left pleural drain and there is not much drainage from it. Patient is currently in the emergency room and arrangements are being made for home hospice. I am going to do therapeutic thoracentesis for palliative purposes. Technique: The study was performed in an ACR accredited facility. Medication reconciliation form reviewed and any changes related this procedure resolved. Report: The procedure for thoracentesis was explained to the patient including the risks, benefits and possible complications. The patient was given the opportunity to ask questions, wished to proceed, and signed the written informed consent form. Using ultrasound guidance, a safe route of access was identified into the right pleural space. The site was then prepped and draped using maximal sterile barrier technique. The 1% lidocaine was used for local anesthetic. With sonographic guidance, a 6 Martiniquais thoracentesis catheter was placed with return of 5 cc hemorrhagic pleural fluid. The catheter was slipped into the pleural cavity and approximately 1600 cc of sanguinous pleural fluid was removed. The patient tolerated the procedure well without any immediate complications. Impression: 1. Successful ultrasound-guided right thoracentesis with removal of approximately 1600 cc sanguinous pleural fluid. ICD-10 code-J90 pleural effusion, not elsewhere classified Acute Procedures Epistaxis Control: Time out performed: Yes
--- NOTE | 2024-01-06 14:00 | PC.NURSE ---
VERBAL ORDERS FROM DR MCLAUGHLIN TO LOWER PT OXYGEN TO 4L NASAL CANNULA DUE TO HOSPICE REQUIREMENTS. DR MCLAUGHLIN NOTIFIED OF OXYGEN SATURATIONS BEING 87-89% ON THE 4L. DR MCLAUGHLIN AWARE AND IS OKAY WITH PT MAINTAINING THIS SATURATION.
== END 2024-01-06 18:24 | disposition home or self-care (01) ==
PROVIDERS: Emergency Medicine; Emergency Provider Family Medicine; PCP Nurse Practitioner
DX: J96.21 Acute and chronic respiratory failure with hypoxia (principal); C78.00 Secondary malignant neoplasm of unspecified lung; J90 Pleural effusion, not elsewhere classified; E78.2 Mixed hyperlipidemia; E11.9 Type 2 diabetes mellitus without complications; I10 Essential (primary) hypertension; F17.210 Nicotine dependence, cigarettes, uncomplicated
CPT/HCPCS: 36415; 36600; 71045; 71275; 80051; 80053; 82330; 82805; 83880; 85025; 93005; 94640; 94660; 96374; 96375; 96376; 99291; J2060; J2270; J2405; J2765; J2919; J7030; J7613; Q9967

== ENCOUNTER 2024-01-07 17:01 | Emergency (ER) | payer OTHER, SELFPAY ==
[2024-01-07 17:09] VITALS: BP 136/82; PULSE 110; RESP 20; TEMP 36.7; O2SAT 86
[2024-01-07 17:15] VITALS: BP 104/66; PULSE 108; O2SAT 83
[2024-01-07 17:39] VITALS: O2SAT 85
--- NOTE | 2024-01-07 17:40 | PC.NURSE ---
Addendum entered by Pattie Batista RN 01/07/24 18:14: needle * Original Note: pt refused IM pain medications. pt very agitated and states I ain't taking no Goddamn need. Dr. Stevens notified.
--- NOTE | 2024-01-07 18:15 | PC.NURSE ---
this nurse spoke with pt's hospice nurse on pt's family member's phone. per hospice nurse, Dr. Simpson stated the pt's best bet was to come to ER due to it being a Wednesday & the pt either needed the drain replaced or fluid drained in order to have more quality time with family . this nurse was at bedside with Dr. Stevens during education of ER visit to family and hospice nurse.
--- NOTE | 2024-01-07 18:27 | PC.NURSE ---
pt ripped off cords connecting to vitals monitor at approx 1720, refusing to keep them on.
[2024-01-07 18:29] VITALS: O2SAT 85
--- NOTE | 2024-01-07 18:30 | W.ED.GENADLT ---
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 We consulted Dr. Cox and Dr. Dasilva his prognosis is very poor he is requiring very high levels of oxygen. Dr. Dasilva done a thoracentesis on his right lung and removed quite a bit of fluid but on his left he has a Lance drain it had very poor fluid return likely because been a long time and was thought that it was likely loculating preventing drainage. We had advised the patient in hospice that he would likely be very short of breath. 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 Recurrent pleural effusion on left Gastroenteritis Respiratory failure Pleural effusion, left Mass of right upper extremity Chronic back pain Mixed hyperlipidemia DDD (degenerative disc disease), lumbar Obesity, Class III, BMI 40-49.9 (morbid obesity) Diabetes mellitus with hyperglycemia, with long-term current use of insulin Metabolic syndrome Essential (primary) hypertension Surgical History History of surgical removal of pilonidal cyst History of nasal surgery Family History Mother Diabetes Hypertension Father Cancer Hypertension Other Hyperlipidemia Social History Smoking and tobacco/nicotine status: current every day tobacco/nicotine user cigarettes Packs smoked per day: 2 Years cigarettes smoked: 29 [ Other cigarette details: Started at age 14] Second hand smoke exposure: No Alcohol intake: never Substance/Drug Use: never Adopted: No Caregiver/support person: No Lives independently: Yes Household members: significant other Housing: House Marital status: Number of children: 2 Highest education level completed: High School Graduate service: No Current occupational status: unemployed Current occupational exposures/hazards: No Pets and animals: Yes Do you think of yourself as: Straight/Heterosexual Current gender identity: Male Physical Exam Narrative: EXAM NARRATIVE: Tachypnea with moderate respiratory distress. Oxygen saturations in the mid 80s. Patient declined further exam. Course Vital Signs: Vital signs: Vital Signs Temperature 98.0 F 01/07/24 17:09 Pulse Rate 108 H 01/07/24 17:15 Respiratory Rate 20 H 01/07/24 17:09 Blood Pressure 104/66 01/07/24 17:15 Pulse Oximetry 85 L 01/07/24 18:29 Oxygen Delivery Me thod Nasal Cannula 01/07/24 17:39 Oxygen Flow Rate 9 01/07/24 17:39 MDM - General Adult Medical Decision Making Unfortunately patient has a very proximal poor prognosis I think he is already rapidly approaching the end of his disease process. We had discussed this with him yesterday as well as with his family. I think he is having a difficult time excepting this. Additionally complicating this is think there was some misunderstanding by the hospice nurse that she was of the understanding that the [place] drain was placed yesterday and was malpositioned or otherwise causing problems. I Discussed with her as well as well as with Dr. Gao's medical records receptionist that the [place] drain has been in for some time and is functioning poorly now because it is becoming clogged in addition we think there is some loculation of the effusions in the lung. Dr. Dasilva was kind enough to come down to the emergency room and reviewed with the patient and his family recommend resuming hospice care. Would not recommend repositioning or replacing the Lance drain or placing 1 in the right lung as it would not change the prognosis of his outcome at this point. Had this discussion with Dr. Gao as well also he was also up-to-date on the patient's current course and condition. We did offer patient both narcotic pain medications and Ativan and offered to do a chest x-ray he refused all of these. I discussed with the ambulance crew that if requested they could give benzodiazepines or pain medication to keep patient comfortable and route back to his home Medical Records I reviewed the patient's medical records. No radiology studies performed this visit Discharge Plan Discharge Patient Disposition: Home Clinical Impression: Sarcoma, Metastasis to lung, Bilateral pleural effusion Condition: Stable Prescriptions: No Action insulin aspart U-100 [Novolog FlexPen U-100 Insulin] 100 unit/mL (3 mL) insulin pen See Rx Instructions SUBCUT TID Qty: 15 2RF Rx Instructions: PER SLIDING SCALE: BG 110-129=3U 130-150=6U 151-200=9U 201-250=12U 251-300=15U 301-350=18U 351-400=21U >400=24U. propranolol 10 mg tablet 10 mg PO BID Qty: 60 2RF Rx Instructions: heart rate and anxiety escitalopram oxalate [Lexapro] 10 mg tablet 10 mg PO DAILY Qty: 30 2RF amlodipine 10 mg tablet 10 mg PO DAILY 30 Days Qty: 30 2RF hydralazine 10 mg tablet 10 mg PO Q12H 30 Days Qty: 60 2RF metformin 500 mg tablet extended release 24 hr 1,000 mg PO DAILY Qty: 60 2RF spironolactone 25 mg tablet 25 mg PO DAILY 30 Days Qty: 30 2RF ondansetron 4 mg tablet,disintegrating 4 mg translingual Q4H PRN (Reason: nausea) Qty: 5 0RF Rx Instructions: Dissolve 1 tablet under tongue every 4 hours PRN for nausea bisacodyl 10 mg suppository 10 mg PA DAILY PRN (Reason: constipation) Qty: 5 0RF Rx Instructions: 1 suppository per rectum every day PRN for constipation. atropine 1 % drops 4 drp sublingual Q4H PRN (Reason: secretions) Qty: 5 0RF Rx Instructions: 4 drops SL q 4 hours PRN for terminal congestion/excessive secretions. lorazepam 2 mg/mL concentrate 2 mg sublingual Q4H PRN (Reason: Anxiety/Seizure) Qty: 30 0RF Rx Instructions: 0.25ml-1ml q4H PRN Anxiety/Seizure Start 0.25ml may increase to 0.5ml-1ml q4H morphine concentrate 100 mg/5 mL (20 mg/mL) solution 20 mg sublingual DIRECTED PRN (Reason: Pain/SOB) 14 Days Qty: 30 0RF Rx Instructions: 0.25ml-1ml q1H PRN may increase to 0.5ml-1ml Q1H PRN oxycodone 5 mg tablet 5 mg PO Q6H PRN (Reason: pain) 30 Days Qty: 120 0RF (DME) glucometer testing kit See Rx Instructions .Route .MEDSUPPLY Qty: 1 0RF Rx Instructions: lancets#100 strips#100 clonidine HCl 0.1 mg tablet 0.1 mg PO BID Colace 100 mg capsule 100 mg PO BID PRN (Reason: Constipation) morphine concentrate 100 mg/5 mL (20 mg/mL) Solution 20 mg sublingual DIRECTED MDD N/A PRN (Reason: Pain/SOB) 14 Days Qty: 30 0RF Rx Instructions: 0.25ml-1ml q1H PRN may increase to 0.5ml-1ml Q1H PRN Dulcolax (bisacodyl) 10 mg Suppository 10 mg PA DAILY PRN (Reason: Constipation) Qty: 5 0RF Rx Instructions: 1 suppository per rectum every day PRN for constipation. atropine 1 % Drops 4 drp sublingual Q4H PRN (Reason: Secretions) Qty: 5 0RF Rx Instructions: 4 drops SL q 4 hours PRN for terminal congestion/excessive secretions. ondansetron 4 mg Tablet,Disintegrating 4 mg translingual Q4H PRN (Reason: Nausea) Qty: 5 0RF Rx Instructions: Dissolve 1 tablet under tongue every 4 hours PRN for nausea lorazepam 2 mg/mL Concentrate 2 mg sublingual Q4H PRN (Reason: Anxiety/Seizure) Qty: 30 0RF Rx Instructions: 0.25ml-1ml q4H PRN Anxiety/Seizure Start 0.25ml may increase to 0.5ml-1ml q4H alprazolam [Xanax] 0.5 mg tablet 0.25 mg PO BID PRN (Reason: anxiety) Qty: 20 0RF oxycodone 5 mg Tablet 5 mg PO Q6H PRN (Reason: pain) Qty: 20 0RF albuterol sulfate 90 mcg/actuation HFA aerosol inhaler 2 inh inhalation Q8H PRN (Reason: shortness of breath or wheezing) Qty: 8.5 4RF Discharge Orders: Discharge ED (Routine); Ordered 01/07/24 Ordered By: Varinder Stevens Referrals: Demario Velarde FNP-C [Primary Care Provider] - Patient Instructions: Opioid Safety, Pain Management Activity Restrictions/Additional Instructions: You were evaluated in the emergency room for your drainage catheter. We recommend readmission to hospice and continuing on comfort care with hospice. 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
== END 2024-01-07 17:45 | disposition home or self-care (01) ==
PROVIDERS: Emergency Provider Family Medicine; PCP Nurse Practitioner
DX: J90 Pleural effusion, not elsewhere classified (principal); C49.9 Malignant neoplasm of connective and soft tissue, unspecified; C78.00 Secondary malignant neoplasm of unspecified lung; Z79.4 Long term (current) use of insulin; Z79.84 Long term (current) use of oral hypoglycemic drugs; R06.82 Tachypnea, not elsewhere classified; F17.210 Nicotine dependence, cigarettes, uncomplicated; E78.2 Mixed hyperlipidemia; E11.9 Type 2 diabetes mellitus without complications; I10 Essential (primary) hypertension
CPT/HCPCS: 99281